=== PATIENT | female | born 1940 | race Caucasian/White ===

== ENCOUNTER 2017-08-23 07:51 | Inpatient (IN) | payer MEDICARE ==
--- NOTE | 2017-08-11 12:52 | HP ---
HISTORY AND PHYSICAL: DATE OF ADMISSION/SURGERY: 08/23/17 SURGEON: Bernie Smith MD * (DICTATED BY REGINA MELGAR) PROCEDURE: Left total knee arthroplasty. CHIEF COMPLAINT: Left knee pain. HISTORY OF PRESENT ILLNESS: Ms. Zuñiga is a 76-year-old female with complaints of left knee pain secondary to end-stage osteoarthritis. She has failed conservative management and elected to proceed with a left total knee arthroplasty, which is scheduled for 08/23/[address] Smith. PAST MEDICAL HISTORY: Hypertension, coronary artery disease, hypothyroidism, chronic kidney disease, anemia, breast cancer, artificial aortic valve and rheumatoid arthritis. PAST SURGICAL HISTORY: Partial thyroidectomy, aortic valve replacement, mastectomy and oophorectomy. CURRENT MEDICATIONS: 1. Plaquenil 200 mg daily. 2. Atenolol 25 mg. 3. Multivitamin. 4. Vitamin D3. 5. Vitamin C. 6. Glucosamine and chondroitin. 7. Amlodipine 5 mg daily. 8. Furosemide 20 mg twice daily. 9. Aspirin 81 mg daily. ALLERGIES: PENICILLIN, SULFAMETHOXAZOLE and AMOXICILLIN. FAMILY HISTORY: Rheumatoid arthritis and . SOCIAL HISTORY: She is a 76-year-old female. Lives with her sons. Does not smoke, use drugs or alcohol. REVIEW OF SYSTEMS: A complete 14-point review of systems was reviewed with the patient, it was positive for COPD, chronic kidney disease, hypothyroidism. She denies history of DVT, PE, anesthesia problems, hepatitis C, or HIV. PHYSICAL EXAMINATION GENERAL: Well developed, well nourished, in no acute distress. VITAL SIGNS: She stands 5 feet tall, weighs 136 pounds. Her blood pressure is 120/86, her heart rate is 60. HEENT: Normocephalic, atraumatic. NECK: Supple. No palpable lymph nodes. PULMONARY: Lungs are clear to auscultation bilaterally. CARDIO: Regular rate and rhythm. Strong S1, S2. ABDOMEN: Soft, nontender, and nondistended. MUSCULOSKELETAL: Left lower extremity, the skin is intact. There are no open wounds or abrasions. She has some tenderness over the medial and lateral joint line. No varus and valgus instability. 20 to 100 degrees of flexion, 50 degrees of valgus deformity. Intact sensation in the lower extremities. Muscle group strengths are intact at 5/5. 2+ dorsalis pedis pulses. NEUROLOGICAL: She is alert and oriented x3. Cranial nerves II through XII are intact. ASSESSMENT AND PLAN: Ms. Zuñiga is a 76-year-old female with complaints of left knee pain secondary to advanced osteoarthritis. She has failed conservative management and elected to proceed with a left total knee arthroplasty, which is scheduled for 08/23/[address] Smith discussed the risks and benefits of the surgery at today's visit and all of her questions were answered. She will follow with Dr. Smith 2 weeks after the surgery. REGINA MELGAR [id number]/CPS #: [id number] AGGIE
[~2017-08-23 07:51] MED LIST: Buffered Lidocaine 0.9% SYRIN* 5 ML/SYR SYRINGE INTRADERM ONE; Clindamycin 900 MG IVPREMIX(* 900 MG/50 ML SDV IV ONE; DiMENhydriNATE IV* 50 MG/ML VIAL IV PUSH PRN; Famotidine IV* 10 MG/ML 2 ML (20 mg) IV ONE; Famotidine IV* 10 MG/ML 2 ML (20 mg) ONE; Morphine INJ* 2 MG/ML 1 ML CARPUJECT IV PRN; Naloxone* 0.4 MG/ML 1 ML VIAL IV PRN; PROCHLORPERAZINE INJ 5 MG/ML 2 ML VIAL IV PRN; fentaNYL* 50 MCG/ML 2 ML VIAL (100 MCG VIAL) IV PRN
--- OUTSIDE RECORDS SUMMARY | 2017-08-23 07:58 | XMS REPORT ---
:1940 External Reference #:[id number] Author Organization [place] [facility] Address [address] [address] Phone [phone] Care Team Providers Name Role Phone Merced Chicas MD Primary Care Physician Unavailable Payers Type Date Identification Numbers Payment Provider Subscriber Medicare Primary Effective: Policy Number: Medicare Maureen Ryanh 2003 [id number] PayID: [id number] [address] [place] [address] [facility] Part B Effective: Policy Number: [facility] Maureen Ryanh 2012 [id number] Healthcare PayID: [id number] [address] [place] [address] Problems Date Description Provider Status Onset: 06/11/2014 Aortic valve disorder Alonso Jacob M.D., Active [facility], [facility] Onset: 07/31/2015 Localized, primary osteoarthritis Tay Menjivar M.D. Active Onset: 12/04/2015 Enthesopathy of knee Tay Menjivar M.D. Active Onset: 02/07/2017 Acquired genu chologum Bernie Smith M.D. Active Family History Date Family Member(s) Problem(s) Comments General Arthritis General Actually her mother had anemia General Rheumatoid Arthritis General Twin brother had rheumatoid arthritis Social History Type Date Description Comments Marital Status Lives With Son Occupation Retired ETOH Use Denies alcohol use Smoking Patient has never smoked Recreational Drug Use Denies Drug Use Daily Caffeine Consumes on average 16oz per day Daily Caffeine Coffee -- Regular Once in a while, diluted w/ water Exercise Type/Frequency Exercises regularly Allergies, Adverse Reactions, Alerts Date Description Reaction Status Severity Comments 05/09/2014 Penicillins Urticaria active 05/09/2014 Sulfamethoxazole Urticaria active 02/07/2017 Amoxicillin active Medications Medication Date Status Form Strength Qnty SIG Indications Ordering Provider Plaquenil 02/17 Active Tablets 200mg 90tab Take 2 by mouth M06.4 s daily ongoing Jigar Ng Atenolol 08/02 Active Tablets 25mg 90tab 10 mg/day Alonso /2011 s Shad Jacob M.D., [facility], [facility] Multivitamins Active Capsules 30cap 1 by mouth Unknown /0000 s every day Vitamin D3 Active Capsules 1000Unit 30cap 1 by mouth Unknown High Potency /0000 s every day Vitamin C Active Chewtabs 500mg 1 by mouth Unknown /0000 every day Glucosamine Active 1 po qd Unknown Chondroitin / Amlodipine Active Tablets 5mg 1 by mouth Unknown Besylate / every day Furosemide Active Tablets 20mg 1 by mouth Unknown /0000 twice daily [facility] B-12 Active Tablets 500mcg Unknown /0000 Aspir-81 Active Tablets 81mg 1 by mouth Unknown /0000 DR every day Clopidogrel Active Tablets 75mg 1 by mouth Unknown Bisulfate /0000 every day Enbrel 04/08 Hx Solution 50mg/ml 4unit inject M06.4 Zsofia cl Auto-Inje s subcutaneously Srinivas, - ct 50mg every P[employer] EXPERT 08/04 weekON Z79.899 Plaquenil 02/17/2017 - Hx Tablets 200mg 30tabs 1 by mouth M11.162 Estevan 02/17/2017 every day Hernandez for 1 week M.DVega then 2 by mouth daily ongoing Diclofenac 01/17/2017 - Hx Solution 1.5% 150units apply to M11.162 Zsofia Sodium 02/02/2017 left knee Srinivas, 2x daily [employer] Plaquenil 11/30/2016 - Hx Tablets 200mg 90tabs 1 by mouth M11.162 Estevan 11/30/2016 every day Jigar Ng Plaquenil 11/30/2016 - Hx Tablets 200mg 30tabs 1 by mouth M11.162 Estevan 12/27/2016 every day Hernandez for 1 week MVegaDVega then 2 by mouth daily ongoing Pravastatin 08/02/2012 - Hx Tablets 80mg 90tabs 1 tablet Alonso Kulkarni Sodium 11/18/2016 once daily Cecil at bedtime SANDY Kimball [facility] Ramipril 08/02/2012 - Hx Capsules 10mg 180caps 1 by mouth Alonso Kulkarni 02/13/2015 twice a day Jigar Jacob, BALJIT DELGADO Lisinopril - Hx Tablets 10mg 1 by mouth Unknown 11/18/2016 every day Ferrous Sulfate - Hx Tablets 325mg 1 by mouth Unknown 01/18/2017 every day Medications Administered in Office Medication Date Status Form Strength Qnty SIG Indications Ordering Provider Triamcinolone 06/08/ Administered Injection Estevan (Kenjacqui) 2016 Jigar Ng Synvisc Or 04/06/ Administered Injection Estevan Synvisc-One 2016 Hernandez Injection 1 MG M.DVega Triamcinolone 02/02/ Administered Injection Estevan (Finnalog) 2016 Jigar Ng Triamcinolone 11/18/ Administered Injection Estevan (Luis A) 2016 Jigar Ng Depomedrol 40MG 07/07/ Administered Injection Tay 2015 Jigar Menjivar Depomedrol 40MG 07/07/ Administered Injection Tay 2015 Jigar Menjivar Depomedrol 40MG 12/03/ Administered Injection Tay 2015 Jigar Menjivar Depomedrol 40MG 07/31/ Administered Injection Tay 2014 Jigar Menjivar Inj, 03/04/ Administered Injection Alonso Kulkarni Regadenoson, 0.1 2014 Cecil, MG Jigar, BALJIT DELGADO Aminophylline 03/04/ Administered Injection Alonso Shad 2014 Jigar Jacob, BALJIT DELGADO Technetium TC 03/04/ Administered Injection Alonso Kulkarni 99M Tetrofosmin, 2015 Cecil, Per Unit Dose Up M.D., [facility] Mill[facility] Vital Signs Date Vital Result Comment 08/05/2017 Height 60 inches 5'0" Weight 136.00 lb Heart Rate 60 /min BP Systolic 120 mmHg BP Diastolic 86 mmHg Body Temperature 97.8 F BMI (Body Mass Index) 26.6 kg/m2 07/25/2017 Height 61 inches 5'1" Weight 137.00 lb Heart Rate 59 /min BP Systolic Sitting 123 mmHg BP Diastolic Sitting 55 mmHg Respiratory Rate 14 /min Pain Level 5 BMI (Body Mass Index) 25.9 kg/m2 07/15/2017 Height 61 inches 5'1" Weight 140.00 lb BP Systolic 124 mmHg BP Diastolic 70 mmHg Respiratory Rate 18 /min Pain Level 6 BMI (Body Mass Index) 26.4 kg/m2 06/08/2017 Height 61 inches 5'1" Weight 137.00 lb pt. states Heart Rate 52 /min BP Systolic Sitting 121 mmHg BP Diastolic Sitting 58 mmHg Respiratory Rate 14 /min Pain Level 4 BMI (Body Mass Index) 25.9 kg/m2 03/10/2017 Height 61 inches 5'1" Heart Rate 80 /min BP Systolic Sitting 162 mmHg BP Diastolic Sitting 80 mmHg Respiratory Rate 14 /min Pain Level 6 02/07/2017 Height 61 inches 5'1" Weight 140.00 lb Heart Rate 60 /min BP Systolic 135 mmHg BP Diastolic 70 mmHg Respiratory Rate 15 /min Body Temperature 98.0 F Pain Level 7 BMI (Body Mass Index) 26.4 kg/m2 02/02/2017 Height 61 inches 5'1" Weight 143.00 lb Heart Rate 64 /min BP Systolic Sitting 129 mmHg BP Diastolic Sitting 75 mmHg Body Temperature 99.1 F Pain Level 7 BMI (Body Mass Index) 27.0 kg/m2 01/17/2017 Height 61 inches 5'1" Weight 141.12 lb Heart Rate 64 /min BP Systolic 150 mmHg BP Diastolic 76 mmHg Pain Level 5 O2 % BldC Oximetry 97 % BMI (Body Mass Index) 26.7 kg/m2 11/30/2016 Height 61 inches 5'1" Weight 137.00 lb Heart Rate 60 /min BP Systolic Sitting 147 mmHg BP Diastolic Sitting 72 mmHg Respiratory Rate 14 /min Body Temperature 99.0 F BMI (Body Mass Index) 25.9 kg/m2 11/18/2016 Height 61 inches 5'1" Weight 140.25 lb Heart Rate 60 /min BP Systolic Sitting 146 mmHg BP Diastolic Sitting 74 mmHg Respiratory Rate 14 /min Body Temperature 97.9 F BMI (Body Mass Index) 26.5 kg/m2 07/07/2016 Height 61 inches 5'1" Respiratory Rate 16 /min Pain Level 5 02/17/2016 Height 61 inches 5'1" Weight 157.00 lb Heart Rate 64 /min BP Systolic Sitting 146 mmHg LA reg cuff BP Diastolic Sitting 84 mmHg LA reg cuff BP Systolic Standing 154 mmHg LA reg cuff BP Diastolic Standing 88 mmHg LA reg cuff Respiratory Rate 16 /min BMI (Body Mass Index) 29.7 kg/m2 Ejection Fraction 55-60% 02/13/16 12/04/2015 Height 61 inches 5'1" Weight 162.00 lb Heart Rate 59 /min BP Systolic 180 mmHg BP Diastolic 80 mmHg BMI (Body Mass Index) 30.6 kg/m2 07/31/2015 Height 61 inches 5'1" Weight 162.00 lb Heart Rate 80 /min BMI (Body Mass Index) 30.6 kg/m2 03/12/2015 Height 60.5 inches 5'0.50" Weight 162.00 lb w/o shoes Heart Rate 58 /min reg BP Systolic Sitting 130 mmHg Lue, reg cuff BP Diastolic Sitting 84 mmHg Lue, reg cuff BP Systolic Standing 136 mmHg Lue BP Diastolic Standing 90 mmHg Lue Respiratory Rate 18 /min BMI (Body Mass Index) 31.1 kg/m2 Ejection Fraction 60-65% as of 03/06/15 echo 06/11/2014 Height 60.5 inches 5'0.50" Weight 165.00 lb with shoes Heart Rate 72 /min BP Systolic Sitting 148 mmHg LA, reg cuff BP Diastolic Sitting 94 mmHg LA, reg cuff BP Systolic Standing 132 mmHg LA BP Diastolic Standing 92 mmHg LA Respiratory Rate 16 /min BMI (Body Mass Index) 31.7 kg/m2 Results Test Date Test Result H/L Range Note Quantiferon Gold TB 04/20/2017 M tuberculosis by Negative Negative 1 Quantiferon TB Ag minus Nil Result 0 IU/mL TB Mitogen minus Nil Result > 10.00 IU/mL TB Nil Result 0.02 IU/mL 2 Body Fluid C&S 04/06/2017 Body Fluid Cult Gram SEE RESULT BELOW 3 , 4 Stain Body Fluid Cell Count 04/06/2017 Body Fluid Source Synovial Fluid 3 Body Fluid Appearance Cloudy 3 Body Fluid Color Yellow 3 Body Fluid Volume 4 mL 3 Body Fluid WBC 61234 /mcL 3, 5 Body Fluid RBC 1099 /mcL 3 Body Fluid Comment (SEE NOTE) 3, 6 Body Fluid Neutrophils 97 % 3 Body Fluid Valencia 3 % 3 Body Fluid Total Cells Counted 100 3 Fluid Reviewed By MD (SEE NOTE) 3, 7 Laboratory test finding 04/06/2017 Gram Stain Smear SEE RESULT BELOW 3 , 8 MRSA/S. aureus Ssti PCR SEE RESULT BELOW 3, 9 Body Fluid C&S 02/02/2017 Body Fluid Cult Gram SEE RESULT BELOW 10, 11 Stain Body Fluid Cell Count 02/02/2017 Body Fluid Source Synovial Fluid 10 Body Fluid Appearance Cloudy 10 Body Fluid Color Yellow 10 Body Fluid Volume 15 mL 10 Body Fluid WBC 65613 /mcL 10, 12 Body Fluid RBC 8659 /mcL 10 Body Fluid Neutrophils 87 % 10 Body Fluid Band 3 % 10 Body Fluid Lymph 3 % 10 Body Fluid Valencia 7 % 10 Body Fluid Total Cells Counted 100 10 Fluid Reviewed By MD (SEE NOTE) 10, 13 Laboratory test finding 02/02/2017 Body Fluid Crystals None Seen 10, 14 CBC Auto Diff 01/24/2017 White Blood Count 6.9 10^3/uL 3.5-10.8 Red Blood Count 3.34 10^6/uL Low 4.0-5.4 Hemoglobin 8.9 g/dL Low 12.0-16.0 Hematocrit 29 % Low 35-47 Mean Corpuscular Volume 85 fL 80-97 Mean Corpuscular Hemoglobin 27 pg 27-31 Mean Corpuscular HGB Conc 31 g/dL 31-36 Red Cell Distribution Width 18 % High 10.5-15 Platelet Count 350 10^3/uL 150-450 Mean Platelet Volume 8 um3 7.4-10.4 Abs Neutrophils 4.9 10^3/uL 1.5-7.7 Abs Lymphocytes 1.2 10^3/uL 1.0-4.8 Abs Monocytes 0.6 10^3/uL 0-0.8 Abs Eosinophils 0.2 10^3/uL 0-0.6 Abs Basophils 0 10^3/uL 0-0.2 Abs Nucleated RBC 0.01 10^3/uL Granulocyte % 70.5 % 38-83 Lymphocyte % 17.6 % Low 25-47 Monocyte % 8.7 % 1-9 Eosinophil % 2.6 % 0-6 Basophil % 0.6 % 0-2 Nucleated Red Blood Cells % 0.1 Inr/Protime 01/24/2017 Inr 1.00 0.89-1.11 Laboratory test finding 01/24/2017 Activated Partial 32.9 seconds 26.0- 36.3 Thrombo Time Basic Metabolic Panel 01/24/2017 Sodium 138 mmol/L 133-145 Potassium 4.1 mmol/L 3.5-5.0 Chloride 107 mmol/L 101-111 Co2 Carbon Dioxide 22 mmol/L 22-32 Anion Gap 9 mmol/L 2-11 Glucose 83 mg/dL 70-100 Blood Urea Nitrogen 37 mg/dL High 6-24 Creatinine 1.94 mg/dL 0.51-0.95 BUN/Creatinine Ratio 19.1 8-20 Calcium 9.1 mg/dL 8.6-10.3 Egfr Non- 25.0 >60 Egfr 32.1 >60 15 Cath Panel 01/19/2017 Activated Partial Thrombo 34.2 seconds 26.0-36.3 Time Basic Metabolic Panel 01/19/2017 Sodium 137 mmol/L 133-145 Potassium 4.2 mmol/L 3.5-5.0 Chloride 104 mmol/L 101-111 Co2 Carbon Dioxide 25 mmol/L 22-32 Anion Gap 8 mmol/L 2-11 Glucose 94 mg/dL 70-100 Blood Urea Nitrogen 31 mg/dL High 6-24 Creatinine 2.01 mg/dL High 0.51-0.95 BUN/Creatinine Ratio 15.4 8-20 Calcium 9.6 mg/dL 8.6-10.3 Egfr Non- 24.0 >60 Egfr 30.8 >60 16 Inr/Protime 01/19/2017 Inr 1.02 0.89-1.11 CBC Auto Diff 01/19/2017 White Blood Count 7.0 10^3/uL 3.5-10.8 Red Blood Count 3.30 10^6/uL Low 4.0-5.4 Hemoglobin 8.8 g/dL Low 12.0-16.0 Hematocrit 28 % Low 35-47 Mean Corpuscular Volume 84 fL 80-97 Mean Corpuscular Hemoglobin 27 pg 27-31 Mean Corpuscular HGB Conc 32 g/dL 31-36 Red Cell Distribution Width 18 % High 10.5-15 Platelet Count 386 10^3/uL 150-450 Mean Platelet Volume 7 um3 Low 7.4-10.4 Abs Neutrophils 5.2 10^3/uL 1.5-7.7 Abs Lymphocytes 1.0 10^3/uL 1.0-4.8 Abs Monocytes 0.5 10^3/uL 0-0.8 Abs Eosinophils 0.2 10^3/uL 0-0.6 Abs Basophils 0 10^3/uL 0-0.2 Abs Nucleated RBC 0.01 10^3/uL Granulocyte % 74.7 % 38-83 Lymphocyte % 15.0 % Low 25-47 Monocyte % 7.0 % 1-9 Eosinophil % 2.8 % 0-6 Basophil % 0.5 % 0-2 Nucleated Red Blood Cells % 0.1 Laboratory test finding 01/18/2017 C Reactive Protein 42.84 mg/L High &lt ; 5.00 17 Basic Metabolic Panel 12/24/2016 Sodium 138 mmol/L 133-145 Potassium 4.3 mmol/L 3.5-5.0 Chloride 104 mmol/L 101-111 Co2 Carbon Dioxide 23 mmol/L 22-32 Anion Gap 11 mmol/L 2-11 Glucose 93 mg/dL 70-100 Blood Urea Nitrogen 40 mg/dL High 6-24 Creatinine 2.12 mg/dL High 0.51-0.95 BUN/Creatinine Ratio 18.9 8-20 Calcium 9.1 mg/dL 8.6-10.3 Egfr Non- 22.5 >60 Egfr 29.0 >60 18 CBC Auto Diff 12/24/2016 White Blood Count 8.0 10^3/uL 3.5-10.8 Red Blood Count 3.45 10^6/uL Low 4.0-5.4 Hemoglobin 9.3 g/dL Low 12.0-16.0 Hematocrit 29 % Low 35-47 Mean Corpuscular Volume 85 fL 80-97 Mean Corpuscular Hemoglobin 27 pg 27-31 Mean Corpuscular HGB Conc 31 g/dL 31-36 Red Cell Distribution Width 19 % High 10.5-15 Platelet Count 423 10^3/uL 150-450 Mean Platelet Volume 8 um3 7.4-10.4 Abs Neutrophils 5.8 10^3/uL 1.5-7.7 Abs Lymphocytes 1.1 10^3/uL 1.0-4.8 Abs Monocytes 0.7 10^3/uL 0-0.8 Abs Eosinophils 0.2 10^3/uL 0-0.6 Abs Basophils 0.1 10^3/uL 0-0.2 Abs Nucleated RBC 0 10^3/uL Granulocyte % 73.2 % 38-83 Lymphocyte % 14.3 % Low 25-47 Monocyte % 9.0 % 1-9 Eosinophil % 2.8 % 0-6 Basophil % 0.7 % 0-2 Nucleated Red Blood Cells % 0 Laboratory test finding 11/29/2016 Vitamin D, 1,25 Dihydroxy 30 pg/mL 18- 78 19 Connective Tissue Panel 11/29/2016 Anti-Nuclear Antibody 1.6 U High 20 Cyclic Citrullinated Peptide <15.6 U 21 Interpretation See Comment 22 Hla B27 11/29/2016 Hla B27 Positive 23 Hla B27 Interp See Comment 24 Protein Electrophoresis 11/29/2016 Total Protein(Pep) 7.0 g/dL 6.3 - 7.9 Albumin 3.0 g/dL 3.4-4.7 Alpha-1 Globulin 0.4 g/dL 0.1-0.3 Alpha-2 Globulin 1.4 g/dL 0.6-1.0 Beta Globulin 0.9 g/dL 0.7-1.2 Gamma Globulin 1.3 g/dL 0.6-1.6 Albumin/Globulin Ratio 0.76 Impression See Comment 25 Laboratory test finding 11/29/2016 Uric Acid 6.7 mg/dL High 2.3-6.6 26 C Reactive Protein 36.88 mg/L High < 5.00 27 Folic Acid (Folate) > 20.00 ng/mL >3.99 28 Vitamin B12 916 pg/mL High 180-914 29 Vitamin D Total 25(Oh) 65.1 ng/mL High 30-50 30 Erythrocyte Sed Rate 111 mm/Hr High 0-40 31 Rheumatoid Factor 84 IU/mL <15 32 Laboratory test finding 11/18/2016 Body Fluid Crystals CPPD(Ca Pyrophos 33, 34 <SEE NOTE> Body Fluid Cell Count 11/18/2016 Body Fluid Source Synovial Fluid 33 Body Fluid Comment (SEE NOTE) 33, 35 Body Fluid Appearance Cloudy 33 Body Fluid Color Yellow 33 Body Fluid Volume 10 mL 33 Body Fluid WBC 18142 /mcL 33, 36 Body Fluid RBC 1247 /mcL 33 Body Fluid Neutrophils 93 % 33 Body Fluid Lymph 4 % 33 Body Fluid Valencia 3 % 33 Body Fluid Total Cells Counted 100 33 Fluid Reviewed By MD (SEE NOTE) 33, 37 Body Fluid C&S 11/18/2016 Body Fluid Cult Gram SEE RESULT BELOW 33, 38 Stain FLP/Alt Panel 07/29/2015 Alt (SGPT) 10 U/L 7-52 Lipid Profile 07/29/2015 Triglycerides 95 mg/dL 39 (Trig/Chol/HDL) Cholesterol 172 mg/dL 40 HDL Cholesterol 54.6 mg/dL 41 LDL Cholesterol 98 mg/dL 42 Basic Metabolic Panel 04/02/2014 Sodium 140 mmol/L 133-145 43 Potassium 4.4 mmol/L 3.7-5.6 43 Chloride 108 mmol/L 101-111 43 Co2 Carbon Dioxide 26 mmol/L 22-32 43 Anion Gap 6 mmol/L 2-11 43 Glucose 85 mg/dL 70-100 43 Blood Urea Nitrogen 30 mg/dL High 6-24 43 Creatinine 1.46 mg/dL High 0.51-0.95 43 BUN/Creatinine Ratio 20.5 High 8-20 43 Calcium 9.2 mg/dL 8.6-10.3 43 Egfr Non- 34.9 >60 43 Egfr 44.9 >60 43, 44 FLP/Alt Panel 04/02/2014 Alt 11 U/L 7-52 43, 45 Lipid Profile (Trig/Chol/HDL) 04/02/2014 Triglycerides 90 mg/dL 43, 46 Cholesterol 182 mg/dL 43, 47 HDL Cholesterol 57.3 mg/dL 43, 48 LDL Cholesterol 107 mg/dL 43, 49 1 No interferon-gamma response to M. tuberculosis antigens was detected. Infection with M. tuberculosis is unlikely. A negative result alone does not exclude infection with M. tuberculosis. For detailed information regarding test interpretation see: [email or web address] 2 Test Performed by: [address] [address] 3 [id number] SEE RESULT BELOW Name: MAUREEN HARO : [address]: Estevan Ng MD Acct: [id number] Unit: [id number] AGE: 76 Location: [facility] Re04/06/17 SEX: F Status: REG REF SPEC: [id number] SUNITA: 04/06/17-[address]: Estevan Ng MD REQ: [id number] RECD: 04/06/17 STATUS: COMP _ SOURCE: [facility]: ORDERED: BF Dana/GS COMMENTS: Corrected result read back to Liz Carbajal at 1400 on 04/07/17 Zach LEYVA Results read back accurately. [id number] Procedure Result Reported Site Body Fluid Gram Stain Final 04/07/17- 0838 ML 4+ Neutrophils No Organisms Seen Preparation By Cytospin Smear Corrected result! Wrong result was 1+ GRAM POSITIVE COCCI Body Fluid Culture Final 04/10/17- 0831 ML No Growth Day 4 * ML - MAIN LAB ([facility]) . END OF REPORT * ML=Testing performed at Main Lab DEPARTMENT OF PATHOLOGY, [address] [place] [address] Miguel Ángel Myrick M.D. Director [facility] # [id number] 5 -- REFERENCE VALUE -- Synovial: <150/mcL Peritoneal: <500/mcL Pleural: <500/mcL Pericardial: <500/mcL 6 Differential performed on concentrated smear. 7 Marked acute inflammation. Recommend correlation with microbiology culture studies. Reviewed by Jaylene Michaels MD 8 SEE RESULT BELOW Name: MAUREEN HARO : [address]: Estevan Ng MD Acct: [id number] Unit: [id number] AGE: 76 Location: [facility] Re04/06/17 SEX: F Status: REG REF SPEC: [id number] SUNITA: 04/06/17-[address] [facility] [address]: Estevan Ng MD REQ: [id number] RECD: 04/06/17 STATUS: RES _ SOURCE: BODY FLUID SPDESC: ORDERED: Gram Stain COMMENTS: [id number] Procedure Result Reported Site Gram Stain Preliminary 04/06/172137 ML 4+ Neutrophils 1+ Gram Positive Cocci * ML - MAIN LAB ([facility]) . END OF REPORT * ML=Testing performed at Main Lab DEPARTMENT OF PATHOLOGY, [address] [place] [address] Miguel Ángel Myrick M.D. Director [facility] # [id number] 9 SEE RESULT BELOW Name: MAUREEN HARO : [address]: Estevan Ng MD Acct: [id number] Unit: [id number] AGE: 76 Location: [facility] Re04/06/17 SEX: F Status: REG REF SPEC: [id number] SUNITA: 04/06/17-14[address] [facility] [address]: Estevan Ng MD REQ: [id number] RECD: 04/06/17 STATUS: COMP _ SOURCE: BODY FLUID SPDESC: ORDERED: MRSA/SA SSTI COMMENTS: [id number] Procedure Result Reported Site MRSA/S. aureus SSTI PCR Final 04/06/17- 2253 ML Organism 1 MRSA NEGATIVE Organism 2 S.AUREUS NEGATIVE * ML - MAIN LAB ([facility]) . END OF REPORT * ML=Testing performed at Main Lab DEPARTMENT OF PATHOLOGY, [address] [place] [address] Miguel Ángel Myrick M.D. Director [facility] # [id number] 10 [id number] 11 SEE RESULT BELOW Name: MAUREEN HARO : [address]: Lucas Espino NP Acct: [id number] Unit: [id number] AGE: 76 Location: [facility] Re02/02/17 SEX: F Status: REG REF SPEC: [id number] SUNITA: 02/02/17-[address] [facility] [address]: Lucas Espino NP REQ: [id number] RECD: 02/02/17 STATUS: COMP _ SOURCE: JOINT FLUI SPDESC: ORDERED: BF Cult/GS, MRSA/SA SSTI COMMENTS: [id number] Procedure Result Reported Site Body Fluid Gram Stain Final 02/03/17- 0850 ML 4+ Neutrophils 2+ Nucleated Cells No Organisms Seen Preparation By Cytospin Smear Body Fluid Culture Final 02/06/17- 0816 ML No Growth Day 4 MRSA/S. aureus SSTI PCR Final 02/03/17- 1012 ML Organism 1 MRSA NEGATIVE Organism 2 S.AUREUS NEGATIVE * ML - MAIN LAB ([facility]) . END OF REPORT * ML=Testing performed at Main Lab DEPARTMENT OF PATHOLOGY, [address] [place] [address] Miguel Ángel Myrick M.D. Director [facility] # [id number] 12 -- REFERENCE VALUE -- Synovial: <150/mcL Peritoneal: <500/mcL Pleural: <500/mcL Pericardial: <500/mcL 13 Acute inflammation present. Recommend correlation with microbiology culture studies. Reviewed by Dr. Myrick 14 [id number] What is the body fluid source?: Synovial (Joint) Fluid 15 Because ethnic data is not always readily available, this report includes an eGFR for both -Americans and non- Americans. The National Kidney Disease Education Program (NKDEP) does not endorse the use of the MDRD equation for patients that are not between the ages of 18 and 70, are , have extremes of body size, muscle mass, or nutritional status, or are non- or non-. According to the National Kidney Foundation, irrespective of diagnosis, the stage of the disease is based on the level of kidney function: Stage Description GFR(mL/min/1.73 m(2)) 1 Kidney damage with normal or decreased GFR 90 2 Kidney damage with mild decrease in GFR 60-89 3 Moderate decrease in GFR 30-59 4 Severe decrease in GFR 15-29 5 Kidney failure <15 (or dialysis) 16 Because ethnic data is not always readily available, this report includes an eGFR for both -Americans and non- Americans. The National Kidney Disease Education Program (NKDEP) does not endorse the use of the MDRD equation for patients that are not between the ages of 18 and 70, are , have extremes of body size, muscle mass, or nutritional status, or are non- or non-. According to the National Kidney Foundation, irrespective of diagnosis, the stage of the disease is based on the level of kidney function: Stage Description GFR(mL/min/1.73 m(2)) 1 Kidney damage with normal or decreased GFR 90 2 Kidney damage with mild decrease in GFR 60-89 3 Moderate decrease in GFR 30-59 4 Severe decrease in GFR 15-29 5 Kidney failure <15 (or dialysis) 17 Acute inflammation: >10.00 18 Because ethnic data is not always readily available, this report includes an eGFR for both -Americans and non- Americans. The National Kidney Disease Education Program (NKDEP) does not endorse the use of the MDRD equation for patients that are not between the ages of 18 and 70, are , have extremes of body size, muscle mass, or nutritional status, or are non- or non-. According to the National Kidney Foundation, irrespective of diagnosis, the stage of the disease is based on the level of kidney function: Stage Description GFR(mL/min/1.73 m(2)) 1 Kidney damage with normal or decreased GFR 90 2 Kidney damage with mild decrease in GFR 60-89 3 Moderate decrease in GFR 30-59 4 Severe decrease in GFR 15-29 5 Kidney failure <15 (or dialysis) 19 ADDITIONAL INFORMATION This test was developed and its performance characteristics determined by [facility] in a manner consistent with CLIA requirements. This test has not been cleared or approved by the U.S. Food and Drug Administration. Test Performed by: [facility] [address] [place] [address] 20 Interpretation: Weak Positive (1.1-2.9) REFERENCE VALUE <=1.0 (Negative) 21 REFERENCE VALUE <20.0 (Negative) 22 Tests for antibodies to dsDNA and DENYS antigens are not performed automatically unless the SERA result is > or= 3.0 U. Studies performed at [facility] indicate that positive SERA results <3.0 U are rarely accompanied by positive second order tests. Test Performed by: [facility] [address] [place] [address] 23 REFERENCE VALUE Not Applicable 24 HLA-B27 antigen was detected. Approximately 8% of the normal population carries the HLA-B27 antigen. HLA-B27 is present in approximately 89% of patients with ankylosing spondylitis, 79% of patients with Rhea's syndrome and 42% of patients with juvenile rheumatoid arthritis. However, lacking other data, it is not diagnostic for these disorders. This test does not differentiate B27 alleles. i.e. B*27:05, B*27:06, etc. ADDITIONAL INFORMATION Method: Flow Cytometry Performing Laboratory CLIA# [id number] Test Performed by: [place] [address] 25 RESULT: No apparent monoclonal protein on serum electrophoresis. Test Performed by: [place] [address] 26 Please check this week Acute inflammation: >10.00 28 Please check this week 29 Normal Range 180 to 914 Indeterminate Range 145 to 180 Deficient Range <145 30 Please check this week 31 Please check this week 32 Test Performed by: [place] [address] 33 [id number] 34 CPPD(Ca Pyrophosate) Reviewed by Jaylene Michaels MD 35 Differential performed on concentrated smear. 36 -- REFERENCE VALUE -- Synovial: <150/mcL Peritoneal: <500/mcL Pleural: <500/mcL Pericardial: <500/mcL 37 Acute inflammation. Recommend correlation with microbiology culture studies. Reviewed by Jaylene Michaels MD 38 SEE RESULT BELOW Name: MAUREEN HARO : [address]: Estevan Ng MD Acct: [id number] Unit: [id number] AGE: 76 Location: [facility] Re11/18/16 SEX: F Status: REG REF SPEC: [id number] SUNITA: 11/18/16-[address] [facility] [address]: Estevan Ng MD REQ: [id number] RECD: 11/18/16 STATUS: COMP _ SOURCE: JOINT FLUI SPDESC: ORDERED: BF Cult/GS, MRSA/SA SSTI COMMENTS: [id number] Procedure Result Reported Site Body Fluid Gram Stain Final 11/19/16- 0744 ML 4+ Neutrophils No Organisms Seen Preparation By Cytospin Smear Body Fluid Culture Final 11/22/16- 1147 ML No Growth Day 4 MRSA/S. aureus SSTI PCR Final 11/18/16- 2214 ML Organism 1 MRSA NEGATIVE Organism 2 S.AUREUS NEGATIVE * ML - MAIN LAB ([facility]) . END OF REPORT * ML=Testing performed at Main Lab DEPARTMENT OF PATHOLOGY, [address] [place] [address] Miguel Ángel Myrick M.D. Director [facility] # [id number] 39 Desirable <150 Borderline high 150-199 High 200-499 Very High >500 40 Desirable <200 Borderline high 200-239 High >239 41 Low <40 Desirable: 40-60 High: >60 42 Desirable: <100 mg/dL Near Optimal: 100-129 mg/dL Borderline High: 130-159 mg/dL High: 160-189 mg/dL Very High: >189 mg/dL 43 FASTING 44 Because ethnic data is not always readily available, this report includes an eGFR for both -Americans and non- Americans. The National Kidney Disease Education Program (NKDEP) does not endorse the use of the MDRD equation for patients that are not between the ages of 18 and 70, are , have extremes of body size, muscle mass, or nutritional status, or are non- or non-. According to the National Kidney Foundation, irrespective of diagnosis, the stage of the disease is based on the level of kidney function: Stage Description GFR(mL/min/1.73 m(2)) 1 Kidney damage with normal or decreased GFR 90 2 Kidney damage with mild decrease in GFR 60-89 3 Moderate decrease in GFR 30-59 4 Severe decrease in GFR 15-29 5 Kidney failure <15 (or dialysis) 45 FASTING 46 Desirable <150 Borderline high 150-199 High 200-499 Very High >500 47 Desirable <200 Borderline high 200-239 High >239 48 Low <40 Desirable: 40-60 High: >60 49 Desirable <100 Near Optimal 100-129 Borderline high 130-159 High 160-189 Very High >189 Procedures Date CPT Code Description Status 06/08/2017 Inject/Drain Joint/Bursa Major Completed 04/06/2017 Inject/Drain Joint/Bursa Major Completed 02/02/2017 Inject/Drain Joint/Bursa Major Completed 01/20/2017 82868 Cath PLMT&NJX L Ventriculog Img S&I Completed 11/18/2016 Inject/Drain Joint/Bursa Major Completed 07/07/2016 Inject/Drain Joint/Bursa Major Completed 07/07/2016 14969 Inject/Drain Joint/Bursa Major Completed 02/17/2016 54610 EKG Tracing & Interpretation Completed 02/13/2016 56671 ECHO Transthoracic, Real-Time 2D With Doppler And Color Completed Flow 12/04/201518676 Inject/Drain Joint/Bursa Major Completed 07/31/2015 Inject/Drain Joint/Bursa Major Completed 03/06/2015 94510 ECHO Transthoracic, Real-Time 2D With Doppler And Color Completed Flow 03/04/2015 21102 Stress Test Completed 03/04/2015 99545 Myocardial Perfusion Imaging Tomographic (Spect) Completed Multiple Studies 06/11/2014 67398 EKG Tracing & Interpretation Completed 04/10/2014 26373 ECHO Transthoracic, Real-Time 2D With Doppler And Color Completed Flow 02/26/2013 62456 EKG Tracing & Interpretation Completed 02/16/2013 81114 ECHO Transthoracic, Real-Time 2D With Doppler And Color Completed Flow Encounters Type Date Location Provider CPT E/M Dx Office Visit 07/25/2017 [facility] IDALIA Randolph 625[address] M06.4 [facility]12 Z79.899 Office Visit 07/15/2017 2:30p [facility] Of Bernie Smith M.D. 29198 M17.12 C.M.A. M25.462 M25.562 M06.4 R79.82 M05.79 M21.062 Office Visit 06/08/2017 1:00p Rheumatology Services Estevan Ng 12910 M17.12 Of [facility] Jigar M05.79 Z79.899 R79.82 M17.9 Office Visit 04/27/2017 1:00p Rheumatology Services Nurse Visit 65350 M06.4 Of [facility] Office Visit 04/06/2017 2:20p Rheumatology Services Estevan Ng 26267 M25.462 Of Saw Kimball M17.12 M06.4 Z79.899 Office Visit 03/10/2017 1:40p Rheumatology Services Of Estevan Ng 62169 M06.4 Saw Kimball M17.12 M25.462 R79.82 Z79.899 Office Visit 02/07/2017 9:30a [facility] Of Bernie Smith M.D. 19849 M25.562 C.M.A. M25.462 M17.12 M21.062 Office Visit 02/02/2017 4:00p Rheumatology Services Of Estevan Ng, 63235 M17.9 Saw M.DVega M06.4 M25.562 M25.462 Office Visit 01/17/2017 2:00p Rheumatology Services Of Lucas Espino, [facility] [address]997 M06.4 Saw-Gegedelia M11.162 R76.8 R79.82 R70.0 N18.4 Z79.899 I97.2 Office Visit 11/30/2016 1:40p Rheumatology Services Estevan Ng, 71054 M11.162 Of Saw Kimball M17.12 M06.4 M85.89 Z79.899 Office Visit 11/18/2016 11:00a Rheumatology Services Estevan Ng, 90080 M17.12 Of Saw Kimball M06.4 R20.8 M85.89 M54.6 M25.562 Office Visit 07/07/2016 3:45p Orthopedic Services Of Tay Menjivar, 64422 M17.12 C.M.AVega MMaria G M19.012 Office Visit 02/17/2016 2:45p [facility] Of Alonso Jacob, 86747 I35.0 Saw Kimball, SANDY, [facility] Office Visit 12/04/2015 1:45p [facility] Of Tay Menjivar, 57772 M17.12 C.M.A. MMaria G M70.52 Office Visit 07/31/2015 10:30a [facility] Of Tay Menjivar, 78800 M17.12 C.M.A. MMaria G Office Visit 03/12/2015 10:45a [facility] Of Alonsotoni Jacob, 54975 424.1 Saw Kimball, SANDY, [facility] Office Visit 06/11/2014 1:30p [facility] Of Alonso Shad Jacob, 14194 424.1 Saw Kimball, S[place]Y, [facility] Office Visit 02/26/2013 11:45a [facility] Of Alonso Shad Jacob, 54684 424.1 Saw Kimball, FAC, [facility] Plan of Care Future Appointment(s):09/26/2017 1:30 pm - IDALIA Randolph at [facility]umatology Services Of [facility]08/23/2017 9:30 am - Bernie Smith M.D. at [facility] Of [facility]09/02/2017 2:00 pm - Bernie Smith M.D. at [facility] Of [facility]
--- OUTSIDE RECORDS SUMMARY | 2017-08-23 07:59 | XMS REPORT ---
:1940 External Reference #:[id number] Author Organization [employer] Address [address] [address] Phone [phone] Care Team Providers Name Role Phone Merced Chicas MD Primary Care Physician Unavailable Payers Type Date Identification Numbers Payment Provider Subscriber Medicare Primary Effective: Policy Number: Medicare Maureen Ryanh 2003 [id number] PayID: [id number] [address] [place] [address] [facility] Part B Effective: Policy Number: [facility] Maureen Ryanh 2012 [id number] Healthcare PayID: [id number] [address] [place] [address] Problems Date Description Provider Status Onset: 06/11/2014 Aortic valve disorder Alonso Jacob M.D., Active [facility], [facility] Onset: 07/31/2015 Localized, primary osteoarthritis Tay [...] Form Strength Qnty SIG Indications Ordering Provider Enbrel 04/08/ Active Solution 50mg/ml 4unit inject M06.4 Zsofia Sureclick 2017 Auto-Injec s subcutaneously Srinivas, t 50mg every THERAPY TEACHER weekON Hold Z79.899 Plaquenil 02/17/2017 Active Tablets 200mg 90tabs Take 2 by M06.4 Estevan mouth Hernandez, daily M.D. ongoing Atenolol 08/02/2012 Active Tablets 25mg 90tabs 10 mg/day Alonso Jacob M.D., [facility], [facility] Multivitamins Active Capsules 30caps 1 by Unknown mouth every day Vitamin D3 High Active Capsules 1000Uni 30caps 1 by Unknown Potency t mouth every day Vitamin C Active Chewtabs 500mg 1 by Unknown mouth every day Glucosamine Active 1 po qd Unknown Chondroitin Amlodipine Active Tablets 5mg 1 by Unknown Besylate mouth every day Furosemide Active Tablets 20mg 1 by Unknown mouth twice daily [facility] B-12 Active Tablets 500mcg Unknown Aspir-[address] 81mg 1 by Unknown mouth every day Clopidogrel Active Tablets 75mg 1 by Unknown Bisulfate mouth every day Plaquenil 02/17/2017 - Hx Tablets 200mg 30tabs 1 by M11.162 Estevan 02/17/2017 mouth Hernandez, every day M.D. for 1 week then 2 by mouth daily ongoing Diclofenac 01/17/2017 - Hx Solution 1.5% 150units apply to M11.162 Zsofia Sodium 02/02/2017 left knee Srinivas, 2x daily THERAPY TEACHER Plaquenil 11/30/2016 - Hx Tablets 200mg 90tabs 1 by M11.162 Estevan 11/30/2016 mouth Hernandez, every day M.D. Plaquenil 11/30/2016 - Hx Tablets 200mg 30tabs 1 by M11.162 Estevan 12/27/2016 mouth Hernandez, every day M.DVega for 1 week then 2 by mouth daily ongoing Pravastatin 08/02/2012 - Hx Tablets 80mg 90tabs 1 tablet Alonso Sodium 11/18/2016 once Kulkarni daily at [facility], bedtime [facility] Kimball [facility] Ramipril 08/02/2012 - Hx Capsules 10mg 180caps 1 by Alonso 02/13/2015 mouth Kulkarni twice a Jacob, day SANDY Kimball [facility] Lisinopril - Hx Tablets 10mg 1 by Unknown 11/18/2016 mouth every day Ferrous Sulfate - Hx Tablets 325mg 1 by Unknown 01/18/2017 mouth every day Medications Administered in Office Medication Date Status Form Strength Qnty SIG Indications Ordering Provider Triamcinolone 06/08/ Administered Injection Estevan (Luis A) 2016 Jigar Ng Synvisc Or 04/06/ Administered Injection Estevan Synvisc-One 2016 Andreina Ng 1 MG M.DVega Triamcinolone 02/02/ Administered Injection Estevan (Luis A) 2016 Jigar Ng Triamcinolone 11/18/ Administered Injection Estevan White) 2016 Jigar Ng Depomedrol 40MG 07/07/ Administered Injection Tay 2015 Jigar Menjivar Depomedrol 40MG 07/07/ Administered Injection Tay 2015 Jigar Menjivar Depomedrol 40MG 12/03/ Administered Injection Tay 2015 Jigar Menjivar Depomedrol 40MG 07/31/ Administered Injection Tay 2014 Jigar Menjivar Inj, 03/04/ Administered Injection Alonso Kulkarni Regadenoson, 0.1 2014 Cecil MG Jigar, [facility] [facility] Aminophylline 03/04/ Administered Injection Alonso Shad 2014 Jigar Jacob, [facility] Technetium TC 03/04/ Administered Injection Alonso Kulkarni 99M Tetrofosmin, 2014 Cecil, Per Unit Dose Up M.D., To 40 [facility], Millicuries [facility] Vital Signs Date Vital Result Comment 07/25/2017 Height 61 inches 5'1" Weight 137.00 [...] Volume 4 mL 3 Body Fluid WBC 55400 /mcL 3, 5 Body Fluid RBC 1099 /mcL 3 Body Fluid Comment (SEE NOTE) 3, 6 Body Fluid Neutrophils 97 % 3 Body Fluid Craighead 3 % 3 Body Fluid Total Cells Counted 100 3 Fluid Reviewed By MD (SEE NOTE) 3, 7 Laboratory test finding 04/06/2017 Gram Stain Smear SEE RESULT BELOW 3 , 8 MRSA/S. aureus Ssti PCR SEE RESULT BELOW 3, 9 Laboratory test finding 02/02/2017 Body Fluid Crystals None Seen 10, 11 Body Fluid Cell Count 02/02/2017 Body Fluid Source Synovial Fluid 10 Body Fluid Appearance Cloudy 10 Body Fluid Color Yellow 10 Body Fluid Volume 15 mL 10 Body Fluid WBC 58434 /mcL 10, 12 Body Fluid RBC 8659 /mcL 10 Body Fluid Neutrophils 87 % 10 Body Fluid Band 3 % 10 Body Fluid Lymph 3 % 10 Body Fluid Craighead 7 % 10 Body Fluid Total Cells Counted 100 10 Fluid Reviewed By MD (SEE NOTE) 10, 13 Body Fluid C&S 02/02/2017 Body Fluid Cult SEE RESULT BELOW 10, 14 Gram Stain Inr/Protime 01/24/2017 Inr 1.00 0.89-1.11 Laboratory test 01/24/2017 Activated Partial 32.9 seconds 26.0-36.3 finding Thrombo Time Basic Metabolic 01/24/2017 Sodium 138 mmol/L 133-145 Panel Potassium 4.1 mmol/L 3.5-5.0 Chloride 107 mmol/L 101-111 Co2 Carbon Dioxide 22 mmol/L 22-32 Anion Gap 9 mmol/L 2-11 Glucose 83 mg/dL 70-100 Blood Urea Nitrogen 37 mg/dL High 6-24 Creatinine 1.94 mg/dL 0.51-0.95 BUN/Creatinine Ratio 19.1 8-20 Calcium 9.1 mg/dL 8.6-10.3 Egfr Non- 25.0 >60 Egfr 32.1 >60 15 CBC Auto Diff 01/24/2017 White Blood Count [...] 0-2 Nucleated Red Blood Cells % 0.1 Basic Metabolic Panel 01/19/2017 Sodium 137 mmol/L [...] 0-2 Nucleated Red Blood Cells % 0.1 Cath Panel 01/19/2017 Activated Partial 34.2 seconds 26.0-36.3 Thrombo Time Laboratory test 01/18/2017 C Reactive Protein 42.84 mg/L High < 5.00 17 finding Basic Metabolic Panel 12/24/2016 Sodium 138 mmol/L [...] Volume 10 mL 33 Body Fluid WBC 77222 /mcL 33, 36 Body Fluid RBC 1247 /mcL 33 Body Fluid Neutrophils 93 % 33 Body Fluid Lymph 4 % 33 Body Fluid Craighead 3 % 33 Body Fluid Total Cells [...] For detailed information regarding test interpretation see: [email or web address] 2 Test Performed by: [address] [address] 3 [id number] 4 SEE RESULT BELOW Name: MAUREEN ZUÑIGA : [address]: Estevan Ng MD Acct: [id number] Unit: [id number] AGE: 76 Location: [facility] Re04/06/17 SEX: F Status: REG REF SPEC: [id number] SUNITA: 04/06/17-[address] [facility] [address]: Estevan Ng MD REQ: [id number] RECD: 04/06/17 STATUS: COMP _ SOURCE: JOINT FLUI SPDESC: ORDERED: BF Cult/GS COMMENTS: Corrected result read back to Liz Carbajal at 1400 on 04/07/17 Zach LEYVA Results read back accurately. [id number] Procedure Result Reported Site Body Fluid Gram Stain Final 04/07/17- 0838 ML 4+ Neutrophils No Organisms Seen Preparation By Cytospin Smear Corrected result! Wrong result was 1+ GRAM POSITIVE COCCI Body Fluid Culture Final 04/10/17- 0831 ML No Growth Day 4 * ML - MAIN LAB ([facility]) . END OF REPORT * ML=Testing performed at Main Lab DEPARTMENT OF PATHOLOGY, [address] [place] [address] Miguel Ángel Myrick M.D. Director [facility] # [id number] 5 -- REFERENCE VALUE -- Synovial: <150/mcL Peritoneal: <500/mcL Pleural: <500/mcL Pericardial: <500/mcL 6 Differential performed on concentrated smear. 7 Marked acute inflammation. Recommend correlation with microbiology culture studies. Reviewed by Jaylene Michaels MD 8 SEE RESULT BELOW Name: MAUREEN ZUÑIGA : [address]: Estevan Ng MD Acct: [id number] Unit: [id number] AGE: 76 Location: [facility] Re04/06/17 SEX: F Status: REG REF SPEC: [id number] SUNITA: 04/06/17-[address]: Estevan Ng MD REQ: [id number] RECD: 04/06/17 STATUS: RES _ SOURCE: BODY FLUID SPDESC: ORDERED: Gram Stain COMMENTS: [id number] Procedure Result Reported Site Gram Stain Preliminary 04/06/17- 2137 ML 4+ Neutrophils 1+ Gram Positive Cocci * ML - MA[facility] LAB ([facility]) . END OF REPORT * ML=Testing performed at Main Lab DEPARTMENT OF PATHOLOGY, [address] [place] [address] Miguel Ángel Myrick M.D. Director [facility] # [id number] 9 SEE RESULT BELOW Name: MAUREEN ZUÑIGA : [address]: Estevan Ng MD Acct: [id number] Unit: [id number] AGE: 76 Location: [facility] Re04/06/17 SEX: F Status: REG REF SPEC: [id number] SUNITA: 04/06/17-[address]: Estevan Ng MD REQ: [id number] RECD: 04/06/17 STATUS: COMP _ SOURCE: BODY FLUID SPDES: ORDERED: MRSA/SA SSTI COMMENTS: [id number] Procedure Result Reported Site MRSA/S. aureus SSTI PCR Final 04/06/17- 2253 ML Organism 1 MRSA NEGATIVE Organism 2 S.AUREUS NEGATIVE * ML - MAIN LAB ([facility]) . END OF REPORT * ML=Testing performed at Main Lab DEPARTMENT OF PATHOLOGY, [address] [place] [address] Miguel Ángel Myrick M.D. Director [facility] # [id number] What is the body fluid source?: Synovial (Joint) Fluid 12 -- REFERENCE VALUE -- Synovial: <150/mcL Peritoneal: <500/mcL Pleural: <500/mcL Pericardial: <500/mcL 13 Acute inflammation present. Recommend correlation with microbiology culture studies. Reviewed by Dr. Myrick 14 SEE RESULT BELOW Name: MAUREEN ZUÑIGA : [address]: Lucas Espino NP Acct: [id number] Unit: [id number] AGE: 76 Location: [facility] Re02/02/17 SEX: F Status: REG REF SPEC: [id number] SUNITA: 02/02/17-[address] [facility] [address]: Lucas Espino NP REQ: [id number] RECD: 02/02/17 STATUS: COMP _ SOURCE: JOINT FLUI SPDESC: ORDERED: BF Cult/GS, MRSA/SA SSTI COMMENTS: [id number] Procedure Result Reported Site Body Fluid Gram Stain Final 02/03/17- 0850 ML 4+ Neutrophils 2+ Nucleated Cells No Organisms Seen Preparation By Cytospin Smear Body Fluid Culture Final 02/06/17- 0816 ML No Growth Day 4 MRSA/S. aureus SSTI PCR Final 02/03/17- 1012 ML Organism 1 MRSA NEGATIVE Organism 2 S.AUREUS NEGATIVE * ML - MAIN LAB ([facility]) . END OF REPORT * ML=Testing performed at Main Lab DEPARTMENT OF PATHOLOGY, [address] [place] [address] Miguel Ángel Myrick M.D. Director [facility] # [id number] 15 Because ethnic data is not always [...] developed and its performance characteristics determined by [facility] in a manner consistent with CLIA requirements. This test has not been cleared or approved by the U.S. Food and Drug Administration. Test Performed by: [facility] - [address] [address] 20 Interpretation: Weak Positive (1.1-2.9) REFERENCE VALUE <=1.0 (Negative) 21 REFERENCE VALUE <20.0 (Negative) 22 Tests for antibodies to dsDNA and DENYS antigens are not performed automatically unless the SERA result is > or= 3.0 U. Studies performed at [facility] indicate that positive SERA results <3.0 U are rarely accompanied by positive second order tests. Test Performed by: [facility] - [address] [address] 23 REFERENCE VALUE Not Applicable 24 HLA-B27 [...] INFORMATION Method: Flow Cytometry Performing Laboratory CLIA# [id number] Test Performed by: [facility] - [place] [id number] RESULT: No apparent monoclonal protein on serum electrophoresis. Test Performed by: [facility] [address] [place] [address] 26 Please check this week 27 Acute inflammation: >10.00 28 Please check this week 29 Normal Range 180 to 914 Indeterminate Range 145 to 180 Deficient Range <145 30 Please check this week 31 Please check this week 32 Test Performed by: [facility] [address] [place] [address] 33 [id number] 34 CPPD(Ca Pyrophosate) Reviewed by Jaylene Michaels MD 35 Differential performed on concentrated smear. 36 -- REFERENCE VALUE -- Synovial: <150/mcL Peritoneal: <500/mcL Pleural: <500/mcL Pericardial: <500/mcL 37 Acute inflammation. Recommend correlation with microbiology culture studies. Reviewed by Jaylene Michaels MD 38 SEE RESULT BELOW Name: MAURENE ZUÑIGA : [address]: Estevan Ng MD Acct: [id number] Unit: [id number] AGE: 76 Location: [facility] Re11/18/16 SEX: F Status: REG REF SPEC: [id number] SUNITA: 11/18/16-[address] [facility] [address]: Estevan Ng MD REQ: [id number] RECD: 11/18/16 STATUS: COMP _ SOURCE: JOINT FLUI SPDESC: ORDERED: BF Cult/GS, MRSA/SA SSTI COMMENTS: [id number] Procedure Result Reported Site Body Fluid Gram Stain Final 11/19/16- 0744 ML 4+ Neutrophils No Organisms Seen Preparation By Cytospin Smear Body Fluid Culture Final 11/22/16- 1147 ML No Growth Day 4 MRSA/S. aureus SSTI PCR Final 11/18/16- 2214 ML Organism 1 MRSA NEGATIVE Organism 2 S.AUREUS NEGATIVE * ML - MAIN LAB ([facility]) . END OF REPORT * ML=Testing performed at Main Lab DEPARTMENT OF PATHOLOGY, [address] [place] [address] Miguel Ángel Myrick M.D. Director [facility] # [id number] 39 Desirable <150 Borderline high 150-199 High [...] Completed 02/02/2017 Inject/Drain Joint/Bursa Major Completed 01/20/2017 85556 Cath PLMT&NJX L Ventriculog Img S&I Completed 11/18/2016 Inject/Drain Joint/Bursa Major Completed 07/07/2016 Inject/Drain Joint/Bursa Major Completed 07/07/2016 Inject/Drain Joint/Bursa Major Completed 02/17/2016 97694 EKG Tracing & Interpretation Completed 02/13/2016 85631 ECHO Transthoracic, Real-Time 2D With Doppler And Color Completed Flow 12/04/2015 Inject/Drain Joint/Bursa Major Completed 07/31/2015 30909 Inject/Drain Joint/Bursa Major Completed 03/06/2015 59559 ECHO Transthoracic, Real-Time 2D With Doppler And Color Completed Flow 03/04/2015 61308 Stress Test Completed 03/04/2015 74790 Myocardial Perfusion Imaging Tomographic (Spect) Completed Multiple Studies 06/11/2014 99972 EKG Tracing & Interpretation Completed 04/10/2014 25308 ECHO Transthoracic, Real-Time 2D With Doppler And Color Completed Flow 02/26/2013 75429 EKG Tracing & Interpretation Completed 02/16/2013 46705 ECHO Transthoracic, Real-Time 2D With Doppler And Color Completed Flow Encounters Type Date Location Provider CPT E/M Dx Office Visit 06/08/2017 Rheumatology Services Estevan Ng M.D. 76485 M17.12 1:00p Of [facility] M05.79 Z79.899 R79.82 M17.9 Office Visit 04/27/2017 1:00p Rheumatology Services Nurse Visit 74530 M06.4 Of [facility] Office Visit 04/06/2017 2:20p Rheumatology Services Estevan Ng 49826 M25.462 Of [facility] Kim[facility] M17.12 M06.4 Z79.899 Office Visit 03/10/2017 1:40p Rheumatology Services Of Estevan Ng 80828 M06.4 Saw Kimball M17.12 M25.462 R79.82 Z79.899 Office Visit 02/07/2017 9:30a Orthopedic Services Of Bernie Smith M.D. 09061 M25.562 C.M.Can M25.462 M17.12 M21.062 Office Visit 02/02/2017 4:00p Rheumatology Services Of Estevan Ng 82525 M17.9 Saw Kimball M06.4 M25.562 M25.462 Office Visit 01/17/2017 2:00p [facility]ology Services Of IDALIA Randolph 52946 M06.4 [facility] M11.162 R76.8 R79.82 R70.0 N18.4 Z79.899 I97.2 Office Visit 11/30/2016 1:40p Rheumatology Services Estevan Ng 62519 M11.162 Of Saw RossVega M17.12 M06.4 M85.89 Z79.899 Office Visit 11/18/2016 11:00a Rheumatology Services Estevan Ng, 47667 M17.12 Of [facility] Dawn.Davy M06.4 R20.8 M85.89 M54.6 M25.562 Office Visit 07/07/2016 3:45p [facility] Of Tay Menjivar, 46332 M17.12 C.Leni Kimball M19.012 Office Visit 02/17/2016 2:45p [facility] Of Alonso Jacob, 21399 I35.0 [facility] Dawn.Davy, FAC, FASKS Office Visit 12/04/2015 1:45p [facility] Of Tay Menjivar, 54981 M17.12 C.Leni Kimball M70.52 Office Visit 07/31/2015 10:30a [facility] Of Tay Menjivar, 34957 M17.12 CRuddy Kimball Office Visit 03/12/2015 10:45a [facility] Of Alonso Jacob, 14724 424.1 [facility] Jigar, FACC, [facility] Office Visit 06/11/2014 1:30p [facility] Of Alonsotoni Kulkarni Jacob, 24596 424.1 [facility] Jigar, FACC, FASKS Office Visit 02/26/2013 11:45a [facility] Of Alonso Jacob, 52910 424.1 [facility] Jigar, FACC, FASNC Plan of Care Future Appointment(s):09/26/2017 1:30 pm - IDALIA Randolph at Rheumatology Services Of [facility]-Ohzqarsxs37/09/2018 9:30 am - Bernie Smith M.D. at [facility]09/02/2017 2:00 pm - Bernie Smith M.D. at [facility]08/05/2017 2:00 pm - Bernie Smith M.D. at [facility]07/25/2017 - ORLIN RandolphPM06.4 Inflammatory polyarthropathyComments:Please do not take Enbrel unit surgery and for 4 weeks after surgery.Please continue with PlaquenilWill see you back 4 weeks after knee surgery and decide if you need to restart on Enbrel.Follow up:Second week in .12 Unilateral primary osteoarthritis, left kneeComments:Please follow up with Dr Bellamy79.987 Other superintendent terminal (current) drug therapyComments: Will hold Enbrel for surgery.
--- OUTSIDE RECORDS SUMMARY | 2017-08-23 08:00 | XMS REPORT ---
:1940 External Reference #:[id number] Author Organization [facility] Address [address], [address] [place] [address] Phone [phone] Care Team Providers Name Role Phone Merced Chicas MD Care Team Information Story Writer Unavailable Merced Chicas MD Primary Care Physician Unavailable Payers Type Date Identification Numbers Payment Provider Subscriber Medicare Primary Policy Number: [id number] Medicare Maureen Haro PayID: [id number] [address] [place] [address] [facility] Part B Policy Number: [id number] [facility] Maureen Haro PayID: [id number] [address] [place] [address] Problems Date Description Provider Status Onset: 09/23/2016 Benign essential hypertension Esteban Anderson M.D., Active FACC Onset: 10/09/2016 Chronic diastolic heart failure Esteban Anderson M.D., Active FACC Onset: 10/09/2016 Aortic valve disorder Esteban Anderson M.D., Active FACC Onset: 10/09/2016 Anemia Esteban Anderson M.D., Active FACC Onset: 11/15/2016 Iron deficiency Sukumar Pedro DO Active Onset: 01/10/2017 Chronic kidney disease stage 4 Merced Chicas MD Active Onset: 02/09/2017 Malaise and fatigue Esteban Anderson M.D., Active FACC Onset: 02/09/2017 Hyperlipidemia Esteban Anderson M.D., Active FACC Onset: 02/09/2017 Heart valve replacement Esteban Anderson M.D., Active FACC Onset: 11/15/2016 Chronic kidney disease stage 3 Sukumar Pedro, DO Inactive Inactive: 01/10/2017 Family History Date Family Member(s) Problem(s) Comments Father due to Kidney Disease () : (age 73 Years) Mother due to NC : (age 43 Years) First Brother due to NC : (age 56 Years) Second Brother due to NC Social History Type Date Description Comments Marital Status due to lung cancer Lives With Sons Diet Patient follows no dietary restrictions Occupation Retired Work Status Retired Cigarette Use Never Smoked Cigarettes ETOH Use Denies alcohol use Smoking Patient has never smoked Recreational Drug Use Never Used Drugs Daily Caffeine Patient consumes minimal amounts of caffeine Allergies, Adverse Reactions, Alerts Date Description Reaction Status Severity Comments 05/09/2014 Penicillins Urticaria active 09/23/2016 Penicillin active 05/09/2014 Sulfamethoxazole Urticaria active 09/23/2016 Amoxicillin active Medications Medication Date Status Form Strength Qnty SIG Indications Ordering Provider Vitamin C 07/22 Active Tablets 500mg 1 by Merced gil Chicas MD every day Ciprofloxacin HCL 07/22 Active Tablets 500mg 10tab 1 tab by Merced s gil Chicas MD twice daily for 5 days Furosemide 01/03 Active Tablets 20mg 1-2 I50.32 Belén tablets Simonetta by mouth [place], every MSN, [employer] WORK[employer] day as needed for edema Atenolol 09/29 Active Tablets 25mg 90tab 1 by Merced s gil Chicas MD every day Ferrous Sulfate 09/29 Active Tablets 325(65Fe) 90tab 1 by Merced Izzy mg s gil Chicas MD every day before meal Multi Vitamin 15 Active Tablets 1 by Merced gil Chicas MD every day Pravastatin Sodium 09/29 Active Tablets 80mg 90tab 1 by Merced s gil Cihcas MD every day Vitamin B-12 00/ Active Tablets 250mcg 1 by Unknown /0000 mouth every day Vitamin D-3 00/00 Active Capsules 500Unit 2 by Unknown /0000 mouth every day Amlodipine Besylate Active Tablets 5mg 90tab Take 1 Merced keira Chicas MD by mouth every day Hydroxychloroquine Active Tablets 200mg Unknown Sulfate /0000 Aspir-81 Active Tablets 81mg 1 by Unknown /0000 DR mouth every day Enbrel Active Soln 50mg/ml 1 weekly Unknown / Prefill Syringe Furosemide 10/09 Hx Tablets 20mg 1 Tab Am I50.32 Esteban M. /2016 1 Tab PM Nito Anderson M.D., [facility] 01/03 Aspir-Low 09/29 Hx Tablets 81mg 90tab [address] keira Chicas MD every day Furosemide Hx Tablets 20mg 180ta 1 by Merced devora Chicas MD - twice a Hydroxychloroquine Hx Tablets 200mg Unknown Sulfate / Clopidogrel Hx Tablets 75mg 1 by Unknown Bisulfate / mouth - every Immunizations CPT Code Status Date Vaccine Lot # [id number] Given 07/22/2017 Influenza Vaccine Split Virus Preservative Free Im [id number] Use Vital Signs Date Vital Result Comment 07/22/2017 BP Systolic 132 mmHg BP Diastolic 69 mmHg Heart Rate 66 /min Respiratory Rate 16 /min Height 60 inches 5'0" [place] body weight in kilograms 45 O2 % BldC Oximetry 97 % 06/14/2017 BP Systolic Sitting Left Arm 130 mmHg BP Diastolic Sitting Left Arm 76 mmHg Heart Rate 56 /min Respiratory Rate 16 /min Height 60 inches 5'0" Weight 138.00 lb BMI (Body Mass Index) 26.9 kg/m2 BSA (Body Surface Area) 1.59 m2 [place] body weight in kilograms 45 02/09/2017 BP Systolic Sitting Right Arm 126 mmHg BP Diastolic Sitting Right Arm 72 mmHg Heart Rate 49 /min Respiratory Rate 18 /min Height 60 inches 5'0" Weight 142.00 lb BMI (Body Mass Index) 27.7 kg/m2 BSA (Body Surface Area) 1.61 m2 [place] body weight in kilograms 45 01/13/2017 BP Systolic Sitting Left Arm 126 mmHg BP Diastolic Sitting Left Arm 70 mmHg Heart Rate 56 /min Respiratory Rate 14 /min Height 60 inches 5'0" Weight 141.00 lb BMI (Body Mass Index) 27.5 kg/m2 BSA (Body Surface Area) 1.61 m2 [place] body weight in kilograms 45 01/05/2017 BP Systolic Sitting Left Arm 138 mmHg BP Diastolic Sitting Left Arm 80 mmHg Height 60 inches 5'0" Weight 141.00 lb BMI (Body Mass Index) 27.5 kg/m2 BSA (Body Surface Area) 1.61 m2 [place] body weight in kilograms 45 01/03/2017 BP Systolic Sitting Left Arm 126 mmHg BP Diastolic Sitting Left Arm 66 mmHg Heart Rate 64 /min Respiratory Rate 16 /min Weight 140.00 lb 12/10/2016 BP Systolic 115 mmHg BP Diastolic 59 mmHg Body Temperature 97.1 F Heart Rate 57 /min Weight 145.75 lb O2 % BldC Oximetry 98 % 11/26/2016 BP Systolic 117 mmHg BP Diastolic 74 mmHg Body Temperature 98.8 F Heart Rate 50 /min Weight 141.00 lb O2 % BldC Oximetry 100 % 11/22/2016 BP Systolic 151 mmHg BP Diastolic 68 mmHg Body Temperature 97.9 F Heart Rate 48 /min Respiratory Rate 20 /min Weight 141.12 lb O2 % BldC Oximetry 99 % 11/15/2016 BP Systolic 130 mmHg BP Diastolic 72 mmHg Body Temperature 99.2 F Heart Rate 72 /min Weight 141.50 lb 11/04/2016 BP Systolic 140 mmHg BP Diastolic 70 mmHg Heart Rate 60 /min Height 60 inches 5'0" Weight 142.00 lb BMI (Body Mass Index) 27.7 kg/m2 BSA (Body Surface Area) 1.61 m2 11/03/2016 BP Systolic Sitting Left Arm 122 mmHg BP Diastolic Sitting Left Arm 68 mmHg Heart Rate 60 /min Respiratory Rate 18 /min Height 60 inches 5'0" Weight 144.00 lb BMI (Body Mass Index) 28.1 kg/m2 BSA (Body Surface Area) 1.62 m2 10/09/2016 BP Systolic Sitting Left Arm 120 mmHg BP Diastolic Sitting Left Arm 70 mmHg Heart Rate 52 /min Respiratory Rate 16 /min Height 60 inches 5'0" Weight 141.00 lb BMI (Body Mass Index) 27.5 kg/m2 BSA (Body Surface Area) 1.61 m2 [place] body weight in kilograms 45 09/29/2016 Heart Rate 74 /min O2 % BldC Oximetry 94 % 09/29/2016 BP Systolic Sitting Right Arm 128 mmHg BP Diastolic Sitting Right Arm 80 mmHg Height 59.5 inches 4'11.50" Weight 140.00 lb BMI (Body Mass Index) 27.8 kg/m2 BSA (Body Surface Area) 1.59 m2 [place] body weight in kilograms 45 Results Test Date Test Result H/L Range Note Urine Culture 07/22/2017 Urine Culture KLEBSIELLA OXYTO <SEE 1 NOTE> Quantity > 100,000 CFU/mL 2 [id number] 07/22/2017 Nitrofurantoin 64 Trimethoprim/Sulfamethoxazole <=20 Ampicillin >=32 Cefazolin <=4 Ampicillin/Sulbactam >=32 Ciprofloxacin <=0.25 Piperacillin/Tazobactam <=4 Ceftazidime <=1 Ceftriaxone <=1 Cefepime <=1 Levofloxacin <=0.12 Imipenem <=0.25 Gentamicin <=1 Tobramycin <=1 Ua Routine 07/22/2017 Urine Color YELLOW Yellow 3 Urine Clarity CLOUDY Clear 3 Urine Glucose - Dipstick NEGATIVE mg/dL Negative 3 Urine Bilirubin - Dipstick NEGATIVE Negative 3 Urine Ketone NEGATIVE mg/dL Negative 3 Urine Specific [place] 1.025 1.010-1.030 3 Urine Blood MODERATE Negative 3 Urine PH 6.0 Low 6.5-7.5 3 Urine Protein - Dipstick 100 mg/dL High Negative 3 Urine Urobilinogen - Dipstick 0.2 E.U./dL 0.2-1.0 3 Urine Nitrite - Dipstick NEGATIVE Negative 3 Urine Leuk Esterase MODERATE Negative 3 Urine RBC 0-2 rbc/hpf 0-2 3 Urine WBC TNTC wbc/hpf High 0-7 3 Urine Epithelial Cells FEW /lpf None Seen 3 Urine Bacteria FEW None Seen 3 Source: URINE, CLEAN CAT <SEE NOTE> 3, 4 Laboratory test finding 04/20/2017 TB Ag minus Nil Result 0 IU/mL 5 TB Nil Result 0.02 IU/mL Laboratory test finding 04/06/2017 Body Fluid [place] 3 % 6, 7 Body Fluid Neutrophils 97 % 6 Body Fluid RBC 1099 /mcL 6, 8 Body Fluid Total Cells Counted 100 1 6 Body Fluid Volume 4 mL 6 Body Fluid WBC 66986 /mcL 6 Laboratory test finding 02/02/2017 Body Fluid Band 3 % 9 Body Fluid Lymph 3 % 9 Body Fluid [place] 7 % 9 Body Fluid Neutrophils 87 % 9 Body Fluid RBC 8659 /mcL 9, 10 Body Fluid Total Cells Counted 100 1 9 Body Fluid Volume 15 mL 9 Body Fluid WBC 62017 /mcL 9 Basic Metabolic Panel 01/27/2017 Anion Gap 9 mEq/L 4 - 16 BUN 41 mg/dL High 8 - 20 BUN/Creat 21.6 1 High 12.0 - 20.0 Calcium 8.6 mg/dL 8.5 - 10.4 Chloride 110 mEq/L High 98 - 108 Co2 22 mEq/L 20 - 31 Creatinine 1.9 mg/dL High 0.5 - 0.9 Glucose 73 mg/dL 65 - 100 Potassium 4.4 mEq/L 3.5 - 5.1 Sodium 141 mEq/L 135 - 145 Hematocrit 01/27/2017 HCT 26 % Low 35 - 47 eGFR Black 01/27/2017 Egfr Black 31 mL/min eGFR 01/27/2017 Egfr 26 mL/min Poct Activated Clotting 01/26/2017 Poct Act Cardiac Cath 131 seconds 200 - 300 Time Lab CBC Auto Diff 01/24/2017 White Blood Count [...] 37 mg/dL High 6-24 Creatinine 1.94 mg/dL High 0.51-0.95 BUN/Creatinine Ratio 19.1 8-20 Calcium 9.1 mg/dL 8.6-10.3 Egfr Non- 25.0 >60 Egfr 32.1 >60 11 Basic Metabolic Panel 01/19/2017 Sodium 137 mmol/L 133-145 Potassium 4.2 mmol/L 3.5-5.0 Chloride 104 mmol/L 101-111 Co2 Carbon Dioxide 25 mmol/L 22-32 Anion Gap 8 mmol/L 2-11 Glucose 94 mg/dL 70-100 Blood Urea Nitrogen 31 mg/dL High 6-24 Creatinine 2.01 mg/dL High 0.51-0.95 BUN/Creatinine Ratio 15.4 8-20 Calcium 9.6 mg/dL 8.6-10.3 Egfr Non- 24.0 >60 Egfr 30.8 >60 12 Inr/Protime 01/19/2017 Inr 1.02 0.89-1.11 Laboratory test finding 01/19/2017 Activated Partial 34.2 seconds 26.0- 36.3 Thrombo Time CBC Auto Diff 01/19/2017 White Blood Count [...] Blood Cells % 0.1 Basic Metabolic Panel 01/11/2017 Glucose 81 mg/dL 74-106 13 BUN 39 mg/dL High 7-18 13 Creatinine 2.0 mg/dL High 0.6-1.3 13 Glom Filtration Rate, Estimate 26 mL/min >60 13 If 31 mL/min >60 13, 14 BUN/Creat 19.5 ratio 13 Sodium 141 mmol/L 136-145 13 Potassium 4.6 mmol/L 3.5-5.1 13 Chloride 108 mmol/L High 98-107 13 Carbon Dioxide 25 mmol/L 21-32 13 Anion Gap 8 mEq/L 8-16 13 Calcium 9.4 mg/dL 8.5-10.1 13 Basic Metabolic Panel 12/24/2016 Anion Gap 11 mmol/L 2-11 BUN/Creatinine Ratio 18.9 8-20 Blood Urea Nitrogen 40 mg/dL High 6-24 Calcium 9.1 mg/dL 8.6-10.3 Chloride 104 mmol/L 101-111 Co2 Carbon Dioxide 23 mmol/L 22-32 Creatinine 2.12 mg/dL High 0.51-0.95 Egfr 29.0 >60 Egfr Non- 22.5 >60 Glucose 93 mg/dL 70-100 Potassium 4.3 mmol/L 3.5-5.0 Sodium 138 mmol/L 133-145 15 CBC Auto Diff 12/24/2016 Abs Basophils 0.1 10^3/uL 0-0.2 Abs Eosinophils 0.2 10^3/uL 0-0.6 Abs Lymphocytes 1.1 10^3/uL 1.0-4.8 Abs Monocytes 0.7 10^3/uL 0-0.8 Abs Neutrophils 5.8 10^3/uL 1.5-7.7 Abs Nucleated RBC 0 10^3/uL Basophil % 0.7 % 0-2 Eosinophil % 2.8 % 0-6 Granulocyte % 73.2 % 38-83 Hematocrit 29 % Low 35-47 Hemoglobin 9.3 g/dL Low 12.0-16.0 Lymphocyte % 14.3 % Low 25-47 Mean Corpuscular HGB Conc 31 g/dL 31-36 Mean Corpuscular Hemoglobin 27 pg 27-31 Mean Corpuscular Volume 85 fL 80-97 Mean Platelet Volume 8 um3 7.4-10.4 Monocyte % 9.0 % 1-9 Nucleated Red Blood Cells % 0 Platelet Count 423 10^3/uL 150-450 Red Blood Count 3.45 10^6/uL Low 4.0-5.4 Red Cell Distribution Width 19 % High 10.5-15 White Blood Count 8.0 10^3/uL 3.5-10.8 CBS W/Automated Diff 12/10/2016 White Blood Count 7.1 K/uL 3.1-10.7 16 Red Blood Count 3.31 M/uL Low 3.90-5.40 16 Hemoglobin 9.0 gm/dL Low 11.6-15.8 16 Hematocrit 30.1 % Low 36.0-46.1 16 Mean Cell Volume 90.9 fl 80.9-99.0 16 Mean Corpuscular HGB 27.2 pg 25.9-32.7 16 Mean Corpuscular HGB Conc 29.9 g/dL Low 30.8-34.3 16 Platelet Count 425 K/uL High 150-400 16 Red Cell Distri Width SD 58.5 fl High 3-47 16 Red Cell Distri Width %CV 18.4 % High 11.7-14.4 16 Mean Platelet Volume 10.4 fL 8.9-12.4 16 Neut% 75.7 % High 40.4-72.8 16 Lymph % 13.2 % Low 20.0-42.0 16 [place] % 8.1 % 4.3-13.2 16 Eo% 2.7 % 0.0-6.6 16 Bas% 0.3 % 0.0-1.1 16 Neut# 5.41 K/uL 1.8-7.0 16 Lymph # 0.94 K/uL Low 1.0-4.0 16 [place] # 0.58 K/uL 0.3-0.9 16 Eos # 0.19 K/uL 0.0-0.5 16 Baso # 0.02 K/uL 0.0-0.1 16 Laboratory test 12/10/2016 Erythropoietin (Epo), 33.6 mIU/mL High 2.6- 18.5 16, 17 finding Serum Iron-Tibc-%Sat 12/10/2016 Serum Iron 29 g/dL Low 50-170 16 Total Iron Binding Capacity 214 g/dL Low 250-450 16 Transferrin %Saturation 14 % 12-57 16 Laboratory test finding 12/10/2016 Ferritin 350 ng/mL High 8-252 16 CBS W/Automated Diff 11/26/2016 White Blood Count 8.0 K/uL 3.1-10.7 18 Red Blood Count 3.53 M/uL Low 3.90-5.40 18 Hemoglobin 9.5 gm/dL Low 11.6-15.8 18 Hematocrit 32.1 % Low 36.0-46.1 18 Mean Cell Volume 90.9 fl 80.9-99.0 18 Mean Corpuscular HGB 26.9 pg 25.9-32.7 18 Mean Corpuscular HGB Conc 29.6 g/dL Low 30.8-34.3 18 Platelet Count 447 K/uL High 150-400 18 Red Cell Distri Width SD 56.5 fl High 3-47 18 Red Cell Distri Width %CV 18.9 % High 11.7-14.4 18 Mean Platelet Volume 10.4 fL 8.9-12.4 18 Neut% 70.9 % 40.4-72.8 18 Lymph % 15.5 % Low 20.0-42.0 18 [place] % 10.1 % 4.3-13.2 18 Eo% 3.1 % 0.0-6.6 18 Bas% 0.4 % 0.0-1.1 18 Neut# 5.69 K/uL 1.8-7.0 18 Lymph # 1.24 K/uL 1.0-4.0 18 [place] # 0.81 K/uL 0.3-0.9 18 Eos # 0.25 K/uL 0.0-0.5 18 Baso # 0.03 K/uL 0.0-0.1 18 Laboratory test finding 11/26/2016 Ferritin 613 ng/mL High 8-252 18 Iron-Tibc-%Sat 11/26/2016 Serum Iron 32 g/dL Low 50-170 18 Total Iron Binding Capacity 232 g/dL Low 250-450 18 Transferrin %Saturation 14 % 12-57 18 Laboratory test 11/22/2016 Erythropoietin (Epo), 24.7 mIU/mL High 2.6- 18.5 19 finding Serum Iron-Tibc-%Sat 11/22/2016 Serum Iron 49 g/dL Low 50-170 19 Total Iron Binding Capacity 247 g/dL Low 250-450 19 Transferrin %Saturation 20 % 12-57 19 Laboratory test finding 11/22/2016 Ferritin 204 ng/mL 8-252 19 Immunoglobulins A/G/M, 11/22/2016 Immunoglobulin 1317 mg/dL 700-1600 19 QN, Ser G,Quant,Serum Immunoglobulin A 244 mg/dL 64-422 19 Immunoglobulin M 162 mg/dL 26-217 19 Protein Electro.,S 11/22/2016 Protein,Total,Serum 6.9 g/dL 6.0-8.5 19 Albumin 3.1 g/dL 2.9-4.4 19 Xcrco-7-Otrtoktu 0.3 g/dL 0.0-0.4 19 Zgznp-1-Jshvlvtd 1.2 g/dL High 0.4-1.0 19 Beta Globulin 0.9 g/dL 0.7-1.3 19 Gamma Globulin 1.3 g/dL 0.4-1.8 19 M-David Not Observed g/dL Not Observed 19 Globulin, Total 3.8 g/dL 2.2-3.9 19 A/G Ratio 0.8 0.7-1.7 19 Please Note: (SEE NOTE) 19, 20 P E Interpretation, Serum (SEE NOTE) 19, 21 Laboratory test 11/22/2016 Immunofixation,Serum (SEE NOTE) 19, 22 finding Vitamin B12 And 11/22/2016 Vitamin B12 1268 pg/mL High 193-986 19 Folate Folic Acid 45.7 ng/mL High 3.1-17.5 19 CBS W/Automated Diff 11/22/2016 White Blood Count 7.6 K/uL 3.1-10.7 19 Red Blood Count 3.41 M/uL Low 3.90-5.40 19 Hemoglobin 9.1 gm/dL Low 11.6-15.8 19 Hematocrit 29.9 % Low 36.0-46.1 19 Mean Cell Volume 87.7 fl 80.9-99.0 19 Mean Corpuscular HGB 26.7 pg 25.9-32.7 19 Mean Corpuscular HGB Conc 30.4 g/dL Low 30.8-34.3 19 Platelet Count 502 K/uL High 150-400 19 Red Cell Distri Width SD 52.2 fl High 3-47 19 Red Cell Distri Width %CV 16.9 % High 11.7-14.4 19 Mean Platelet Volume 9.4 fL 8.9-12.4 19 Neut% 72.3 % 40.4-72.8 19 Lymph % 16.4 % Low 20.0-42.0 19 [place] % 8.7 % 4.3-13.2 19 Eo% 2.5 % 0.0-6.6 19 Bas% 0.1 % 0.0-1.1 19 Neut# 5.47 K/uL 1.8-7.0 19 Lymph # 1.24 K/uL 1.0-4.0 19 [place] # 0.66 K/uL 0.3-0.9 19 Eos # 0.19 K/uL 0.0-0.5 19 Baso # 0.01 K/uL 0.0-0.1 19 Laboratory test 11/19/2016 Stool For Blood SEE RESULT BELOW 23 finding Laboratory test 11/19/2016 Surgical Interface SEE RESULT BELOW 24 finding Order Laboratory test 11/19/2016 Clotest SEE RESULT BELOW 25 finding Laboratory test 11/04/2016 Urine Protein,Random <pending> finding Basic Metabolic Panel 11/04/2016 Glucose 168 mg/dL High 74-106 BUN 48 mg/dL High 7-18 Creatinine 2.3 mg/dL High 0.6-1.3 Glom Filtration Rate, Estimate 22 mL/min >60 If 26 mL/min >60 26 BUN/Creat 20.8 ratio Sodium 143 mmol/L 136-145 Potassium 4.4 mmol/L 3.5-5.1 Chloride 105 mmol/L 98-107 Carbon Dioxide 27 mmol/L 21-32 Anion Gap 11 mEq/L 8-16 Calcium 8.7 mg/dL 8.5-10.1 Ua Routine 11/04/2016 Urine Color YELLOW Yellow Urine Clarity CLEAR Clear Urine Glucose - Dipstick NEGATIVE mg/dL Negative Urine Bilirubin - Dipstick NEGATIVE Negative Urine Ketone NEGATIVE mg/dL Negative Urine Specific [place] 1.025 1.010-1.030 Urine Blood NEGATIVE Negative Urine PH 5.5 Low 6.5-7.5 Urine Protein - Dipstick 100 mg/dL High Negative Urine Urobilinogen - Dipstick 0.2 E.U./dL 0.2-1.0 Urine Nitrite - Dipstick NEGATIVE Negative Urine Leuk Esterase NEGATIVE Negative Urine RBC NONE SEEN rbc/hpf 0-2 Urine WBC NONE SEEN wbc/hpf 0-7 Urine Epithelial Cells VERY FEW /lpf None Seen Urine Hyaline Cast 0-2 #/lpf None Seen Source: URINE, CLEAN CAT <SEE NOTE> 27 Laboratory test finding 11/04/2016 Urine Protein,Random 144 mg/dL Protein/Creatinine 11/04/2016 Creatinine,Urine 64.3 mg/dL Not Estab. Ratio,Urine Protein,Total,Urine 130.1 mg/dL Not Estab. Protein/Creatinine Ratio 2023 MG/GCRE High 0-200 28 Comprehensive Metabolic Panel 09/29/2016 Glucose 87 mg/dL 74-106 29 BUN 60 mg/dL High 7-18 29 Creatinine 2.7 mg/dL High 0.6-1.3 29 Glom Filtration Rate, Estimate 18 mL/min >60 29 If 22 mL/min >60 29, 30 BUN/Creat 22.2 ratio 29 Sodium 139 mmol/L 136-145 29 Potassium 4.9 mmol/L 3.5-5.1 29 Chloride 101 mmol/L 98-107 29 Carbon Dioxide 28 mmol/L 21-32 29 Anion Gap 10 mEq/L 8-16 29 Calcium 9.4 mg/dL 8.5-10.1 29 Total Protein 7.4 g/dL 6.4-8.2 29 Albumin 3.0 g/dL Low 3.4-5.0 29 Globulin 4.4 g/dL High 1.9-4.3 29 Alb/Glob 0.7 ratio 29 Bilirubin,Total 0.3 mg/dL 0.2-1.0 29 Sgot/Ast 15 U/L 15-37 29 SGPT/Alt 17 U/L 12-78 29 Alkaline Phosphatase 87 U/L 45-117 29 CBS W/Automated Diff 09/29/2016 White Blood Count 7.2 K/uL 3.1-10.7 29 Red Blood Count 3.73 M/uL Low 3.90-5.40 29 Hemoglobin 9.9 gm/dL Low 11.6-15.8 29 Hematocrit 33.2 % Low 36.0-46.1 29 Mean Cell Volume 89.0 fl 80.9-99.0 29 Mean Corpuscular HGB 26.5 pg 25.9-32.7 29 Mean Corpuscular HGB Conc 29.8 g/dL Low 30.8-34.3 29 Platelet Count 465 K/uL High 150-400 29 Red Cell Distri Width SD 53.3 fl High 3-47 29 Red Cell Distri Width %CV 16.9 % High 11.7-14.4 29 Mean Platelet Volume 11.5 fL 8.9-12.4 29 Neut% 70.9 % 40.4-72.8 29 Lymph % 17.8 % Low 20.0-42.0 29 [place] % 8.7 % 4.3-13.2 29 Eo% 2.2 % 0.0-6.6 29 Bas% 0.4 % 0.0-1.1 29 Neut# 5.12 K/uL 1.8-7.0 29 Lymph # 1.29 K/uL 1.0-4.0 29 [place] # 0.63 K/uL 0.3-0.9 29 Eos # 0.16 K/uL 0.0-0.5 29 Baso # 0.03 K/uL 0.0-0.1 29 Vitamin B12 And Folate 09/29/2016 Vitamin B12 1176 pg/mL High 193-986 29 Folic Acid 44.3 ng/mL High 3.1-17.5 29 Laboratory test 09/29/2016 Vitamin D,25-Hydroxy 70.9 ng/mL 30.0-100.0 29 , 31 finding Iron-Tibc-%Sat 09/29/2016 Serum Iron 24 g/dL Low 50-170 29 Total Iron Binding Capacity 258 g/dL 250-450 29 Transferrin %Saturation 9 % Low 12-57 29 LDL Cholesterol Profile 09/29/2016 Cholesterol 193 mg/dL <200 29, 32 Triglycerides 90 mg/dL <150 29, 33 HDL Cholesterol 60 mg/dL >40 29, 34 LDL-Cholesterol 115 mg/dL < 100 29, 35 Potassium SerPl-sCnc 09/22/2016 Potassium SerPl-sCnc 3.6 3.5-5.1 RBC # Bld Auto 09/22/2016 RBC # Bld Auto 3.60 Low 3.90-5.40 RDW RBC Auto 09/22/2016 RDW RBC Auto 56.0 High 3-47 RDW RBC Auto-Rto 09/22/2016 RDW RBC Auto-Rto 18.2 High 11.7-14.4 Sodium SerPl-sCnc 09/22/2016 Sodium SerPl-sCnc 138 136-145 WBC # Bld Auto 09/22/2016 WBC # Bld Auto 7.6 3.1-10.7 Chloride SerPl-sCnc 09/22/2016 Chloride SerPl-sCnc 99 98-107 Calcium SerPl-mCnc 09/22/2016 Calcium SerPl-mCnc 8.5 8.5-10.1 Co2 SerPl-sCnc 09/22/2016 Co2 SerPl-sCnc 28 21-32 Basophils/leuk NFr Bld 09/22/2016 Basophils/leuk NFr Bld 0.4 0.0-1.1 Auto Auto Basophils # Bld Auto 09/22/2016 Basophils # Bld Auto 0.03 0.0-0.1 BUN/Creat SerPl 09/22/2016 BUN/Creat SerPl 26.1 BUN SerPl-mCnc 09/22/2016 BUN SerPl-mCnc 68 High 7-18 Anion Gap SerPl-sCnc 09/22/2016 Anion Gap SerPl-sCnc 11 8-16 Creat SerPl-mCnc 09/22/2016 Creat SerPl-mCnc 2.6 High 0.6-1.3 Eosinophil # Bld Auto 09/22/2016 Eosinophil # Bld Auto 0.24 0.0-0.5 Eosinophil/leuk NFr Bld 09/22/2016 Eosinophil/leuk NFr Bld 3.2 0.0-6.6 Auto Auto GFR/Bsa pred.black SerPl 09/22/2016 GFR/Bsa pred.black 23 >60 MDRD-ArVRat SerPl MDRD-ArVRat GFR/Bsa pred.non black 09/22/2016 GFR/Bsa pred.non black 19 >60 SerPl MDRD-ArVRat SerPl MDRD-ArVRat Glucose SerPl-mCnc 09/22/2016 Glucose SerPl-mCnc 88 74-106 Hct VFr Bld Auto 09/22/2016 Hct VFr Bld Auto 31.7 Low 36.0-46.1 Hgb Bld-mCnc 09/22/2016 Hgb Bld-mCnc 9.6 Low 11.6-15.8 Lymphocytes # Bld Auto 09/22/2016 Lymphocytes # Bld Auto 1.23 1.0-4.0 Lymphocytes/leuk NFr Bld 09/22/2016 Lymphocytes/leuk NFr 16.2 Low 20.0- 42.0 Auto Bld Auto MCH RBC Qn Auto 09/22/2016 MCH RBC Qn Auto 26.7 25.9-32.7 MCHC RBC Auto-mCnc 09/22/2016 MCHC RBC Auto-mCnc 30.3 Low 30.8-34.3 Platelet # Bld Auto 09/22/2016 Platelet # Bld Auto 402 High 155-360 PMV Bld Auto 09/22/2016 PMV Bld Auto 10.1 8.9-12.4 Neutrophils/leuk NFr Bld 09/22/2016 Neutrophils/leuk NFr 70.3 40.4-72.8 Auto Bld Auto Neutrophils # Bld Auto 09/22/2016 Neutrophils # Bld Auto 5.35 1.8-7.0 Monocytes/leuk NFr Bld 09/22/2016 Monocytes/leuk NFr Bld 9.9 4.3-13.2 Auto Auto Monocytes # Bld Auto 09/22/2016 Monocytes # Bld Auto 0.75 0.3-0.9 MCV RBC Auto 09/22/2016 MCV RBC Auto 88.1 80.9-99.0 Stool occult blood 09/20/2016 Stool occult blood Negative Negative Alp SerPl-cCnc 09/20/2016 Alp SerPl-cCnc 76 45-117 Alt SerPl-cCnc 09/20/2016 Alt SerPl-cCnc 13 12-78 Ast SerPl-cCnc 09/20/2016 Ast SerPl-cCnc 9 Low 15-37 Albumin SerPl-mCnc 09/20/2016 Albumin SerPl-mCnc 2.8 Low 3.4-5.0 Albumin/Glob SerPl 09/20/2016 Albumin/Glob SerPl 0.7 Bilirub SerPl-mCnc 09/20/2016 Bilirub SerPl-mCnc 0.3 0.2-1.0 Globulin Ser Calc-mCnc 09/20/2016 Globulin Ser Calc-mCnc 4.2 1.9-4.3 LDLc SerPl Calc-mCnc 09/20/2016 LDLc SerPl Calc-mCnc 62 < 100 Magnesium SerPl-mCnc 09/20/2016 Magnesium SerPl-mCnc 2.0 1.8-2.4 Prot SerPl-mCnc 09/20/2016 Prot SerPl-mCnc 7.0 6.4-8.2 Serum or plasma 09/20/2016 Serum or plasma 58 >40 cholesterol in HDL cholesterol in HDL measurement (ma measurement (mass/volume) Serum or plasma 09/20/2016 Serum or plasma 140 <200 cholesterol measurement cholesterol measurement (mass/volu (mass/volume) Serum or plasma 09/20/2016 Serum or plasma 98 <150 triglyceride measurement triglyceride (mass/vol measurement (mass/volume) TSH SerPl-aCnc 09/20/2016 TSH SerPl-aCnc 1.57 0.30-4.20 Automated reticulocyte 09/19/2016 Automated reticulocyte 1.5 0.5-1.8 percentage percentage Iron SerPl-mCnc 09/19/2016 Iron SerPl-mCnc 23 Low 50-170 Iron saturation [mass 09/19/2016 Iron saturation [mass 11 Low 12-57 fraction] in serum or fraction] in serum or plasma plasma Serum or plasma vitamin 09/19/2016 Serum or plasma vitamin 1248 High 193- 986 B12 measurement B12 measurement (mass/volu (mass/volume) Serum or plasma lactate 09/19/2016 Serum or plasma lactate 195 84-246 dehydrogenase dehydrogenase measurement measurement (enzymatic activity/volume) Serum or plasma iron 09/19/2016 Serum or plasma iron 209 Low 250-450 binding capacity binding capacity measurement measurement (mass/volume) Serum or plasma folate 09/19/2016 Serum or plasma folate 37.6 High 3.1- 17.5 measurement measurement (mass/volume) (mass/volume) Unloinc 09/18/2016 Unloinc Yes Unloinc Room Air Unloinc [employer] Respiratory rate 09/18/2016 Respiratory rate 18 Arterial blood partial 09/18/2016 Arterial blood partial 62 Low 80-105 pressure of oxygen with pressure of oxygen with tem temperature correction Arterial blood partial 09/18/2016 Arterial blood partial 30 Low 35-45 pressure of carbon pressure of carbon dioxide dioxide with temperature correction Arterial blood pH 09/18/2016 Arterial blood pH 7.45 7.35-7.45 measurement with patient measurement with patient tempera temperature correction Arterial blood oxygen 09/18/2016 Arterial blood oxygen 91 90-99 saturation measurement saturation measurement Arterial blood 09/18/2016 Arterial blood 20 Low 22-26 bicarbonate measurement bicarbonate measurement (moles/volu (moles/volume) Arterial blood base 09/18/2016 Arterial blood base -3 Low -2-2 excess by calculation excess by calculation Unloinc 09/18/2016 Unloinc . Serum or plasma 09/18/2016 Serum [place] plasma 20889.0 High <450 natriuretic peptide B natriuretic peptide B prohormone N prohormone N-terminal measurement (mass/volume) 1 KLEBSIELLA OXYTOCA 2 > 100,000 CFU/mL 3 N18.3 R35.0 4 URINE, CLEAN CATCH 5 Test Performed by: [place] [address] 6 [id number] 7 Differential performed on concentrated smear. 8 -- REFERENCE VALUE -- Synovial: <150/mcL Peritoneal: <500/mcL Pleural: <500/mcL Pericardial: <500/mcL 9 [id number] 10 -- REFERENCE VALUE -- Synovial: <150/mcL Peritoneal: <500/mcL Pleural: <500/mcL Pericardial: <500/mcL 11 Because ethnic data is not always readily [...] 15-29 5 Kidney failure <15 (or dialysis) 12 Because ethnic data is not always readily [...] 15-29 5 Kidney failure <15 (or dialysis) 13 I50.32 14 Note: Persistent reduction for 3 months or more in an eGFR <60 mL/min/1.73 m2 defines CKD. Patients with eGFR values >/=60 mL/min/1.73 m2 may also have CKD if evidence of persistent proteinuria is present. The original MDRD equation for estimated GFR is not valid for patients less than 18 years of age. Additional information may be found at www.kdoqi.org. 15 Because ethnic data is not always [...] 5 Kidney failure <15 (or dialysis) 16 N18.3 E61.1 17 Performed at: [address] [id number] Wire Fence Erector: Lillian Ashford MD, Phone: [phone] 18 E61.1 19 D64.9 E61.1 20 Protein electrophoresis scan will follow via computer, mail, or production machine computer operator delivery. 21 The SPE pattern appears essentially unremarkable. Evidence of monoclonal protein is not apparent. Performed at: [address] [id number] Wire Fence Erector: Lillian Ashford MD, Phone: [phone] 22 An apparent normal immunofixation pattern. 23 SEE RESULT BELOW Name: MAUREEN HARO : [address]: Cristhian Bolaños MD Acct: [id number] Unit: [id number] AGE: 76 Location: ENDO Re11/19/16 SEX: F Status: REG REF SPEC: [id number] SUNITA: 11/19/16-[address] [facility] [address]: Cristhian Bolaños MD REQ: [id number] RECD: 11/19/16-3956 STATUS: COMP OT DR: Naren Hardy MD _ SOURCE: STOOL SPDESC: ORDERED: Occult Bl, Diag Procedure Result Reported Site Stool Occult Blood (1) Final 11/19/16- 1415 ML Stool Occult Blood Negative * ML - MAIN LAB (PSC1) . END OF REPORT * ML=Testing performed at Main Lab DEPARTMENT OF PATHOLOGY, [address] [place] [address] Miguel Ángel Myrick M.D. Director [facility] # [id number] 24 SEE RESULT BELOW Name: MAUREEN HARO : [address]: Cristhian Bolaños MD Acct: [id number] Unit: [id number] AGE: 76 Location: ENDO Re11/19/16 SEX: F Status: DEP REF SPEC: [id number] SUNITA: 11/19/16-[address] [facility] [address]: Cristhian Bolaños MD REQ: [id number] RECD: 11/19/16 STATUS: NAREN LEE DR: [id number] _ ORDERED: LEVEL IV FINAL DIAGNOSIS Stomach, fundus, biopsy: -- Hyperplastic fundic gland polyp(s). CLINICAL HISTORY No history given POST-OPERATIVE DIAGNOSIS Larynx - normal; esophagus - esophagogastric 35, medium hiatal hernia, no erosions; stomach - mild punctate gastritis, nodular fundus; duodenum - normal at 35 cm; digital rectal exam - soft light brown. Conclusions/Plan: Hiatal hernia, gastritis, anemia, work- up continues GROSS DESCRIPTION The specimen is received in formalin labeled, Biopsy Gastric Fundal Nodularity, and consists of two hatch-pink irregular soft tissue fragments measuring 0.3 x 0.3 x 0.2 cm and 0.6 x 0.3 x 0.1 cm, which are submitted entirely in one cassette. Signed (signature on file) Miguel Ángel Myrick MD 1052 END OF REPORT * ML=Testing performed at Main Lab DEPARTMENT OF PATHOLOGY, [address] [place] [id number] Miguel Ángel Myrick M.D. Director [facility] # [id number] 25 SEE RESULT BELOW Name: MAUREEN HARO : [address]: Cristhian Bolaños MD Acct: [id number] Unit: [id number] AGE: 76 Location: ENDO Re11/19/16 SEX: F Status: REG REF SPEC: [id number] SUNITA: 11/19/16-[address] [facility] [address]: Cristhian Bolaños MD REQ: [id number] RECD: 11/19/16 STATUS: COLTON LEE DR: Naren Hardy MD _ SOURCE: GAS ANTRUM SPDESC: ORDERED: Clotest Procedure Result Reported Site Clotest Final 11/20/16- 0716 ML Clotest Negative * ML - [facility] (PSC1) . END OF REPORT * ML=Testing performed at Main Lab DEPARTMENT OF PATHOLOGY, [address] [place] [address] Miguel Ángel Myrick M.D. Director [facility] # [id number] 26 Note: Persistent reduction for 3 months or more in an eGFR <60 mL/min/1.73 m2 defines CKD. Patients with eGFR values >/=60 mL/min/1.73 m2 may also have CKD if evidence of persistent proteinuria is present. The original MDRD equation for estimated GFR is not valid for patients less than 18 years of age. Additional information may be found at www.kdoqi.org. 27 URINE, CLEAN CATCH 28 INFCE Result Units: mg/g creat Performed at: RN - [facility] [address] [id number] Wire Fence Erector: Lillian Ashford MD, Phone: [phone] 29 I10 I50.9 N18.3 I10 I50.9 N18.3 E78.5 30 Note: Persistent reduction for 3 months or more in an eGFR <60 mL/min/1.73 m2 defines CKD. Patients with eGFR values >/=60 mL/min/1.73 m2 may also have CKD if evidence of persistent proteinuria is present. The original MDRD equation for estimated GFR is not valid for patients less than 18 years of age. Additional information may be found at www.kdoqi.org. 31 Vitamin D deficiency has been defined by the [place] [employer] and an Endocrine Society practice guideline as a level of serum 25-OH vitamin D less than 20 ng/mL (1,2). The Endocrine Society went on to further define vitamin D insufficiency as a level between 21 and 29 ng/mL (2). 1. IOM ([place] [employer]). 2010. Dietary reference intakes for calcium and D. [place]: The National Academies Press. 2. Tarsha MF, Jovanni CARDENAS, Emmanuel HEATON, et al. Evaluation, treatment, and prevention of vitamin D deficiency: an Endocrine Society clinical practice guideline. JCEM. 2010; 96(7):1911-30. Performed at: RN - [facility] [address] [id number] Wire Fence Erector: Lillian Ashford MD, Phone: [phone] 32 Reference Guidelines*: Desirable: ........... < 200 mg/dL Borderline High: ..... 200-239 mg/dL High: ................ >=240 mg/dL * The National Cholesterol Education Program (NCEP) 33 Reference Guidelines*: Normal: ............. < 150 mg/dL Borderline High: .... 150-199 mg/dL High: ............... 200-499 mg/dL Very High: .......... > 500 mg/dL * Source: National Cholesterol Education Program (NCEP) 34 Reference Guidelines*: Low HDL: ..... < 40 mg/dL Normal: ..... 40-60 mg/dL Desirable: ... > 60 mg/dL *The National Cholesterol Education Program(NCEP) 35 Reference Guidelines*: Optimal:........... <100 mg/dL Near Optimal....... 100-129 mg/dL Borderline High.... 130-159 mg/dL High............... 160-189 mg/dL Very High.......... >=190 mg/dL * Source: National Cholesterol Education Program (NCEP) Procedures Date CPT Code Description Status 05/06/2017 29258 Echocardiogram Complete Completed 03/30/2017 87799 Echocardiogram Complete Completed 02/09/2017 86839 EKG-Tracing And Report Completed 10/20/2016 46576 Doppler ECHO Color Flow Mapping Completed 10/20/2016 87918 Doppler Echocardiogram Complete Completed 10/20/2016 72796 Transesophageal Echocardiogram Completed 10/09/2016 26677 EKG-Tracing And Report Completed 09/20/2016 70639 Echocardiogram Complete Completed Encounters Type Date Location Provider CPT E/M Dx Office Visit 06/14/2017 1:30p Cardiology Office Belén Holguin, 44671 I35.0 MSN, AMMONIA WORKER I42.9 I25.10 I10 E78.5 N18.3 Office Visit 02/09/2017 10:00a Cardiology Office Esteban Anderson, 60593 Z95.2 Dawn.Davy, [facility] N18.4 I10 E78.5 R53.83 Office Visit 01/13/2017 8:20a Cardiology Office Belén Holguin, [address]854 I35.0 MSN, AMMONIA WORKER N18.4 I50.32 I10 E78.5 Office Visit 01/05/2017 2:40p [place] [address] I35.0 N18.4 Office Visit 01/03/2017 1:00p Cardiology Office Belén Holguin, 03639 I35.0 MSN, AMMONIA WORKER I50.32 I10 E78.5 N18.3 Office Visit 12/10/2016 10:30a [place] [address] N18.3 E61.1 Office Visit 11/26/2016 11:30a [place] [address] D64.9 E61.1 N18.3 Office Visit 11/22/2016 11:30[place] [address] E61.1 D64.9 N18.3 Office Visit 11/15/2016 2:00p [place] [address] D64.9 E61.1 N18.3 Office Visit 11/04/2016 1:00p [place] [address] I10 D64.9 I50.32 N18.3 Office Visit 11/03/2016 10:00a Cardiology Office Esteban Anderson, [address]7576 I35.0 M.DVega, [facility] I50.32 D64.9 I10 Office Visit 10/09/2016 10:00a Cardiology Office Esteban Anderson, 19885 I50.32 MMaria G, [facility] I35.0 D64.9 Office Visit 09/29/2016 2:40p [place] [address] I10 I50.9 N18.3 E78.5 D64.9 Office Visit 09/21/2016 9:04a [place] [address] R91.8 Plan of Care Future Appointment(s):08/09/2017 9:00 am - Profile Trimmer at Primary Care [id number] 2:00 pm - Merced Chicas MD at Primary Care Dbqiqd4510/10/2017 1:20 pm - Esteban Anderson M.D., [facility] at Cardiology Hqghpx8207/22/2017 - Merced Chicas MDN39.0 Urinary tract infection, site not specifiedComments:-urine dip positive for infection-send UA, urine culture-Cipro for 5 days-recheck at preop [id number] Encounter for immunizationComments:-high dose flu vaccine [id number] Localized edemaComments:-low salt diet-continue furosemide for tafuoE10.569 Pain in unspecified kneeComments:-limited mobility and ROM due to knee pain-[facility]:Vitamin C 500 mgCiprofloxacin HCL 500 mgFollow up:fasting blood work Aug 09 has preop appointment aug 11->pls correct to length 40min
[2017-08-23] MEDS ORDERED: fentaNYL* 50 MCG/ML 2 ML VIAL (100 MCG VIAL) ONE (08:11)
[2017-08-23] MEDS ORDERED: Midazolam* 1 MG/ML 10 ML VIAL (10 MG) ONE (08:11)
[2017-08-23] MEDS ORDERED: KETAMINE HCL* 50 MG/ML 10 ML VIAL ONE (08:11)
[2017-08-23] MEDS ORDERED: Morphine PF AMP (0.5MG/ML)* 5 MG/10 ML AMP ONE (08:47)
[2017-08-23 08:56] LABS: Hematocrit 27 % (35-47); Hemoglobin 8.8 g/dl (12.0-16.0); Mean Corpuscular HGB Conc 33 g/dl (31-36); Mean Corpuscular Hemoglobin 29 pg (27-31); Mean Corpuscular Volume 89 fL (80-97); Mean Platelet Volume 8 um3 (7.4-10.4); Platelet Count 251 10^3/ul (150-450); Red Blood Count 3.06 10^6/ul (4.0-5.4); Red Cell Distribution Width 17 % (10.5-15); White Blood Count 8.6 10^3/ul (3.5-10.8)
[2017-08-23] MEDS ORDERED: Magnesium Hydroxide LIQ* 30 ML UDC PO PRN (10:39)
[2017-08-23] MEDS ORDERED: Bisacodyl SUPP* 10 MG SUPP PR PRN (10:39)
[2017-08-23] MEDS ORDERED: Ondansetron INJ* 2 MG/ML VIAL IV PRN (10:43)
[2017-08-23] MEDS ORDERED: oxyCODONE/Acetamin 5/325 MG* TAB PO PRN (10:43)
[2017-08-23] MEDS ORDERED: Naloxone* 0.4 MG/ML 1 ML VIAL IV PRN (10:43)
[2017-08-23 11:46] LABS: Hematocrit 25 % (35-47); Hemoglobin 7.8 g/dl (12.0-16.0)
[2017-08-23] MEDS ORDERED: EPINEPHRINE 1 MG/ML 1 ML VIAL ONE (12:07)
[2017-08-23] MEDS ORDERED: Bupivacaine 0.25% SDV* 30 ML ONE (12:07)
[2017-08-23] MEDS ORDERED: Bupivacaine 0.5% SDV PF* 10-30ML VIAL ONE (12:07)
[2017-08-23] MEDS ORDERED: Lidocaine 2% PF * 5 ML VIAL ONE (12:07)
[2017-08-23] MEDS ORDERED: DiMENhydriNATE IV* 50 MG/ML VIAL ONE (12:55)
--- NOTE | 2017-08-23 13:06 | RAD ---
INDICATION: Status post total left knee replacement surgery. COMPARISON: Comparison is made with a prior x-ray study of the left knee from August 05, 2017. TECHNIQUE: 2 views of the left knee were obtained. FINDINGS: The patient is status post total left knee replacement surgery. The bones and prostheses are in normal alignment. There is a surgical drain present anterior. IMPRESSION: STATUS POST TOTAL LEFT KNEE REPLACEMENT SURGERY.
[2017-08-23] MEDS ORDERED: Ondansetron INJ* 2 MG/ML VIAL ONE (15:17)
[2017-08-23] MEDS: Ondansetron INJ* 2 MG/ML VIAL IV PRN (15:20)
--- NOTE | 2017-08-23 16:10 | CONSULT ---
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 She is now s/p Left TKA EBL 250cc Hemovac Drain x1 on left Post op was on epinephrine infusion for hypotension. Received 1 unit prbc periop and 1300cc LR total. Currently in ICU, off epi infusion. HR 48-50 sinus woody, BP 100/40s with MAPs ~65. She is on NC, no distress, easily awakens. No left leg pain. No cp/sob. Making some urine. Warm ext. ROS: negative except for pertinent positives mentioned above. PMHx: HTN, moderate CAD, Hypothyroidism, CKD4, anemia, s/p TAVR for Severe 2016, LV diastolic dysfunction/mild LV systolic dysfunction, RA PSHx: partial thyroidectomy, TAVR 2016, mastectomy, oophorectomy Family History: RA Social History: Alcohol-no, Smoking-no, Drug use-no Allergies: Allergies Allergy/AdvReac Type Severity Reaction Status Date / Time Amoxicillin Allergy Rash Verified 08/23/17 08:05 Penicillins Allergy Rash Verified 08/23/17 08:05 Sulfamethoxazole Allergy Rash Verified 08/23/17 08:05 Home Medications: Atenolol TAB* [Tenormin TAB* 25 MG] 25 mg PO QAM 01/19/13 [History Confirmed 05/02] Amlodipine Besylate [Norvasc 5 mg tab] 5 mg PO QAM 11/17/16 [History Confirmed 08/23/17] Furosemide TAB* [Lasix TAB*] 20 mg PO QAM PRN 11/17/16 [History Confirmed ] Aspirin EC Low Dose* [Ecotrin EC Low Dose 81 MG*] 81 mg PO QPM 01/19/17 [ History Confirmed 08/23/17] Hydroxychloroquine TAB* [Plaquenil TAB*] 200 mg PO QAM 01/19/17 [History Confirmed 08/23/17] Pravastatin Sodium [Pravachol] 80 mg PO QPM 01/19/17 [History Confirmed 08/23/17 ] Cholecalciferol [Vitamin D] 1,000 unit PO QAM 08/12/17 [History Confirmed ] Etanercept SYR (NF) [Enbrel (NF)] 50 mg SUBCUT Q7D 08/12/17 [History Confirmed 08/23/17] Multi Vitamin 1 tab PO QAM 08/12/17 [History Confirmed 08/23/17] Vitamin B 12 1 tab PO QAM 08/12/17 [History Confirmed 08/23/17] Vitamin C TAB* 500 mg PO QAM 08/12/17 [History Confirmed 08/23/17] Sodium Bicarbonate (Antacid) [Sodium Bicarbonate] 325 mg PO BID 08/22/17 [ History Confirmed 08/22/17] Tele: sinus woody 40-50s Vitals: Vital Signs Temp 96.8 F 08/23/17 15:26 Pulse 50 08/23/17 15:26 Resp 12 08/23/17 15:26 BP 121/57 08/23/17 15:26 Pulse Ox 92 08/23/17 15:26 Intake & Output 08/22/17 08/23/17 08/23/17 18:59 06:59 18:59 Intake Total 1400 Output Total 125 Balance 1275 Weight 137 lb 9.6 oz Intake: IV Fluids 1400 LR 1300 NS 100 Output: Jaramillo 125 O2/Vent: NC Infusions: LR 100cc/hr Current Medications: Acetaminophen (Tylenol Tab*) 650 mg PO Q4H PRN PRN Reason: PAIN OR TEMPERATURE Amlodipine Besylate (Norvasc Tab*) 5 mg PO QAM AVINASH Atenolol (Tenormin Tab*) 25 mg PO QAM AVINASH Bisacodyl (Dulcolax Supp*) 10 mg [place] DAILY PRN PRN Reason: constipation Diphenhydramine HCl (Benadryl Iv*) 25 mg IV Q6H PRN PRN Reason: itching Docusate Sodium (Colace Cap*) 100 mg PO BID AVINASH Enoxaparin Sodium (Lovenox(*)) 30 mg SUBCUT Q24H AVINASH Etanercept (Enbrel (Nf)) 50 mg SUBCUT Q7D AVINASH Fentanyl Citrate (Fentanyl*) 20 mcg IV Q5M PRN PRN Reason: PAIN - MODERATE Stop: 08/23/17 18:00 Furosemide (Lasix Tab*) 20 mg PO QAM PRN PRN Reason: Ankle/Feet Edema Hydroxychloroquine Sulfate (Plaquenil Tab*) 200 mg PO QAM [facility] Clindamycin HCl/Dextrose (Cleocin 600 Mg Ivpremix(*) Sdv) 600 mg in 50 mls @ 100 mls/hr IV Q8H AVINASH Stop: 08/24/17 10:29 Lactated Ringer's (Lactated Ringers 1000 Ml Bag*) 1,000 mls @ 100 mls/hr IV PER RATE [facility] Magnesium Hydroxide (Milk Of Magnesia Liq*) 30 ml PO BID AVINASH Magnesium Hydroxide (Milk Of Magnesia Liq*) 30 ml PO Q6H PRN PRN Reason: constipation Morphine Sulfate (Morphine Inj (Syringe)*) 2 mg IV Q10M PRN PRN Reason: PAIN - SEVERE Stop: 08/23/17 18:00 Morphine Sulfate (Morphine Inj (Syringe)*) 2 mg IV Q2H PRN PRN Reason: PAIN - UNCONTROLLED Multivitamins (Theragran Tab*) 1 tab PO DAILY [facility] Naloxone HCl (Narcan*) 0.08 mg IV Q2M PRN PRN Reason: severe induced resp depression Stop: 08/24/17 01:55 Naloxone HCl (Narcan*) 0.08 mg IV Q2M PRN PRN Reason: severe induced resp depression Stop: 08/24/17 01:55 Ondansetron HCl (Zofran Inj*) 2 mg IV Q6H PRN PRN Reason: Nausea/Vomiting Stop: 08/24/17 01:55 Ondansetron HCl (Zofran Inj*) 4 mg IV Q6H PRN PRN Reason: nausea Last Admin: 08/23/17 15:20 Dose: 4 mg Oxycodone HCl (Roxycodone Tab*) 10 mg PO Q4H PRN PRN Reason: PAIN - SEVERE Oxycodone/Acetaminophen (Percocet 5/325 Tab*) 1 tab PO Q4H PRN PRN Reason: Moderate Pain Stop: 08/24/17 01:55 Oxycodone/Acetaminophen (Percocet 5/325 Tab*) 2 tab PO Q4H PRN PRN Reason: PAIN - MODERATE TO SEVERE Oxycodone/Acetaminophen (Percocet 5/325 Tab*) 1 tab PO Q4H PRN PRN Reason: PAIN - MODERATE Pharmacy Profile Note (Coumadin Daily Reminder*) 1 note FOLLOW UP 1700 AVINASH Prochlorperazine Edisylate (Compazine Inj*) 2.5 mg IV ONCE PRN PRN Reason: NAUSEA/VOMITING Stop: 08/23/17 18:00 Warfarin Sodium (Coumadin Tab(*)) 6 mg PO ONCE@1700 ONE PRN Reason: Protocol Stop: 08/23/17 17:01 Physical Exam: General: awakens easily, alert, no distress, no diaphoresis Head: normocephalic, atraumatic HEENT: no pallor, no icterus, moist mucous membranes Neck: soft, supple, no jvd, no stridor CVS: bradycardia, regular, no murmur Resp: bilateral air entry, no rhales, no wheeze, no rhonchi, no acc muscle use Abdomen: soft, nontender, nondistended, bowel sounds present Ext: pulses+, warm, no edema; left leg immobilized with drain in place Skin: intact, no breakdown, no dryness Neuro: awakens easily, alert, orientedx3, moving all extremities, no gross focal deficit Labs: Laboratory Results - last 24 hr 08/23/17 08/23/17 08/23/17 08:18 08:18 11:25 WBC 8.6 RBC 3.06 L Hgb 8.8 L 7.8 L Hct 27 L 25 L MCV 89 MCH 29 MCHC 33 RDW 17 H Plt Count 251 MPV 8 Blood Type A Positive Antibody Screen Negative Crossmatch See Detail Imaging: - Assessment: 76y F pmhx HTN, moderate CAD, Hypothyroidism, CKD4, anemia, 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 She is now s/p Left TKA -s/p Left TKA / - POD#0 -Hypotension, likely from hypovolemia +/- distributive/sirs Mild LV systolic dysfunction CKD4 Plan: Neuro- stable, awakens easily. delirium prec. fall prec. CVS- BP improved now, off all pressors. cont LR 100cc/hour. likely just behind in volume from periop losses. repeat CBC/BMP at 6pm. May need blood +/- additional fluid. arterial line in place. No indication for pressors now. Sinus woody but hemodyn stable. hold all BB/antihypertensives for now. chest pain free , comfortable. does not appear fluid overloaded. reviewed history of CMP and bioAVR, monitor for signs of congestion. Resp- on NC, no distress. ID- afebrile. periop abx coverage given. monitor for now. GI- NPO for now. if more awake, can start diet if able to swallow tonight Renal- send BMP in evening. jaramillo in place, monitor urine output. LR 100cc/hour infusing. Heme- noted hg 7s post op. s/p 1 unit periop of prbc. repeat cbc. no activity bleeding. Hemovac appears okay. Endo- fingersticks as needed. Musculsk- pressure ulcer proph. left TKA wound care as per ortho. pain control prn. Wounds- wound care to left knee. Nutrition- cardiac diet, advance as tolerated post op. DVT prophylaxis: warfarin restarted tonight; lovenox sq GI prophylaxis: - Central Line: no Arterial Line: left radial Jaramillo Cathetor: yes Disposition: ICU post TKA, monitoring hypotension Code Status: full code Alex Oliver MD Clinical Care Coordinator (Electronically Signed)
[2017-08-23] MEDS ORDERED: Warfarin TAB(*) 6 MG PO ONE (17:00)
[2017-08-23] MEDS ORDERED: Warfarin TAB(*) 3 MG PO ONE (17:30)
[2017-08-23] MEDS: Clindamycin 600 MG IVPREMIX(* 600 MG/50 ML SDV IV SCH (18:03)
[2017-08-23 20:07] LABS: Hematocrit 25 % (35-47); Hemoglobin 8.2 g/dl (12.0-16.0)
[2017-08-23] MEDS: Docusate CAP* 100 MG PO SCH (20:15)
[2017-08-23] MEDS: Magnesium Hydroxide LIQ* 30 ML UDC PO SCH (20:15)
[2017-08-24] MEDS ORDERED: oxyCODONE/Acetamin 5/325 MG* TAB PO PRN (01:55)
[2017-08-24] MEDS ORDERED: Furosemide TAB* 20 MG PO PRN (01:55)
[2017-08-24] MEDS ORDERED: diPHENhydraMINE IV* 50 MG/ML 1 ml VIAL (BENADRYL) IV PRN (01:55)
[2017-08-24] MEDS ORDERED: oxyCODONE TAB* 5 MG TAB PO PRN (01:55)
[2017-08-24] MEDS ORDERED: Morphine INJ* 2 MG/ML 1 ML SYRINGE (TWO MG - NEW SYRINGE VERSION) IV PRN (01:55)
[2017-08-24] MEDS: Clindamycin 600 MG IVPREMIX(* 600 MG/50 ML SDV IV SCH ×2 (02:07→11:39)
[2017-08-24 05:30] LABS: Hematocrit 23 % (35-47); Hemoglobin 7.6 g/dl (12.0-16.0); Mean Platelet Volume 8 um3 (7.4-10.4); Platelet Count 201 10^3/ul (150-450)
[2017-08-24 05:40] LABS: INR 1.06 (0.77-1.02)
[2017-08-24 05:48] LABS: EGFR Non-African American 26.7 (>60)
[2017-08-24] MEDS: oxyCODONE/Acetamin 5/325 MG* TAB PO PRN ×2 (07:08→13:04)
[2017-08-24] MEDS: Acetaminophen TAB* 325 MG PO PRN ×3 (07:14→21:58)
--- NOTE | 2017-08-24 07:56 | PN ---
Progress Note - Progress Note Date of Service: 08/24/17 SOAP: Subjective: Pt. is alert, pain controlled. Objective: LLE - drain removed, tip intact. distally +df/pf, full sens lt, 2+ dp pulse. Vital Signs: Temp Pulse Resp BP Pulse Ox 97.1 F 41 17 131/60 96 08/24/17 03:25 08/24/17 07:00 08/24/17 07:23 08/24/17 06:01 08/24/17 07:47 Laboratory Results - last 24 hr 08/23/17 08/23/17 08/23/17 08:18 08:18 11:25 WBC 8.6 RBC 3.06 L Hgb 8.8 L 7.8 L Hct 27 L 25 L MCV 89 MCH 29 MCHC 33 RDW 17 H Plt Count 251 MPV 8 INR (Anticoag Therapy) Sodium Potassium Chloride Carbon Dioxide Anion Gap BUN Creatinine Est GFR ( Amer) Est GFR (Non-Af Amer) BUN/Creatinine Ratio Glucose Calcium Blood Type A Positive Antibody Screen Negative Crossmatch See Detail 08/23/17 08/23/17 08/24/17 19:53 19:53 05:10 WBC RBC Hgb 8.2 L Hct 25 L MCV MCH MCHC RDW Plt Count MPV INR (Anticoag Therapy) Sodium 137 137 Potassium 4.1 3.9 Chloride 108 107 Carbon Dioxide 20 L 20 L Anion Gap 9 10 BUN 47 H 43 H Creatinine 2.08 H 1.83 H Est GFR ( Amer) 29.6 34.3 Est GFR (Non-Af Amer) 23.0 26.7 BUN/Creatinine Ratio 22.6 H 23.5 H Glucose 143 H 139 H Calcium 8.0 L 7.7 L Blood Type Antibody Screen Crossmatch 08/24/17 08/24/17 05:10 05:10 WBC RBC Hgb 7.6 L Hct 23 L MCV MCH MCHC RDW Plt Count 201 MPV 8 INR (Anticoag Therapy) 1.06 H Sodium Potassium Chloride Carbon Dioxide Anion Gap BUN Creatinine Est GFR ( Amer) Est GFR (Non-Af Amer) BUN/Creatinine Ratio Glucose Calcium Blood Type Antibody Screen Crossmatch Assessment: 76 yo F pod 1 s/p LTKA Plan: wbat lle pt. stable this am acute postop blood loss anemia - 2 units prbc today likely tx to [facility] today please d/c a-line before tx PT/OT
[2017-08-24] MEDS ORDERED: ETANERCEPT 50 MG/ML SUBCUT SCH (09:00)
[2017-08-24] MEDS ORDERED: amLODIPine TAB* 5 MG PO SCH (09:00)
[2017-08-24] MEDS ORDERED: Atenolol TAB* 25 MG PO SCH (09:00)
[2017-08-24] MEDS: Ondansetron INJ* 2 MG/ML VIAL IV PRN (09:38)
[2017-08-24] MEDS: Vitamin THERAPEUTIC TAB PO SCH (10:01)
[2017-08-24] MEDS: Magnesium Hydroxide LIQ* 30 ML UDC PO SCH ×2 (10:01→21:59)
[2017-08-24] MEDS: Docusate CAP* 100 MG PO SCH ×2 (10:01→21:58)
[2017-08-24] MEDS: Hydroxychloroquine TAB* 200 MG PO SCH (10:59)
[2017-08-24] MEDS ORDERED: Enoxaparin(*) 30 MG/0.3 ML SYR SUBCUT SCH (11:00)
--- NOTE | 2017-08-24 11:11 | PN ---
Progress Note - Progress Note Date of Service: 08/24/17 Note: Consultation Note Critical Care 24 hour events: -BP improved overnight, no pressors -being given 2 units prbc for drop in hg -making some urine -nausea+, no vomitting -remains woody in 40s overnight -alert/awake Tele: sinus woody 40-50s Vitals: Vital Signs Temp 97.2 F 08/24/17 08:45 Pulse 41 08/24/17 07:00 Resp 15 08/24/17 09:00 BP 131/60 08/24/17 06:01 Pulse Ox 96 08/24/17 07:47 Intake & Output 08/23/17 08/24/17 08/24/17 18:59 06:59 18:59 Intake Total 1400 1513 290 Output Total 125 500 Balance 1275 1013 290 Weight 137 lb Intake: IV Fluids 1400 1348 ABX - CLINDAMYCIN 155 LR 1300 1193 NS 100 IVPB 115 ABX - CLINDAMYCIN 115 Oral 50 290 Output: Jaramillo 125 500 O2/Vent: NC Infusions: LR 100cc/hr Current Medications: Acetaminophen (Tylenol Tab*) 650 mg PO Q4H PRN PRN Reason: PAIN OR TEMPERATURE Last Admin: 08/24/17 07:14 Dose: 325 mg Amlodipine Besylate (Norvasc Tab*) 5 mg PO QAM [facility] Last Admin: 08/24/17 10:01 Dose: 5 mg Atenolol (Tenormin Tab*) 25 mg PO QAM [facility] Last Admin: 08/24/17 10:03 Dose: Not Given Bisacodyl (Dulcolax Supp*) 10 mg OH DAILY PRN PRN Reason: constipation Diphenhydramine HCl (Benadryl Iv*) 25 mg IV Q6H PRN PRN Reason: itching Docusate Sodium (Colace Cap*) 100 mg PO BID [facility] Last Admin: 08/24/17 10:01 Dose: 100 mg Enoxaparin Sodium (Lovenox(*)) 30 mg SUBCUT Q24H AVINASH Etanercept (Enbrel (Nf)) 50 mg SUBCUT Q7D AVINASH Furosemide (Lasix Tab*) 20 mg PO QAM PRN PRN Reason: Ankle/Feet Edema Hydroxychloroquine Sulfate (Plaquenil Tab*) 200 mg PO QAM [facility] Lactated Ringer's (Lactated Ringers 1000 Ml Bag*) 1,000 mls @ 100 mls/hr IV PER RATE [facility] Last Admin: 08/23/17 22:23 Dose: 100 mls/hr Magnesium Hydroxide (Milk Of Magnesia Liq*) 30 ml PO BID [facility] Last Admin: 08/24/17 10:01 Dose: 30 ml Magnesium Hydroxide (Milk Of Magnesia Liq*) 30 ml PO Q6H PRN PRN Reason: constipation Morphine Sulfate (Morphine Inj (Syringe)*) 2 mg IV Q2H PRN PRN Reason: PAIN - UNCONTROLLED Multivitamins (Theragran Tab*) 1 tab PO DAILY [facility] Last Admin: 08/24/17 10:01 Dose: 1 tab Ondansetron HCl (Zofran Inj*) 4 mg IV Q6H PRN PRN Reason: nausea Last Admin: 08/24/17 09:38 Dose: 4 mg Oxycodone HCl (Roxycodone Tab*) 10 mg PO Q4H PRN PRN Reason: PAIN - SEVERE Oxycodone/Acetaminophen (Percocet 5/325 Tab*) 2 tab PO Q4H PRN PRN Reason: PAIN - MODERATE TO SEVERE Oxycodone/Acetaminophen (Percocet 5/325 Tab*) 1 tab PO Q4H PRN PRN Reason: PAIN - MODERATE Last Admin: 08/24/17 07:08 Dose: 1 tab Pharmacy Profile Note (Coumadin Daily Reminder*) 1 note FOLLOW UP 1700 [facility] Last Admin: 08/23/17 19:45 Dose: 1 note Physical Exam: General: awake, alert, no distress, no diaphoresis Head: normocephalic, atraumatic HEENT: no pallor, no icterus, moist mucous membranes Neck: soft, supple, no jvd, no stridor CVS: bradycardia, regular, no murmur Resp: bilateral air entry, no rhales, no wheeze, no rhonchi, no acc muscle use Abdomen: soft, nontender, nondistended, bowel sounds present Ext: pulses+, warm, no edema; left leg immobilized with drain removed Skin: intact, no breakdown, no dryness Neuro: awakens easily, alert, orientedx3, moving all extremities, no gross focal deficit Labs: Laboratory Results - last 24 hr 08/23/17 08/23/17 08/23/17 08:18 11:25 19:53 Hgb 7.8 L Hct 25 L Plt Count MPV INR (Anticoag Therapy) Sodium 137 Potassium 4.1 Chloride 108 Carbon Dioxide 20 L Anion Gap 9 BUN 47 H Creatinine 2.08 H Est GFR ( Amer) 29.6 Est GFR (Non-Af Amer) 23.0 BUN/Creatinine Ratio 22.6 H Glucose 143 H Calcium 8.0 L Blood Type A Positive Antibody Screen Negative Crossmatch See Detail 08/23/17 08/24/17 08/24/17 19:53 05:10 05:10 Hgb 8.2 L 7.6 L Hct 25 L 23 L Plt Count 201 MPV 8 INR (Anticoag Therapy) Sodium 137 Potassium 3.9 Chloride 107 Carbon Dioxide 20 L Anion Gap 10 BUN 43 H Creatinine 1.83 H Est GFR ( Amer) 34.3 Est GFR (Non-Af Amer) 26.7 BUN/Creatinine Ratio 23.5 H Glucose 139 H Calcium 7.7 L Blood Type Antibody Screen Crossmatch 08/24/17 05:10 Hgb Hct Plt Count MPV INR (Anticoag Therapy) 1.06 H Sodium Potassium Chloride Carbon Dioxide Anion Gap BUN Creatinine Est GFR ( Amer) Est GFR (Non-Af Amer) BUN/Creatinine Ratio Glucose Calcium Blood Type Antibody Screen Crossmatch Imaging: - Assessment: 76y F pmhx HTN, moderate CAD, Hypothyroidism, CKD4, anemia, 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 She is now s/p Left TKA -s/p Left TKA 1/ - POD#1 -Hypotension, resolved -acute blood loss anemia Mild LV systolic dysfunction CKD4 Plan: Neuro- stable, awake. delirium prec. fall prec. CVS- BP improved. Dec LR infusion. noted H/h 7.6, 2 units prbc now. can d/c jaramillo and d/c eliud. d/c atenolol, remains woody in 40s but hemodyn stable. euvolemic appearing otherwise. Resp- on NC, no distress. ID- afebrile. periop abx coverage given. monitor for now. GI- tolerating po diet. Renal- Noted CKD with Cr 1.8. euvolemic. Cont LR, dec to 75cc/hour. K okay, no acidosis. Heme- h/h 7.6, for 2 units prbc now. cont enoxaparin sq and warfarin for AC. Endo- fingersticks as needed. Musculsk- pressure ulcer proph. left TKA wound care as per ortho. pain control prn. drain discontinued today. Wounds- wound care to left knee. Nutrition- cardiac diet, advance as tolerated post op. DVT prophylaxis: warfarin restarted; lovenox sq GI prophylaxis: - Central Line: no Arterial Line: left radial Jaramillo Cathetor: yes Disposition: stable for transfer to surgical floor with tele monitoring. Medicine will f/u on medical floor. Code Status: full code Alxe Oliver MD Freight Broker Agent (Electronically Signed)
--- NOTE | 2017-08-24 15:31 | OP ---
DATE OF OPERATION: 08/23/17 - ROOM #339 DATE OF : 36 SURGEON: Bernie Smith MD ALUMINUM CONTAINER TESTER: REGINA Blum. Ms. Wyman did help throughout the procedure with preparation of the leg, wound retraction, manipulation of the knee and wound closure. ANESTHESIOLOGIST: Dr. Reilly. ANESTHESIA: Spinal. PRE-OP DIAGNOSIS: Severe end-stage degenerative osteoarthritis of the left knee , and severe valgus deformity. POST-OP DIAGNOSIS: Severe end-stage degenerative osteoarthritis of the left knee, and severe valgus deformity. OPERATIVE PROCEDURE: Left total knee arthroplasty. TOURNIQUET TIME: 45 minutes. COMPLICATIONS: None. ESTIMATED BLOOD LOSS: 300 cc. SPECIMEN: Bone and cartilage from the left knee joint sent to Pathology. Knee joint capsule sent to pathology. Knee joint capsule sent to Micro for cultures and sensitivities. HARDWARE USED: [employer]án[employer] cemented total knee arthroplasty hardware. Two packages of Simplex bone cement. For the femur, a left size 5-0 Legion femoral component; for the tibia, Danika II size 3 tibial bas plate; for the insert, a 9 mm constrained articular insert size 3-4; for the patella, a 32 mm 3 -peg all poly patella. BRIEF HISTORY/INDICATIONS: Ms. Zuñiga is a 76-year-old female with history of osteoarthritis and rheumatoid arthritis. She had chronic left knee pain with increasing valgus deformity and instability. Radiograph showed bone on bone arthritis. She had failed conservative treatment with antiinflammatories, pain medication, intraarticular injections and physical therapy. She elected to undergo left total knee arthroplasty due to continued pain and decreased quality of life. Informed consent was obtained from the patient. She understood the risks of surgery included but were not limited to bleeding, infection, damage to nearby structures, continued pain, need for further surgery, intraoperative fracture, nerve palsy, hardware failure or loosening, knee stiffness, loss of motion, stroke, heart attack, blood clot and . She wished to proceed. INTRAOPERATIVE FINDINGS: Intraoperatively the patient was noted to have 20 degree preop valgus deformity with MCL incompetence to begin the case. She had 10-degree flexion contracture at the beginning of the the case. 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 DESCRIPTION OF PROCEDURE: Ms. Zuñiga was identified in the preanesthesia unit. Her left lower extremity was marked as correct operative site. Informed consent was signed and placed in the chart. The patient was taken to the operating room and placed under spinal anesthesia. Her Bhatt catheter was placed without complication and tourniquet was placed on the left side. The left lower extremity was prepped and draped in usual sterile fashion. A preop time-out was made to correctly identify the patient, side and site. Appropriate perioperative antibiotics were given within 1 hour of incision. Tourniquet was inflated until tourniquet time for this procedure was 45 minutes. A 12 cm midline incision was made with a 10 blade and carried down to the extensor mechanism. New 10 blade was used to make a standard medial parapatellar arthrotomy. Patella was subluxed laterally. Electrocautery was used to subperiosteally elevate soft tissue off the superior medial tibia to the mid sagittal plane. The knee was flexed up. There was still anterior horn in the lateral meniscus. There was no ACL. There was extensive wear of the bony surfaces and deformation of the proximal tibia, especially the lateral tibial plateau. A drill was used to enter the distal femur. Intramedullary distal femoral cutting guide was pinned on the distal femur. Oscillating saw was used to make distal femoral cut. Lateral femoral condylar hypoplasia was noted and accounted for. The external rotation guide was pinned on the distal femur and the distal femur was sized to a size 5. Size 5 multi-cutting jig was pinned on the distal femur. Oscillating saw was used to make the appropriate chamfer cuts. Next, the PCL was completely released. The tibia was subluxed anteriorly. Extramedullary tibial cutting guide was pinned down the proximal tibia. Oscillating saw was used to make the appropriate proximal tibial cut perpendicular to the mechanical access of the tibia. The bone was carefully removed. The knee was brought out into full extension. The MCL baseline incompetence was noted. Spacer block had good fit. The knee had full extension and flexion and extension gaps were well balanced. The knee was flexed up. Lamina clay shop supervisor was placed both medially and laterally. Any remaining meniscus was carefully removed using electrocautery. The posterior osteophytes were removed using curved osteotome. Tibial tray and drop key were placed, once again confirmed satisfactory tibial cut. This was confirmed. A size 5 narrow left femoral trial was impacted on to the distal femur and had excellent fit. The box for the posterior stabilized implant was prepared using a reamer and box cut osteotome. Trial size 3 tibial tray and 9 mm insert trial was placed and the knee was taken through range of motion. The knee had full extension to 130 degrees of flexion with satisfactory patellofemoral tracking. Patella was everted. A 9 mm of patellar bone and cartilage was carefully removed using the oscillating saw. Patella was sized to a size 32. Three peg holes were drilled to the size 32 guide. Trial 32 patella was placed and the knee was taken through range of motion. The knee had satisfactory patellofemoral tracking. All trials were carefully removed. The tibia was subluxed anteriorly and sized to a size 3. Proximal tibia was compared using a size 3 keel punch. All bony cut surfaces were copiously irrigated with sterile saline and dried. Final implants were cemented into place starting with the tibia, followed by the femur and last the patella. A 9 mm insert trial was placed while the knee was brought out to full extension. Tourniquet was turned down at 45 minutes. The knee was copiously irrigated with sterile saline. Electrocautery was used to obtain meticulous hemostasis. Once the cement had fully cured, the insert trial was removed. Any excess cement was removed from around the capsule and hardware. Final implant chosen was 9 mm constrained articular insert size 3-4, this was locked into position on tibial tray. Stability of the insert was checked and rechecked and noted to be stable. The knee had full extension to a 130 degrees of flexion with good mediolateral stability. Obviously there was MCL incompetence that was noted preoperatively. The knee was copiously irrigated with sterile saline. The extensor mechanism was closed over a medium Hemovac drain using interrupted #1 Vicryls. The rest of the incision was closed in layered fashion using 0 and 2-0 Vicryls. Skin was closed using running 3-0 nylon suture. Sterile Xeroform, 4x4s, and Webril were used to cover the incision. Alen wrap and cold packs were placed over this. The patient's anesthesia was reversed without difficulty. He was taken to the PACU in stable condition. Intended weightbearing will be weightbearing as tolerated. Intended DVT prophylaxis will be Coumadin with a Lovenox bridge. [id number]/[facility] #: [id number] AGGIE
--- NOTE | 2017-08-24 17:37 | PN ---
Progress Note - Progress Note Date of Service: 08/24/17 Note: Anesthesia duramorph follow up, _HA, neuro ok, -N/V, pain excellent over night, now doing well with oral meds. s/p TKR continue oral meds
--- NOTE | 2017-08-25 02:22 | PN ---
Progress Note - Progress Note Date of Service: 08/25/17 Note: Paged for 2.2 second pause. Will d/c amlodipine. Patient has soft BPs.
[2017-08-25 06:35] LABS: Hematocrit 30 % (35-47); Hemoglobin 10.1 g/dl (12.0-16.0); Mean Platelet Volume 8 um3 (7.4-10.4); Platelet Count 221 10^3/ul (150-450)
[2017-08-25 06:40] LABS: INR 2.07 (0.77-1.02)
--- NOTE | 2017-08-25 08:18 | PN ---
Progress Note - Progress Note Date of Service: 08/25/17 SOAP: Subjective: []Patient seen at bedside. She feels well, operative pain is well controlled. No CP, SOB, Nausea, dizziness. Objective: [] Vital Signs Temp 97.5 F 08/25/17 07:35 Pulse 52 08/25/17 07:35 Resp 16 08/25/17 07:35 BP 133/65 08/25/17 07:35 Pulse Ox 94 08/25/17 07:56 Intake & Output 08/24/17 08/25/17 08/25/17 18:59 06:59 18:59 Intake Total 767 1440 Output Total 325 300 Balance 442 1140 Intake: IVPB 58 ABX - CLINDAMYCIN 58 Oral 410 1440 Packed Cells 299 Output: Urine 200 300 Bhatt 125 Other: # Bowel Movements 1 Estimated Stool Amount Large Laboratory Last Values WBC 8.6 10^3/ul (3.5-10.8) 08/23/17 08:18 RBC 3.06 10^6/ul (4.0-5.4) L 08/23/17 08:18 Hgb 10.1 g/dl (12.0-16.0) L 08/25/17 05:52 Hct 30 % (35-47) L 08/25/17 05:52 MCV 89 fL (80-97) 08/23/17 08:18 MCH 29 pg (27-31) 08/23/17 08:18 MCHC 33 g/dl (31-36) 08/23/17 08:18 RDW 17 % (10.5-15) H 08/23/17 08:18 Plt Count 221 10^3/ul (150-450) 08/25/17 05:52 MPV 8 um3 (7.4-10.4) 08/25/17 05:52 INR (Anticoag Therapy) 2.07 (0.77-1.02) H 08/25/17 05:52 Sodium 137 mmol/L (133-145) 08/24/17 05:10 Potassium 3.9 mmol/L (3.5-5.0) 08/24/17 05:10 Chloride 107 mmol/L (101-111) 08/24/17 05:10 Carbon Dioxide 20 mmol/L (22-32) L 08/24/17 05:10 Anion Gap 10 mmol/L (2-11) 08/24/17 05:10 BUN 43 mg/dL (6-24) H 08/24/17 05:10 Creatinine 1.83 mg/dL (0.51-0.95) H 08/24/17 05:10 Est GFR ( Amer) 34.3 (>60) 08/24/17 05:10 Est GFR (Non-Af Amer) 26.7 (>60) 08/24/17 05:10 BUN/Creatinine Ratio 23.5 (8-20) H 08/24/17 05:10 Glucose 139 mg/dL (70-100) H 08/24/17 05:10 Calcium 7.7 mg/dL (8.6-10.3) L 08/24/17 05:10 Blood Type A Positive 08/23/17 08:18 Antibody Screen Negative 08/23/17 08:18 Crossmatch See Detail 08/23/17 08:18 General: well appearing, NAD LLE: Dressing changed. Incision CDI. DF/PF intact. 1+ DP BL LE without erythema, edema or palpable cords. Assessment: []POD 2 sp left total knee arthroplasty Plan: []WBAT PTOT DC to PMRU Hold coumadin, DC lovenox Per hospitalist: Hold amlodipine and atenolol. if BP control is needed lisinopril is recommended
[2017-08-25] MEDS: Hydroxychloroquine TAB* 200 MG PO SCH (09:28)
[2017-08-25] MEDS: Vitamin THERAPEUTIC TAB PO SCH (09:28)
[2017-08-25] MEDS: Acetaminophen TAB* 325 MG PO PRN (09:32)
[2017-08-25] MEDS: Magnesium Hydroxide LIQ* 30 ML UDC PO SCH (09:33)
[2017-08-25] MEDS: Docusate CAP* 100 MG PO SCH (09:33)
[2017-08-25 12:07] VITALS: BP 127/59
--- NOTE | 2017-08-26 02:53 | DS ---
DISCHARGE SUMMARY: DATE OF ADMISSION: 08/23/17 DATE OF DISCHARGE: 08/25/17 DATE OF OPERATION: 08/23/17 PROVIDER: Bernie Smith MD * (DICTATED BY REGINA EL) DISPOSITION: Discharged to [facility]. PREOPERATIVE DIAGNOSES: Severe end-stage degenerative osteoarthritis of the left knee, severe valgus deformity. OPERATIVE PROCEDURE: Left total knee arthroplasty. HISTORY: Ms. Zuñiga is a 76-year-old female with history of osteoarthritis and rheumatoid arthritis. She had left knee pain which was chronic and increasing valgus deformity and instability. Radiographs showed [id number] arthritis. She failed conservative treatment with antiinflammatories, pain medication, intraarticular injections, and physical therapy. She elected to undergo a left total knee arthroplasty due to continued pain and decreased quality of life. HOSPITAL COURSE: On 08/23/17, Maureen Zuñiga was admitted to [facility] and she underwent a left total knee arthroplasty without complications. After surgery, she was brought to the PACU and then was admitted to the ICU for hypotension. On postop day #1, the drain was removed from her knee with the tip intact. Dorsiflexion and plantarflexion intact. Sensation intact to light touch, 2+ dorsalis pedis pulse and the patient was able to be transferred back to the short stay surgical unit. At this time, on 08/24/17, her hemoglobin was 7.6, hematocrit was 23 and INR was 1.06. She received 1 unit of blood on and 2 units of blood packed red cells on 08/24/17. Telemetry monitoring continued. On 08/25/17, the patient was seen at hospitalist service for a 2.2 second pause which resulted in discontinuation of amlodipine as well as Tylenol. Her labs showed hemoglobin was 10.1, hematocrit was 30, INR was 2.07. Her dressing was changed, incision was clean, dry, intact without erythema. Calves were supple and nontender without erythema or edema. Left lower extremity dorsiflexion and plantar flexion was intact. 2+ dorsalis pedis pulse. The patient was determined to be medically and orthopedically stable for discharge to [facility]. DISCHARGE MEDICATIONS: 1. Lasix 20 mg q.a.m. p.r.n. 2. Aspirin 81 mg p.o. q.p.m. 3. Pravastatin 80 mg p.o. q.p.m. 4. Plaquenil 200 mg p.o. q.a.m. 5. Enbrel 50 mg subcu q.7 days. 6. Vitamin C 500 mg p.o. q.a.m. 7. Vitamin B12 1 tab p.o. q.a.m. 8. Vitamin D 1000 units p.o. q.a.m. 9. Sodium bicarb 325 mg p.o. b.i.d. 10. Acetaminophen 650 mg p.o. q.4 hours p.r.n. pain. Max daily dose of 4000 from all sources. 11. Docusate 100 mg p.o. b.i.d. 12. Roxicodone 5 mg tablet, may take 10 mg p.o. q.4 hours p.r.n. Max daily dose of 6 for pain. 13. Percocet 1 to 2 tablets every 4 to 6 hours p.r.n. pain. 14. Warfarin 2 mg take 1 to 3 tablets depending on INR drop. DISCHARGE INSTRUCTIONS: Weightbearing as tolerated. Okay to shower, but do not submerge incision. Call the orthopedic office with increased drainage, redness, increased pain or fever. Go to the emergency room with shortness of breath or chest pain. Regular diet. May continue physical therapy and occupational therapy exercises as shown. PMRU will do wound checks as well as blood draws on Tuesday and Tuesday for INR. Coumadin dosing 0 mg today, 08/25/17 ; 2 mg tomorrow, 08/26/17; 0 mg 08/27/17; 2 mg 08/28/17; recheck on 08/29/17. Pain control with Percocet 5/325 one to two tabs every 4 to 6 hours p.r.n., MDD 10. Oxycodone 10 mg 1 tab every 4 hours as needed for pain, MDD of 6. Please note the amlodipine and atenolol had been stopped by the hospitalist team. Please follow up with the primary care provider. The hospitalist team's recommendation will be lisinopril if blood pressure control is needed into the future. Please follow up with Dr. Smith within 10 to 14 days. FABIO OSUNA, REGINA [id number]/[facility] #: [id number] [facility] CENTERAmaris
== END 2017-08-25 13:20 | DRG 470 ==
LOC: AA 07:51 → ICU 15:09 → SSU 08-24 11:30
PROVIDERS: ADMIT Orthopaedic Surgery Adult Reconstructive Orthopaedic Surgery; ATTEND Orthopaedic Surgery Adult Reconstructive Orthopaedic Surgery
PROC: 0SRD0J9 Replacement of Left Knee Joint with Synthetic Substitute, Cemented, Open Approach (ICD-10-PCS; 2017-08-23)
PROC: 30233N1 Transfusion of Nonautologous Red Blood Cells into Peripheral Vein, Percutaneous Approach (ICD-10-PCS; principal; 2017-08-23 09:00)
DX: M17.12 Unilateral primary osteoarthritis, left knee (principal); I95.9 Hypotension, unspecified; N18.4 Chronic kidney disease, stage 4 (severe); I49.5 Sick sinus syndrome; D62 Acute posthemorrhagic anemia; J44.9 Chronic obstructive pulmonary disease, unspecified; M06.9 Rheumatoid arthritis, unspecified; I25.10 Atherosclerotic heart disease of native coronary artery without angina pectoris; G89.29 Other chronic pain; M21.062 Valgus deformity, not elsewhere classified, left knee; E03.9 Hypothyroidism, unspecified; I12.9 Hypertensive chronic kidney disease with stage 1 through stage 4 chronic kidney disease, or unspecified chronic kidney disease; R11.0 Nausea; I51.89 Other ill-defined heart diseases; Q79.9 Congenital malformation of musculoskeletal system, unspecified; Z79.82 Long term (current) use of aspirin; Z79.01 Long term (current) use of anticoagulants; Z85.3 Personal history of malignant neoplasm of breast; Z95.2 Presence of prosthetic heart valve; Z90.10 Acquired absence of unspecified breast and nipple; Z90.721 Acquired absence of ovaries, unilateral; Z88.0 Allergy status to penicillin; Z88.2 Allergy status to sulfonamides; Z88.1 Allergy status to other antibiotic agents
CPT/HCPCS: 36415; 80048; 85014; 85018; 85027; 85049; 85610; 86850; 86900; 86901; 86922; 87070; 87073; 87102; 87205; 88305; 88311; 94760; A9270-GY; J1240; J1650; J2250; J2405; J3010; P9040

== ENCOUNTER 2017-08-25 11:37 | Inpatient (IN) | payer MEDICARE ==
[2017-08-25] MEDS ORDERED: Magnesium Hydroxide LIQ* 30 ML UDC PO PRN (17:23)
[2017-08-25] MEDS ORDERED: Senna TAB PO PRN (17:23)
[2017-08-25] MEDS ORDERED: oxyCODONE/Acetamin 5/325 MG* TAB PO PRN ×2 (17:36→18:44)
[2017-08-25] MEDS: Docusate CAP* 100 MG PO SCH (20:14)
--- NOTE | 2017-08-25 20:53 | HP ---
HISTORY AND PHYSICAL: DATE OF ADMISSION: 08/25/17 REASON FOR ADMISSION: Left total knee replacement. HISTORY OF ILLNESS: Maureen Zuñiga is a 76-year-old female. She has a medical history significant for rheumatoid arthritis. She normally takes Enbrel for this. She also has a history of chronic kidney disease, stage 4, and she has had a history of severe aortic stenosis and has undergone an aortic valve replacement in 2017. She also has a history of congestive heart failure. The patient had ongoing difficulties with pain in her left knee. She saw Dr. Smith. She had x-rays taken showing end-stage osteoarthritis. She had failed conservative treatment. It was decided that she might benefit from a total knee replacement. She was able to obtain clearance from Cardiology as well as her primary care doctor. The patient had to stop her Enbrel 4 weeks prior to surgery. She was admitted to [facility] on 08/23/17. She underwent total knee replacement that day. Postoperatively, she did receive a transfusion. Her blood pressure medicines were held because of hypotension. She reviewed 2 units of packed cells for a drop in the hemoglobin. She also remained bradycardic postoperatively and her beta liane was also held. The patient's blood pressure subsequently melinda. She was felt to have physical therapy and occupational therapy needs. She is now being admitted for inpatient rehab so that she might return to independent living. PAST MEDICAL HISTORY: Significant for the aforementioned rheumatoid arthritis as well chronic kidney disease, aortic valve replacement, hypertension, and congestive heart failure. CURRENT MEDICATIONS: Include: 1. Plaquenil 200 mg daily. 2. She is on Lasix 20 mg daily. 3. Bowel medications. 4. Percocet for pain control. 5. Her atenolol and amlodipine are being held as well as her Enbrel. 6. She is also on Coumadin for DVT prophylaxis. Her INR melinda today, so the Coumadin is held. ALLERGIES: Include PENICILLIN as well as SULFAMETHOXAZOLE. SOCIAL HISTORY: She is a nonsmoker and nondrinker. She lives in a one-story apartment with her sons. There are a couple of steps in. REVIEW OF SYSTEMS: No current shortness of breath or chest pain. PHYSICAL EXAMINATION VITAL SIGNS: The patient's temperature is 97.7, blood pressure is 121/51, pulse is 57, respirations 18. HEENT: Her extraocular movements are intact. Tongue is midline. NECK: Supple with no lymphadenopathy. LUNGS: Sound clear to auscultation bilaterally. HEART: Sounds are regular. S1 and S2 are audible. ABDOMEN: Soft and nontender. EXTREMITIES: Showed left knee has a wound which is clean and dry. Peripheral pulses are intact. NEUROLOGIC: She was awake, alert, oriented. Muscle strength is about 5/5 except the left leg which is 3/5 secondary to pain. She also had some difficulty with her left shoulder. ASSESSMENT: Left total knee replacement in a patient with rheumatoid arthritis as well as chronic kidney disease. PLAN: Integrate her into comprehensive and therapeutic rehab program with following goals: 1. Physical Therapy will work with the patient. They are going to work on functional transfer training and ambulation training with a walker. 2. Occupational Therapy will see the patient, work on her activities of daily living including toileting and toilet transfers. 3. Coumadin for DVT prophylaxis. We will check an INR in the morning. 4. Adequate analgesia. 5. For her hypotension, we will continue to hold her blood pressure medicines and resume as her blood pressure rises. 6. Her bowels will be regulated. 7. She will have to hold her Enbrel for at least another week. We will try to contact Rheumatology to see when it should resume. 8. Chronic kidney disease: Monitor BUN and creatinine. 9. Family training as appropriate. 10. Home with appropriate services. ESTIMATED LENGTH OF STAY: Five to eight days. [id number]/[facility] #: [id number] MTDD
[2017-08-25] MEDS: Acetaminophen TAB* 325 MG PO PRN (21:12)
[2017-08-26 08:01] LABS: ABS Basophils 0 10^3/ul (0-0.2); ABS Eosinophils 0.2 10^3/ul (0-0.6); ABS Lymphocytes 0.6 10^3/ul (1.0-4.8); ABS Monocytes 0.8 10^3/ul (0-0.8); ABS Neutrophils 7.4 10^3/ul (1.5-7.7); ABS Nucleated RBC 0 10^3/ul; Eosinophil % 2.4 % (0-6); Hematocrit 30 % (35-47); Lymphocyte % 7.2 % (25-47); Mean Corpuscular HGB Conc 33 g/dl (31-36); Mean Corpuscular Hemoglobin 29 pg (27-31); Mean Corpuscular Volume 88 fL (80-97); Mean Platelet Volume 8 um3 (7.4-10.4); Nucleated Red Blood Cells % 0.1; Platelet Count 213 10^3/ul (150-450); Red Cell Distribution Width 17 % (10.5-15); White Blood Count 9.1 10^3/ul (3.5-10.8)
[2017-08-26 08:17] LABS: EGFR Non-African American 22.9 (>60)
[2017-08-26 08:35] LABS: INR 1.43 (0.77-1.02)
[2017-08-26] MEDS: Acetaminophen TAB* 325 MG PO PRN ×2 (08:40→13:41)
[2017-08-26] MEDS: Furosemide TAB* 20 MG PO SCH (08:40)
[2017-08-26] MEDS: Docusate CAP* 100 MG PO SCH ×2 (08:40→21:09)
[2017-08-26] MEDS: Hydroxychloroquine TAB* 200 MG PO SCH (08:41)
--- NOTE | 2017-08-26 12:46 | PMRUTEAM ---
PMRU: Goals Current Status: Nursing: Current Status Skin Deviations [Lower Back] Other Skin Deviations [Left Shoulder Other ] Skin Deviations [Left Knee] Incision Skin Deviations [Left Arm] Bruise Skin Deviations [Left Hand] Bruise Skin Deviation Description [ peeled skin from tape from epidural, no bruising Lower Back] or swelling Skin Deviation Description [ brwon discoloration spots pt states from heating Left Shoulder] pad for arthritis Skin Deviation Description [ stitches tran wrap and cryo Left Knee] Skin Deviation Description [ from blood draws Left Arm] Physical Therapy: Current Status Bed Mobility Assistance mod A Transfer Moblility Assistance CGA-min A Ambulation Assistance CGA 100ft Ambulation Assistive Devices Rolling Walker Stairs Assistance not tested Stairs Recommended Devices Two Rails Number of Stairs 5 Occupational Therapy: Current Status Upper Body Dressing Min Assist Lower Body Dressing Mod Assist Bathing Min Assist Toileting Contact Guard Assist Toilet Transfer Contact Guard Assist Shower Transfer Min Assist Eating Ind with Adaptive Equip Rec Therapy: Current Status Summary of Assessment and Pt. was open to conversation, engaged throughout. Clinical Impression Pt. identified with leisure interests and involvement in them prior to admission. Pt. states she enjoys her life and was open to continued visits while on the unit. Treatment Goals Pt. will engage in leisure activities while on the unit. Treatment Plan Provide RT services and encourage involvement. Social Work: Current Status Discharge Plan return home with home care svs and family support Potential for Family Training pt's family is involved and supportive Anticipated Discharge Home Destination Discharge With home care svs and family support Goals: Physical therapy: initial goals Modified independent bed mobility, transfers and ambulation 150 ft with rolling walker. UP/down 5 stairs with 1-2 rails. Occupational Therapy: Initial Goals Goals to be Completed in (Days 7 days ) Upper Body Bathing Routine Modified Independent with Lower Body Bathing Routine Modified Independent with Upper Body Dressing Routine Independent Lower Body Dressing Routine Independent Toilet Hygeine and Clothing Modified Independent with Management Routine Toilet Transfer Routine Modified Independent with Tub Transfer Routine Modified Independent with Functional Transfers for ADL Modified Independent with Grooming Routine Independent Feeding Routine Independent Light Housekeeping Tasks Independent Social Work: Goals Discharge Plan return home with home care svs and family support Potential for Family Training pt's family is involved and supportive Anticipated Discharge Home Destination Discharge With home care svs and family support Care Plan: Care Plan Cardiovascular- Improve/Maintain Start: 08/26/17 01:25 Freq: DAILY Status: Active Target: Protocol: Activity Type Activity Date Activity User E-Sign Co-Sign Detail Recorded Client Recorded Date Recorded By Document 08/26/17 01:25 [id number] 08/26/17 01:46 [id number] 08/26/17 01:25 PMRU Outcome: Cardiovascular Vital Signs q Shift for 48hrs Then BID Yes Daily Weight Ordered No Current Cardiovascular Outcome/Goal Maintain/ Achieve Baseline HR, BP , Perfusion Maintain/ Achieve Hemodynamic Stability Free of Abnormal Cardiac Symptoms DVT Prophylaxis- Improve/Maintain Start: 08/26/17 01:25 Freq: DAILY Status: Active Target: Protocol: Activity Type Activity Date Activity User E-Sign Co-Sign Detail Recorded Client Recorded Date Recorded By Document 08/26/17 01:25 [id number] [email or web address] 08/26/17 01:46 [id number] 08/26/17 01:25 PMRU Outcome: DVT Prophylaxis Outcome/Goals Remains Free of DVT TEDS Stockings on Every AM, Off at HS Discharge Planning - Improve/Maintain Start: 08/26/17 01:25 Freq: DAILY Status: Active Target: Protocol: Activity Type Activity Date Activity User E-Sign Co-Sign Detail Recorded Client Recorded Date Recorded By Document 08/26/17 01:25 [id number] [email or web address] 08/26/17 01:46 [id number] 08/26/17 01:25 PMRU Outcome: Discharge Planning Update Patient Family No Outcome/Goals Demonstrates Understanding of Discharge Plan Education-Improve/Maintain Start: 08/26/17 01:25 Freq: DAILY Status: Active Target: Protocol: Activity Type Activity Date Activity User E-Sign Co-Sign Detail Recorded Client Recorded Date Recorded By Document 08/26/17 01:25 [id number] [email or web address] 08/26/17 01:46 [id number] 08/26/17 01:25 PMRU Outcome: Education Outcome/Goals Demonstrate/ Verbalize Understanding of Written Discharge Instructions Demonstrates Skills Encourage Questions /GI-Improve/Maintain Start: 08/26/17 01:25 Freq: DAILY Status: Active Target: Protocol: Activity Type Activity Date Activity User E-Sign Co-Sign Detail Recorded Client Recorded Date Recorded By Document 08/26/17 01:25 [id number] [email or web address] 08/26/17 01:46 [id number] 08/26/17 01:25 PMRU Outcome: Genitourinary/ Gastrointestinal Genitourinary- Outcome/Goals Maintain/ Achieve Urinary Continence Remain Free of Hospital- Acquired UTI Gastrointestinal-Outcome/Goals Maintain/ Achieve Bowel Regularity in Accordance with Pt's Baseline Prevent Constipation Medication Administration Start: 08/26/17 01:25 Freq: DAILY Status: Active Target: Protocol: Activity Type Activity Date Activity User E-Sign Co-Sign Detail Recorded Client Recorded Date Recorded By Document 08/26/17 01:25 [id number] [email or web address] 08/26/17 01:46 [id number] 08/26/17 01:25 PMRU Outcome: Medication Administration Assess Patient Knowledge/Teach Med No Education for all Meds Outcome/Goals Patient Independent with Medication Administration at Home Is Patient Going Home on Lovenox? No Neurological- Improve/Maintain Start: 08/26/17 01:25 Freq: DAILY Status: Active Target: Protocol: Activity Type Activity Date Activity User E-Sign Co-Sign Detail Recorded Client Recorded Date Recorded By Document 08/26/17 01:25 [id number] 08/26/17 01:46 [id number] 08/26/17 01:25 PMRU Outcome: Neurological Weakness/Aphasia Weakness Left Side Outcome/Goals Maintain/ Achieve Baseline Neurological Status Maintain/ Improve Strength/ROM Pain/Comfort- Improve/Maintain Start: 08/26/17 01:25 Freq: DAILY Status: Active Target: Protocol: Activity Type Activity Date Activity User E-Sign Co-Sign Detail Recorded Client Recorded Date Recorded By Document 08/26/17 01:25 [id number] 08/26/17 01:46 [id number] 08/26/17 01:25 PMRU Outcome: Pain/Comfort Outcome/Goals Demonstrates Knowledge and Use of Available Comfort Measures Achieves Acceptable Comfort/Pain Level as Determined by Patient/Condit Maintain Comfort Level Allowing Patient to Fully Participate in Rehab Outcome/Goals Met Comment cryo unit in place Respiratory - Improve/Maintain Start: 08/26/17 01:25 Freq: DAILY Status: Active Target: Protocol: Activity Type Activity Date Activity User E-Sign Co-Sign Detail Recorded Client Recorded Date Recorded By Document 08/26/17 01:25 [id number] 08/26/17 01:46 [id number] 08/26/17 01:25 PMRU Outcome: Respiratory Does Patient Have a Trach No Outcome/Goals Maintain/ Improve O2 Sat per MD Order Maintain/ Improve Activity Tolerance Safety- Improve/Maintain Start: 08/26/17 01:25 Freq: DAILY Status: Active Target: Protocol: Activity Type Activity Date Activity User E-Sign Co-Sign Detail Recorded Client Recorded Date Recorded By Document 08/26/17 01:25 [id number] 08/26/17 01:46 [id number] 08/26/17 01:25 PMRU Outcome: Safety Outcome/Goals Remain Free of Injury or Harm Cooperates with Safety Measures for Least Restrictive Environment Prevent Falls/ Injury Outcome/Goals Met Comment PA in place Skin- Improve/Maintain Start: 08/26/17 01:25 Freq: DAILY Status: Active Target: Protocol: Activity Type Activity Date Activity User E-Sign Co-Sign Detail Recorded Client Recorded Date Recorded By Document 08/26/17 01:25 [id number] [email or web address] 08/26/17 01:46 [id number] 08/26/17 01:25 PMRU Outcome: Skin Skin Risk Level Medium Outcome/Goals Maintain/ Improve Skin Intergrity Surgical Incisions Healing Medicine Note: Length of Stay: [6 days] Anticipated Discharge Destination: Home Tentative Discharge Date: [09/01/17] Discharged to: [home]
--- NOTE | 2017-08-26 13:40 | PN ---
Progress Note - Progress Note Date of Service: 08/26/17 Note: Nursing and therapy notes reviewed. Discussed in IPOC today. No chest pain, shortness of breath or abdominal pain. Acetaminophen (Tylenol Tab*) 650 mg PO Q6H PRN PRN Reason: FEVER/PAIN Last Admin: 08/26/17 08:40 Dose: 650 mg Atorvastatin Calcium (Lipitor*) 20 mg PO 1700 [facility] Docusate Sodium (Colace Cap*) 100 mg PO BID [facility] Last Admin: 08/26/17 08:40 Dose: 100 mg Furosemide (Lasix Tab*) 20 mg PO DAILY [facility] Last Admin: 08/26/17 08:40 Dose: 20 mg Hydroxychloroquine Sulfate (Plaquenil Tab*) 200 mg PO DAILY [facility] Last Admin: 08/26/17 08:41 Dose: 200 mg Magnesium Hydroxide (Milk Of Magnesia Liq*) 30 ml PO Q6H PRN PRN Reason: CONSTIPATION Oxycodone/Acetaminophen (Percocet 5/325 Tab*) 1 tab PO Q4H PRN PRN Reason: PAIN - MODERATE TO SEVERE Oxycodone/Acetaminophen (Percocet 5/325 Tab*) 2 tab PO Q4H PRN PRN Reason: PAIN - SEVERE Senna (Senokot Tab*) 2 tab PO BEDTIME PRN PRN Reason: CONSTIPATION Warfarin Sodium (Coumadin Tab(*)) 2 mg PO DAILY@1700 [facility] PRN Reason: Protocol Vital Signs 08/25/17 08/25/17 08/25/17 13:45 14:17 14:22 Temperature 97.5 F Pulse Rate 59 59 Respiratory 15 15 15 Rate Blood Pressure 113/49 113/49 (mmHg) O2 Sat by Pulse 94 94 Oximetry 08/25/17 08/25/17 08/25/17 14:29 15:08 17:17 Temperature 97.7 F Pulse Rate 57 Respiratory 18 18 Rate Blood Pressure 121/51 (mmHg) O2 Sat by Pulse 94 95 95 Oximetry 08/26/17 08/26/17 08/26/17 00:05 00:09 05:50 Temperature 98.8 F 98.2 F Pulse Rate 59 57 Respiratory 20 20 Rate Blood Pressure 129/58 144/69 (mmHg) O2 Sat by Pulse 94 94 93 Oximetry 08/26/17 08/26/17 08:00 11:31 Temperature Pulse Rate Respiratory 18 18 Rate Blood Pressure (mmHg) O2 Sat by Pulse 93 Oximetry EXAM: GEN: no acute distress. Alert and appropriate. LUNGS: clear bilaterally CV: regular rate and rhythm ABD: +BS, soft, non-tender, non-distended EXT: Left leg and pedal edema. Sutures intact on left knee. Laboratory Results - last 24 hr 08/26/17 08/26/17 08/26/17 07:39 07:39 07:40 WBC 9.1 RBC 3.40 L Hgb 10.0 L Hct 30 L MCV 88 MCH 29 MCHC 33 RDW 17 H Plt Count 213 MPV 8 Neut % (Auto) 81.5 Lymph % (Auto) 7.2 L [place] % (Auto) 8.5 Eos % (Auto) 2.4 Baso % (Auto) 0.4 Absolute Neuts (auto) 7.4 Absolute Lymphs (auto) 0.6 L Absolute Monos (auto) 0.8 Absolute Eos (auto) 0.2 Absolute Basos (auto) 0 Absolute Nucleated RBC 0 Nucleated RBC % 0.1 INR (Anticoag Therapy) 1.43 H Sodium 138 Potassium 4.3 Chloride 108 Carbon Dioxide 23 Anion Gap 7 BUN 38 H Creatinine 2.09 H Est GFR ( Amer) 29.5 Est GFR (Non-Af Amer) 22.9 BUN/Creatinine Ratio 18.2 Glucose 76 Calcium 8.4 L Total Bilirubin 0.50 AST 15 ALT 13 Alkaline Phosphatase 64 Total Protein 5.6 L Albumin 2.6 L Globulin 3.0 Albumin/Globulin Ratio 0.9 L IMPRESSION: 76yo woman with RA, CKD stage IV, h/o congestive heart failure and s /p AVR now s/p left TKR PLAN: #Left TKR - f/u with Dr. Smith #Left leg edema - left lower venous doppler to eval for DVT #DVT ppx - coumadin today is subtherapeutic. Seems sensitive to coumadin, which was held last night. Give 2mg tonight and INR Sat/Sun. #Post operative hypotension - amlodipine and atenolol held. Hospitalists recommend if need BP med to consider lisinopril. If lisinopril chosen need to also watch renal function closely. #Rheumatoid Arthritis - Enbrel on hold since 4wks pre-op. On plaquenil. #Chronic kidney disease - Cr fluctuating between 1.8-2 last 3 days. Follow labs. #CHF - on lasix. follow labs. #Acute post-op anemia - labs stable. #Advanced directives - full code #Est LOS - 09/01/17.
[2017-08-26] MEDS ORDERED: Warfarin TAB(*) 2 MG PO SCH (17:00)
[2017-08-26] MEDS: Atorvastatin* 20 MG TAB PO SCH (17:49)
--- NOTE | 2017-08-26 20:37 | RAD ---
INDICATION: LEFT lower extremity edema. Post total knee replacement. COMPARISON: No relevant prior exams available on the [facility] for comparison. TECHNIQUE: [place] scale, color Doppler, and spectral analysis of the deep veins of the LEFT lower extremity. Vessel compression, phasicity, and augmentation assessed. REPORT: The LEFT common femoral, great saphenous, profunda femoral, femoral, and popliteal veins are patent. The calf veins could not be visualized due to severe subcutaneous edema from the level of the popliteal fossa distal. No loculated soft tissue plane fluid collection visualized. Atherosclerotic plaque visualized at the LEFT lower extremity arteries. Patency of the RIGHT common femoral vein documented. IMPRESSION: No evidence for LEFT lower extremity deep venous thrombosis through the popliteal vein. The calf veins could not be assessed due to compromised acoustic window secondary to magnitude of soft tissue edema.
[2017-08-27] MEDS: Hydroxychloroquine TAB* 200 MG PO SCH (08:17)
[2017-08-27] MEDS: Furosemide TAB* 20 MG PO SCH (08:17)
[2017-08-27] MEDS: Docusate CAP* 100 MG PO SCH ×2 (08:17→21:33)
[2017-08-27 10:40] LABS: INR 1.2 (0.77-1.02)
[2017-08-27 10:47] LABS: EGFR Non-African American 24.5 (>60)
--- NOTE | 2017-08-27 12:13 | PN ---
Progress Note - Progress Note Date of Service: 08/27/17 Note: Nursing and therapy notes reviewed. No chest pain, shortness of breath or abdominal pain. Acetaminophen (Tylenol Tab*) 650 mg PO Q6H PRN PRN Reason: FEVER/PAIN Last Admin: 08/26/17 13:41 Dose: 650 mg Atorvastatin Calcium (Lipitor*) 20 mg PO 1700 [facility] Last Admin: 08/26/17 17:49 Dose: 20 mg Docusate Sodium (Colace Cap*) 100 mg PO BID [facility] Last Admin: 08/27/17 08:17 Dose: 100 mg Furosemide (Lasix Tab*) 20 mg PO DAILY [facility] Last Admin: 08/27/17 08:17 Dose: 20 mg Hydroxychloroquine Sulfate (Plaquenil Tab*) 200 mg PO DAILY [facility] Last Admin: 08/27/17 08:17 Dose: 200 mg Magnesium Hydroxide (Milk Of Magnesia Liq*) 30 ml PO Q6H PRN PRN Reason: CONSTIPATION Oxycodone/Acetaminophen (Percocet 5/325 Tab*) 1 tab PO Q4H PRN PRN Reason: PAIN - MODERATE TO SEVERE Last Admin: 08/26/17 21:10 Dose: 1 tab Oxycodone/Acetaminophen (Percocet 5/325 Tab*) 2 tab PO Q4H PRN PRN Reason: PAIN - SEVERE Last Admin: 08/27/17 09:25 Dose: 2 tab Senna (Senokot Tab*) 2 tab PO BEDTIME PRN PRN Reason: CONSTIPATION Warfarin Sodium (Coumadin Tab(*)) 4 mg PO DAILY@1700 [facility] PRN Reason: Protocol Vital Signs 08/26/17 08/26/17 08/26/17 13:48 16:15 20:00 Temperature 97.5 F Pulse Rate 61 Respiratory 20 16 18 Rate Blood Pressure 138/73 (mmHg) O2 Sat by Pulse 98 98 Oximetry 08/26/17 08/26/17 08/27/17 21:10 23:45 00:09 Temperature 98.1 F Pulse Rate 58 Respiratory 18 18 20 Rate Blood Pressure 127/66 (mmHg) O2 Sat by Pulse 92 Oximetry 08/27/17 08/27/17 05:14 09:25 Temperature 98.4 F Pulse Rate 58 Respiratory 20 18 Rate Blood Pressure 147/68 (mmHg) O2 Sat by Pulse 92 Oximetry EXAM: GEN: no acute distress. Alert and appropriate. LUNGS: clear bilaterally CV: regular rate and rhythm ABD: +BS, soft, non-tender, non-distended EXT: Left leg and pedal edema. Sutures intact on left knee. Laboratory Results - last 24 hr 08/27/17 08/27/17 09:44 09:44 INR (Anticoag Therapy) 1.20 H Sodium 139 Potassium 4.7 Chloride 105 Carbon Dioxide 26 Anion Gap 8 BUN 38 H Creatinine 1.97 H Est GFR ( Amer) 31.5 Est GFR (Non-Af Amer) 24.5 BUN/Creatinine Ratio 19.3 Glucose 158 H Calcium 8.7 Venous doppler LLE 08/26/17 showed no evidence of DVT through popliteal vein. Calf veins not visualized due to edema. IMPRESSION: 76yo woman with RA, CKD stage IV, h/o congestive heart failure and s /p AVR now s/p left TKR PLAN: #Left TKR - f/u with Dr. Smith #Left leg edema - left lower venous doppler negative for DVT 08/26/17. On lasix. #DVT ppx - coumadin is subtherapeutic. Give 4mg tonight and INR Sun. #Post operative hypotension - amlodipine and atenolol held. Hospitalists recommend if need BP med to consider lisinopril. If lisinopril chosen need to also watch renal function closely. #Rheumatoid Arthritis - Enbrel on hold since 4wks pre-op. On plaquenil. #Chronic kidney disease - Cr fluctuating between 1.8-2. Follow labs. #CHF - on lasix. follow labs. #Acute post-op anemia - labs stable. #Advanced directives - full code #Est LOS - 09/01/17.
[2017-08-27] MEDS: Warfarin TAB(*) 2 MG PO SCH (17:20)
[2017-08-27] MEDS: Atorvastatin* 20 MG TAB PO SCH (17:20)
[2017-08-28] MEDS: Acetaminophen TAB* 325 MG PO PRN ×2 (01:39→19:53)
[2017-08-28 06:14] LABS: INR 1.31 (0.77-1.02)
[2017-08-28] MEDS: Hydroxychloroquine TAB* 200 MG PO SCH (08:45)
[2017-08-28] MEDS: Furosemide TAB* 20 MG PO SCH (08:45)
[2017-08-28] MEDS: Docusate CAP* 100 MG PO SCH ×3 (08:46→19:53)
--- NOTE | 2017-08-28 11:39 | PN ---
Progress Note - Progress Note Date of Service: 08/28/17 Note: Nursing and therapy notes reviewed. Nausea and episode of emesis yesterday. She had taken 2 percocet in the morning and thinks that may be cause. Her pain is reasonably controlled on just tylenol and she prefers to stay off narcotic. No chest pain, shortness of breath or abdominal pain. Acetaminophen (Tylenol Tab*) 650 mg PO Q6H PRN PRN Reason: FEVER/PAIN Last Admin: 08/28/17 01:39 Dose: 650 mg Atorvastatin Calcium (Lipitor*) 20 mg PO 1700 [facility] Last Admin: 08/27/17 17:20 Dose: 20 mg Docusate Sodium (Colace Cap*) 100 mg PO BID [facility] Last Admin: 08/28/17 08:46 Dose: Not Given Furosemide (Lasix Tab*) 20 mg PO DAILY [facility] Last Admin: 08/28/17 08:45 Dose: 20 mg Hydroxychloroquine Sulfate (Plaquenil Tab*) 200 mg PO DAILY [facility] Last Admin: 08/28/17 08:45 Dose: 200 mg Magnesium Hydroxide (Milk Of Magnhaley Liq*) 30 ml PO Q6H PRN PRN Reason: CONSTIPATION Senna (Senokot Tab*) 2 tab PO BEDTIME PRN PRN Reason: CONSTIPATION Warfarin Sodium (Coumadin Tab(*)) 4 mg PO DAILY@1700 [facility] PRN Reason: Protocol Last Admin: 08/27/17 17:20 Dose: 4 mg Vital Signs 08/27/17 08/27/17 08/27/17 13:44 15:59 20:00 Temperature 97.4 F Pulse Rate 66 Respiratory 18 16 16 Rate Blood Pressure 139/74 (mmHg) O2 Sat by Pulse 95 Oximetry 08/28/17 08/28/17 08/28/17 01:39 04:04 04:30 Temperature 98.9 F Pulse Rate 64 Respiratory 18 18 18 Rate Blood Pressure 144/62 (mmHg) O2 Sat by Pulse 96 Oximetry 08/28/17 06:28 Temperature 99.1 F Pulse Rate 65 Respiratory 18 Rate Blood Pressure 145/71 (mmHg) O2 Sat by Pulse 95 Oximetry EXAM: GEN: no acute distress. Alert and appropriate. LUNGS: clear bilaterally CV: regular rate and rhythm ABD: +BS, soft, non-tender, non-distended EXT: Left leg and pedal edema. Sutures intact on left knee. Laboratory Results - last 24 hr 08/28/17 05:46 INR (Anticoag Therapy) 1.31 H Venous doppler LLE 08/26/17 showed no evidence of DVT through popliteal vein. Calf veins not visualized due to edema. IMPRESSION: 76yo woman with RA, CKD stage IV, h/o congestive heart failure and s /p AVR now s/p left TKR PLAN: #Left TKR - f/u with Dr. Smith #Left leg edema - left lower venous doppler negative for DVT 08/26/17. On lasix. #DVT ppx - coumadin is subtherapeutic. Continue 4mg qpm. INR in AM, starting to rise. #Post operative hypotension - amlodipine and atenolol held. Hospitalists recommend if need BP med to consider lisinopril. If lisinopril chosen need to also watch renal function closely. #Rheumatoid Arthritis - Enbrel on hold since 4wks pre-op. On plaquenil. #Chronic kidney disease - Cr fluctuating between 1.8-2. Follow labs. #CHF - on lasix. follow labs. #Acute post-op anemia - labs stable. #Advanced directives - full code #Est LOS - 09/01/17.
[2017-08-28] MEDS: Warfarin TAB(*) 2 MG PO SCH (16:41)
[2017-08-28] MEDS: Atorvastatin* 20 MG TAB PO SCH (16:41)
[2017-08-29 06:14] LABS: INR 1.93 (0.77-1.02)
[2017-08-29] MEDS: Hydroxychloroquine TAB* 200 MG PO SCH (09:03)
[2017-08-29] MEDS: Acetaminophen TAB* 325 MG PO PRN ×2 (09:03→22:02)
[2017-08-29] MEDS: Furosemide TAB* 20 MG PO SCH (09:03)
[2017-08-29] MEDS: Docusate CAP* 100 MG PO SCH ×2 (09:07→19:45)
--- NOTE | 2017-08-29 14:03 | PN ---
Progress Note - Progress Note Date of Service: 08/29/17 Note: Nursing and therapy notes reviewed. No nausea. Tylenol is adequate for her pain. No chest pain, shortness of breath or abdominal pain. Acetaminophen (Tylenol Tab*) 650 mg PO Q6H PRN PRN Reason: FEVER/PAIN Last Admin: 08/29/17 09:03 Dose: 650 mg Atorvastatin Calcium (Lipitor*) 20 mg PO 1700 [facility] Last Admin: 08/28/17 16:41 Dose: 20 mg Docusate Sodium (Colace Cap*) 100 mg PO BID [facility] Last Admin: 08/29/17 09:07 Dose: Not Given Furosemide (Lasix Tab*) 20 mg PO DAILY [facility] Last Admin: 08/29/17 09:03 Dose: 20 mg Hydroxychloroquine Sulfate (Plaquenil Tab*) 200 mg PO DAILY [facility] Last Admin: 08/29/17 09:03 Dose: 200 mg Magnesium Hydroxide (Milk Of Magnesia Liq*) 30 ml PO Q6H PRN PRN Reason: CONSTIPATION Senna (Senokot Tab*) 2 tab PO BEDTIME PRN PRN Reason: CONSTIPATION Warfarin Sodium (Coumadin Tab(*)) 3 mg PO DAILY@1700 [facility] PRN Reason: Protocol Vital Signs 08/28/17 08/28/17 08/29/17 15:51 16:52 02:15 Temperature 97.4 F Pulse Rate 76 Respiratory 18 20 20 Rate Blood Pressure 152/76 (mmHg) O2 Sat by Pulse 99 99 Oximetry 08/29/17 04:16 Temperature 98.3 F Pulse Rate 71 Respiratory 16 Rate Blood Pressure 151/71 (mmHg) O2 Sat by Pulse 96 Oximetry EXAM: GEN: no acute distress. Alert and appropriate. LUNGS: clear bilaterally CV: regular rate and rhythm ABD: +BS, soft, non-tender, non-distended EXT: Left leg and pedal edema. Sutures intact on left knee. Laboratory Results - last 24 hr 08/29/17 05:40 INR (Anticoag Therapy) 1.93 H Venous doppler LLE 08/26/17 showed no evidence of DVT through popliteal vein. Calf veins not visualized due to edema. IMPRESSION: 76yo woman with RA, CKD stage IV, h/o congestive heart failure and s /p AVR now s/p left TKR PLAN: #Left TKR - f/u with Dr. Smith #Left leg edema - left lower venous doppler negative for DVT 08/26/17. On lasix. #DVT ppx - coumadin is subtherapeutic but jump in INR 1.3 to 1.9 overnight. Give 3mg coumadin tonight (got 4mg 08/28). INR in AM. #Post operative hypotension - amlodipine and atenolol held. Hospitalists recommend if need BP med to consider lisinopril. If lisinopril chosen need to also watch renal function closely. #Rheumatoid Arthritis - Enbrel on hold since 4wks pre-op. On plaquenil. #Chronic kidney disease - Cr fluctuating between 1.8-2. Follow labs. #CHF - on lasix. follow labs. #Acute post-op anemia - labs stable. #Advanced directives - full code #Est LOS - 09/01/17.
[2017-08-29] MEDS: Warfarin TAB(*) 3 MG PO SCH (16:55)
[2017-08-29] MEDS: Atorvastatin* 20 MG TAB PO SCH (16:55)
[2017-08-30] MEDS: Acetaminophen TAB* 325 MG PO PRN ×3 (05:33→22:42)
[2017-08-30 06:01] LABS: INR 2.58 (0.77-1.02)
[2017-08-30] MEDS: Hydroxychloroquine TAB* 200 MG PO SCH (09:18)
[2017-08-30] MEDS: Furosemide TAB* 20 MG PO SCH (09:18)
[2017-08-30] MEDS: Docusate CAP* 100 MG PO SCH ×2 (09:19→19:08)
--- NOTE | 2017-08-30 12:44 | PMRUTEAM ---
PMRU: Goals Current Status: Nursing: Current Status Skin Deviations [Lower Back] Other Skin Deviations [Left Shoulder Other ] Skin Deviations [Left Knee] Incision Skin Deviations [Left Arm] Bruise Skin Deviations [Left Hand] Bruise Skin Deviation Description [ peeled skin from tape from epidural, no bruising Lower Back] or swelling Skin Deviation Description [ brwon discoloration spots pt states from heating Left Shoulder] pad for arthritis Skin Deviation Description [ well approximated, no drainage or redness noted, Left Knee] sutures intact Skin Deviation Description [ from blood draws Left Arm] Bladder Current Status voiding without difficulty. uses pad Bowel Current Status declined bowel meds this am. bm this am. Nutrition Current Status appetite good Medication Current Status tylenol for pain Physical Therapy: Current Status Bed Mobility Assistance Independent Transfer Moblility Assistance Supervision,Contact Guard Assist Transfer/Bed Mobility Rolling Walker Recommended Devices Ambulation Assistance Contact Guard Assist Ambulation Assistive Devices Rolling Walker Number of Feet Patient 50 Ambulated Stairs Assistance Independent Stairs Recommended Devices Two Rails Number of Stairs 2 Occupational Therapy: Current Status Upper Body Dressing Independent Lower Body Dressing Independent Bathing Supervision Toileting Supervision Toilet Transfer Supervision Shower Transfer Supervision,Min Assist Eating Independent Rec Therapy: Current Status Summary of Assessment and RT assessment complete and pt. is aware of RT Clinical Impression services. Pt. has been cooperative and pleasant during leisure visits. Treatment Goals Pt. will engage in leisure activities while on the unit. Treatment Plan Provide RT services and encourage involvement. Social Work: Current Status Discharge Plan return home with home care svs and family support Potential for Family Training pt's family are attending family training tomorrow Anticipated Discharge Home Destination Discharge With home care svs and family support Nutrition: Current Status Monitoring no further emesis since 08/27. PO intake improved , so now eating 75-100% of meals. Heart healthy diet offered (decaf ok). Now having daily BMs, so constipation resolved; Colace has been declined by pt. BG noted to be elevated (158) on 08/27, but without med changes or diet changes to explain. Likely transient hyperglycemia, but will follow weekly labs for continued elevation. Serum Cr stable at baseline; K ranging 3.9-4.7. Goals: Physical Therapy: Initial Goals Bed Mobility Assistance Independent Transfer Mobility Assistance Independent Transfer/Bed Mobility Rolling Walker Recommended Devices Ambulation Independent Ambulation Recommended Devices Rolling Walker Ambulation Distance 150 Stairs Assistance Independent Stair Recommended Devices Two Rails Number of Stairs 5 Physical Therapy: Updated Goals Transfer/Bed Mobility Rolling Walker Recommended Devices Occupational Therapy: Initial Goals Goals to be Completed in (Days 7 days ) Upper Body Bathing Routine Modified Independent with Lower Body Bathing Routine Modified Independent with Upper Body Dressing Routine Independent Lower Body Dressing Routine Independent Toilet Hygeine and Clothing Modified Independent with Management Routine Toilet Transfer Routine Modified Independent with Tub Transfer Routine Modified Independent with Functional Transfers for ADL Modified Independent with Grooming Routine Independent Feeding Routine Independent Light Housekeeping Tasks Minimal Contact Assist Nursing: Goals Bladder Goal independent Bowel Goal independent Nutrition Goal 100% of all meals Medication Goal independent Nutrition: Goals Intervention Goals 1. Intake will improve to level adequate to support post-op healing and lean body mass 2. Renal labs will remain within acceptable limits given hx CKD 4 3. Pt will establish & maintain regular bowel pattern without constipation or diarrhea Social Work: Goals Discharge Plan return home with home care svs and family support Potential for Family Training pt's family are attending family training tomorrow Anticipated Discharge Home Destination Discharge With home care svs and family support Care Plan: Care Plan ADL's - Improve/Maintain Start: 08/26/17 01:25 Freq: DAILY Status: Active Target: Protocol: Activity Type Activity Date Activity User E-Sign Co-Sign Detail Recorded Client Recorded Date Recorded By Document 08/27/17 12:48 [id number] [id number] 08/27/17 12:48 [id number] 08/27/17 12:48 PMRU Outcome: ADL's/ADL Transfers Orders/Interventions Occupational Therapy Evaluation & Treatment Communication Tool in Patient Room Device Yes Address Deficits Secondary To: Left TKA Patient to receive OT 5x/wk for 60-120 Therex min/day Self Care Management Group Therapy UE/LE ADL's with Assist Yes: Jasmeet ADL Transfers with Assist Yes: Jasmeet Toileting: Transfers,Clothing Management Yes: Jasmeet ,Hygeine w/Assist Light Kitchen/Laundry w/Assist Yes: Jose Progression Toward Outcome/Goals Progressing Outcome/Goals Met Pt participated well, CGA for balance only in standing, did not require assistance with ADL tasks other than for balance in standing portions of ADLs. Cardiovascular- Improve/Maintain Start: 08/26/17 01:25 Freq: DAILY Status: Active Target: Protocol: Activity Type Activity Date Activity User E-Sign Co-Sign Detail Recorded Client Recorded Date Recorded By Document 08/30/17 10:44 [id number] 08/30/17 10:44 [id number] 08/30/17 10:44 PMRU Outcome: Cardiovascular Vital Signs q Shift for 48hrs Then BID Yes Daily Weight Ordered No Current Cardiovascular Outcome/Goal Maintain/ Achieve Baseline HR, BP , Perfusion Maintain/ Achieve Hemodynamic Stability Free of Abnormal Cardiac Symptoms Progression Toward Outcome/Goal Progressing DVT Prophylaxis- Improve/Maintain Start: 08/26/17 01:25 Freq: DAILY Status: Active Target: Protocol: Activity Type Activity Date Activity User E-Sign Co-Sign Detail Recorded Client Recorded Date Recorded By Document 08/30/17 10:44 [id number] 08/30/17 10:44 [id number] 08/30/17 10:44 PMRU Outcome: DVT Prophylaxis Outcome/Goals Remains Free of DVT Complies with DVT Prophylaxis /Treatment TEDS Stockings on Every AM, Off at HS Progression Toward Outcome/Goals Progressing Discharge Planning - Improve/Maintain Start: 08/26/17 01:25 Freq: DAILY Status: Active Target: Protocol: Activity Type Activity Date Activity User E-Sign Co-Sign Detail Recorded Client Recorded Date Recorded By Document 08/30/17 01:47 [id number] 08/30/17 01:48 [id number] 08/30/17 01:47 PMRU Outcome: Discharge Planning Identify Patient Needs yes Update Patient Family No Outcome/Goals Demonstrates Understanding of Discharge Plan Progression Toward Outcome/Goals Progressing Education-Improve/Maintain Start: 08/26/17 01:25 Freq: DAILY Status: Active Target: Protocol: Activity Type Activity Date Activity User E-Sign Co-Sign Detail Recorded Client Recorded Date Recorded By Document 08/30/17 10:44 [id number] 08/30/17 10:44 [id number] 08/30/17 10:44 PMRU Outcome: Education Outcome/Goals Demonstrate/ Verbalize Understanding of Written Discharge Instructions Demonstrates Skills Encourage Questions Progression Toward Outcome/Goals Progressing /GI-Improve/Maintain Start: 08/26/17 01:25 Freq: DAILY Status: Active Target: Protocol: Activity Type Activity Date Activity User E-Sign Co-Sign Detail Recorded Client Recorded Date Recorded By Document 08/30/17 10:44 [id number] [email or web address] 08/30/17 10:44 [id number] 08/30/17 10:44 PMRU Outcome: Genitourinary/ Gastrointestinal Genitourinary- Outcome/Goals Maintain/ Achieve Urinary Continence Remain Free of Hospital- Acquired UTI Gastrointestinal-Outcome/Goals Maintain/ Achieve Bowel Regularity in Accordance with Pt's Baseline Prevent Constipation Laxatives as Ordered Other Outcome/Goals declined colace this am. had bm Progression Toward Outcome/Goals - Progressing Progression Toward Outcome/Goals - GI Progressing Outcome/Goals Met Comment pt up to BR Medication Administration Start: 08/26/17 01:25 Freq: DAILY Status: Active Target: Protocol: Activity Type Activity Date Activity User E-Sign Co-Sign Detail Recorded Client Recorded Date Recorded By Document 08/30/17 10:44 [id number] 08/30/17 10:44 [id number] 08/30/17 10:44 PMRU Outcome: Medication Administration Assess Patient Knowledge/Teach Med No Education for all Meds Outcome/Goals Patient Independent with Medication Administration at Home Demonstrates Understanding Progression Towards Outcome/Goals Progressing Is Patient Going Home on Lovenox? No Mobility- Improve/Maintain Start: 08/26/17 01:25 Freq: DAILY Status: Active Target: Protocol: Activity Type Activity Date Activity User E-Sign Co-Sign Detail Recorded Client Recorded Date Recorded By Document 08/26/17 18:44 [id number] [email or web address] 08/26/17 18:45 [id number] 08/26/17 18:44 PMRU Outcome: Mobility Physical Therapy Evaluation and Yes Treatment Activity OOB with Assistance Yes WBAT Yes Device Yes Assistance Yes Patient to be seen 5x/wk for 60-120 min/ Therex day for: Mobility Training Gait Training Balance Outcome/Goals Maintain/ Achieve Baseline Mobility Status Improve Mobility Status Demonstrates Proper Use of Assistive Devices Free from Complications of Immobility Bed Mobility Yes: independent Transfers Yes: independent with RW Gait x ft Yes: independent 150 ' with RW Up/Down Stairs Yes: independent up/ down 5 stairs with B rails. Neurological- Improve/Maintain Start: 08/26/17 01:25 Freq: DAILY Status: Active Target: Protocol: Activity Type Activity Date Activity User E-Sign Co-Sign Detail Recorded Client Recorded Date Recorded By Document 08/30/17 10:44 [id number] 08/30/17 10:44 [id number] 08/30/17 10:44 PMRU Outcome: Neurological Weakness/Aphasia Weakness Left Side Outcome/Goals Maintain/ Achieve Baseline Neurological Status Maintain/ Improve Strength/ROM Progression Toward Outcome/Goals Progressing Pain/Comfort- Improve/Maintain Start: 08/26/17 01:25 Freq: DAILY Status: Active Target: Protocol: Activity Type Activity Date Activity User E-Sign Co-Sign Detail Recorded Client Recorded Date Recorded By Document 08/30/17 10:44 [id number] 08/30/17 10:44 [id number] 08/30/17 10:44 PMRU Outcome: Pain/Comfort Outcome/Goals Demonstrates Knowledge and Use of Available Comfort Measures Achieves Acceptable Comfort/Pain Level as Determined by Patient/Condit Maintain Comfort Level Allowing Patient to Fully Participate in Rehab Progression Toward Outcome/Goals Progressing Outcome/Goals Met Comment cryo unit prn Respiratory - Improve/Maintain Start: 08/26/17 01:25 Freq: DAILY Status: Active Target: Protocol: Activity Type Activity Date Activity User E-Sign Co-Sign Detail Recorded Client Recorded Date Recorded By Document 08/30/17 10:44 [email or web address] 08/30/17 10:44 [id number] 08/30/17 10:44 PMRU Outcome: Respiratory Does Patient Have a Trach No Outcome/Goals Maintain/ Improve O2 Sat per MD Order Maintain/ Improve Activity Tolerance Prevent Pneumonia/ Atelectasis Progression Toward Outcome/Goals Progressing Safety- Improve/Maintain Start: 08/26/17 01:25 Freq: DAILY Status: Active Target: Protocol: Activity Type Activity Date Activity User E-Sign Co-Sign Detail Recorded Client Recorded Date Recorded By Document 08/30/17 10:44 [id number] [email or web address] 08/30/17 10:44 [id number] 08/30/17 10:44 PMRU Outcome: Safety Outcome/Goals Remain Free of Injury or Harm Cooperates with Safety Measures for Least Restrictive Environment Prevent Falls/ Injury Progression Toward Outcome/Goals Progressing Skin- Improve/Maintain Start: 08/26/17 01:25 Freq: DAILY Status: Active Target: Protocol: Activity Type Activity Date Activity User E-Sign Co-Sign Detail Recorded Client Recorded Date Recorded By Document 08/30/17 10:44 [id number] [email or web address] 08/30/17 10:44 [id number] 08/30/17 10:44 PMRU Outcome: Skin Skin Risk Level Medium Outcome/Goals Maintain/ Improve Skin Intergrity Surgical Incisions Healing Progression Toward Outcome/Goals Progressing Medicine Note: Length of Stay: 2 days Anticipated Discharge Destination: Home Tentative Discharge Date: 09/01/17 Discharged to: Home
[2017-08-30] MEDS: Warfarin TAB(*) 3 MG PO SCH (17:14)
[2017-08-30] MEDS: Atorvastatin* 20 MG TAB PO SCH (17:14)
--- NOTE | 2017-08-30 17:57 | PN ---
Progress Note - Progress Note Date of Service: 08/30/17 Note: Maureen visited. She was discussed in intersciplinary team rounds. She is doing well overall, pain minimal. Current Medications Acetaminophen (Tylenol Tab*) 650 mg PO Q6H PRN PRN Reason: FEVER/PAIN Last Admin: 08/30/17 14:54 Dose: 650 mg Atorvastatin Calcium (Lipitor*) 20 mg PO 1700 [facility] Last Admin: 08/30/17 17:14 Dose: 20 mg Docusate Sodium (Colace Cap*) 100 mg PO BID [facility] Last Admin: 08/30/17 09:19 Dose: Not Given Furosemide (Lasix Tab*) 20 mg PO DAILY [facility] Last Admin: 08/30/17 09:18 Dose: 20 mg Hydroxychloroquine Sulfate (Plaquenil Tab*) 200 mg PO DAILY [facility] Last Admin: 08/30/17 09:18 Dose: 200 mg Magnesium Hydroxide (Milk Of Magnhaley Liq*) 30 ml PO Q6H PRN PRN Reason: CONSTIPATION Senna (Senokot Tab*) 2 tab PO BEDTIME PRN PRN Reason: CONSTIPATION Warfarin Sodium (Coumadin Tab(*)) 3 mg PO DAILY@1700 [facility] PRN Reason: Protocol Last Admin: 08/30/17 17:14 Dose: 3 mg Laboratory Results - last 24 hr 08/30/17 05:43 INR (Anticoag Therapy) 2.58 H Vital Signs Temp Pulse Resp BP Pulse Ox 97.4 F 70 18 144/74 99 08/30/17 16:03 08/30/17 16:03 08/30/17 16:03 08/30/17 16:03 08/30/17 16:03 EXAM: LUNGS: Clear bilat HEART: reg rhythm ABDOMEN: Soft + BS EXTREMITIES: left leg looks clean ASSESSMENT/PLAN: 1. Left TKA: PT/OT 2. DVT prophylaxis: coumadin. INR in AM. 3. Post operative hypotension: amlodipine and atenolol held. Will restart amlodipine. 4. Rheumatoid Arthritis: Enbrel on hold since 4wks pre-op. On plaquenil. 5. Chronic kidney disease: Cr fluctuating between 1.8-2. Follow labs. 6. CHF: Lasix. follow labs. 7. Acute post-op anemia: labs stable. 8. Advanced directives: full code
[2017-08-31 07:30] LABS: INR 2.79 (0.77-1.02)
[2017-08-31] MEDS: Acetaminophen TAB* 325 MG PO PRN ×2 (07:53→20:19)
[2017-08-31] MEDS: Furosemide TAB* 20 MG PO SCH (07:53)
[2017-08-31] MEDS: amLODIPine TAB* 5 MG PO SCH (07:53)
[2017-08-31] MEDS: Hydroxychloroquine TAB* 200 MG PO SCH (07:53)
[2017-08-31] MEDS: Docusate CAP* 100 MG PO SCH ×2 (07:55→20:17)
[2017-08-31] MEDS ORDERED: Warfarin TAB(*) 3 MG PO SCH (17:43)
[2017-08-31] MEDS ORDERED: Warfarin TAB(*) 2 MG PO SCH (18:00)
[2017-08-31] MEDS: Atorvastatin* 20 MG TAB PO SCH (18:01)
[2017-08-31] MEDS: Warfarin TAB(*) 3 MG PO SCH (18:02)
--- NOTE | 2017-08-31 21:19 | PN ---
Progress Note - Progress Note Date of Service: 08/31/17 Note: Maureen visited. Therapy notes read and reviewed. She seems to be doing fairly well. Will go home tomorrow. INR rising, will lower coumadin. Current Medications Acetaminophen (Tylenol Tab*) 650 mg PO Q6H PRN PRN Reason: FEVER/PAIN Last Admin: 08/31/17 20:19 Dose: 650 mg Amlodipine Besylate (Norvasc Tab*) 2.5 mg PO DAILY [facility] Last Admin: 08/31/17 07:53 Dose: 2.5 mg Atorvastatin Calcium (Lipitor*) 20 mg PO 1700 [facility] Last Admin: 08/31/17 18:01 Dose: 20 mg Docusate Sodium (Colace Cap*) 100 mg PO BID [facility] Last Admin: 08/31/17 20:17 Dose: Not Given Furosemide (Lasix Tab*) 20 mg PO DAILY [facility] Last Admin: 08/31/17 07:53 Dose: 20 mg Hydroxychloroquine Sulfate (Plaquenil Tab*) 200 mg PO DAILY [facility] Last Admin: 08/31/17 07:53 Dose: 200 mg Magnesium Hydroxide (Milk Of Magnhaley Liq*) 30 ml PO Q6H PRN PRN Reason: CONSTIPATION Senna (Senokot Tab*) 2 tab PO BEDTIME PRN PRN Reason: CONSTIPATION Warfarin Sodium (Coumadin Tab(*)) 2 mg PO DAILY@1700 [facility] PRN Reason: Protocol Last Admin: 08/31/17 18:01 Dose: 2 mg Laboratory Results - last 24 hr 08/31/17 06:40 INR (Anticoag Therapy) 2.79 H Vital Signs Temp Pulse Resp BP Pulse Ox 98.9 F 83 20 114/61 98 08/31/17 15:48 08/31/17 15:48 08/31/17 15:48 08/31/17 15:48 08/31/17 19:55 EXAM: LUNGS: Clear bilat HEART: reg rhythm ABDOMEN: Soft + BS EXTREMITIES: left leg looks clean ASSESSMENT/PLAN: 1. Left TKA: PT/OT 2. DVT prophylaxis: coumadin. decrease to 2 mg 3. Post operative hypotension: restarted amlodipine as BP was rising. Follow BP 4. Rheumatoid Arthritis: Enbrel on hold since 4wks pre-op. On plaquenil. 5. Chronic kidney disease: Cr fluctuating between 1.8-2. Follow labs. 6. CHF: Lasix. follow labs. 7. Acute post-op anemia: labs stable. 8. Advanced directives: full code
[2017-09-01] MEDS: Acetaminophen TAB* 325 MG PO PRN ×2 (02:31→11:55)
[2017-09-01 06:22] VITALS: BP 140/75
[2017-09-01] MEDS: Hydroxychloroquine TAB* 200 MG PO SCH (07:49)
[2017-09-01] MEDS: Furosemide TAB* 20 MG PO SCH (07:49)
[2017-09-01] MEDS: amLODIPine TAB* 5 MG PO SCH (07:49)
[2017-09-01] MEDS: Docusate CAP* 100 MG PO SCH (07:50)
--- NOTE | 2017-09-02 02:21 | DS ---
CC: Dr. Chicas, [place] * DISCHARGE SUMMARY: DATE OF ADMISSION: 08/25/17 DATE OF DISCHARGE: 09/01/17 DISCHARGE DIAGNOSES: 1. Left total knee replacement. 2. Acute blood loss anemia. 3. Rheumatoid arthritis. 4. Chronic kidney disease. 5. Status post aortic valve replacement. 6. Congestive heart failure. 7. Hypertension. HISTORY OF ILLNESS AND HOSPITAL COURSE: For complete history of the events leading up to her rehab stay, please see the history and physical dictated by me on 08/25/17. While on the rehab unit, the patient remains stable from medical point of view. She was maintained on Coumadin for DVT prophylaxis. Her Enbrel was held and she was continued on Plaquenil for her rheumatoid arthritis. Her blood pressure has slowly increased and her amlodipine was resumed. Her atenolol continued to be held. The patient was otherwise medically stable. She was seen by both Physical and Occupational Therapy. She made good gains with both disciplines. With physical therapy at the time of admission, the patient required minimum amount of assistance to transfer. She was able to ambulate with contact guard to 100 feet. With occupational therapy at the time of admission, she required min assist for upper body dressing, mod assist for lower body dressing, contact guard for toileting and contact guard for toilet transfer. By the time of discharge, she was independent in transfers , independent ambulating 150 feet using a 2-wheeled walker, independent going up and down 5 steps, independent with her activities of daily living. The patient was discharged home on 09/01/17. DISCHARGE DIET: Regular. DISCHARGE MEDICATIONS: 1. Norvasc 2.5 mg daily. 2. Lasix 20 mg daily. 3. Plaquenil 200 mg daily. 4. Coumadin 2 mg daily or as directed. 5. Pravastatin 80 mg every evening. 6. Vitamin D 1000 units every morning. SERVICES AFTER DISCHARGE: Through the visiting nurse service in [place]. She will have home nursing, home physical therapy, and a home health aide. FOLLOWUP: Follow up with Dr. Bernie Smith in 1 week as well as with Dr. Chicas in [place]. [id number]/[facility] #: [id number] MTDD
== END 2017-09-01 13:30 | disposition home health service (06) | DRG 560 ==
LOC: PMRU 13:33 → UNDOADMIN 13:33
PROVIDERS: ADMIT Physical Medicine & Rehabilitation; ATTEND Physical Medicine & Rehabilitation
PROC: F07Z5ZZ Bed Mobility Treatment (ICD-10-PCS; principal; 2017-08-25)
PROC: F07Z9ZZ Gait Training/Functional Ambulation Treatment (ICD-10-PCS; 2017-08-25)
PROC: F07Z8ZZ Transfer Training Treatment (ICD-10-PCS; 2017-08-25)
PROC: F08Z0ZZ Bathing/Showering Techniques Treatment (ICD-10-PCS; 2017-08-25)
PROC: F08Z1ZZ Dressing Techniques Treatment (ICD-10-PCS; 2017-08-25)
PROC: F08Z3ZZ Feeding/Eating Treatment (ICD-10-PCS; 2017-08-25)
DX: Z47.1 Aftercare following joint replacement surgery (principal); I13.0 Hypertensive heart and chronic kidney disease with heart failure and stage 1 through stage 4 chronic kidney disease, or unspecified chronic kidney disease; N18.4 Chronic kidney disease, stage 4 (severe); I50.9 Heart failure, unspecified; I95.81 Postprocedural hypotension; D62 Acute posthemorrhagic anemia; M06.9 Rheumatoid arthritis, unspecified; Z96.652 Presence of left artificial knee joint; Z95.2 Presence of prosthetic heart valve; Z79.899 Other long term (current) drug therapy; Z88.0 Allergy status to penicillin; Z88.2 Allergy status to sulfonamides; R60.0 Localized edema
CPT/HCPCS: 36415; 80048; 80053; 85025; 85610; A9270-GY

== ENCOUNTER 2019-03-30 13:54 | Emergency (ER) | payer MEDICARE ==
--- NOTE | 2019-03-30 14:29 | ED ---
Abdominal Pain/Female - HPI Summary HPI Summary: Pt is an 78 y/o F presenting to the ED brought in by EMS for abd pain. She states she has had upper back/shoulder pain for a while, but she began having abd pain mainly in the epigastric region about four days ago. The pain is described as sharp, and is worse with movement. She denies cough. The pt notes that she has had cardiac surgery in 2017, L knee surgery in 2018, and is currently on dialysis. - History of Current Complaint Chief Complaint: EDAbdPain Stated Complaint: ABD/BACK PAIN PER EMS Time Seen by Provider: 03/30/19 14:04 Hx Obtained From: Patient Onset/Duration: Gradual Onset, Lasting Days, Still Present Timing: Days Severity Initially: Mild Severity Currently: None Pain Intensity: 0 Pain Scale Used: 0-10 Numeric Location: Epigastric Radiates: Yes Radiates to: Back Character: Sharp Aggravating Factor(s): Movement Alleviating Factor(s): Nothing Associated Signs and Symptoms: Positive: Back Pain. Negative: Cough Allergies/Adverse Reactions: Allergies Allergy/AdvReac Type Severity Reaction Status Date / Time amoxicillin Allergy Rash Verified 01/05/18 08:53 Penicillins Allergy Rash Verified 01/05/18 08:53 Sulfa (Sulfonamide Allergy Rash Verified 01/05/18 08:53 Antibiotics) Home Medications: Home Medications Amiodarone HCl 200 mg PO DAILY 03/30/19 [History Confirmed 03/30/19] Atorvastatin* [Lipitor*] 20 mg PO DAILY 03/30/19 [History Confirmed 03/30/19] Cyanocobalamin TAB* [Vitamin B12 TAB*] 500 mcg PO DAILY 03/30/19 [History Confirmed 03/30/19] Ferrous Sulfate TAB* 325 mg PO DAILY 03/30/19 [History Confirmed 03/30/19] Fludrocortisone Acetate TAB* [Florinef TAB*] 0.1 mg PO DAILY 03/30/19 [History Confirmed 03/30/19] Gabapentin CAP(*) [Neurontin 300 CAP(*)] 300 mg PO BEDTIME 03/30/19 [History Confirmed 03/30/19] Levothyroxine TAB* [Synthroid TAB*] 75 mcg PO DAILY 03/30/19 [History Confirmed 03/30/19] Midodrine HCl 10 mg PO TID 03/30/19 [History Confirmed 03/30/19] Multivitamins/Minerals TAB* [Theragran/minerals TAB*] 1 tab PO DAILY 03/30/19 [ History Confirmed 03/30/19] Pantoprazole TAB * [Protonix TAB*] 40 mg PO DAILY 03/30/19 [History Confirmed ] Torsemide TAB* [Demadex*] 20 mg PO SUMOWEFR 03/30/19 [History Confirmed 03/30/19 ] Warfarin TAB(*) [Coumadin TAB(*)] 3 mg PO MOWEFR 03/30/19 [History Confirmed ] Warfarin TAB(*) [Coumadin TAB(*)] 4 mg PO SUTUTHSA 03/30/19 [History Confirmed 03/30/19] PMH/Surg Hx/FS Hx/Imm Hx Previously Healthy: No Endocrine/Hematology History: Reports: Hx Blood Transfusions, Hx Thyroid Disease , Hx Anemia Denies: Hx Anticoagulant Therapy, Hx Diabetes Cardiovascular History: Reports: Hx Congestive Heart Failure, Hx Coronary Artery Disease - per H&P, Hx Hypotension, Hx Hypertension - MEDICATED, Hx Valvular Heart Disease - Aortic valve replacement 2016, Other Cardiovascular Problems/Disorders - L diastolic failure, TAVR Denies: Hx Pacemaker/ICD Respiratory History: Denies: Hx Asthma, Other Respiratory Problems/Disorders GI History: Reports: Hx Hiatal Hernia Denies: Other GI Disorders History: Reports: Other Problems/Disorders - UTI 08/05/17 Musculoskeletal History: Reports: Hx Arthritis, Hx Rheumatoid Arthritis, Other Musculoskeletal History - Rheumatoid Arthritis Denies: Hx Tendonitis Sensory History: Reports: Hx Cataracts - Bilateral cataract extractions, Hx Contacts or Glasses, Hx Hearing Aid - hearing aide not available here in hosp, Hx Hearing Problem Denies: Hx Glaucoma Opthamlomology History: Reports: Hx Cataracts - Bilateral cataract extractions, Hx Contacts or Glasses Denies: Hx Glaucoma Neurological History: Denies: Other Neuro Impairments/Disorders Psychiatric History: Denies: Hx Panic Disorder, Other Psychiatric Issues/Disorders - PATIENT DENIES - Cancer History Cancer Type, 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 Aortic Valve Replacement. Right Mastectomy-23 YRS OLD. Oopherectomy-. Bilateral Cataracts with lens implants. LEFT KNEE REPLACEMENT Hx Anesthesia Reactions: No Infectious Disease History: No Infectious Disease History: Reports: Hx Shingles - 2002 Denies: Hx Hepatitis, History Other Infectious Disease, Traveled Outside the [place] in Last 30 Days - Family History Known Family History: Negative: Respiratory Disease - Social History Alcohol Use: None Hx Substance Use: No Substance Use Type: Reports: None Hx Tobacco Use: No Smoking Status (MU): Never Smoked Tobacco Review of Systems Negative: Cough Positive: Abdominal Pain Positive: Myalgia - back pain, shoulder pain All Other Systems Reviewed And Are Negative: Yes Physical Exam - Summary Physical Exam Summary: Appearance: The patient is well-nourished in no acute distress and in no acute pain. Skin: The skin is warm and dry and skin color reflects adequate perfusion. HEENT: The head is normocephalic and atraumatic. The pupils are equal and reactive. The conjunctivae are clear and without drainage. Nares are patent and without drainage. Mouth reveals moist mucous membranes and the throat is without erythema and exudate. The external ears are intact. The ear canals are patent and without drainage. The tympanic membranes are intact. Neck: The neck is supple with full range of motion and non-tender. There are no carotid bruits. There is no neck vein distension. Respiratory: Chest is non-tender. The R lung has decreased breath sounds, along with some crackles. Cardiovascular: Heart is tachycardic with a regular rhythm. There is no murmur or rub auscultated. Pulses are symmetrical and equal. Abdomen: The abdomen is soft, she has diffuse abdominal tenderness. There are normal bowel sounds heard in all four quadrants and there is no organomegaly palpated. Musculoskeletal: There is some tenderness noted in the L paracervical area. Extremities are non-tender with full range of motion. There is good capillary refill. R arm is diffusely edematous. L knee has a small puncture wound with drainage. Neurological: Patient is alert and oriented to person, place and time. The patient has symmetrical motor strength in all four extremities. Cranial nerves are grossly intact. Deep tendon reflexes are symmetrical and equal in all four extremities. Psychiatric: The patient has an appropriate affect and does not exhibit any anxiety or depression. Triage Information Reviewed: Yes Vital Signs On Initial Exam: Initial Vitals Temp Pulse Resp BP Pulse Ox 97.7 F 109 16 94/77 92 03/30/19 14:14 03/30/19 14:14 03/30/19 14:14 03/30/19 14:14 03/30/19 14:14 Vital Signs Reviewed: Yes Diagnostics - Vital Signs Vital Signs Temp Pulse Resp BP Pulse Ox 03/30/19 14:18 110 20 97 03/30/19 14:14 97.7 F 109 16 94/77 92 - Laboratory Result Diagrams: 03/30/19 15:26 03/30/19 15:26 Lab Statement: Any lab studies that have been ordered have been reviewed, and results considered in the medical decision making process. - Radiology CXR Radiology Interpretation Completed By: Radiologist Summary of Radiographic Findings: Cardiomegaly progressed from August 12, 2017. ED physician has reviewed this report. - CT CT a/p CT Interpretation Completed By: Radiologist Summary of CT Findings: 1. CHOLELITHIASIS. 2. ATHEROSCLEROSIS. 3. DIVERTICULOSIS. 4. CARDIOMEGALY WITH PULMONARY INTERSTITIAL EDEMA AND SMALL BILATERAL PLEURAL EFFUSIONS. ED physician has reviewed this report. - EKG 1429 Cardiac Rate: Other Rate - atrial fibrillation 98bpm EKG Rhythm: Atrial Fibrillation ST Segment: Normal Ectopy: None Summary of EKG Findings: EKG at 1429 shows atrial fibrillation at a rate of 98bpm with LVH, LAD, no STEMI. Abdominal Pain Fem Course/Dx - Course Course Of Treatment: Ms. Zuñiga presented complaining of upper abdominal bilateral pain went into her back for several days. It is exacerbated by any movement. She has been on dialysis for about 6 months and is just transferring to our dialysis unit. She's had dialysis once on Tuesday and is scheduled again tomorrow which is Tuesday. She will then be dialyzed Tuesday starting next week. She was nontoxic in appearance with stable vitals. She was mildly tender in her abdomen with normoactive bowel sounds. She was found to have some cardiomegaly which is long-standing. She also has some small bilateral pleural effusions and this may be the source of her pain. Labs and CT are otherwise unremarkable and I recommended she follow up with dialysis tomorrow which may resolve the effusions. - Diagnoses Provider Diagnoses: Pleural effusion Discharge - Sign-Out/Discharge Documenting (check all that apply): Patient Departure Patient Received Moderate/Deep Sedation with Procedure: No - Discharge Plan Condition: Stable Disposition: HOME Prescriptions: traMADol TAB* [Ultram*] 50 mg PO Q6HR PRN #20 tab MDD 4 PRN Reason: Pain Patient Education Materials: Pleural Effusion (ED) Referrals: Merced Chicas MD [Primary Care Provider] - Additional Instructions: Please take your prescribed medications as instructed. Follow up with your primary care provider in 2-3 days. Return to the emergency department with any new or worsening symptoms. - Billing Disposition and Condition Condition: STABLE Disposition: Home - Attestation Statements Document Initiated by Scribe: Yes Documenting Scribe: Yolande Virgen Provider For Whom Scribe is Documenting (Include Credential): Lele Mendenhall MD. Scribe Attestation: Yolande Robertson scribed for Lele Mendenhall MD. on 03/30/19 at 1908. Scribe Documentation Reviewed: Yes Provider Attestation: The documentation as recorded by the scribeYolande accurately reflects the service I personally performed and the decisions made by , Lele Mendenhall MD. Status of Scribe Document: Viewed
--- OUTSIDE RECORDS SUMMARY | 2019-03-30 15:23 | XMS REPORT | Continuity of Care Document ---
:1940 External Reference #:[id number] Author Name Khadijah Guillen Care Team Providers Name Role Phone Merced Chicas MD Primary Care Physician Unavailable Payers Date Identification Numbers Payment Provider Subscriber Policy Number: [id number] Medicare Dorothy Heath PayID: [id number] [address] [place] [address] Effective: 2003 Policy Number: [id number] Medicare Dorothy Heath Expires: 2019 PayID: [id number] [address] [facility] [place] [address] Effective: 2012 Policy Number: [id number] [facility] PayID: [id number] [address] [place] [address] Problems Active Problems Provider Date Aortic valve disorder Alonso Jacob M.D., [facility], Onset: 06/11/2014 FASNC Localized, primary osteoarthritis Tay Menjivar M.D. Onset: 07/31/2015 Enthesopathy of knee Tay Menjivar M.D. Onset: 12/04/2015 Acquired genu valgum Bernie Smith M.D. Onset: 02/07/2017 Arthroplasty of knee Bernie Smith M.D. 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 unspecified upper limb, including shoulder Family History Date Family Member(s) Observation Comments General Arthritis General Actually her mother had anemia General Rheumatoid Arthritis General Twin brother had rheumatoid arthritis General Heart Disease Social History Type Date Description Comments Sex Unknown Marital Status Lives With Son Occupation Retired ETOH Use Denies alcohol use Tobacco Use Start: Unknown Patient has never smoked Recreational Drug Use Denies Drug Use Smoking Status Reviewed: 03/12/19 Patient has never smoked Exercise Type/Frequency Exercises regularly Allergies, Adverse Reactions, Alerts Active Allergies Reaction Severity Comments Date Penicillins Urticaria 05/09/2014 Sulfamethoxazole Urticaria 05/09/2014 Amoxicillin 02/07/2017 Medications Active Medications SIG Qnty Indications Ordering Date Provider Calcium Acetate (Phos Unknown Binder) 667mg Capsules Fludrocortisone Acetate TK 1 T PO qd Unknown 0.1mg Tablets Torsemide take 2 tablets Unknown 20mg Tablets by mouth daily Ondansetron dissolve 1 Unknown 4mg Tablets tablet On Tongue Dispers once daily if needed for nausea Amiodarone HCL Unknown 200mg Tablets Pantoprazole Sodium Take 1 Tablet By Unknown 40mg Mouth Once Daily Tablets DR Warfarin Sodium Take 1 Tablet By Unknown 1mg Tablets Mouth Every Evening as Directed Levothyroxine Sodium Take 1 Tablet By Unknown 75mcg Mouth Daily Tablets Atorvastatin Calcium Take 1 Tablet By Unknown 20mg Mouth AT Bedtime Tablets Ferrous Sulfate Unknown 65mg Stool Softener Unknown Multivitamins 1 by mouth every 30caps Unknown Capsules day History Medications Plaquenil 1 tab by mouth daily 90tabs M06.4 Fatimahofia Srinivas, 10/06/2017 - 200mg [employer] 03/11/2019 Tablets Voltaren apply 2 grams to 100gm M25.519 Fatimahofia Srinivas, 09/26/2017 - 1% Gel shoulders twice a day, [employer] 01/01/2018 as needed Enbrel Sureclick inject subcutaneously 4units M06.4 Fatimahofia Srinivas, 2016 - 50mg every weekON Hold [employer] 08/04/2017 50mg/ml Solution Auto-Inject Z79.899 Plaquenil Take 2 by mouth 90tabs M06.4 Estevan Yarbroughdor, 02/17/2017 - 200mg daily ongoing M.D. 10/06/2017 Tablets Plaquenil 1 by mouth 30tabs M11.162 Estevan Yarbroughdor, 02/17/2017 - 200mg every day for 1 M.D. 02/17/2017 Tablets week then 2 by mouth daily ongoing Diclofenac Sodium apply to left 150units M11.162 Lucas Espino, 2016 - knee 2x daily [employer] 02/02/2017 1.5% Solution Plaquenil 1 by mouth 90tabs M11.162 Estevan Yarbroughdor, 11/30/2016 - 200mg every day M.D. 11/30/2016 Tablets Plaquenil 1 by mouth 30tabs M11.162 Estevan Hernandez, 11/30/2016 - 200mg every day for 1 M.D. 12/27/2016 Tablets week then 2 by mouth daily ongoing Ramipril 1 by mouth 180caps Alonso Kulkarni 08/02/2012 - 10mg twice a day Jigar Jacob, 02/13/2015 Capsules BALJIT DELGADO Atenolol 10 mg/day 90tabs Alonso Kulkarni 08/02/2012 - 25mg Tablets Jigar Jacob, 09/18/2017 BALJIT DELGADO Pravastatin Sodium 1 tablet once 90tabs Alonso Kulkarni 08/02/2012 - daily at Jigar Jacob, 11/18/2016 80mg Tablets bedtime BALJIT DELGADO Nexium 1 by mouth Unknown - 20mg Capsules every day 03/11/2019 Atenolol Unknown - Powder 11/07/2017 Aspirin 1 by mouth Unknown - 81mg Tablets every day 03/11/2019 Ferrous Sulfate 1 by mouth Unknown - 325mg every day 01/01/2018 Tablets Pravastatin Sodium once daily Unknown - 03/11/2019 200mg Percocet Unknown - 09/01/2017 Coumadin Unknown - 09/25/2017 Clopidogrel 1 by mouth Unknown - Bisulfate every day 10/30/2017 75mg Tablets Aspir-81 1 by mouth Unknown - 81mg Tablets every day 09/18/2017 DR HIGH B-12 Unknown - 500mcg 03/11/2019 Tablets Ferrous Sulfate 1 by mouth Unknown - 325mg every day 01/18/2017 Tablets Furosemide 1 by mouth Unknown - 20mg twice daily prn 03/11/2019 Tablets Amlodipine Besylate 1 by mouth Unknown - every day 03/11/2019 5mg Tablets Lisinopril 1 by mouth Unknown - 10mg every day 11/18/2016 Tablets Glucosamine 1 po qd Unknown - Chondroitin 01/01/2018 Vitamin C 1 by mouth Unknown - 500mg every day 03/11/2019 Chewtabs Vitamin D3 High 1 by mouth 30caps Unknown - Potency every day 03/11/2019 1000Unit Capsules Medications Administered in Office Medication SIG Qnty Indications Ordering Provider Date Triamcinolone (Kenalog) Estevan Ng M.D. 06/08/2017 Injection Synvisc Or Synvisc-One Estevan Ng M.D. 04/06/2017 Injection 1 MG Injection Triamcinolone (Kenalog) Estevan Ng M.D. 02/02/2017 Injection Triamcinolone (Kenalog) Estevan Ng M.D. 11/18/2016 Injection Depomedrol 40MG Tay Menjivar M.D. 07/07/2016 Injection Depomedrol 40MG Tay Menjivar M.D. 07/07/2016 Injection Depomedrol 40MG Tay Menjivar M.D. 12/04/2015 Injection Depomedrol 40MG Tay Menjivar M.D. 07/31/2015 Injection Inj, Regadenoson, 0.1 MG Alonso Jacob M.D., 03/04/2015 Injection BALJIT DELGADO Aminophylline Alonso Jacob M.D., 03/04/2015 Injection BALJIT DELGADO Technetium TC 99M Alonso Jacob M.D., 03/04/2015 Tetrofosmin, Per Unit Dose Up BALJIT DELGADO To 40 Millicuries Injection Vital Signs Date Vital Result Comment 03/12/2019 10:46am Height 60 inches 5'0" Heart Rate 126 /min BP Systolic 100 mmHg BP Diastolic 78 mmHg Respiratory Rate 18 /min Body Temperature 98.1 F Pain Level 0 04/03/2018 2:08pm Height 60 inches 5'0" Weight 136.00 lb BP Systolic 128 mmHg BP Diastolic 82 mmHg Body Temperature 98.6 F BMI (Body Mass Index) 26.6 kg/m2 03/06/2018 1:04pm Height 60 inches 5'0" Weight 134.38 lb Heart Rate 75 /min BP Systolic Sitting 120 mmHg BP Diastolic Sitting 70 mmHg Pain Level 5 O2 % BldC Oximetry 95 % BMI (Body Mass Index) 26.2 kg/m2 01/02/2018 1:33pm Height 60 inches 5'0" Weight 134.00 lb BP Systolic 120 mmHg BP Diastolic 70 mmHg Body Temperature 98.6 F BMI (Body Mass Index) 26.2 kg/m2 11/07/2017 2:02pm Weight 133.00 lb Heart Rate 83 /min BP Systolic Sitting 113 mmHg BP Diastolic Sitting 64 mmHg O2 % BldC Oximetry 98 % 10/31/2017 2:08pm Height 60 inches 5'0" Weight 141.00 lb Heart Rate 75 /min BP Systolic Sitting 138 mmHg LA reg cuff BP Diastolic Sitting 82 mmHg LA reg cuff Pain Level 4 BMI (Body Mass Index) 27.5 kg/m2 09/26/2017 1:37pm Weight 131.00 lb Heart Rate 86 /min BP Systolic Sitting 108 mmHg BP Diastolic Sitting 72 mmHg O2 % BldC Oximetry 99 % 09/19/2017 1:42pm Height 60 inches 5'0" Weight 134.00 lb BP Systolic 142 mmHg BP Diastolic 80 mmHg Body Temperature 97.6 F Pain Level 1 BMI (Body Mass Index) 26.2 kg/m2 09/02/2017 2:17pm Height 60 inches 5'0" Weight 134.00 lb BP Systolic 118 mmHg BP Diastolic 70 mmHg Body Temperature 99.5 F Pain Level 4 BMI (Body Mass Index) 26.2 kg/m2 08/05/2017 2:07pm Height 60 inches 5'0" Weight 136.00 lb Heart Rate 60 /min BP Systolic 120 mmHg BP Diastolic 86 mmHg Body Temperature 97.8 F BMI (Body Mass Index) 26.6 kg/m2 07/25/2017 3:35pm Height 61 inches 5'1" Weight 137.00 lb Heart Rate 59 /min BP Systolic Sitting 123 mmHg BP Diastolic Sitting 55 mmHg Respiratory Rate 14 /min Pain Level 5 BMI (Body Mass Index) 25.9 kg/m2 07/15/2017 2:19pm Height 61 inches 5'1" Weight 140.00 lb BP Systolic 124 mmHg BP Diastolic 70 mmHg Respiratory Rate 18 /min Pain Level 6 BMI (Body Mass Index) 26.4 kg/m2 06/08/2017 1:00pm Height 61 inches 5'1" Weight 137.00 lb pt. states Heart Rate 52 /min BP Systolic Sitting 121 mmHg BP Diastolic Sitting 58 mmHg Respiratory Rate 14 /min Pain Level 4 BMI (Body Mass Index) 25.9 kg/m2 03/10/2017 1:42pm Height 61 inches 5'1" Heart Rate 80 /min BP Systolic Sitting 162 mmHg BP Diastolic Sitting 80 mmHg Respiratory Rate 14 /min Pain Level 6 02/07/2017 9:58am Height 61 inches 5'1" Weight 140.00 lb Heart Rate 60 /min BP Systolic 135 mmHg BP Diastolic 70 mmHg Respiratory Rate 15 /min Body Temperature 98.0 F Pain Level 7 BMI (Body Mass Index) 26.4 kg/m2 02/02/2017 3:49pm Height 61 inches 5'1" Weight 143.00 lb Heart Rate 64 /min BP Systolic Sitting 129 mmHg BP Diastolic Sitting 75 mmHg Body Temperature 99.1 F Pain Level 7 BMI (Body Mass Index) 27.0 kg/m2 01/17/2017 2:19pm Height 61 inches 5'1" Weight 141.12 lb Heart Rate 64 /min BP Systolic 150 mmHg BP Diastolic 76 mmHg Pain Level 5 O2 % BldC Oximetry 97 % BMI (Body Mass Index) 26.7 kg/m2 11/30/2016 1:34pm Height 61 inches 5'1" Weight 137.00 lb Heart Rate 60 /min BP Systolic Sitting 147 mmHg BP Diastolic Sitting 72 mmHg Respiratory Rate 14 /min Body Temperature 99.0 F BMI (Body Mass Index) 25.9 kg/m2 11/18/2016 11:04am Height 61 inches 5'1" Weight 140.25 lb Heart Rate 60 /min BP Systolic Sitting 146 mmHg BP Diastolic Sitting 74 mmHg Respiratory Rate 14 /min Body Temperature 97.9 F BMI (Body Mass Index) 26.5 kg/m2 07/07/2016 3:39pm Height 61 inches 5'1" Respiratory Rate 16 /min Pain Level 5 02/17/2016 2:41pm Height 61 inches 5'1" Weight 157.00 lb Heart Rate 64 /min BP Systolic Sitting 146 mmHg LA reg cuff BP Diastolic Sitting 84 mmHg LA reg cuff BP Systolic Standing 154 mmHg LA reg cuff BP Diastolic Standing 88 mmHg LA reg cuff Respiratory Rate 16 /min BMI (Body Mass Index) 29.7 kg/m2 Ejection Fraction 55-60% 02/13/16 12/04/2015 1:12pm Height 61 inches 5'1" Weight 162.00 lb Heart Rate 59 /min BP Systolic 180 mmHg BP Diastolic 80 mmHg BMI (Body Mass Index) 30.6 kg/m2 07/31/2015 10:41am Height 61 inches 5'1" Weight 162.00 lb Heart Rate 80 /min BMI (Body Mass Index) 30.6 kg/m2 03/12/2015 10:36am Height 60.5 inches 5'0.50" Weight 162.00 lb w/o shoes Heart Rate 58 /min reg BP Systolic Sitting 130 mmHg Lue, reg cuff BP Diastolic Sitting 84 mmHg Lue, reg cuff BP Systolic Standing 136 mmHg Lue BP Diastolic Standing 90 mmHg Lue Respiratory Rate 18 /min BMI (Body Mass Index) 31.1 kg/m2 Ejection Fraction 60-65% as of 03/06/15 echo 06/11/2014 1:38pm Height 60.5 inches 5'0.50" Weight 165.00 lb with shoes Heart Rate 72 /min BP Systolic Sitting 148 mmHg LA, reg cuff BP Diastolic Sitting 94 mmHg LA, reg cuff BP Systolic Standing 132 mmHg LA BP Diastolic Standing 92 mmHg LA Respiratory Rate 16 /min BMI (Body Mass Index) 31.7 kg/m2 Results Test Date Facility Test Result H/L Range Note Xray 10/31/2017 [facility] Knee 3 Views <pending> [address] [place] [address] [phone] Laboratory test 09/26/2017 [facility] C Reactive 78.95 mg/L High < 5.00 [address] [place] [address] [phone] Erythrocyte Sed Rate 117 mm/Hr High 0-40 CBC Auto Diff 09/26/2017 [facility] White Blood 7.8 10^3/uL N 3.5-10.[address] [place] [address] [phone] Red Blood Count 3.17 10^6/uL Low 4.0-5.4 Hemoglobin 9.3 g/dL Low 12.0-16.0 Hematocrit 28 % Low 35-47 Mean Corpuscular Volume 89 fL N 80-97 Mean Corpuscular Hemoglobin 29 pg N 27-31 Mean Corpuscular HGB Conc 33 g/dL N 31-36 Red Cell Distribution Width 17 % High 10.5-15 Platelet Count 370 10^3/uL N 150-450 Mean Platelet Volume 8 um3 N 7.4-10.4 Abs Neutrophils 6.0 10^3/uL N 1.5-7.7 Abs Lymphocytes 1.0 10^3/uL N 1.0-4.8 Abs Monocytes 0.6 10^3/uL N 0-0.8 Abs Eosinophils 0.1 10^3/uL N 0-0.6 Abs Basophils 0.1 10^3/uL N 0-0.2 Abs Nucleated RBC 0 10^3/uL Granulocyte % 77.2 % N 38-83 Lymphocyte % 12.6 % Low 25-47 Monocyte % 7.9 % N 1-9 Eosinophil % 1.7 % N 0-6 Basophil % 0.6 % N 0-2 Nucleated Red Blood Cells % 0 Comp Metabolic Panel 09/26/2017 [facility] Sodium 138 mmol/L N 133-[address] [place] [address] [phone] Potassium 4.1 mmol/L N 3.5-5.0 Chloride 103 mmol/L N 101-111 Co2 Carbon Dioxide 23 mmol/L N 22-32 Anion Gap 12 mmol/L High 2-11 Glucose 101 mg/dL High 70-100 Blood Urea Nitrogen 36 mg/dL High 6-24 Creatinine 2.25 mg/dL High 0.51-0.95 BUN/Creatinine Ratio 16.0 N 8-20 Calcium 8.9 mg/dL N 8.6-10.3 Total Protein 6.7 g/dL N 6.4-8.9 Albumin 3.3 g/dL N 3.2-5.2 Globulin 3.4 g/dL N 2-4 Albumin/Globulin Ratio 1.0 N 1-3 Total Bilirubin 0.40 mg/dL N 0.2-1.0 Alkaline Phosphatase 80 U/L N 34-104 Alt 12 U/L N 7-52 Ast 20 U/L N 13-39 Egfr Non- 21.0 >60 Egfr 27.0 >60 2 Urine Culture And 08/12/2017 [facility] Urine Culture SEE RESULT [address] [place] [address] [phone] Laboratory test 08/12/2017 [facility] Activated 30.0 N 26.[address] Partial Thrombo seconds -36. [place] [address] Time 3 [phone] Inr/Protime 08/12/2017 [facility] Inr 1.13 High 0.[address] -1.0 [place] [address] 2 [phone] Laboratory test 08/12/2017 [facility] TSH (Thyroid 2.84 N 0.[address] Stimulating mcIU/mL -5.6 [place] [address] Horm) 0 [phone] Comp Metabolic 08/12/2017 [facility] Sodium 138 mmol/L N 133- Panel [address] [place] [address] [phone] Potassium 4.5 mmol/L N 3.5-5.0 Chloride 109 mmol/L N 101-111 Co2 Carbon Dioxide 16 mmol/L Low 22-32 Anion Gap 13 mmol/L High 2-11 Glucose 78 mg/dL N 70-100 Blood Urea Nitrogen 41 mg/dL High 6-24 Creatinine 2.28 mg/dL High 0.51-0.95 BUN/Creatinine Ratio 18.0 N 8-20 Calcium 8.6 mg/dL N 8.6-10.3 Total Protein 6.4 g/dL N 6.4-8.9 Albumin 3.0 g/dL Low 3.2-5.2 Globulin 3.4 g/dL N 2-4 Albumin/Globulin Ratio 0.9 Low 1-3 Total Bilirubin 0.30 mg/dL N 0.2-1.0 Alkaline Phosphatase 64 U/L N 34-104 Alt 12 U/L N 7-52 Ast 18 U/L N 13-39 Egfr Non- 20.7 >60 Egfr 26.6 >60 5 Quantiferon Gold 04/20/2017 [facility] M tuberculosis Negative N Negative [address] [place] [address] [phone] TB Ag minus Nil Result 0 IU/mL N TB Mitogen minus Nil Result > 10.00 IU/mL N TB Nil Result 0.02 IU/mL N 7 Body Fluid 04/06/2017 [facility] Body Fluid SEE RESULT BELOW 8, 9 C&S [address] [place] [address] Stain [phone] Body Fluid 04/06/2017 [facility] Body Fluid Synovial Fluid N Cell Count [address] [place] [address] [phone] Body Fluid Appearance Cloudy N Body Fluid Color Yellow N Body Fluid Volume 4 mL N Body Fluid WBC 55449 /mcL N 10 Body Fluid RBC 1099 /mcL N Body Fluid Comment (SEE NOTE) N 11 Body Fluid Neutrophils 97 % N Body Fluid Oliver 3 % N Body Fluid Total Cells Counted 100 N Fluid Reviewed By MD (SEE NOTE) N 12 Laboratory test 04/06/2017 [facility] Gram Stain SEE RESULT [address] [place] [address] [phone] MRSA/S. aureus Ssti PCR SEE RESULT BELOW 14 Body Fluid 02/02/2017 [facility] Body Fluid SEE RESULT 15, 16 C&S [address] [place] [place] [address] Stain [phone] Body Fluid 02/02/2017 [facility] Body Fluid Synovial Fluid N Cell Count [address] [place] [address] [phone] Body Fluid Appearance Cloudy N Body Fluid Color Yellow N Body Fluid Volume 15 mL N Body Fluid WBC 08459 /mcL N 17 Body Fluid RBC 8659 /mcL N Body Fluid Neutrophils 87 % N Body Fluid Band 3 % N Body Fluid Lymph 3 % N Body Fluid Oliver 7 % N Body Fluid Total Cells Counted 100 N Fluid Reviewed By MD (SEE NOTE) N 18 Laboratory test 02/02/2017 [facility] Body Fluid None Seen N [address] Crystals [place], [place] [address] [phone] CBC Auto Diff 01/24/2017 [facility] White Blood 6.9 N 3.5-[address] Count 10^3/uL .8 [place], [place] [address] [phone] Red Blood Count 3.34 10^6/uL Low 4.0-5.4 Hemoglobin 8.9 g/dL Low 12.0-16.0 Hematocrit 29 % Low 35-47 Mean Corpuscular Volume 85 fL N 80-97 Mean Corpuscular Hemoglobin 27 pg N 27-31 Mean Corpuscular HGB Conc 31 g/dL N 31-36 Red Cell Distribution Width 18 % High 10.5-15 Platelet Count 350 10^3/uL N 150-450 Mean Platelet Volume 8 um3 N 7.4-10.4 Abs Neutrophils 4.9 10^3/uL N 1.5-7.7 Abs Lymphocytes 1.2 10^3/uL N 1.0-4.8 Abs Monocytes 0.6 10^3/uL N 0-0.8 Abs Eosinophils 0.2 10^3/uL N 0-0.6 Abs Basophils 0 10^3/uL N 0-0.2 Abs Nucleated RBC 0.01 10^3/uL N Granulocyte % 70.5 % N 38-83 Lymphocyte % 17.6 % Low 25-47 Monocyte % 8.7 % N 1-9 Eosinophil % 2.6 % N 0-6 Basophil % 0.6 % N 0-2 Nucleated Red Blood Cells % 0.1 N Basic Metabolic Panel 01/24/2017 [facility] Sodium 138 mmol/L N 133-[address] [place] [address] [phone] Potassium 4.1 mmol/L N 3.5-5.0 Chloride 107 mmol/L N 101-111 Co2 Carbon Dioxide 22 mmol/L N 22-32 Anion Gap 9 mmol/L N 2-11 Glucose 83 mg/dL N 70-100 Blood Urea Nitrogen 37 mg/dL High 6-24 Creatinine 1.94 mg/dL 350 0.51-0.95 BUN/Creatinine Ratio 19.1 N 8-20 Calcium 9.1 mg/dL N 8.6-10.3 Egfr Non- 25.0 N >60 Egfr 32.1 N >60 20 Laboratory test 01/24/2017 [facility] Activated 32.9 seconds N 26.0-36.[address] [place] [address] Thrombo Time [phone] Inr/Protime 01/24/2017 [facility] Inr 1.00 N 0.89-1.[address] [place] [address] [phone] Cath Panel 01/19/2017 [facility] Activated 34.2 seconds N 26.0 -36.[address] [place] [address] Thrombo Time [phone] CBC Auto Diff 01/19/2017 [facility] White Blood 7.0 10^3/uL N 3.5-10.[address] [place] [address] [phone] Red Blood Count 3.30 10^6/uL Low 4.0-5.4 Hemoglobin 8.8 g/dL Low 12.0-16.0 Hematocrit 28 % Low 35-47 Mean Corpuscular Volume 84 fL N 80-97 Mean Corpuscular Hemoglobin 27 pg N 27-31 Mean Corpuscular HGB Conc 32 g/dL N 31-36 Red Cell Distribution Width 18 % High 10.5-15 Platelet Count 386 10^3/uL N 150-450 Mean Platelet Volume 7 um3 Low 7.4-10.4 Abs Neutrophils 5.2 10^3/uL N 1.5-7.7 Abs Lymphocytes 1.0 10^3/uL N 1.0-4.8 Abs Monocytes 0.5 10^3/uL N 0-0.8 Abs Eosinophils 0.2 10^3/uL N 0-0.6 Abs Basophils 0 10^3/uL N 0-0.2 Abs Nucleated RBC 0.01 10^3/uL N Granulocyte % 74.7 % N 38-83 Lymphocyte % 15.0 % Low 25-47 Monocyte % 7.0 % N 1-9 Eosinophil % 2.8 % N 0-6 Basophil % 0.5 % N 0-2 Nucleated Red Blood Cells % 0.1 N Inr/Protime 01/19/2017 [facility] Inr 1.02 N 0.89-1.[address] [place] [address] [phone] Basic Metabolic 01/19/2017 [facility] Sodium 137 mmol/L N 133- [address] [place] [address] [phone] Potassium 4.2 mmol/L N 3.5-5.0 Chloride 104 mmol/L N 101-111 Co2 Carbon Dioxide 25 mmol/L N 22-32 Anion Gap 8 mmol/L N 2-11 Glucose 94 mg/dL N 70-100 Blood Urea Nitrogen 31 mg/dL High 6-24 Creatinine 2.01 mg/dL High 0.51-0.95 BUN/Creatinine Ratio 15.4 N 8-20 Calcium 9.6 mg/dL N 8.6-10.3 Egfr Non- 24.0 N >60 Egfr 30.8 N >60 21 Laboratory test 01/18/2017 [facility] C Reactive 42.84 mg/L High < 5.00 [address] [place] [address] [phone] CBC Auto Diff 12/24/2016 [facility] White Blood 8.0 N 3.5- 10.[address] Count 10^3/[place] [address] [phone] Red Blood Count 3.45 10^6/uL Low 4.0-5.4 Hemoglobin 9.3 g/dL Low 12.0-16.0 Hematocrit 29 % Low 35-47 Mean Corpuscular Volume 85 fL N 80-97 Mean Corpuscular Hemoglobin 27 pg N 27-31 Mean Corpuscular HGB Conc 31 g/dL N 31-36 Red Cell Distribution Width 19 % High 10.5-15 Platelet Count 423 10^3/uL N 150-450 Mean Platelet Volume 8 um3 N 7.4-10.4 Abs Neutrophils 5.8 10^3/uL N 1.5-7.7 Abs Lymphocytes 1.1 10^3/uL N 1.0-4.8 Abs Monocytes 0.7 10^3/uL N 0-0.8 Abs Eosinophils 0.2 10^3/uL N 0-0.6 Abs Basophils 0.1 10^3/uL N 0-0.2 Abs Nucleated RBC 0 10^3/uL N Granulocyte % 73.2 % N 38-83 Lymphocyte % 14.3 % Low 25-47 Monocyte % 9.0 % N 1-9 Eosinophil % 2.8 % N 0-6 Basophil % 0.7 % N 0-2 Nucleated Red Blood Cells % 0 N Basic Metabolic Panel 12/24/2016 [facility] Sodium 138 mmol/L N 133-[address] [place] [address] [phone] Potassium 4.3 mmol/L N 3.5-5.0 Chloride 104 mmol/L N 101-111 Co2 Carbon Dioxide 23 mmol/L N 22-32 Anion Gap 11 mmol/L N 2-11 Glucose 93 mg/dL N 70-100 Blood Urea Nitrogen 40 mg/dL High 6-24 Creatinine 2.12 mg/dL High 0.51-0.95 BUN/Creatinine Ratio 18.9 N 8-20 Calcium 9.1 mg/dL N 8.6-10.3 Egfr Non- 22.5 N >60 Egfr 29.0 N >60 23 Laboratory test 11/29/2016 [facility] Uric Acid 6.7 mg/dL High 2.3-6.6 [address] [place] [address] [phone] C Reactive Protein 36.88 mg/L High < 5.00 25 Folic Acid (Folate) > 20.00 ng/mL N >3.99 26 Vitamin B12 916 pg/mL High 180-914 27 Vitamin D Total 25(Oh) 65.1 ng/mL High 30-50 28 Erythrocyte Sed Rate 111 mm/Hr High 0-40 29 Rheumatoid Factor 84 IU/mL Abnormal <15 30 Protein 11/29/2016 [facility] Total 7.0 g/dL N 6.3 - Electrophoresis [address] Protein(Pep) 7.9 [place] [address] [phone] Albumin 3.0 g/dL Abnormal 3.4-4.7 Alpha-1 Globulin 0.4 g/dL Abnormal 0.1-0.3 Alpha-2 Globulin 1.4 g/dL Abnormal 0.6-1.0 Beta Globulin 0.9 g/dL N 0.7-1.2 Gamma Globulin 1.3 g/dL N 0.6-1.6 Albumin/Globulin Ratio 0.76 N Impression See Comment N 31 Hla B27 11/29/2016 [facility] Hla B27 Positive N [address] [place] [address] [phone] Hla B27 Interp See Comment N 33 Connective Tissue 11/29/2016 [facility] Anti-Nuclear 1.6 U High [address] [place] [address] [phone] Cyclic Citrullinated Peptide <15.6 U N 35 Interpretation See Comment N 36 Laboratory test 11/29/2016 [facility] Vitamin D, 30 pg/mL N 18 -78 [address] 1,25 [place] [address] [phone] Laboratory test 11/18/2016 [facility] Body Fluid CPPD(Ca N 38, [address] [place] [address] <SEE NOTE> [phone] Body Fluid Cell 11/18/2016 [facility] Body Fluid Synovial N Count [address] [place] [address] [phone] Body Fluid Comment (SEE NOTE) N 40 Body Fluid Appearance Cloudy N Body Fluid Color Yellow N Body Fluid Volume 10 mL N Body Fluid WBC 85798 /mcL N 41 Body Fluid RBC 1247 /mcL N Body Fluid Neutrophils 93 % N Body Fluid Lymph 4 % N Body Fluid Oliver 3 % N Body Fluid Total Cells Counted 100 N Fluid Reviewed By MD (SEE NOTE) N 42 Body Fluid 11/18/2016 [facility] Body Fluid Cult SEE RESULT [address] [place] [address] [phone] FLP/Alt Panel 07/29/2015 [facility] Alt (SGPT) 10 U/L N 7-[address] [place] [address] [phone] Lipid Profile 07/29/2015 [facility] Triglycerides 95 mg/dL N 44 (Trig/Chol/HD [address] L) [place] [address] [phone] Cholesterol 172 mg/dL N 45 HDL Cholesterol 54.6 mg/dL N 46 LDL Cholesterol 98 mg/dL N 47 Basic Metabolic Panel 04/02/2014 Sodium 140 mmol/L N 133-145 48 Potassium 4.4 mmol/L N 3.7-5.6 Chloride 108 mmol/L N 101-111 Co2 Carbon Dioxide 26 mmol/L N 22-32 Anion Gap 6 mmol/L N 2-11 Glucose 85 mg/dL N 70-100 Blood Urea Nitrogen 30 mg/dL High 6-24 Creatinine 1.46 mg/dL High 0.51-0.95 BUN/Creatinine Ratio 20.5 High 8-20 Calcium 9.2 mg/dL N 8.6-10.3 Egfr Non- 34.9 N >60 Egfr 44.9 N >60 49 FLP/Alt Panel 04/02/2014 Alt 11 U/L N 7-52 50 Lipid Profile (Trig/Chol/HDL) 04/02/2014 Triglycerides 90 mg/dL N 51 Cholesterol 182 mg/dL N 52 HDL Cholesterol 57.3 mg/dL N 53 LDL Cholesterol 107 mg/dL N 54 1 Acute inflammation: >10.00 2 Because ethnic data is not always readily [...] 15-29 5 Kidney failure <15 (or dialysis) 3 SEE RESULT BELOW Name: MAUREEN ZUÑIGA : [address]: Bernie Smith MD Acct: [id number] Unit: [id number] AGE: 76 Location: [facility] Re08/12/17 SEX: F Status: REG REF SPEC: [id number] SUNITA: 08/12/17-1538 [facility] DR: Bernie Smith MD REQ: [id number] RECD: 08/12/17 STATUS: COLTON LEE DR: Merced Chicas MD _ SOURCE: URINE SPDESC: ORDERED: Urine Culture QUERIES: Urine Source: Clean Catch Procedure Result Reported Site Urine Culture Final 08/14/17- 822 ML No Growth (<1,000 CFU/mL) * ML - MAIN LAB (PSC1) . END OF REPORT * ML = Testing performed at Main Lab DEPARTMENT OF PATHOLOGY, [address] [place] [address] Miguel Ángel Myrick M.D. Director [facility] # [id number] 4 Please note the change in INR reference range effective 17. 5 Because ethnic data is not always readily [...] 15-29 5 Kidney failure <15 (or dialysis) 6 No interferon-gamma response to M. tuberculosis antigens was detected. Infection with M. tuberculosis is unlikely. A negative result alone does not exclude infection with M. tuberculosis. For detailed information regarding test interpretation see: [email or web address]/test-catalog/ Clinical+and+Interpretive/00341 7 Test Performed by: [address] [address] 8 [id number] 9 SEE RESULT BELOW Name: MAUREEN ZUÑIGA : [address]: Estevan Ng MD Acct: [id number] Unit: [id number] AGE: 76 Location: [facility] Re04/06/17 SEX: F Status: REG REF SPEC: [id number] SUNITA: 04/06/17-[address]: Estevan Ng MD REQ: [id number] RECD: 04/06/17 STATUS: COMP _ SOURCE: JOINT FLUI SPDESC: ORDERED: BF Cult/GS COMMENTS: Corrected result read back to Liz Carbajal at 1400 on 04/07/17 Zach LEYVA Results read back accurately. [id number] Procedure Result Reported Site Body Fluid Gram Stain Final 04/07/17- 0838 ML 4+ Neutrophils No Organisms Seen Preparation By Cytospin Smear Corrected result! Wrong result was 1+ GRAM POSITIVE COCCI Body Fluid Culture Final 04/10/17- 0831 ML No Growth Day 4 * ML - MAIN LAB ([facility]) . END OF REPORT * ML = Testing performed at Main Lab DEPARTMENT OF PATHOLOGY, [address] [place] [id number] Miguel Ángel Myrick M.D. Director [facility] # [id number] 10 -- REFERENCE VALUE -- Synovial: <150/mcL Peritoneal: <500/mcL Pleural: <500/mcL Pericardial: <500/mcL 11 Differential performed on concentrated smear. 12 Marked acute inflammation. Recommend correlation with microbiology culture studies. Reviewed by Jaylene Michaels MD 13 SEE RESULT BELOW Name: MAUREEN ZUÑIGA : [address]: Estevan Ng MD Acct: [id number] Unit: [id number] AGE: 76 Location: [facility] Re04/06/17 SEX: F Status: REG REF SPEC: [id number] SUNITA: 04/06/17-1499 [facility] DR: Estevan Ng MD REQ: [id number] RECD: 04/06/17182 STATUS: RES _ SOURCE: BODY FLUID SPDESC: ORDERED: Gram Stain COMMENTS: [id number] Procedure Result Reported Site Gram Stain Preliminary 04/06/17- 2137 ML 4+ Neutrophils 1+ Gram Positive Cocci * ML - MAIN LAB (PSYCHIATRIC1) . END OF REPORT * ML = Testing performed at Main Lab DEPARTMENT OF PATHOLOGY, [address] [place] [address] Miguel Ángel Myrick M.D. Director [facility] # [id number] 14 SEE RESULT BELOW Name: MAUREEN ZUÑIGA : [address]: Estevan Ng MD Acct: [id number] Unit: [id number] AGE: 76 Location: [facility] Re04/06/17 SEX: F Status: REG REF SPEC: [id number] SUNITA: 04/06/17-[address]: Estevan Ng MD REQ: [id number] RECD: 04/06/17 STATUS: COMP _ SOURCE: BODY FLUID [facility]: ORDERED: MRSA/SA SSTI COMMENTS: [id number] Procedure Result Reported Site MRSA/S. aureus SSTI PCR Final 04/06/17- 2253 ML Organism 1 MRSA NEGATIVE Organism 2 S.AUREUS NEGATIVE * ML - MAIN LAB (PSYCHIATRIC1) . END OF REPORT * ML = Testing performed at Main Lab DEPARTMENT OF PATHOLOGY, [address] [place] [address] Miguel Ángel Myrick M.D. Director [facility] # [id number] 15 [id number] 16 SEE RESULT BELOW Name: MAUREEN ZUÑIGA Stormy : [address]: Lucas Espino NP Acct: [id number] Unit: [id number] AGE: 76 Location: [facility] Re02/02/17 SEX: F Status: REG REF SPEC: [id number] SUNITA: 02/02/17-[address]: Lucas Espino NP REQ: [id number] RECD: 02/02/17 STATUS: COMP _ SOURCE: JOINT FLUI SPDESC: ORDERED: BF Cult/GS, MRSA/SA SSTI COMMENTS: [id number] Procedure Result Reported Site Body Fluid Gram Stain Final 02/03/17- 0850 ML 4+ Neutrophils 2+ Nucleated Cells No Organisms Seen Preparation By Cytospin Smear Body Fluid Culture Final 02/06/17- 0816 ML No Growth Day 4 MRSA/S. aureus SSTI PCR Final 02/03/17- 1012 ML Organism 1 MRSA NEGATIVE Organism 2 S.AUREUS NEGATIVE * ML - MAIN LAB ([facility]) . END OF REPORT * ML = Testing performed at Main Lab DEPARTMENT OF PATHOLOGY, [address] [place] [address] Miguel Ángel Myrick M.D. Director [facility] # [id number] 17 -- REFERENCE VALUE -- Synovial: <150/mcL Peritoneal: <500/mcL Pleural: <500/mcL Pericardial: <500/mcL 18 Acute inflammation present. Recommend correlation with microbiology culture studies. Reviewed by Dr. Myrick 19 [email or web address] What is the body fluid source?: Synovial (Joint) Fluid 20 Because ethnic data is not always readily [...] 15-29 5 Kidney failure <15 (or dialysis) 21 Because ethnic data is not always readily [...] 15-29 5 Kidney failure <15 (or dialysis) 22 Acute inflammation: >10.00 23 Because ethnic data is not always readily [...] 15-29 5 Kidney failure <15 (or dialysis) 24 Please check this week 25 Acute inflammation: >10.00 26 Please check this week 27 Normal Range 180 to 914 Indeterminate Range 145 to 180 Deficient Range <145 28 Please check this week 29 Please check this week 30 Test Performed by: [facility] [address] [place] [address] 31 RESULT: No apparent monoclonal protein on serum electrophoresis. Test Performed by: [facility] [address] [place] [address] 32 REFERENCE VALUE Not Applicable 33 HLA-B27 antigen was detected. Approximately 8% of [...] INFORMATION Method: Flow Cytometry Performing Laboratory CLIA# [id number] Test Performed by: [facility] - [address] [address] 34 Interpretation: Weak Positive (1.1-2.9) REFERENCE VALUE <=1.0 (Negative) 35 REFERENCE VALUE <20.0 (Negative) 36 Tests for antibodies to dsDNA and DENYS antigens are not performed automatically unless the SERA result is > or = 3.0 U. Studies performed at [facility] indicate that positive SERA results <3.0 U are rarely accompanied by positive second order tests. Test Performed by: [facility] - [address] [address] 37 ADDITIONAL INFORMATION This test was developed and its performance characteristics determined by [facility] in a manner consistent with CLIA requirements. This test has not been cleared or approved by the U.S. Food and Drug Administration. Test Performed by: [facility] - [address] [address] 38 [id number] CPPD(Ca Pyrophosate) Reviewed by Jaylene Michaels MD 40 Differential performed on concentrated smear. 41 -- REFERENCE VALUE -- Synovial: <150/mcL Peritoneal: <500/mcL Pleural: <500/mcL Pericardial: <500/mcL 42 Acute inflammation. Recommend correlation with microbiology culture studies. Reviewed by Jaylene Michaels MD 43 SEE RESULT BELOW Name: MAUREEN ZUÑIGA : [address]: Estevan Ng MD Acct: [id number] Unit: [id number] AGE: 76 Location: [facility] Re11/18/16 SEX: F Status: REG REF SPEC: [id number] SUNITA: 11/18/161222 [facility] DR: Estevan Ng MD REQ: [id number] RECD: 11/18/16 STATUS: COMP _ SOURCE: JOINT FLUI SPDESC: ORDERED: BF Cult/GS, MRSA/SA SSTI COMMENTS: [id number] Procedure Result Reported Site Body Fluid Gram Stain Final 11/19/16- 0744 ML 4+ Neutrophils No Organisms Seen Preparation By Cytospin Smear Body Fluid Culture Final 11/22/16- 1147 ML No Growth Day 4 MRSA/S. aureus SSTI PCR Final 11/18/16- 2213 ML Organism 1 MRSA NEGATIVE Organism 2 S.AUREUS NEGATIVE * ML - MAIN LAB (PSC1) . END OF REPORT * ML = Testing performed at Main Lab DEPARTMENT OF PATHOLOGY, [address] [place] [address] Miguel Ángel Myrick M.D. Director [facility] # [id number] 44 Desirable <150 Borderline high 150-199 High 200-499 Very High >500 45 Desirable <200 Borderline high 200-239 High >239 46 Low <40 Desirable: 40-60 High: >60 47 Desirable: <100 mg/dL Near Optimal: 100-129 mg/dL Borderline High: 130-159 mg/dL High: 160-189 mg/dL Very High: >189 mg/dL 48 FASTING 49 Because ethnic data is not always readily [...] 15-29 5 Kidney failure <15 (or dialysis) 50 FASTING 51 Desirable <150 Borderline high 150-199 High 200-499 Very High >500 52 Desirable <200 Borderline high 200-239 High >239 53 Low <40 Desirable: 40-60 High: >60 54 Desirable <100 Near Optimal 100-129 Borderline high 130-159 High 160-189 Very High >189 Procedures Date Code Description Status 08/23/2017 36063 TKR Total Knee Replacement Completed 08/23/2017 87364 TKR Total Knee Replacement Completed 08/12/2017 02839 EKG, Interpretation Only Completed 06/08/201787836 Inject/Drain Joint/Bursa Major W/O US Completed 04/06/201710330 Inject/Drain Joint/Bursa Major W/O US Completed 02/02/201799364 Inject/Drain Joint/Bursa Major W/O US Completed 01/20/2017 33154 Cath PLMT&NJX L Ventriculog Img S&I Completed 11/18/2016 Inject/Drain Joint/Bursa Major W/O US Completed 07/07/2016 Inject/Drain Joint/Bursa Major W/O US Completed 07/07/2016 Inject/Drain Joint/Bursa Major W/O US Completed 02/17/2016 96310 EKG Tracing & Interpretation Completed 02/13/2016 24800 ECHO Transthoracic, Real-Time 2D With Doppler And Color Completed Flow 12/04/201569560 Inject/Drain Joint/Bursa Major W/O US Completed 07/31/201562270 Inject/Drain Joint/Bursa Major W/O US Completed 03/06/2015 77275 ECHO Transthoracic, Real-Time 2D With Doppler And Color Completed Flow 03/04/2015 45925 Stress Test Completed 03/04/2015 08116 Myocardial Perfusion Imaging Tomographic (Spect) Multiple Completed Studies 06/11/2014 96124 EKG Tracing & Interpretation Completed 04/10/2014 32311 ECHO Transthoracic, Real-Time 2D With Doppler And Color Completed Flow 02/26/2013 47304 EKG Tracing & Interpretation Completed 02/16/2013 97406 ECHO Transthoracic, Real-Time 2D With Doppler And Color Completed Flow Encounters Type Date Location Provider Dx Diagnosis Office Visit 03/12/2019 Orthopedic Bernie Smith, [place]5.562 Pain in left knee 10:00a Services Of Carol Kimball Z96.652 Presence of left artificial knee joint S81.002A Unspecified open wound, left knee, initial encounter Office Visit 04/03/2018 1:30p Orthopedic Bernie Smith M25.511 Pain in right Services Of Carol Kimball shoulder M19.011 Primary osteoarthritis, right shoulder C44.601 Unsp malignant neoplasm skin/ unsp upper limb, inc shoulder 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 R60.0 Localized edema Office Visit 03/06/2018 Rheumatology Zsofia M06.4 Inflammatory 1:00p Services Of ORLIN CormierP polyarthropathy Ccmob Z79.899 Other prison (current) drug therapy S46.101A Unsp injury of musc/fasc/tend long hd bicep, right arm, init M79.9 Soft tissue disorder, unspecified Office Visit 01/02/2018 Santana Gibbs M19.011 Primary 1:15p Services Of Jigar Smith osteoarthritis, right C.M.AVega shoulder M25.511 Pain in right shoulder S29.001A Unsp injury of msl/tnd of front wall of thorax, init Office Visit 11/07/2017 Rheumatology Zsofia M06.4 Inflammatory 2:00p Services Of Saw Espino, PARTS FABRICATOR polyarthropathy Ccmob N18.9 Chronic kidney disease, unspecified Z79.899 Other prison (current) drug therapy N18.4 Chronic kidney disease, stage 4 (severe) Office Visit 09/26/2017 Rheumatology Zsofia M06.4 Inflammatory 1:30p Services Of Saw Espino, PARTS FABRICATOR polyarthropathy Ccmob Z96.652 Presence of left artificial knee joint M25.519 Pain in unspecified shoulder N18.9 Chronic kidney disease, unspecified Z79.899 Other termite treater helper (current) drug therapy Office Visit 08/24/2017 3:49p Intensivists Alex Oliver, R00.1 Bradycardia, MD unspecified D62 Acute posthemorrhagic anemia Z96.652 Presence of left artificial knee joint Office Visit 08/23/2017 3:48p Intensivists Alex Oliver, I95.81 Postprocedural MD hypotension Z96.652 Presence of left artificial knee joint Office Visit 07/25/2017 Rheumatology Zsofiveronica M06.4 Inflammatory 3:30p Services Of Saw Espino, PARTS FABRICATOR polyarthropathy Ccmob M17.12 Unilateral primary osteoarthritis, left knee Z79.899 Other prison (current) drug therapy Office Visit 07/15/2017 Orthopedic Bernie M17.12 Unilateral primary 2:30p Services Of Jigar Smith osteoarthritis, left C.M.A. 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 M17.12 Unilateral primary osteoarthritis, left knee M06.4 Inflammatory polyarthropathy Z79.899 Other prison (current) drug therapy Office Visit 03/10/2017 Rheumatology Estevan M06.4 Inflammatory 1:40p Services Of Saw Ng M.D. polyarthropathy M17.12 Unilateral primary osteoarthritis, left knee M25.462 Effusion, left knee R79.82 Elevated C-reactive protein (CRP) Z79.899 Other prison (current) drug therapy Office Visit 02/07/2017 9:30a Orthopedic Services Bernie Smith, M25.562 Pain in left Of [facility]. M.D. knee M25.462 Effusion, left knee M17.12 Unilateral primary osteoarthritis, left knee M21.062 Valgus deformity, not elsewhere classified, left knee Office Visit 02/02/2017 Rheumatology Estevan M17.9 Osteoarthritis of 4:00p Services Of Saw Ng M.D. 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 chondrocalcinosis, left knee M17.12 Unilateral primary osteoarthritis, left knee M06.4 Inflammatory polyarthropathy M85.89 Oth disrd of bone density and structure, multiple sites Z79.899 Other prison (current) drug therapy Office Visit 11/18/2016 Rheumatology Estevan M17.12 Unilateral primary 11:00a Services Of Saw Ng M.D. osteoarthritis, left knee M06.4 Inflammatory polyarthropathy R20.8 Other disturbances of skin sensation M85.89 Oth disrd of bone density and structure, multiple sites M54.6 Pain in thoracic spine M25.562 Pain in left knee Office Visit 07/07/2016 Orthopedic Tay M17.12 Unilateral primary 3:45p Services Of Jigar Menjivar osteoarthritis, left C.M.A. 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 left knee M70.52 Other bursitis of knee, left knee Office Visit 07/31/2015 Orthopedic Tay M17.12 Unilateral primary 10:30a Services Of Jigar Menjivar osteoarthritis, left C.M.A. knee Office Visit 03/12/2015 [place] Alonso Kulkarni 424.1 Aortic Valve 10:45a Cardiology Of Jigar Jacob, Disorder [facility] FAC, FASPR Office Visit 06/11/2014 [place] Alonso Kulkarni 424.1 Aortic Valve 1:30p Cardiology Mildred Jacob M.D., Disorder [facility] SANDY, FASRONALD Office Visit 02/26/2013 [place] Alonso Kulkarni 424.1 Aortic Valve 11:45a Cardiology Mildred Jacob M.D., Disorder [facility] FACC, FASNC Plan of Treatment Future Appointment(s):04/20/2019 1:15 pm - Bernie Smith M.D. at [facility]03/12/2019 - Bernie Smith M.D.M25.562 Pain in left kneeNew Xrays:Knee 3 Views LT, Ordered: 03/12/19Z96.652 Presence of left artificial knee teashB61.002A Unspecified open wound, left knee, initial encounterReferral: No Doctor SelectedFollow up:Follow up: 4 weeks
[2019-03-30 15:43] LABS: INR 4.27 (0.82-1.09)
[2019-03-30 15:49] LABS: Albumin 3.6 g/dL (3.2-5.2); Albumin/Globulin Ratio 1.3 (1-3); BUN/Creatinine Ratio 7.7 (8-20); C Reactive Protein 13.31 mg/L (<8.01); Calcium 9.5 mg/dL (8.6-10.3); EGFR African American 19.4 (>60); Globulin 2.8 g/dL (2-4); Potassium 3.5 mmol/L (3.5-5.0); Total Bilirubin 0.7 mg/dL (0.2-1.0); Total Protein 6.4 g/dL (6.4-8.9)
[2019-03-30 15:50] LABS: Troponin I 0.01 ng/mL (<0.04)
[2019-03-30 15:52] LABS: Hematocrit 34 % (35-47); Mean Corpuscular HGB Conc 33 g/dL (31-36); Mean Corpuscular Hemoglobin 35 pg (27-31); Mean Platelet Volume 8.3 fL (7.4-10.4); Platelet Count 174 10^3/uL (150-450); Red Blood Count 3.18 10^6 /uL (3.70-4.87); Red Cell Distribution Width 16 % (10-15); White Blood Count 6.2 10^3/uL (3.5-10.8)
[2019-03-30 16:23] LABS: Mean Corpuscular Volume 106 fL (80-97)
[2019-03-30 16:46] LABS: ABS Lymphocytes 0.6 10^3/ul (1.0-4.8); ABS Monocytes 0.6 10^3/ul (0-0.8); Eosinophil % 0.6 %; Lymphocyte % 9.6 %
[2019-03-30 16:52] LABS: Polychromasia 1+
[2019-03-30 17:43] VITALS: BP 96/65
== END 2019-03-30 17:36 | disposition home or self-care (01) ==
LOC: ED 13:54
DX: J90 Pleural effusion, not elsewhere classified (principal); K80.20 Calculus of gallbladder without cholecystitis without obstruction; I70.0 Atherosclerosis of aorta; K57.90 Diverticulosis of intestine, part unspecified, without perforation or abscess without bleeding; E07.9 Disorder of thyroid, unspecified; D64.9 Anemia, unspecified; I50.9 Heart failure, unspecified; Z11.0 Encounter for screening for intestinal infectious diseases; Z95.2 Presence of prosthetic heart valve; Z88.1 Allergy status to other antibiotic agents; Z88.0 Allergy status to penicillin; Z88.2 Allergy status to sulfonamides; Z79.899 Other long term (current) drug therapy; Z79.01 Long term (current) use of anticoagulants
CPT/HCPCS: 36415; 71046; 74176; 80053; 83605; 83690; 83880; 84484; 85025; 85610; 86140; 93005; 99283

== ENCOUNTER 2019-04-01 10:19 | Emergency (ER) | payer MEDICARE ==
--- NOTE | 2019-04-01 11:18 | ED ---
Complex/Multi-Sys Presentation - HPI Summary HPI Summary: Pt is a 78 Y\\0 Female seen in the ED at 1056 with information provided via pt as well as granddaughter Meg because pt is hard of hearing. Pt presents with a CC of N/V, abd pain noted to be around waistline w/ radiation to back and shoulders, SOB, chills, dizziness. Pt denies having a fever, cough and HEATON. N /V reported to be onset at 2230 last night 03/31/19. Meg states that pt was last seen in the ER 03/30/19 for for abdominal pain. During visit to ED pt was seen by Dr. Mendenhall. Pt received chest xray and was noted to have "fluid on her lungs" per granddaughter. CT abd/pel showed gallstones. Meg reports that pt has stage four renal disease and pt reports she received dialysis 03/29/19 and this week she will be on the MWF schedule. Meg repots that it is believed pt's renal disease is a result of excessive ibupropen use. FMHX of kidney disease reported. Pt BP was 100/78, HR 100, and O2sat 95. Pt's granddaughter reported vomiting four times this AM for which she administered zofran as well as tramadol for pain. Pt has emesis bag in room which vomit is noted to be yellow. Pt stated that she has been constipated and last nml BM was 03/30/19. Pt also states that she no longer has any urine output. No PMHX of DM. PMHX of HTN is endorsed. Pt has taken three tramadol since 03/30/19 with last dose reportedly taken at 1800 on 03/31/19. - History Of Current Complaint Chief Complaint: EDShortnessOfBreath Time Seen by Provider: 04/01/19 10:35 Hx Obtained From: Patient, Family/Technical Account Manager - Meg Granddaughter, Medical Records - Information provided from medical records 03/30/19 Hx From Patient Unobtainable Due To: Other - pt hard of hearing Onset/Duration: Lasting Hours - N/V 2230 03/31/19, Still Present Timing: Intermittent, Lasting:, Hours Severity Currently: Moderate - on triage pain reported 4/10 Severity Initially: Moderate Location: Pain At: - abd around waitline radiating to back and shoulders Character: Dull Aggravating Factor(s): On RN assesment it is noted that PO intake aggravates vomiting Alleviating Factor(s): nothing Associated Signs And Symptoms: Positive: Dizziness, SOB, Nausea, Vomiting, Abdominal Pain, Back Pain. Negative: Headache, Cough, Diarrhea, Fever Related History: Other - ED visit 03/30/19 dx'd with pleural effusions - Allergies/Home Medications Allergies/Adverse Reactions: Allergies Allergy/AdvReac Type Severity Reaction Status Date / Time amoxicillin Allergy Rash Verified 04/01/19 10:26 Penicillins Allergy Rash Verified 04/01/19 10:26 Sulfa (Sulfonamide Allergy Rash Verified 04/01/19 10:26 Antibiotics) PMH/Surg Hx/FS Hx/Imm Hx Previously Healthy: No Endocrine/Hematology History: Reports: Hx Blood Transfusions, Hx Thyroid Disease , Hx Anemia Denies: Hx Anticoagulant Therapy, Hx Diabetes Cardiovascular History: Reports: Hx Congestive Heart Failure, Hx Coronary Artery Disease, Hx Hypotension, Hx Hypertension, Hx Valvular Heart Disease - Aortic valve replacement 2016, Other Cardiovascular Problems/Disorders - L diastolic failure, TAVR Denies: Hx Pacemaker/ICD Respiratory History: Denies: Hx Asthma, Other Respiratory Problems/Disorders GI History: Reports: Hx Hiatal Hernia Denies: Other GI Disorders History: Reports: Other Problems/Disorders - UTI 08/05/17 Musculoskeletal History: Reports: Hx Arthritis, Hx Rheumatoid Arthritis Denies: Hx Tendonitis Sensory History: Reports: Hx Cataracts - Bilateral cataract extractions, Hx Contacts or Glasses, Hx Hearing Aid - hearing aide not available here in hosp, Hx Hearing Problem Denies: Hx Glaucoma Opthamlomology History: Reports: Hx Cataracts - Bilateral cataract extractions, Hx Contacts or Glasses Denies: Hx Glaucoma Neurological History: Denies: Other Neuro Impairments/Disorders Psychiatric History: Denies: Hx Panic Disorder, Other Psychiatric Issues/Disorders - Cancer History Cancer Type, Location and Year: BREAST CA Hx Chemotherapy: No - Right Mastectomy - Surgical History Surgical History: Yes Surgery Procedure, Year, and Place: Partial thyroidectomy. Aortic Valve Replacement. Double Mastectomy, Right 23 y/o. Oophorectomy-. Bilateral Cataracts with lens implants. LEFT KNEE REPLACEMENT Hx Anesthesia Reactions: No Infectious Disease History: Yes Infectious Disease History: Reports: Hx Shingles - 2002 Denies: Hx Hepatitis, History Other Infectious Disease, Traveled Outside the [place] in Last 30 Days - Family History Known Family History: Negative: Respiratory Disease - Social History Alcohol Use: None Hx Substance Use: No Substance Use Type: Reports: None Hx Tobacco Use: No Smoking Status (MU): Never Smoked Tobacco Review of Systems Negative: Fever Cardiovascular: Negative Positive: Shortness Of Breath. Negative: Cough Positive: Abdominal Pain, Vomiting, Nausea. Negative: Diarrhea Genitourinary: Negative Musculoskeletal: Other - Positive back pain and shoulder pain Skin: Negative Neurological: Other - positive dizziness Negative: Headache Psychological: Normal All Other Systems Reviewed And Are Negative: Yes Physical Exam - Summary Physical Exam Summary: Appearance: Ill-appearing, moderate pain distress, sallow color Skin: RUQ Ecchymosis of 10 cm. Warm, color reflects adequate perfusion, dry Head: Normal Head/Face inspection, atraumatic Eyes: Conjunctiva clear ENT: Normal inspection Neck: Supple, no nodes, no JVD Respiratory: Lungs clear, normal breath sounds, no respiratory distress Cardio: RRR, No murmur, pulses normal, brisk capillary refill Chest: bilateral mastectomy, Pt has a dialysis catheter at left upper chest. Abdomen: Soft, tenderness at epigastrium and RUQ, nondistended, no masses, no bruits Bowel sounds: Present Musculoskeletal: Strength Intact/ROM intact, no calf tenderness, lymphedema right arm, muscle wasting Psychological: Normal Neuro: Alert, muscle tone normal, no focal deficit Triage Information Reviewed: Yes Vital Signs On Initial Exam: Initial Vitals Temp Pulse Resp BP Pulse Ox 97.6 F 115 20 88/67 94 04/01/19 10:22 04/01/19 10:22 04/01/19 10:22 04/01/19 10:22 04/01/19 10:22 Vital Signs Reviewed: Yes Diagnostics - Vital Signs Vital Signs Temp Pulse Resp BP Pulse Ox 04/01/19 10:22 97.6 F 115 20 88/67 94 - Laboratory Result Diagrams: 04/01/19 11:35 04/01/19 11:35 Lab Statement: Any lab studies that have been ordered have been reviewed, and results considered in the medical decision making process. - Radiology Chest Xray Radiology Interpretation Completed By: Radiologist Summary of Radiographic Findings: IMPRESSION: CARDIOMEGALY. This report has been reviewed by Dr. Herzog - Ultrasound Gallbladder US Ultrasound Interpretation Completed By: Radiologist Summary of Ultrasound Findings: IMPRESSION: TRACE PERIHEPATIC ASCITES. ATROPHIC RIGHT KIDNEY. This report was reviewed by Dr. Herzog - EKG 1243 Cardiac Rate: Other Rate - Afib with 96 bpm EKG Rhythm: Atrial Fibrillation ST Segment: Non-Specific Ectopy: None EKG Comparison: No Significant Change - Done with EKG done on 03/30/19 Summary of EKG Findings: EKG showed Afib with rate 96 bpm prolonged IVCT of 118 , QTc 511, no acute changes. Complex Multi-Symp Course/Dx Course Of Treatment: Pt is a 78 Y\\0 Female seen with a CC of N/V, abd pain noted to be around waistline w/ radiation to back and shoulders, SOB, chills, dizziness. Pt denies having a fever, cough and HEATON. N/V reported to be onset at 2230 last night 03/31/19. Pt was last seen in the ER 03/30/19 for for abdominal pain. Pt received chest xray and was noted to have "fluid on her lungs", ( pleural effusion), per granddaughter. CT abd/pel showed gallstones. Pt has stage four renal disease and pt reports she received dialysis 03/29/19. Pt's granddaughter reported vomiting four times this AM for which she administered zofran as well as tramadol for pain. Pt has taken three tramadol since 03/30/19 with last dose reportedly taken at 1800 on 03/31/19. Appereance is reported as ill-appearing, moderate pain distress, sallow, with muscle wasting. Bilateral mastectomy. Pt has a dialysis catheter at left upper chest. Pt also has RUQ ecchymosis of 10 cm. Pt's abdomen has tenderness at epigastrium and RUQ. Pt also with lymphedema in right arm. Blood work shows Hgb is 11.2, Hct is 34, MCV is 105, Sodium 128, Chloride 90, BUN 25, Creatinine 2.89, Glucose 146, Alk Phos 113, CRP 28.76, BNP >1300, Lipase <10. Chest Xray Impression: Cardiomegaly. Gallbladder Ultrasound Impression: Trace Perihepatic Ascites. Atrophic Right Kidney. Pt received the following medication: Ondansetron Hcl 4 mg PO, Ondansetron Hcl 8 mg PO, and Tramadol Hcl 50 mg. Pt case was discussed with Dr. Shankar,computer scientist, at 1449 states that pt BP is low at base line which is typical. He recommends treatment with midodrine. Pt is able to be discharged to home. Dr. Shankar will f/u w/ pt w/ dialysis in AM. Pt was administered 5 mg midodrine. Discussed labs and results with pt. Pt will be discharged pt is in agreement with this. - Diagnoses Provider Diagnoses: Biliary colic, Nausea & vomiting, Hypotension - Physician Notifications Discussed Care Of Patient With: Estevan Shankar Time Discussed With Above Provider: 14:49 Instructed by Provider To: Other - Pt case was discussed with Dr. Shankar at 1449 states that pt BP is low at base line which is typical. He recommends treatment with midodrine. Pt is able to be discharged to home. Discharge ED - Sign-Out/Discharge Documenting (check all that apply): Patient Departure - Discharge Patient Received Moderate/Deep Sedation with Procedure: No - Discharge Plan Condition: Stable Disposition: HOME Prescriptions: Docusate CAP* [Colace Cap*] 100 mg PO TID #30 cap Ondansetron ODT TAB* [Zofran 4 MG Odt TAB*] 4 mg PO Q8H PRN #12 tab.odt PRN Reason: Nausea Patient Education Materials: Biliary Colic (ED), Acute Nausea and Vomiting (ED) Referrals: Merced Chicas MD [Primary Care Provider] - Estevan Shankar MD [Medical Doctor] - 1 Day (in AM for dialysis. ) Additional Instructions: We gave you tramadol 50mg orally, zofran 4mg as the oral disintegrating tablet with relief of your symptoms. We gave you your afternoon dose of midodrine 10mg orally. We spoke with Dr. Shankar. He felt you were safe for discharge, and they will follow up on your condition tomorrow at dialysis. You may have dialysis as usual tomorrow. Your chest xray was improved since 03/30/19 and did not show the fluid in your lungs. We gave you a copy of your CT abdomen and pelvis from 03/30/19, and your ultrasound from today. Those tests do not show that you need gallbladder surgery at this time, and Dr. Shankar will continue to follow this. You may take your tramadol and zofran and colace (stool softener) as prescribed. Please return to the ER if you have new or worsening symptoms. - Billing Disposition and Condition Condition: STABLE Disposition: Home - Attestation Statements Document Initiated by Scribe: Yes Documenting Scribe: Chrissy Delacruz Provider For Whom Scribe is Documenting (Include Credential): Gabbi Herzog MD Scribe Attestation: Chrissy Robertson, scribed for Gabbi Herzog MD on at 1813. Scribe Documentation Reviewed: Yes Provider Attestation: The documentation as recorded by the scribe, Chrissy Delacruz accurately reflects the service I personally performed and the decisions made by me, Gabbi Herzog MD Status of Scribe Document: Viewed
[2019-04-01] MEDS ORDERED: Ondansetron ODT TAB* 4 MG PO ONE ×2 (11:41→15:38)
[2019-04-01] MEDS ORDERED: traMADol TAB* 50 MG PO ONE (11:42)
[2019-04-01 11:50] LABS: ABS Lymphocytes 0.6 10^3/ul (1.0-4.8); ABS Monocytes 0.5 10^3/ul (0-0.8); ABS Neutrophils 4.9 10^3/ul (1.5-7.7); Eosinophil % 0.3 %; Hematocrit 34 % (35-47); Hemoglobin 11.2 g/dL (12.0-16.0); Lymphocyte % 10.2 %; Mean Corpuscular HGB Conc 33 g/dL (31-36); Mean Corpuscular Hemoglobin 35 pg (27-31); Mean Corpuscular Volume 105 fL (80-97); Mean Platelet Volume 8.8 fL (7.4-10.4); Nucleated Red Blood Cells % 0.1; Platelet Count 185 10^3/uL (150-450); Red Blood Count 3.22 10^6 /uL (3.70-4.87); Red Cell Distribution Width 17 % (10-15); White Blood Count 6.1 10^3/uL (3.5-10.8)
[2019-04-01 12:00] LABS: ALT 18 U/L (7-52); AST 23 U/L (13-39); Albumin 3.7 g/dL (3.2-5.2); Albumin/Globulin Ratio 1.3 (1-3); Alkaline Phosphatase 113 U/L (34-104); Amylase 29 U/L (29-103); Anion Gap 11 mmol/L (2-11); BUN/Creatinine Ratio 8.7 (8-20); Blood Urea Nitrogen 25 mg/dL (6-24); C Reactive Protein 28.76 mg/L (<8.01); CO2 Carbon Dioxide 27 mmol/L (22-32); Chloride 90 mmol/L (101-111); Creatine Kinase 19 U/L (10-223); EGFR Non-African American 15.7 (>60); Globulin 2.9 g/dL (2-4); Glucose 146 mg/dL (70-100); Sodium 128 mmol/L (135-145); Total Protein 6.6 g/dL (6.4-8.9)
[2019-04-01 15:35] VITALS: BP 95/63
== END 2019-04-01 15:35 | disposition home or self-care (01) ==
LOC: ED 10:19
DX: K80.50 Calculus of bile duct without cholangitis or cholecystitis without obstruction (principal); R11.2 Nausea with vomiting, unspecified; I95.9 Hypotension, unspecified; I12.9 Hypertensive chronic kidney disease with stage 1 through stage 4 chronic kidney disease, or unspecified chronic kidney disease; N18.4 Chronic kidney disease, stage 4 (severe); Z99.2 Dependence on renal dialysis; I48.91 Unspecified atrial fibrillation; R42 Dizziness and giddiness; R06.02 Shortness of breath; R10.816 Epigastric abdominal tenderness; R10.811 Right upper quadrant abdominal tenderness; Z79.01 Long term (current) use of anticoagulants; Z95.2 Presence of prosthetic heart valve; Z88.0 Allergy status to penicillin; Z88.2 Allergy status to sulfonamides; Z96.652 Presence of left artificial knee joint; R18.8 Other ascites
CPT/HCPCS: 36415; 71045; 76705; 80053; 82140; 82150; 82550; 83605; 83690; 83880; 85025; 85730; 86140; 93005; 99283; A9270-GY

== ENCOUNTER 2019-05-07 10:39 | Inpatient (IN) | payer MEDICARE ==
--- NOTE | 2019-05-07 11:02 | ED ---
Adult Trauma - HPI Summary HPI Summary: Pt is an 78 y/o F presenting to the ED brought in by EMS for a fall. She was on her way to dialysis this morning when she fell getting onto the bus and hit her head. She also hit her head this morning in the bathroom. She states her legs have been weak over the last two days. She is on Coumadin. She reports a small cough, inability to urinate, and an episode of emesis last week. She denies syncope, dizziness, lightheadedness, fever, chills, neck pain, back pain, erythema of eyes, sore throat, CP, SOB, abdominal pain, nausea, dysuria, hematuria, edema, rash, or headache. - History of Current Complaint Chief Complaint: EDFall Stated Complaint: FALL PER EMS Time Seen by Provider: 05/07/19 10:41 Hx Obtained From: Patient Mechanism of Injury: Fall Ambulatory at the Scene: Yes Loss of Consciousness: no loss of consciousness Onset/Duration: Started Hours Ago Onset Severity: Moderate Current Severity: Moderate Aggravating Factor(s): Nothing Alleviating Factor(s): Nothing Associated Signs & Symptoms: Positive: Cough, Numbness/Weakness. Negative: SOB , Chest Pain, Hematuria, Abdominal Pain, Fever, Nausea/Vomiting, Loss of Consciousness - Additional Pertinent History Primary Care Physician: [id number] - Allergy/Home Medications Allergies/Adverse Reactions: Allergies Allergy/AdvReac Type Severity Reaction Status Date / Time amoxicillin Allergy Rash Verified 04/01/19 10:26 Penicillins Allergy Rash Verified 04/01/19 10:26 Sulfa (Sulfonamide Allergy Rash Verified 04/01/19 10:26 Antibiotics) Home Medications: Home Medications Acetaminophen [Qc Acetaminophen 8 Hours] 650 mg PO Q4HR PRN 05/07/19 [History Confirmed 05/07/19] Docusate CAP* [Colace Cap*] 200 mg PO DAILY 05/07/19 [History Confirmed 05/07/19 ] Isosorbide Mononitrate (NF) 30 mg PO DAILY 05/07/19 [History Confirmed 05/07/19] Ondansetron ODT TAB* [Zofran 4 MG Odt TAB*] 4 mg PO DAILY PRN 05/07/19 [History Confirmed 05/07/19] Warfarin TAB(*) [Coumadin TAB(*)] 2 mg PO BEDTIME 05/07/19 [History Confirmed ] PMH/Surg Hx/FS Hx/Imm Hx Previously Healthy: Yes Endocrine/Hematology History: Reports: Hx Blood Transfusions, Hx Thyroid Disease , Hx Anemia Denies: Hx Anticoagulant Therapy, Hx Diabetes Cardiovascular History: Reports: Hx Congestive Heart Failure, Hx Coronary Artery Disease - per H&P, Hx Hypotension, Hx Hypertension - MEDICATED, Hx Valvular Heart Disease - Aortic valve replacement 2016, Other Cardiovascular Problems/Disorders - L diastolic failure, TAVR Denies: Hx Pacemaker/ICD Respiratory History: Denies: Hx Asthma, Other Respiratory Problems/Disorders GI History: Reports: Hx Hiatal Hernia Denies: Other GI Disorders History: Reports: Other Problems/Disorders - UTI 08/05/17 Musculoskeletal History: Reports: Hx Arthritis, Hx Rheumatoid Arthritis, Other Musculoskeletal History - Rheumatoid Arthritis Denies: Hx Tendonitis Sensory History: Reports: Hx Cataracts - Bilateral cataract extractions, Hx Contacts or Glasses, Hx Hearing Aid - hearing aide not available here in hosp, Hx Hearing Problem Denies: Hx Glaucoma Opthamlomology History: Reports: Hx Cataracts - Bilateral cataract extractions, Hx Contacts or Glasses Denies: Hx Glaucoma Neurological History: Denies: Other Neuro Impairments/Disorders Psychiatric History: Denies: Hx Panic Disorder, Other Psychiatric Issues/Disorders - PATIENT DENIES - Cancer History Cancer Type, 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 Aortic Valve Replacement. Double Mastectomy, Right 23 y/o. Oopherectomy-. Bilateral Cataracts with lens implants. LEFT KNEE REPLACEMENT Hx Anesthesia Reactions: No Infectious Disease History: No Infectious Disease History: Reports: Hx Shingles - 2002 Denies: Hx Hepatitis, History Other Infectious Disease, Traveled Outside the [place] in Last 30 Days - Family History Known Family History: Negative: Respiratory Disease - Social History Alcohol Use: None Hx Substance Use: No Substance Use Type: Reports: None Hx Tobacco Use: No Smoking Status (MU): Never Smoked Tobacco Review of Systems Negative: Fever, Chills Negative: Erythema Negative: Sore Throat Negative: Chest Pain Positive: Cough. Negative: Shortness Of Breath Positive: Vomiting. Negative: Abdominal Pain, Nausea Genitourinary: Other - inability to urinate - on dialysis Negative: dysuria, hematuria Negative: Myalgia - neck pain, back pain, Edema Negative: Rash Neurological: Negative - dizziness, lightheadedness Positive: Weakness. Negative: Headache, Syncope All Other Systems Reviewed And Are Negative: Yes Physical Exam - Summary Physical Exam Summary: Constitutional: Well-developed, Well-nourished, Alert. (-) Distressed Skin: Warm, Dry HENT: Normocephalic; Atraumatic Eyes: Conjunctiva normal Neck: Musculoskeletal ROM normal neck. (-) JVD, (-) Stridor, (-) Tracheal deviation Cardio: Rhythm regular, rate normal, Heart sounds normal; Intact distal pulses; The pedal pulses are 2+ and symmetric. Radial pulses are 2+ and symmetric. (-) Murmur Pulmonary/Chest wall: Effort normal. (-) Respiratory distress, (-) Wheezes, (-) Rales Abd: Soft, (-) tenderness, (-) Distension, (-) Guarding, (-) Rebound Musculoskeletal: (-) Edema Lymph: (-) Cervical adenopathy Neuro: Alert, Oriented x3 Psych: Mood and affect Normal Triage Information Reviewed: Yes Vital Signs On Initial Exam: Initial Vitals Temp Pulse Resp BP Pulse Ox 98.1 F 115 16 88/59 95 05/07/19 10:42 05/07/19 10:42 05/07/19 10:42 05/07/19 10:42 05/07/19 10:42 Vital Signs Reviewed: Yes - Alexandru Coma Scale Best Eye Response: 4 - Spontaneous Best Motor Response: 6 - Obeys Commands Best Verbal Response: 5 - Oriented Coma Scale Total: 15 Diagnostics - Vital Signs Vital Signs Temp Pulse Resp BP Pulse Ox 05/07/19 10:50 112 96 05/07/19 10:42 98.1 F 115 16 88/59 95 - Laboratory Result Diagrams: 05/07/19 11:56 05/07/19 11:56 Lab Statement: Any lab studies that have been ordered have been reviewed, and results considered in the medical decision making process. - Radiology CXR Radiology Interpretation Completed By: Radiologist Summary of Radiographic Findings: CARDIOMEGALY WITH MILD PULMONARY INTERSTITIAL EDEMA. ED physician has reviewed this report. - CT Brain CT CT Interpretation Completed By: Radiologist Summary of CT Findings: NO ACUTE INTRACRANIAL PATHOLOGY. CHRONIC SMALL VESSEL ISCHEMIC CHANGE. ED physician has reviewed this report. CT C-spine CT Interpretation Completed By: Radiologist Summary of CT Findings: 1. Generalized osteopenia with no C-spine fracture. 2. Grade 1 anterolisthesis of C3 on C4 and C4 on C5 is likely degenerative. 3. Varying degrees of multilevel spondylosis results in at least mild spinal canal stenosis from C2-C3 through C4-C5. There is moderate left facet arthropathy at C3-C4 and C4-C5. 4. The hyperdense material seen posteriorly and to the left in the oral cavity is incompletely imaged. Although this is likely reflective of a dental prosthesis, correlate with direct inspection is recommended. ED physician has reviewed this report. - EKG 1109 Cardiac Rate: Other Rate - atrial fibrillation 116bpm EKG Rhythm: Atrial Fibrillation ST Segment: Normal Ectopy: None Summary of EKG Findings: EKG at 1109 shows atrial fibrillation at 116bpm with no STEMI. Re-Evaluation - Re-Evaluation 1st re-eval Re-Evaluation Time: 11:25 Comment: I spoke with Meg, her granddaughter, who states that the pt has recently been very sick. She has been dx'ed with gallstones as well as gallbladder sludge, and has been experiencing intermittent abd pain, nausea, and vomiting, with associated weakness. She is concerned that there is something more serious going on, as the pt is not normally like this, her INR has been high, and her pain is not alleviating. 2nd re-eval Re-Evaluation Time: 13:10 Change: Unchanged Comment: The pt is now nauseous. She has a wound on her L knee that is well- healing, without erythema or fluctuance. Adult Trauma Course/Dx - Course Course Of Treatment: Pt is an 78 y/o F presenting to the ED brought in by EMS for a fall. She was on her way to dialysis this morning when she fell getting onto the bus and hit her head. She is on Coumadin. She reports a small cough, inability to urinate, and an episode of emesis last week. She denies syncope, dizziness, lightheadedness, fever, chills, neck pain, back pain, erythema of eyes, sore throat, CP, SOB, abdominal pain, nausea, dysuria, hematuria, edema, rash, or headache. Pt's physical exam is nml. I spoke with Meg, her granddaughter, at 1125, who states that the pt has recently been very sick. She has been dx'ed with gallstones as well as gallbladder sludge, and has been experiencing intermittent abd pain, nausea, and vomiting, with associated weakness. She is concerned that there is something more serious going on, as the pt is not normally like this, her INR has been high, and her pain is not alleviating. EKG at 1109 shows atrial fibrillation at 116bpm with no STEMI. CXR shows: CARDIOMEGALY WITH MILD PULMONARY INTERSTITIAL EDEMA. CT C-spine shows: 1. Generalized osteopenia with no C-spine fracture. 2. Grade 1 anterolisthesis of C3 on C4 and C4 on C5 is likely degenerative. 3. Varying degrees of multilevel spondylosis results in at least mild spinal canal stenosis from C2-C3 through C4-C5. There is moderate left facet arthropathy at C3-C4 and C4-C5. 4. The hyperdense material seen posteriorly and to the left in the oral cavity is incompletely imaged. Although this is likely reflective of a dental prosthesis, correlate with direct inspection is recommended. Brain CT shows: NO ACUTE INTRACRANIAL PATHOLOGY. CHRONIC SMALL VESSEL ISCHEMIC CHANGE. Pts hematology shows RBC of 3.39, Hgb of 11.7, MCV of 104, MCH of 35, and RDW of 18. Her coagulation shows INR of 2.88 and APTT of 41.6. Her chemistry shows Sodium of 134, Chloride of 97, Anion Gap of 13, BUN of 38, Creatinine of 4.21, Alkaline Phosphate of 136, and total protein of 6.1. Her lactic acid is 2.1, and troponin I is 0.04. As of 1310, the pt is now nauseous. She has a wound on her L knee that is well-healing, without erythema or fluctuance. I spoke with Dr. Barboza at 1314 about the pt, who accepts the pt for admission. Her dx include persistent vomiting, tachycardia, and pulmonary edema. At this time, there is no indication for emergent dialysis. I attempted to facilitate her receiving dialysis today, however the hours did not match up with her needs. - Diagnoses Provider Diagnoses: Tachycardia, Persistent vomiting, Pulmonary edema - Physician Notifications Discussed Care Of Patient With: Chioma Barboza Time Discussed With Above Provider: 13:14 Instructed by Provider To: Admit As Inpatient Discharge ED - Sign-Out/Discharge Documenting (check all that apply): Patient Departure - Discharge Plan Condition: Stable Disposition: ADMITTED TO [facility] Referrals: Merced Chicas MD [Primary Care Provider] - - Attestation Statements Document Initiated by Scribe: Yes Documenting Scribe: Yolande Virgen Provider For Whom Scribe is Documenting (Include Credential): Gurpreet Devries MD. Scribe Attestation: Yolande Robertson, scribed for Gurpreet Devries MD. on 05/07/19 at 1327. Status of Scribe Document: Ready
[2019-05-07 12:07] LABS: ABS Lymphocytes 0.7 10^3/ul (1.0-4.8); ABS Monocytes 0.5 10^3/ul (0-0.8); ABS Neutrophils 7.6 10^3/ul (1.5-7.7); Eosinophil % 0.2 %; Hematocrit 35 % (35-47); Hemoglobin 11.7 g/dL (12.0-16.0); Lymphocyte % 8.1 %; Mean Corpuscular HGB Conc 33 g/dL (31-36); Mean Corpuscular Hemoglobin 35 pg (27-31); Mean Corpuscular Volume 104 fL (80-97); Mean Platelet Volume 8.7 fL (7.4-10.4); Nucleated Red Blood Cells % 0.1; Platelet Count 202 10^3/uL (150-450); Red Blood Count 3.39 10^6 /uL (3.70-4.87); Red Cell Distribution Width 18 % (10-15); White Blood Count 8.9 10^3/uL (3.5-10.8)
[2019-05-07 12:19] LABS: Activated Partial Thrombo Time 41.6 seconds (26.0-38.0); INR 2.88 (0.82-1.09)
[2019-05-07 12:19] LABS: Albumin 3.4 g/dL (3.2-5.2); Albumin/Globulin Ratio 1.3 (1-3); EGFR African American 12.3 (>60); EGFR Non-African American 10.2 (>60); Globulin 2.7 g/dL (2-4); Magnesium 2.3 mg/dL (1.9-2.7); Potassium 4.5 mmol/L (3.5-5.0); Total Bilirubin 0.7 mg/dL (0.2-1.0); Total Protein 6.1 g/dL (6.4-8.9)
[2019-05-07 12:24] LABS: Troponin I 0.04 ng/mL (<0.04)
[2019-05-07] MEDS ORDERED: NS 0.9% 250 ML* 250 ML IV ONE (13:03)
[2019-05-07] MEDS ORDERED: Ondansetron INJ* 2 MG/ML VIAL IV ONE (13:09)
[2019-05-07 13:13] LABS: TSH (Thyroid Stimulating Horm) 4.37 mcIU/mL (0.34-5.60)
[2019-05-07] MEDS ORDERED: Ondansetron INJ* 2 MG/ML VIAL IV PRN (14:24)
[2019-05-07 15:16] LABS: Troponin I 0.05 ng/mL (<0.04)
[2019-05-07] MEDS ORDERED: Torsemide TAB* 20 MG PO SCH (16:00)
--- NOTE | 2019-05-07 16:44 | HP ---
CC: Dr. Merced Chicas; Dr. Salmeron; Dr. Shankar * HISTORY AND PHYSICAL: DATE OF ADMISSION: 05/07/19 PRIMARY CARE PROVIDER: Dr. Merced Chicas. FOOD COUNSELOR: Dr. Shankar. CHIEF COMPLAINT: "My legs gave away again." HISTORY OF PRESENT ILLNESS: Maureen Zuñiga is an 78-year-old female with history of end-stage renal disease, requiring dialysis for the past several months. The patient started dialysis at the beginning of 2018. From then on intermittently she would have nausea and vomiting. The patient also stated she lost a lot of weight, but she is not very sure how much. She had been having problems with generalized weakness and legs feeling "heavy" for quite some time. The legs felt heavy today in the morning when she was about to go to dialysis when she was in the bathroom and stated that she fell, but she did not lose consciousness or hit anything. Today, when she was getting on [employer] to go to dialysis, she was trying to get up on the bus, but her legs felt heavy again and she fell. She stated that she hit her head, but gently so, did not sustain any bruises. Subsequently, she was brought to the ED for evaluation. Here, her systolic pressures have been in the low 90s. Her heart rate is little bit above 100 and she is in atrial fibrillation. She is going to be placed on overnight observation with a diagnosis of falls and generalized weakness. PAST MEDICAL HISTORY: 1. History of rheumatoid arthritis. 2. History of atrial fibrillation, chronic, on Coumadin. 3. History of end-stage renal disease, on dialysis Mondays, Wednesdays, Fridays. 4. Status post aortic valve replacement and TAVR. 5. History of diastolic CHF. 6. Status post left total knee replacement. 7. Hypothyroidism, postsurgical, status post partial thyroidectomy. 8. History of coronary artery disease with cardiac catheterization in 2017 showing RCA of 40% and mid LAD of 75% stenosis. 9. History of mastectomy. 10. History of oophorectomy. MEDICATIONS AT HOME: 1. Zofran ODT 4 mg daily p.r.n. 2. Gabapentin 300 mg at bedtime. 3. Coumadin 2 mg at bedtime. 4. Midodrine 10 mg 3 times a day. 5. Torsemide 40 mg Sundays, Mondays, Wednesdays, and Fridays. 6. Vitamin B12 1000 mcg daily. 7. Multivitamin 1 tablet daily. 8. Atorvastatin 20 mg at bedtime. 9. Acetaminophen on a p.r.n. basis. 10. Colace 200 mg daily. 11. Amiodarone 200 mg daily. 12. Protonix 40 mg daily. 13. Levothyroxine 75 mcg daily. 14. Ferrous sulfate 325 mg daily. 15. Imdur 30 mg daily. 16. Florinef 0.1 mg daily. ALLERGIES: AMOXICILLIN, PENICILLIN, and SULFA. FAMILY HISTORY: Positive for rheumatoid arthritis. SOCIAL HISTORY: The patient denies any tobacco, alcohol, or drug use. She lives with her 2 sons. She ambulates with a rolling walker. As her healthcare proxy, she named her daughter, who lives in [facility]. REVIEW OF SYSTEMS: Please see history of present illness. In addition to above mentioned, the patient stated that her appetite has been rather poor since she had been on dialysis and she usually would "gather up with nausea" until the day of dialysis and then when she gets dialyzed she gets better. She also complains of early satiety and further unspecified weight loss. She has had paroxysmal nocturnal dyspnea and she had used oxygen that was originally prescribed to her son at night. She denies any chest pain. All the remaining 12 systems were reviewed with the patient who is a rather poor historian, but were otherwise negative. PHYSICAL EXAMINATION GENERAL: The patient is a very pleasant 78-year-old female, who is in no acute distress. The patient is alert and oriented x3, rather hard of hearing. VITAL SIGNS: Blood pressure of 94/71, heart rate of 113 and irregular, respiratory rate 16, oxygen saturation 95% on room air, temperature of 98.1. HEENT: Head: Atraumatic, normocephalic. Eyes: Extraocular movements are intact. Pupils are equal, reactive to light and accommodation. Oropharynx is clear. Mucosa moist. NECK: Supple. No JVD. No bruits bilaterally. RESPIRATORY: Clear to auscultation bilaterally. CARDIOVASCULAR: Irregularly irregular rhythm. No murmur. ABDOMEN: Soft, nontender. Bowel sounds are present in all 4 quadrants. EXTREMITIES: There is no edema. Pulses are +2 bilaterally. No clubbing or cyanosis. NEUROLOGIC: Speech is clear. Cranial nerves II through XII are grossly intact. Motor strength is 5/5 bilaterally. SKIN: On evaluation of the skin, no ecchymotic areas or rashes noted. DIAGNOSTIC STUDIES/LAB DATA: Laboratory data showed sodium of 134, potassium 4.5, chloride 97, carbon dioxide 24, BUN 38, creatinine 4.2. Liver function tests showed alkaline phosphatase of 136 and otherwise unremarkable. The patient's lactic acid was slightly elevated at 2.1, back to 1.6 after rechecking. CBC: White blood cell count 8.9, hemoglobin 11.7, hematocrit 35, MCV 104, and platelets 202. Troponin 0.04. The patient's EKG showed atrial fibrillation with a heart rate at 116 with nonspecific intraventricular conduction delay. Comparing with prior EKG from March of this year, the changes are similar. CT of the brain, impression: "No acute intracranial pathology. Chronic small vessel ischemic changes." Portable chest x-ray, impression: "Cardiomegaly with mild pulmonary interstitial edema." C-spine CT, impression: "Generalized osteopenia with no C-spine fracture. There was grade 1 anterolisthesis of C3, C4 and C5, likely degenerative. Varying degrees of multilevel spondylosis resulting in at least mild spinal canal stenosis from C2 all the way to C5. There was moderate left facet arthropathy at C3 through C5. The hyperdense material seen posteriorly to the left oral cavity is incompletely imaged. Although this is likely reflective of a dental prosthesis, correlate with direct inspection." ASSESSMENT AND PLAN: 1. In regards to generalized weakness, the patient seems to have rather unrealistic expectations of being on dialysis. She was started on dialysis at the age of 78. She has had intermittent nausea, which is an expected side effect of dialysis. She also lost some weight and has poor appetite. I suspect her generalized weakness is due to her age and being on dialysis. She is going to be placed for physical therapy and occupational therapy evaluation. Although her falls are likely related to generalized weakness and muscular deconditioning, I will also place the patient on telemetry monitored bed and look for arrhythmias. 2. In regards to the patient's elevated troponin, this is likely due to mild congestive heart failure. At this point, the patient received 250 mL of intravenous fluids and those will not be repeated in the ED. The patient is going to be continued on her midodrine and Florinef for her history of hypotension as an outpatient and likely orthostatic hypotension. I will recheck her troponin, but I suspect that mild increase is related to her end- stage renal disease. 3. In regards to the patient's end-stage renal disease, I spoke with Dr. Salmeron. The patient likely will be dialyzed tomorrow. I will place the patient on daily weights to evaluate her fluid status. Today, she stated that she has mild dyspnea when lying flat, but otherwise there are no acute changes to indicate that the patient needs to have dialysis today. 4. The patient complains of paroxysmal nocturnal dyspnea. I suspect she would benefit from oxygen. We will check the patient's overnight pulse oximetry. She may require oxygen for night at home. 5. The patient's atrial fibrillation is in mildly increased rate. I will continue her amiodarone. I suspect her increased rate is due to the patient needing dialysis, but I do not believe that it is uncontrolled to the point that the patient will need the dialysis emergently. 6. For her hypothyroidism, the patient's TSH is above 4 and her Synthroid is going to be continued at the current rate. 7. In regards to the patient's DVT prophylaxis, the patient is on Coumadin. Her INR is 2.8 today. Her Coumadin is going to be continued and INRs will be checked daily. 8. In regards to the patient's code status, the patient requested to be a full code and her healthcare proxy is her daughter, who lives in [facility]. 9. The patient has macrocytic anemia and I will check the patient's vitamin B12 level. Although she is on p.o. vitamin B12, it is possible that may need it IM. TIME SPENT: Approximately 65 minutes was spent on admission of this patient, more than half that time was spent [id number] with the patient during the interview and physical exam. [id number]/[facility] #: [id number] AGGIE
[2019-05-07] MEDS ORDERED: Warfarin TAB(*) 2 MG PO SCH (17:00)
[2019-05-07] MEDS: Atorvastatin* 20 MG TAB PO SCH (20:19)
[2019-05-07] MEDS: Gabapentin CAP(*) 300 MG PO SCH (20:19)
[2019-05-07] MEDS: CMCS: Midodrine 5 MG TAB PO SCH (20:43)
[2019-05-08] MEDS: Levothyroxine TAB* 75 MCG TAB PO SCH (05:13)
[2019-05-08 06:55] LABS: ABS Eosinophils 0.1 10^3/ul (0-0.6); ABS Lymphocytes 1.1 10^3/ul (1.0-4.8); ABS Monocytes 0.5 10^3/ul (0-0.8); ABS Neutrophils 4.8 10^3/ul (1.5-7.7); Eosinophil % 1.3 %; Hematocrit 35 % (35-47); Hemoglobin 11.4 g/dL (12.0-16.0); Lymphocyte % 16.9 %; Mean Corpuscular HGB Conc 33 g/dL (31-36); Mean Corpuscular Hemoglobin 34 pg (27-31); Mean Corpuscular Volume 104 fL (80-97); Mean Platelet Volume 8.8 fL (7.4-10.4); Nucleated Red Blood Cells % 0.1; Platelet Count 185 10^3/uL (150-450); Red Blood Count 3.34 10^6 /uL (3.70-4.87); Red Cell Distribution Width 18 % (10-15); White Blood Count 6.4 10^3/uL (3.5-10.8)
[2019-05-08 07:01] LABS: INR 3.25 (0.82-1.09)
[2019-05-08 07:16] LABS: BUN/Creatinine Ratio 9.5 (8-20); Calcium 8.9 mg/dL (8.6-10.3); EGFR African American 11.3 (>60); EGFR Non-African American 9.4 (>60); Potassium 4.3 mmol/L (3.5-5.0)
[2019-05-08] MEDS: Fludrocortisone Acetate TAB* 0.1 MG PO SCH (08:29)
[2019-05-08] MEDS: Docusate CAP* 100 MG PO SCH (08:29)
[2019-05-08] MEDS: CMCS: Midodrine 5 MG TAB PO SCH ×3 (08:29→21:59)
[2019-05-08] MEDS: Cyanocobalamin TAB* 500 MCG PO SCH (08:29)
[2019-05-08] MEDS: Multivitamins/Minerals TAB PO SCH (08:30)
[2019-05-08] MEDS: Pantoprazole TAB * 40 MG TAB PO SCH (08:30)
[2019-05-08] MEDS: Amiodarone TAB* 200 MG PO SCH (08:30)
[2019-05-08] MEDS: Ferrous Sulfate TAB* 325 MG PO SCH (08:30)
--- NOTE | 2019-05-08 08:31 | PN ---
Subjective Date of Service: 05/08/19 Interval History: HOSPITALIST PROGRESS NOTE Patient seen and examined at Hemodyalisis unit. Care reviewed and d/w Chaparrita Garcias RN. She feels better today. States her knees "give out" and her legs feel like "jello". Denies other focal weakness, N/V/D, sensory deficits. Family History: Unchanged from Admission Social History: Unchanged from Admission Past Medical History: Unchanged from Admission Objective Active Medications: Acetaminophen (Tylenol Tab*) 650 mg PO Q4H PRN PRN Reason: PAIN-MILD/TEMP >/= 100.4 Amiodarone HCl (Cordarone Tab*) 200 mg PO DAILY [facility] Atorvastatin Calcium (Lipitor*) 20 mg PO BEDTIME [facility] Last Admin: 05/07/19 20:19 Dose: 20 mg Cyanocobalamin (Vitamin B12 Tab*) 1,000 mcg PO DAILY [facility] Docusate Sodium (Colace Cap*) 200 mg PO DAILY [facility] Ferrous Sulfate (Ferrous Sulfate Tab*) 325 mg PO DAILY [facility] Fludrocortisone Acetate (Florinef Tab*) 0.1 mg PO DAILY [facility] Gabapentin (Neurontin Cap(*)) 300 mg PO BEDTIME [facility] Last Admin: 05/07/19 20:19 Dose: 300 mg Levothyroxine Sodium (Synthroid Tab*) 75 mcg PO 0600 [facility] Last Admin: 05/08/19 05:13 Dose: 75 mcg Midodrine (Midodrine) 10 mg PO TID [facility] Last Admin: 05/07/19 20:43 Dose: 10 mg Multivitamins/Minerals (Theragran/Minerals Tab*) 1 tab PO DAILY [facility] Ondansetron HCl (Zofran Inj*) 4 mg IV Q8H PRN PRN Reason: NAUSEA/VOMITING Pantoprazole Sodium (Protonix Tab*) 40 mg PO DAILY [facility] Torsemide (Demadex*) 40 mg PO SuMoWeFr@0900 [facility] Last Admin: 05/07/19 16:04 Dose: 40 mg Warfarin Sodium (Coumadin Tab(*)) 2 mg PO 1700 [facility]; Protocol Last Admin: 05/07/19 16:04 Dose: 2 mg Vital Signs - 8 hr 05/08/19 05/08/19 02:55 06:21 Temperature 98.2 F Pulse Rate 105 Respiratory 16 Rate Blood Pressure 96/76 (mmHg) O2 Sat by Pulse 97 99 Oximetry Oxygen Devices in Use Now: None Appearance: Pleasant elderly lady sitting up in a recliner in NAD, receiving dyalisis Eyes: No Scleral Icterus Ears/Nose/Mouth/Throat: Mucous Membranes Moist Neck: Trachea Midline Respiratory: Symmetrical Chest Expansion and Respiratory Effort, Clear to Auscultation Cardiovascular: - - Normal S1 and S2, irregularly irregular Abdominal: NL Sounds; No Tenderness; No Distention Extremities: - - No edema Neurological: Alert and Oriented x 3, NL Muscle Strength and Tone Result Diagrams: 05/08/19 05:53 05/08/19 05:53 Assess/Plan/Problems-Billing Assessment: Mrs Zuñiga is an 78yo F with PMH of ESRD on HD, RA, Afib, aortic stenosis s/p TAVR, diastolic CHF, hypothyroidism, CAD; who presented to ED with c/o generalized weakness, thought to be secondary to HD and deconditioning. - Patient Problems (1) Weakness Comment: - This appears to be secondary to deconditioning. - No significant arrhythmias on Telemetry so far. - Awaiting UA. - Awaiting PT consult. (2) Elevated troponin level Comment: - Minimal elevation, likely secondary to ESRD/CHF. No signs of acute ischemia. - Check echocardiogram. (3) PND (paroxysmal nocturnal dyspnea) Comment: - May be secondary to CHF - follow echo. - SO2 was <= 88% for less than minute. (4) ESRD on hemodialysis Comment: - Continue HD as tolerated. (5) Atrial fibrillation Comment: - Rate is controlled - continue Amiodarone and Warfarin. (6) Hypothyroidism Comment: - TSH 4.37. - Continue Levothyroxine. (7) DVT prophylaxis Comment: - Warfarin. (8) Full code status Status and Disposition: OBV.
[2019-05-08] MEDS ORDERED: Heparin DIALYSIS ONLY(*) 1,000 UNITS/ML VIAL DIALYSIS ONE (11:00)
[2019-05-08 12:02] LABS: Troponin I 0.04 ng/mL (<0.04)
--- NOTE | 2019-05-08 16:30 | ECHO ---
*[facility]* [place] [address] Fax #: [phone] Transthoracic Echocardiogram Patient: Maureen Zuñiga : 1940 Study Date: 05/08/2019 Age: 78 Gender: F HR: 79 bpm Height: 60 in /152.4 cm BSA: 1.49 m^2 Weight: 116.8 lb /53.1 kg BMI: 22.9 kg/m^2 *Silverware Supervisor: Lucille Gutiérrez [facility] *Referring Physician: * Nova NoyolaReading Physician: * Alonso Maher MD Indications: Congestive Heart Failure. History: TAVR. ESRD. Atrial fibrillation. Coronary artery disease. Congestive heart failure. Conclusions Summary: - Left ventricle: Systolic function is severely reduced. The estimated ejection fraction is 20-25%. Severe diffuse hypokinesis with multiple regional wall motion abnormalities. - Right ventricle: Systolic function is moderately to severely reduced. - Left atrium: The atrium is severely dilated. - Mitral valve: The Mitral valve annulus appears calcified. The leaflets are mildly thickened. The findings are consistent with moderate stenosis. There is mild to moderate regurgitation. - Aortic valve: Prior repair procedures include transcatheter aortic valve replacement. There is no significant regurgitation. The mean systolic gradient is 6.0 mm Hg. The valve area by the velocity-time integral method is 0.80 cm^2. The valve area by the peak velocity method is 0.80 cm^2. - Tricuspid valve: There is mild-moderate regurgitation. - Pericardium, extracardiac: A trace pericardial effusion is identified. - Pulmonary arteries: Systolic pressure is mildly increased. The peak pressure during systole by Doppler is 38.0 mm Hg. - Study data: No prior study is available for comparison. Study data: Transthoracic echocardiogram. Procedure: Transthoracic echocardiography was performed. Image quality was fair. Complete 2D, spectral Doppler, and color flow Doppler. Location: Bedside. Patient status: Inpatient. Patient room number: 450. No prior study is available for comparison. Rhythm: Atrial fibrillation. Findings Left ventricle: The cavity size is mildly dilated. Wall thickness is mildly increased. Systolic function is severely reduced. The estimated ejection fraction is 20-25%. Severe diffuse hypokinesis with multiple regional wall motion abnormalities. Left ventricular diastolic function parameters are indeterminate. Right ventricle: The cavity size is normal. Systolic function is moderately to severely reduced. Left atrium: The atrium is severely dilated. Right atrium: The atrium is severely dilated. Mitral valve: The Mitral valve annulus appears calcified. The leaflets are mildly thickened. The findings are consistent with moderate stenosis. There is mild to moderate regurgitation. Aortic valve: Prior repair procedures include transcatheter aortic valve replacement. The leaflets are normal thickness. Cusp separation is normal. There is no significant regurgitation. Tricuspid valve: The leaflets are normal thickness. There is no evidence of stenosis. There is mild-moderate regurgitation. Pulmonic valve: The leaflets are normal thickness. There is no evidence of stenosis. There is mild to moderate regurgitation. Aorta: Aortic root: The aortic root is poorly visualized. Aortic arch: The aortic arch is appears normal. Pericardium: A trace pericardial effusion is identified. Pulmonary arteries: The main pulmonary artery is normal-sized. Systolic pressure is mildly increased. Systemic veins: Inferior vena cava: The vessel is dilated. There is (< 50%) respiratory change in the IVC dimension. Measurements Left ventricle Value Ref Aortic valve continued Value Ref MARIA ISABEL, LAX (H) 5.5 cm 3.8 - 5.2 VTI, S 23.0 cm ----- ESD, LAX (H) 5.4 cm 2.2 - 3.5 Mean grad, S 6.0 mm Hg ----- FS, LAX (L) 1 % 27 - 45 Peak grad, S 13.0 mm Hg ----- PW, ED, LAX (H) 1.2 cm 0.6 - 0.9 LVOT/AV, VTI ratio 0.3 ----- E', lat jethro, TDI (L) 4.8 cm/sec >=10.0 MICHAEL, VTI 0.80 cm^2 - ---- E/e', lat jethro, 20 MICHAEL, Vmax 0.80 cm^2 ---- - TDI Mitral valve Value Ref LVOT Value Ref Peak E 0.97 m/sec ----- Diam, S 2.00 cm Peak A 0.01 m/sec ----- Area 3.1 cm^2 Decel time 107 ms ----- Peak rosio, S 0.43 m/sec PHT 100 ms ----- VTI, S 6.0 cm Mean grad, D 1.0 mm Hg ----- Peak grad, S 1 mm Hg Peak grad, D 4.0 mm Hg ----- Peak E/A ratio 107.9 ----- Ventricular septum Value Ref MVA, PHT 2.1 cm^2 ----- IVS, ED (H) 1.3 cm 0.6 - 0.9 Pulmonic valve Value Ref Right ventricle Value Ref Peak v, S 0.55 m/sec ----- MARIA ISABEL, LAX 2.8 cm Peak grad, S 1.0 mm Hg ----- MARIA ISABEL minor ax, A4C (H) 3.6 cm 1.9 - 3.5 mid Tricuspid valve Value Ref Pressure, S 39 mm Hg TR peak v 2.8 m/sec <=2.8 Peak RV-RA grad, S 31 mm Hg ----- Left atrium Value Ref AP dim, ES (H) 5.50 cm 2.70 - Aortic arch Value Ref 3.80 Arch diam 2.7 cm ----- ML dim, A4C 4.8 cm SI dim, A4C 6.6 cm Decending aorta Value Ref Vol/bsa, ES, A/L (H) 82 ml/m^2 16 - 34 Justin peak rosio 0.28 m/sec ----- Right atrium Value Ref Pulmonary artery Value Ref SI dim, ES (H) 6.6 cm 3.4 - 5.3 Pressure, S 38.0 mm Hg ----- ML dim, ES, A4C (H) 4.8 cm 2.6 - 4.4 Estimated RAP 8 mm Hg Inferior vena cava Value Ref Diam 2.7 cm ----- Aortic valve Value Ref Jethro diam, ED 1.6 cm Peak v, S 1.8 m/sec Legend: (L) and (H) everton values outside specified reference range. Prepared and electronically signed by Alonso Maher MD 05/08/2019 16:30
[2019-05-08] MEDS: Gabapentin CAP(*) 300 MG PO SCH (21:59)
[2019-05-08] MEDS: Atorvastatin* 20 MG TAB PO SCH (22:02)
--- NOTE | 2019-05-08 22:52 | PN ---
DIALYSIS NOTE: DATE OF DIALYSIS: 05/08/19 SUBJECTIVE: The patient seen and examined during dialysis, tolerating the procedure well. Vitals and labs have been reviewed. PHYSICAL EXAMINATION: HEENT: NC/AT. Heart: S1, S2 present. Irregularly irregular at the time of exam. Lungs: Clear to auscultation. Abdomen: Soft. Extremities: Noted to have edema. Neuro: Alert, oriented. ASSESSMENT AND PLAN: 1. End-stage renal disease, on hemodialysis Tuesday, Tuesday, Tuesday. The patient fell prior to coming to dialysis yesterday and is in the hospital for further evaluation. 2. Discussed HD orders with the patient. 3. Hypotension. The patient continues to run low blood pressures in the past as well and is on midodrine and Florinef as an outpatient. Recommend stopping the torsemide that she is taking as an outpatient that would dry her out further. 4. Ultrafiltration to dry weight and as blood pressure tolerates today. As the patient has been short of breath, we will try to plan for ultrafiltration of 1 L if she tolerates it well. 5. Please note the patient is usually on a Tuesday, Tuesday, Tuesday schedule as an outpatient around 10:30 a.m. start. 6. We will follow with the medical team. [id number]/[facility] #: [id number] AGGIE
[2019-05-09] MEDS: Ondansetron INJ* 2 MG/ML VIAL IV PRN (05:17)
[2019-05-09] MEDS: Levothyroxine TAB* 75 MCG TAB PO SCH (05:17)
[2019-05-09 06:59] LABS: ABS Eosinophils 0.1 10^3/ul (0-0.6); ABS Lymphocytes 0.9 10^3/ul (1.0-4.8); ABS Monocytes 0.5 10^3/ul (0-0.8); ABS Neutrophils 5.7 10^3/ul (1.5-7.7); Eosinophil % 0.9 %; Hematocrit 34 % (35-47); Hemoglobin 11.3 g/dL (12.0-16.0); Lymphocyte % 12.1 %; Mean Corpuscular HGB Conc 33 g/dL (31-36); Mean Corpuscular Hemoglobin 35 pg (27-31); Mean Corpuscular Volume 104 fL (80-97); Mean Platelet Volume 8.9 fL (7.4-10.4); Platelet Count 190 10^3/uL (150-450); Red Blood Count 3.26 10^6 /uL (3.70-4.87); Red Cell Distribution Width 18 % (10-15); White Blood Count 7.3 10^3/uL (3.5-10.8)
[2019-05-09 07:01] LABS: INR 3.53 (0.82-1.09)
[2019-05-09 07:15] LABS: BUN/Creatinine Ratio 7.8 (8-20); Calcium 8.5 mg/dL (8.6-10.3); EGFR African American 17.8 (>60); EGFR Non-African American 14.7 (>60); Potassium 4.4 mmol/L (3.5-5.0)
--- NOTE | 2019-05-09 08:09 | PN ---
Subjective Date of Service: 05/09/19 Interval History: HOSPITALIST PROGRESS NOTE Patient seen and examined at bedside. Care reviewed and d/w Chaparrita Garcias RN. She still feels weak today. Denies CP, palpitations, or dyspnea. Family History: Unchanged from Admission Social History: Unchanged from Admission Past Medical History: Unchanged from Admission Objective Active Medications: Acetaminophen (Tylenol Tab*) 650 mg PO Q4H PRN PRN Reason: PAIN-MILD/TEMP >/= 100.4 Amiodarone HCl (Cordarone Tab*) 200 mg PO DAILY [facility] Last Admin: 05/08/19 08:30 Dose: 200 mg Atorvastatin Calcium (Lipitor*) 20 mg PO BEDTIME [facility] Last Admin: 05/08/19 22:02 Dose: 20 mg Cyanocobalamin (Vitamin B12 Tab*) 1,000 mcg PO DAILY [facility] Last Admin: 05/08/19 08:29 Dose: 1,000 mcg Docusate Sodium (Colace Cap*) 200 mg PO DAILY [facility] Last Admin: 05/08/19 08:29 Dose: 200 mg Ferrous Sulfate (Ferrous Sulfate Tab*) 325 mg PO DAILY [facility] Last Admin: 05/08/19 08:30 Dose: 325 mg Fludrocortisone Acetate (Florinef Tab*) 0.1 mg PO DAILY [facility] Last Admin: 05/08/19 08:29 Dose: 0.1 mg Gabapentin (Neurontin Cap(*)) 300 mg PO BEDTIME [facility] Last Admin: 05/08/19 21:59 Dose: 300 mg Levothyroxine Sodium (Synthroid Tab*) 75 mcg PO 0600 [facility] Last Admin: 05/09/19 05:17 Dose: 75 mcg Midodrine (Midodrine) 10 mg PO TID [facility] Last Admin: 05/08/19 21:59 Dose: 10 mg Multivitamins/Minerals (Theragran/Minerals Tab*) 1 tab PO DAILY [facility] Last Admin: 05/08/19 08:30 Dose: 1 tab Ondansetron HCl (Zofran Inj*) 4 mg IV Q8H PRN PRN Reason: NAUSEA/VOMITING Last Admin: 05/09/19 05:17 Dose: 4 mg Pantoprazole Sodium (Protonix Tab*) 40 mg PO DAILY [facility] Last Admin: 05/08/19 08:30 Dose: 40 mg Vital Signs - 8 hr 05/09/19 05/09/1905/09/19 01:40 03:15 07:59 Temperature 98.4 F 98.7 F Pulse Rate 109 84 Respiratory 18 18 16 Rate Blood Pressure 80/64 92/71 (mmHg) O2 Sat by Pulse 98 100 Oximetry Oxygen Devices in Use Now: None Appearance: Pleasant elderly lady lying in bed in NAD Eyes: No Scleral Icterus Ears/Nose/Mouth/Throat: Mucous Membranes Moist Neck: Trachea Midline Respiratory: Symmetrical Chest Expansion and Respiratory Effort, Clear to Auscultation Cardiovascular: - - Normal S1 and S2, irregularly irregular Abdominal: NL Sounds; No Tenderness; No Distention Extremities: No Edema Neurological: Alert and Oriented x 3, NL Muscle Strength and Tone Result Diagrams: 05/09/19 06:17 05/09/19 06:17 Assess/Plan/Problems-Billing Assessment: Mrs Zuñiga is an 78yo F with PMH of ESRD on HD, RA, Afib, aortic stenosis s/p TAVR, diastolic CHF, hypothyroidism, CAD; who presented to ED with c/o generalized weakness, thought to be secondary to HD and deconditioning. - Patient Problems (1) Systolic CHF Comment: - Awaiting records from Dr Anderson's office, but depressed EF seems to be worse than prior. - Cardiology consult requested. (2) Weakness Comment: - This appears to be secondary to deconditioning, but CHF may be playing a role too. - No significant arrhythmias on Telemetry so far. - Awaiting UA and PT consult. (3) Elevated troponin level Comment: - Minimal elevation, likely secondary to ESRD/CHF. No signs of acute ischemia. - Echocardiogram shows depressed EF in patient with known CAD - Cardiology consult requested. (4) PND (paroxysmal nocturnal dyspnea) Comment: - May be secondary to CHF - improved today. - SO2 was <= 88% for less than minute on overnight oximetry. (5) ESRD on hemodialysis Comment: - Continue HD as tolerated. (6) Atrial fibrillation Comment: - Rate is controlled - continue Amiodarone. - Warfarin held due to supratherapeutic INR. (7) Hypothyroidism Comment: - TSH 4.37. - Continue Levothyroxine. (8) Hypotension Comment: - On Midodrine and Florinef for hypotension during HD. (9) DVT prophylaxis Comment: - Warfarin on hold for now, but INR is supratherapeutic. (10) Full code status Status and Disposition: Change to inpatient to continue cardiac w/u. Will need NICK on discharge. I called son (Valente Zuñiga) called at [phone] and was unable to leave a message as his voice mail box is full.
[2019-05-09] MEDS: CMCS: Midodrine 5 MG TAB PO SCH ×3 (09:56→20:06)
[2019-05-09] MEDS: Pantoprazole TAB * 40 MG TAB PO SCH (09:56)
[2019-05-09] MEDS: Cyanocobalamin TAB* 500 MCG PO SCH (09:56)
[2019-05-09] MEDS: Docusate CAP* 100 MG PO SCH (09:57)
[2019-05-09] MEDS: Fludrocortisone Acetate TAB* 0.1 MG PO SCH (09:57)
[2019-05-09] MEDS: Multivitamins/Minerals TAB PO SCH (09:57)
[2019-05-09] MEDS: Amiodarone TAB* 200 MG PO SCH (09:57)
[2019-05-09] MEDS: Ferrous Sulfate TAB* 325 MG PO SCH (09:57)
[2019-05-09] MEDS ORDERED: Heparin DIALYSIS ONLY(*) 1,000 UNITS/ML VIAL DIALYSIS ONE (16:30)
[2019-05-09] MEDS ORDERED: Docusate CAP* 100 MG PO PRN (19:38)
[2019-05-09] MEDS: Gabapentin CAP(*) 300 MG PO SCH (20:07)
[2019-05-09] MEDS: Atorvastatin* 20 MG TAB PO SCH (20:07)
--- NOTE | 2019-05-09 21:13 | PN ---
DIALYSIS NOTE: DATE OF DIALYSIS: 05/09/19 SUBJECTIVE: The patient seen and examined during dialysis. Vitals and labs have been reviewed. PHYSICAL EXAMINATION: HEENT: NC/AT. Heart: S1, S2 present. Regular at the time of exam. Lungs: Clear to auscultation. Abdomen: Soft. Extremities: No edema. Neuro: Alert, oriented. ASSESSMENT AND PLAN: 1. End-stage renal disease, on hemodialysis Tuesday, Tuesday, Tuesday. The patient was dialyzed yesterday. We will dialyze again today for a shorter duration 2 hours to get her back on her usual Tuesday, Tuesday, Tuesday schedule and we will target for a UF of 0.5 L as tolerated. 2. Hypotension. Her torsemide was stopped. The patient is on midodrine and Florinef. 3. We will follow with the medical team and be available for any questions. [id number]/[facility] #: [id number] MTDD
[2019-05-09] MEDS: Acetaminophen TAB* 325 MG PO PRN (22:46)
--- NOTE | 2019-05-10 00:44 | CONS ---
CC: Dr. Esteban Anderson; Dr. Merced Chicas; Dr. Shankar * CONSULTATION REPORT: DATE OF CONSULT: 05/09/19 PRIMARY CARE PHYSICIAN: Dr. Merced Chicas. REASON FOR CONSULTATION: Cardiomyopathy and elevated troponin. CHIEF COMPLAINT: Weakness and falls. HISTORY OF PRESENT ILLNESS: Ms. Zuñiga is an 78-year-old woman who has known coronary artery disease and is followed by Dr. Anderson in [place]. I do not have all old records at this time. The patient's past cardiac history includes a TAVR (Dr. Patton) 2016 and catheterization at that time showed [id number] disease in the right coronary artery and the mid to distal LAD. The patient has been on hemodialysis for several months and her dialysis has been complicated by hypotension, for which she has been supported with midodrine and Florinef. She has chronic AFib. Recently for several days according to the patient and her granddaughter, she has been having nausea and vomiting and upper abdominal discomfort. At dialysis on the , her legs were weak, she fell and then getting on to get about fell again and was brought to the emergency department, she was found to be hypotensive. Cardiac workup here revealed her ejection fraction had dropped to 20% to 25% down from 40% on a most recent echo done in [place]. At the time I saw, the patient was lying in bed talking to her granddaughter, her primary caregiver. She said her breathing was fine. She was not having any pain. She was not currently nauseated. She had chronic constipation. PAST MEDICAL HISTORY: 1. End-stage renal disease, on hemodialysis in [place] (Tuesday, Tuesday, Tuesday). 2. Chronic AFib, on Coumadin. 3. Rheumatoid arthritis. 4. TAVR (Dr. Patton) 2016. 5. Heart failure, preserved ejection fraction in the past. 6. Hypothyroid disease, status post partial thyroidectomy. 7. Long-standing hypotension and falls and syncope. 8. Breast cancer, status post mastectomy. 9. Lung cancer documented on [place] records. 10. Cervical spondylolisthesis. 11. COPD based on chest x-ray findings. PAST SURGICAL HISTORY: Includes: 1. Mastectomy. 2. Oophorectomy. 3. Left total knee replacement. 4. Thyroidectomy. 5. TAVR MEDICATIONS: Outpatient medications included: 1. Midodrine 10 mg t.i.d. 2. Florinef 0.1 mg a day. 3. Amiodarone 200 mg a day. 4. Imdur 30 mg a day. 5. Torsemide 40 mg 4 days a week. 6. Atorvastatin 20 mg a day. 7. Iron sulfate 325 mg a day. 8. Levothyroxine 75 mcg a day. 9. Protonix 40 mg a day. 10. Colace. 11. Tylenol. 12. MultiVites. 13. B12 1000 mcg a day. 14. Coumadin. 15. Neurontin 300 mg q.h.s. 16. Zofran p.r.n. ALLERGIES: Include AMOXICILLIN, PENICILLIN, and SULFA. FAMILY HISTORY: Positive for rheumatoid arthritis. SOCIAL HISTORY: She is currently living with her granddaughter according to her granddaughter, although the note states she lives with her sons. No current tobacco or drug use. REVIEW OF SYSTEMS: Negative for chest, neck, or jaw pain that she is anorexic, upper abdominal pain, vomiting, weakness, falling, possible loss of consciousness. She denies recent fevers. She denies diarrhea, states she has chronic constipation. History of PND, using oxygen. All other review of systems was negative. PHYSICAL EXAM: Vitals: Blood pressure is 80/64, pulse is 84 to 117, respiratory rate 20, oxygen saturation 96%. The patient is 5 feet, 115 pounds with a BMI of 23. General Appearance: An elderly woman in bed talking with her grand-daughter, appears chronically ill. Psychologically, pleasant and cooperative. Neurologically, a bit hard of hearing but awake, alert, oriented x3 , follows commands, moves all extremities. HEENT: Mucous membranes are moist. Pupils are equal and round. Neck: External jugular veins distended. No appreciable increase in internal jugulars. Palpable carotid pulse, free of bruits. Respirations: There is some scoliosis but lungs were a little diminished in the bases, otherwise clear. Coronary: S1, S2. Irregularly irregular without murmurs. Abdomen: Flat, nondistended, active bowel sounds. No hepatomegaly appreciated. Lower extremities are free of edema and warm. DIAGNOSTIC STUDIES/LAB DATA: A 12-lead ECG done today shows atrial fibrillation with interventricular conduction delay, left axis deviation, ventricular rate 116 beats per minute. Echocardiogram done today shows an ejection fraction of 20% to 25% with global hypokinesis. The right ventricle showed [id number] hypokinesis, mild-to - moderate mitral insufficiency, moderate mitral stenosis, mild aortic insufficiency. Aortic valve is status post TAVR with a mean gradient of 6 mmHg, good function. Tricuspid valve [id number] regurgitation. Echocardiogram done at [place], 07/12/18, showed an ejection fraction of 40%, with PVCs and dyssynchrony, her ejection fraction dropped to 20%. There was moderate right ventricular dilatation, mitral annular calcification, bioprosthetic aortic valve (TAVR #26 CHOLO 3) with good function, mild tricuspid insufficiency, PA pressure 47 mmHg. Labs: White count 7.3, hematocrit 34, platelets 190. INR 3.53. Sodium 131, potassium 4.3, chloride 97, bicarb 25, BUN 24, creatinine 3.06, glucose 98. Troponin initially 0.03, #2 0.04, #3 0.05, #4 0.04. Chest x-ray from 05/07/19 showed cardiomegaly, mild interstitial edema. Most recent lipid panel available to us are from 2015, total cholesterol 172, LDL cholesterol 98, HDL cholesterol 54, and triglycerides 95. SUMMARY: Ms. Zuñiga is an 78-year-old woman with end-stage renal disease on hemodialysis approximately 6 months, history of chronic atrial fibrillation, transcatheter aortic valve replacement, mitral valve disease with mitral stenosis and mitral insufficiency, coronary artery disease I believe on medical management, and a long-standing history of low blood pressure and frequent falls. She has been admitted with for fallin, noted to be hypotensive and now with progression in her depressed ejection fraction. She had mild elevation in troponins. The patient's cardiomyopathy appears out of proportion to the coronary artery disease on cath and current troponin bump and this may be multifactorial, metabolic, shunt, poor perfusion of low blood pressure, ectopy (although not having PVC's here). I do not feel that Ms. Zuñiga is an interventional candidate at this point. Ideally medical management for her ejection fraction would include beta- blockers and SANDRA inhibitors, but her hypotension precludes this. I would recommend if able getting her off the Florinef and continuing midodrine if she is still able to go through dialysis and maintain her blood pressure. I would recommend stopping her Imdur as has been done to improve blood pressure and stopping her torsemide unless contraindicated by Nephrology. For the patient's atrial fibrillation, if this appears persistent or chronic, I would recommend stopping her amiodarone for now. For balance and frequent falls this could be multifactorial related to low blood pressure, but also balance effects from amiodarone and even effects from her Neurontin. I would consider minimizing her medications, getting rid of the Neurontin unless contraindication of this, as above stopping the amiodarone and the torsemide. It is possible that off the amiodarone she may tolerate low-dose pure beta- liane, which might help her cardiomyopathy. We should coordinate her cardiac care with her regular dock grader, Dr. Anderson as she is complex and we don't have her complete records. She was recently transferred from [facility] to [facility] relatively recently (January 2019) and we are trying to get copies of her workup and treatment at [place] as well. I do not have her TAVR report to see if she had any coronary artery intervention at that time either. Thank you for allowing us to assist in this nice but highly complex woman's care. [id number]/[facility] #: [id number] AGGIE
[2019-05-10] MEDS: Levothyroxine TAB* 75 MCG TAB PO SCH (05:13)
[2019-05-10 05:57] LABS: ABS Lymphocytes 0.9 10^3/ul (1.0-4.8); ABS Monocytes 0.7 10^3/ul (0-0.8); Eosinophil % 0.5 %; Hematocrit 33 % (35-47); Hemoglobin 10.8 g/dL (12.0-16.0); Lymphocyte % 13.6 %; Mean Corpuscular HGB Conc 33 g/dL (31-36); Mean Corpuscular Hemoglobin 34 pg (27-31); Mean Corpuscular Volume 103 fL (80-97); Mean Platelet Volume 8.7 fL (7.4-10.4); Nucleated Red Blood Cells % 0.1; Platelet Count 183 10^3/uL (150-450); Red Blood Count 3.22 10^6 /uL (3.70-4.87); Red Cell Distribution Width 19 % (10-15); White Blood Count 6.6 10^3/uL (3.5-10.8)
[2019-05-10 06:06] LABS: BUN/Creatinine Ratio 7.1 (8-20); Calcium 8.4 mg/dL (8.6-10.3); EGFR African American 20.7 (>60); EGFR Non-African American 17.1 (>60); INR 3.02 (0.82-1.09); Potassium 4.2 mmol/L (3.5-5.0)
--- NOTE | 2019-05-10 09:13 | PN ---
<AndiJaneen - Last Filed: 05/10/19 09:06> Subjective Date of Service: 05/10/19 - Newly found severe LV dysfunction, troponinemia, hypotension Interval History: Patient sitting in chair upon entering the room. She had dialysis yesterday. She offers no complaints at this time, denies shortness of breath, dizziness, palpitations, sensation of heart racing or chest pain. Medications Active Medications: Acetaminophen (Tylenol Tab*) 650 mg PO Q4H PRN PRN Reason: PAIN-MILD/TEMP >/= 100.4 Last Admin: 05/09/19 22:46 Dose: 650 mg Atorvastatin Calcium (Lipitor*) 20 mg PO BEDTIME [facility] Last Admin: 05/09/19 20:07 Dose: 20 mg Cyanocobalamin (Vitamin B12 Tab*) 1,000 mcg PO DAILY [facility] Last Admin: 05/09/19 09:56 Dose: 1,000 mcg Docusate Sodium (Colace Cap*) 200 mg PO DAILY [facility] Last Admin: 05/09/19 09:57 Dose: 200 mg Docusate Sodium (Colace Cap*) 100 mg PO BID PRN PRN Reason: CONSTIPATION Last Admin: 05/09/19 20:07 Dose: 100 mg Ferrous Sulfate (Ferrous Sulfate Tab*) 325 mg PO DAILY [facility] Last Admin: 05/09/19 09:57 Dose: 325 mg Fludrocortisone Acetate (Florinef Tab*) 0.1 mg PO DAILY [facility] Last Admin: 05/09/19 09:57 Dose: 0.1 mg Gabapentin (Neurontin Cap(*)) 300 mg PO BEDTIME [facility] Last Admin: 05/09/19 20:07 Dose: 300 mg Levothyroxine Sodium (Synthroid Tab*) 75 mcg PO 0600 [facility] Last Admin: 05/10/19 05:13 Dose: 75 mcg Midodrine (Midodrine) 10 mg PO TID [facility] Last Admin: 05/09/19 20:06 Dose: 10 mg Multivitamins/Minerals (Theragran/Minerals Tab*) 1 tab PO DAILY [facility] Last Admin: 05/09/19 09:57 Dose: 1 tab Ondansetron HCl (Zofran Inj*) 4 mg IV Q8H PRN PRN Reason: NAUSEA/VOMITING Last Admin: 05/09/19 05:17 Dose: 4 mg Pantoprazole Sodium (Protonix Tab*) 40 mg PO DAILY [facility] Last Admin: 05/09/19 09:56 Dose: 40 mg Objective Vital Signs: Temp Pulse Resp BP Pulse Ox 98.1 F 97 20 92/55 95 05/10/19 08:06 05/10/19 08:06 05/10/19 08:06 05/10/19 08:09 05/10/19 08:06 Oxygen Devices in Use Now: None Appearance: sitting in chair, A+O x3 cooperative with exam Eyes: No Scleral Icterus Ears/Nose/Mouth/Throat: NL Teeth, Lips, Gums, Clear Oropharnyx, Mucous Membranes Moist Neck: NL Appearance and Movements; NL JVP, Trachea Midline Respiratory: - - Slight inspiratory crackles noted in left base. Cardiovascular: - - Normal S1, S2 irregular rate and rhythm. no gallop or rub. Abdominal: NL Sounds; No Tenderness; No Distention Extremities: No Edema Skin: No Rash or Ulcers Neurological: Alert and Oriented x 3 Lines/Tubes/Other Access: Clean, Dry and Intact Peripheral IV Laboratory Results: 05/10/19 05:14 05/10/19 05:16 INR (Anticoag Therapy) 3.02 (0.82-1.09) H 05/10/19 05:16 APTT 41.6 seconds (26.0-38.0) H 05/07/19 11:55 Total Bilirubin 0.70 mg/dL (0.2-1.0) 05/07/19 11:56 AST 20 U/L (13-39) 05/07/19 11:56 ALT 16 U/L (7-52) 05/07/19 11:56 Alkaline Phosphatase 136 U/L (34-104) H 05/07/19 11:56 Total Protein 6.1 g/dL (6.4-8.9) L 05/07/19 11:56 Albumin 3.4 g/dL (3.2-5.2) 05/07/19 11:56 Globulin 2.7 g/dL (2-4) 05/07/19 11:56 Albumin/Globulin Ratio 1.3 (1-3) 05/07/19 11:56 TSH 4.37 mcIU/mL (0.34-5.60) 05/07/19 11:56 05/07/19 05/07/19 05/08/19 11:56 14:44 09:50 Troponin I 0.04 H* 0.05 H* 0.04 H* 05/08/19 11:45 Troponin I 0.03 Laboratory Results - last 24 hr 05/10/19 05/10/19 05/10/19 05:14 05:16 05:16 WBC 6.6 RBC 3.22 L Hgb 10.8 L Hct 33 L MCV 103 H MCH 34 H MCHC 33 RDW 19 H Plt Count 183 MPV 8.7 Neut % (Auto) 75.4 Lymph % (Auto) 13.6 [place] % (Auto) 10.0 Eos % (Auto) 0.5 Baso % (Auto) 0.5 Absolute Neuts (auto) 5.0 Absolute Lymphs (auto) 0.9 L Absolute Monos (auto) 0.7 Absolute Eos (auto) 0.0 Absolute Basos (auto) 0.0 Absolute Nucleated RBC 0.0 Nucleated RBC % 0.1 INR (Anticoag Therapy) 3.02 H Sodium 131 L Potassium 4.2 Chloride 97 L Carbon Dioxide 27 Anion Gap 7 BUN 19 Creatinine 2.68 H Est GFR ( Amer) 20.7 Est GFR (Non-Af Amer) 17.1 BUN/Creatinine Ratio 7.1 L Glucose 91 Calcium 8.4 L Diagnostic Imaging: *[facility]* [place] [address] Fax #: [phone] Transthoracic Echocardiogram Patient: Maureen Zuñiga : 1940 Study Date: 05/08/2019 Age: 78 Gender: F HR: 79 bpm Height: 60 in /152.4 cm BSA: 1.49 m^2 Weight: 116.8 lb /53.1 kg BMI: 22.9 kg/m^2 *Double End Tenoner Operator: * Lucille Stevenson RD RDMS *Referring Physician: * Nova NoyolaReading Physician: * Alonso Maher MD Indications: Congestive Heart Failure. History: TAVR. ESRD. Atrial fibrillation. Coronary artery disease. Congestive heart failure. Conclusions Summary: - Left ventricle: Systolic function is severely reduced. The estimated ejection fraction is 20-25%. Severe diffuse hypokinesis with multiple regional wall motion abnormalities. - Right ventricle: Systolic function is moderately to severely reduced. - Left atrium: The atrium is severely dilated. - Mitral valve: The Mitral valve annulus appears calcified. The leaflets are mildly thickened. The findings are consistent with moderate stenosis. There is mild to moderate regurgitation. - Aortic valve: Prior repair procedures include transcatheter aortic valve replacement. There is no significant regurgitation. The mean systolic gradient is 6.0 mm Hg. The valve area by the velocity-time integral method is 0.80 cm^2. The valve area by the peak velocity method is 0.80 cm^2. - Tricuspid valve: There is mild-moderate regurgitation. - Pericardium, extracardiac: A trace pericardial effusion is This report is only to be considered final once signed by the Provider(s) as displayed in the "<Electronically Signed by >" field (s). Absence of a signature indicates the report is in a draft status and still needs to be finalized. In the event this document was created by someone other than the signing Provider, the individual initiating the document will be listed in the "Entered by:" or "Dictated by:" grant. EKG Data: 05/08/2019; AF rate 118 telemetry reviewed; AF rate 100-130 ( periods of higher rates appear to occur with activity ( getting out of bed to chair)/ Assessment/Plan #1 Newly diagnosed severe LV dysfunction; LVEF 20-25% in the past it was 40% on 06/2018 echo from [place]. Etiology not clear given known moderate to severe mid LAD lesion on prior [facility] in 2017 (75% mid LAD). treated medically per primary filter tank tender Dr. Anderson who I personally spoke with. She also has a h /o long standing persistent AF with labile heart rate control. She is not on any guide line drive CHF medications due to symptomatic hypotension requiring Midodrine and Florinef therapy. Imdur, Torsemide and Amiodarone has been stopped. If BP allows would recommend Toprol 12.5mg/day. Troponin was minimally elevated and she denies chest pain. I reviewed with the patient the severity of CHF in addition to ESRD she is agreeable to palliative consult to address goals of care. She is still a full code. #2 Longstanding Persistent AF; Rates 100-130( increase with activity) this may become worse now off of Amio. Ideally if BP improves off of Imdur, Torsemide and Amio we would add Toprol 12.5mg/day.Continue Coumadin with goal INR 2-3. She is not symptomatic. She has severe LA dilatation. #3 ESRD on HD; differ to primary team #4 h/o with TAVR in 2017; gradients stable on yesterday's echo. #5 Disposition pending course. Will await Palliative care consultation. Will d/ w Dr. Carney. Attending: Matthew Carney <Matthew Carney - Last Filed: 05/10/19 16:40> Medications Active Medications: Acetaminophen (Tylenol Tab*) 650 mg PO Q4H PRN PRN Reason: PAIN-MILD/TEMP >/= 100.4 Last Admin: 05/09/19 22:46 Dose: 650 mg Atorvastatin Calcium (Lipitor*) 20 mg PO BEDTIME [facility] Last Admin: 05/09/19 20:07 Dose: 20 mg Cyanocobalamin (Vitamin B12 Tab*) 1,000 mcg PO DAILY [facility] Last Admin: 05/10/19 09:30 Dose: 1,000 mcg Docusate Sodium (Colace Cap*) 200 mg PO DAILY [facility] Last Admin: 05/10/19 09:30 Dose: 200 mg Docusate Sodium (Colace Cap*) 100 mg PO BID PRN PRN Reason: CONSTIPATION Last Admin: 05/09/19 20:07 Dose: 100 mg Ferrous Sulfate (Ferrous Sulfate Tab*) 325 mg PO DAILY [facility] Last Admin: 05/10/19 09:30 Dose: 325 mg Fludrocortisone Acetate (Florinef Tab*) 0.1 mg PO DAILY [facility] Last Admin: 05/10/19 09:29 Dose: 0.1 mg Gabapentin (Neurontin Cap(*)) 300 mg PO BEDTIME [facility] Last Admin: 05/09/19 20:07 Dose: 300 mg Levothyroxine Sodium (Synthroid Tab*) 75 mcg PO 0600 [facility] Last Admin: 05/10/19 05:13 Dose: 75 mcg Midodrine (Midodrine) 10 mg PO TID [facility] Last Admin: 05/10/19 15:16 Dose: 10 mg Multivitamins/Minerals (Theragran/Minerals Tab*) 1 tab PO DAILY [facility] Last Admin: 05/10/19 09:30 Dose: 1 tab Ondansetron HCl (Zofran Inj*) 4 mg IV Q8H PRN PRN Reason: NAUSEA/VOMITING Last Admin: 05/09/19 05:17 Dose: 4 mg Pantoprazole Sodium (Protonix Tab*) 40 mg PO DAILY [facility] Last Admin: 05/10/19 09:29 Dose: 40 mg Objective Vital Signs: Temp Pulse Resp BP Pulse Ox 97.8 F 116 20 78/52 93 05/10/19 15:15 05/10/19 15:15 05/10/19 15:15 05/10/19 15:15 05/10/19 15:15 Laboratory Results: 05/10/19 05:14 05/10/19 05:16 INR (Anticoag Therapy) 3.02 (0.82-1.09) H 05/10/19 05:16 APTT 41.6 seconds (26.0-38.0) H 05/07/19 11:55 Total Bilirubin 0.70 mg/dL (0.2-1.0) 05/07/19 11:56 AST 20 U/L (13-39) 05/07/19 11:56 ALT 16 U/L (7-52) 05/07/19 11:56 Alkaline Phosphatase 136 U/L (34-104) H 05/07/19 11:56 Total Protein 6.1 g/dL (6.4-8.9) L 05/07/19 11:56 Albumin 3.4 g/dL (3.2-5.2) 05/07/19 11:56 Globulin 2.7 g/dL (2-4) 05/07/19 11:56 Albumin/Globulin Ratio 1.3 (1-3) 05/07/19 11:56 TSH 4.37 mcIU/mL (0.34-5.60) 05/07/19 11:56 05/07/19 05/07/19 05/08/19 11:56 14:44 09:50 Troponin I 0.04 H* 0.05 H* 0.04 H* 05/08/19 11:45 Troponin I 0.03 Assessment/Plan 05.10.2019 4:38 PM: pt seen and exmained. Clinical condition d/w MACHINE VENEER REPAIRER Mansi Escamilla. ESRD, severe CMP, TAVR. Hypotension, CAD. a fib. further discussion for palliative care now .Continue above plan of care .
[2019-05-10] MEDS: Pantoprazole TAB * 40 MG TAB PO SCH (09:29)
[2019-05-10] MEDS: Fludrocortisone Acetate TAB* 0.1 MG PO SCH (09:29)
[2019-05-10] MEDS: Cyanocobalamin TAB* 500 MCG PO SCH (09:30)
[2019-05-10] MEDS: Multivitamins/Minerals TAB PO SCH (09:30)
[2019-05-10] MEDS: Ferrous Sulfate TAB* 325 MG PO SCH (09:30)
[2019-05-10] MEDS: CMCS: Midodrine 5 MG TAB PO SCH ×3 (09:30→21:12)
[2019-05-10] MEDS: Docusate CAP* 100 MG PO SCH (09:30)
--- NOTE | 2019-05-10 14:10 | PN ---
Subjective Date of Service: 05/10/19 Interval History: Patient complained of SOB earlier, was placed on O2. Now she denies SOB. Denies chest pain. She is scheduled for dialysis tomorrow. Seen by Janeen BURCH for cardiology today, her notes appreciated, discussed patient. Family History: Unchanged from Admission Social History: Unchanged from Admission Past Medical History: Unchanged from Admission Objective Active Medications: Acetaminophen (Tylenol Tab*) 650 mg PO Q4H PRN PRN Reason: PAIN-MILD/TEMP >/= 100.4 Last Admin: 05/09/19 22:46 Dose: 650 mg Atorvastatin Calcium (Lipitor*) 20 mg PO BEDTIME [facility] Last Admin: 05/09/19 20:07 Dose: 20 mg Cyanocobalamin (Vitamin B12 Tab*) 1,000 mcg PO DAILY [facility] Last Admin: 05/10/19 09:30 Dose: 1,000 mcg Docusate Sodium (Colace Cap*) 200 mg PO DAILY [facility] Last Admin: 05/10/19 09:30 Dose: 200 mg Docusate Sodium (Colace Cap*) 100 mg PO BID PRN PRN Reason: CONSTIPATION Last Admin: 05/09/19 20:07 Dose: 100 mg Ferrous Sulfate (Ferrous Sulfate Tab*) 325 mg PO DAILY [facility] Last Admin: 05/10/19 09:30 Dose: 325 mg Fludrocortisone Acetate (Florinef Tab*) 0.1 mg PO DAILY [facility] Last Admin: 05/10/19 09:29 Dose: 0.1 mg Gabapentin (Neurontin Cap(*)) 300 mg PO BEDTIME [facility] Last Admin: 05/09/19 20:07 Dose: 300 mg Levothyroxine Sodium (Synthroid Tab*) 75 mcg PO 0600 [facility] Last Admin: 05/10/19 05:13 Dose: 75 mcg Midodrine (Midodrine) 10 mg PO TID [facility] Last Admin: 05/10/19 09:30 Dose: 10 mg Multivitamins/Minerals (Theragran/Minerals Tab*) 1 tab PO DAILY [facility] Last Admin: 05/10/19 09:30 Dose: 1 tab Ondansetron HCl (Zofran Inj*) 4 mg IV Q8H PRN PRN Reason: NAUSEA/VOMITING Last Admin: 05/09/19 05:17 Dose: 4 mg Pantoprazole Sodium (Protonix Tab*) 40 mg PO DAILY [facility] Last Admin: 05/10/19 09:29 Dose: 40 mg Vital Signs - 8 hr 05/10/19 05/10/19 05/10/19 08:00 08:06 08:09 Temperature 36.7 C Pulse Rate 97 Respiratory 20 20 Rate Blood Pressure 77/59 92/55 (mmHg) O2 Sat by Pulse 95 Oximetry 05/10/19 11:33 Temperature 37.4 C Pulse Rate 79 Respiratory 20 Rate Blood Pressure 83/62 (mmHg) O2 Sat by Pulse 99 Oximetry Oxygen Devices in Use Now: Nasal Cannula Appearance: alert, awake Ears/Nose/Mouth/Throat: Clear Oropharnyx Neck: No Thyroid Enlargement, Masses Respiratory: Symmetrical Chest Expansion and Respiratory Effort, - - rales at bases bilat, RT>LT ; LT subclavian area; large catheter not sutured in Cardiovascular: NL Sounds; No Murmurs; No JVD, RRR Abdominal: NL Sounds; No Tenderness; No Distention Lymphatic: No Cervical Adenopathy Neurological: Alert and Oriented x 3 Lines/Tubes/Other Access: Clean, Dry and Intact Peripheral IV Nutrition: Taking PO's Result Diagrams: 05/10/19 05:14 05/10/19 05:16 Assess/Plan/Problems-Billing Assessment: Mrs Zuñiga is an 78yo F with PMH of ESRD on HD, RA, Afib, aortic stenosis s/p TAVR, diastolic CHF, hypothyroidism, CAD; who presented to ED with c/o generalized weakness, thought to be secondary to HD and deconditioning. - Patient Problems (1) Systolic CHF Current Visit: Yes Status: Acute Priority: High Code(s): I50.20 - UNSPECIFIED SYSTOLIC (CONGESTIVE) HEART FAILURE SNOMED Code(s): 06057027 Comment: - Patient has new systolic failure, EF 20%. Dr. Anderson was contacted by Janeen. Patient has end-stage heart failure, s/p TAVR, no further intervention is advised - Cardiology consult appreciated (2) Atrial fibrillation Current Visit: Yes Status: Acute Priority: Medium Code(s): I48.91 - UNSPECIFIED ATRIAL FIBRILLATION SNOMED Code(s): 23965698 Comment: - patient now in a-fib chronically. Amiodarone d/tegan. May start low -dose beta liane soon. - Warfarin held due to supratherapeutic INR. (3) ESRD on hemodialysis Current Visit: Yes Status: Acute Priority: Medium Code(s): N18.6 - END STAGE RENAL DISEASE; Z99.2 - DEPENDENCE ON RENAL DIALYSIS SNOMED Code(s): 934907408 Comment: - Continue HD as tolerated. - Asked Dr. Draper to look at catheter. (4) DVT prophylaxis Current Visit: Yes Status: Acute Priority: Low Code(s): Z29.9 - ENCOUNTER FOR PROPHYLACTIC MEASURES, UNSPECIFIED SNOMED Code(s): 845879968 Comment: - Warfarin on hold for now, but INR is supratherapeutic. (5) Full code status Current Visit: Yes Status: Acute Priority: Low Code(s): Z78.9 - OTHER SPECIFIED HEALTH STATUS SNOMED Code(s): 238032816 Comment: -Has palliative care consult pending Status and Disposition: Change to inpatient to continue cardiac w/u. Will need NICK on discharge.
[2019-05-10] MEDS: Atorvastatin* 20 MG TAB PO SCH (21:11)
[2019-05-10] MEDS: Gabapentin CAP(*) 300 MG PO SCH (21:11)
--- NOTE | 2019-05-10 21:37 | CONSULT ---
Palliative / Hospice Consult Ordering Provider: Janeen Escamilla - PCP-Aviva Referabebe Reason: Goals of care/colace/no narcotics - Subjective Code Status: Full Code Advance Directives Location: No Advance Directives - History or Present Illness History or Present Illness: 78yo female with ESRD c/o legs gave way and she fell. PMH is significant for rheumatoid arthritis, afib on coumadin, s/p valve replacement and TAVR, diastolic CHF, hypothyroidism s/p partial thyroidectomy, CAD s/p cath 2017 RCA 40% & LAD 75%, breast Ca and ?lung Ca. PSHx-non smoker but exposed to second hand smoke, no etoh, no drugs,uses a walker to get around, has 3 children and lives with son Valente currently. Studies-brain Ct-chronic small vessel ischemic changes, spine CT-osteopenia, spondylosis on multiple levels, CXR-cardiomegaly with mild pulmonary interstitial edema, ekg-LAD, Echo-20-25%, severe diffuse hypokinesis, H/H 10.8/33, BUN/Cr 19/2.68, egfr 17.1, Ca 8.4, troponin .04, alb 3.4 and INR 3.02. Pt admitted with mild CHF, deconditioning and afib. All history is from pt, family and medical record. Lab Values: Abnormal Lab Results 05/10/19 05/10/19 05/10/19 05:14 05:16 05:16 WBC 6.6 RBC 3.22 L Hgb 10.8 L Hct 33 L MCV 103 H MCH 34 H MCHC 33 RDW 19 H Plt Count 183 MPV 8.7 Neut % (Auto) 75.4 Lymph % (Auto) 13.6 Canyon % (Auto) 10.0 Eos % (Auto) 0.5 Baso % (Auto) 0.5 Absolute Neuts (auto) 5.0 Absolute Lymphs (auto) 0.9 L Absolute Monos (auto) 0.7 Absolute Eos (auto) 0.0 Absolute Basos (auto) 0.0 Absolute Nucleated RBC 0.0 Nucleated RBC % 0.1 INR (Anticoag Therapy) 3.02 H Sodium 131 L Potassium 4.2 Chloride 97 L Carbon Dioxide 27 Anion Gap 7 BUN 19 Creatinine 2.68 H Est GFR ( Amer) 20.7 Est GFR (Non-Af Amer) 17.1 BUN/Creatinine Ratio 7.1 L Glucose 91 Calcium 8.4 L Laboratory Last Values WBC 6.6 10^3/uL (3.5-10.8) 05/10/19 05:14 RBC 3.22 10^6 /uL (3.70-4.87) L 05/10/19 05:14 Hgb 10.8 g/dL (12.0-16.0) L 05/10/19 05:14 Hct 33 % (35-47) L 05/10/19 05:14 MCV 103 fL (80-97) H 05/10/19 05:14 MCH 34 pg (27-31) H 05/10/19 05:14 MCHC 33 g/dL (31-36) 05/10/19 05:14 RDW 19 % (10-15) H 05/10/19 05:14 Plt Count 183 10^3/uL (150-450) 05/10/19 05:14 MPV 8.7 fL (7.4-10.4) 05/10/19 05:14 Neut % (Auto) 75.4 % 05/10/19 05:14 Lymph % (Auto) 13.6 % 05/10/19 05:14 Canyon % (Auto) 10.0 % 05/10/19 05:14 Eos % (Auto) 0.5 % 05/10/19 05:14 Baso % (Auto) 0.5 % 05/10/19 05:14 Absolute Neuts (auto) 5.0 10^3/ul (1.5-7.7) 05/10/19 05:14 Absolute Lymphs (auto) 0.9 10^3/ul (1.0-4.8) L 05/10/19 05:14 Absolute Monos (auto) 0.7 10^3/ul (0-0.8) 05/10/19 05:14 Absolute Eos (auto) 0.0 10^3/ul (0-0.6) 05/10/19 05:14 Absolute Basos (auto) 0.0 10^3/ul (0-0.2) 05/10/19 05:14 Absolute Nucleated RBC 0.0 10^3/ul 05/10/19 05:14 Nucleated RBC % 0.1 05/10/19 05:14 INR (Anticoag Therapy) 3.02 (0.82-1.09) H 05/10/19 05:16 APTT 41.6 seconds (26.0-38.0) H 05/07/19 11:55 Sodium 131 mmol/L (135-145) L 05/10/19 05:16 Potassium 4.2 mmol/L (3.5-5.0) 05/10/19 05:16 Chloride 97 mmol/L (101-111) L 05/10/19 05:16 Carbon Dioxide 27 mmol/L (22-32) 05/10/19 05:16 Anion Gap 7 mmol/L (2-11) 05/10/19 05:16 BUN 19 mg/dL (6-24) 05/10/19 05:16 Creatinine 2.68 mg/dL (0.51-0.95) H 05/10/19 05:16 Est GFR ( Amer) 20.7 (>60) 05/10/19 05:16 Est GFR (Non-Af Amer) 17.1 (>60) 05/10/19 05:16 BUN/Creatinine Ratio 7.1 (8-20) L 05/10/19 05:16 Glucose 91 mg/dL (70-100) 05/10/19 05:16 POC Glucose (mg/dL) 158 mg/dL (70-100) H 05/08/19 09:16 Lactic Acid 1.6 mmol/L (0.5-2.0) 05/07/19 13:54 Calcium 8.4 mg/dL (8.6-10.3) L 05/10/19 05:16 Magnesium 2.3 mg/dL (1.9-2.7) 05/07/19 11:56 Total Bilirubin 0.70 mg/dL (0.2-1.0) 05/07/19 11:56 AST 20 U/L (13-39) 05/07/19 11:56 ALT 16 U/L (7-52) 05/07/19 11:56 Alkaline Phosphatase 136 U/L (34-104) H 05/07/19 11:56 Troponin I 0.03 ng/mL (<0.04) 05/08/19 11:45 Total Protein 6.1 g/dL (6.4-8.9) L 05/07/19 11:56 Albumin 3.4 g/dL (3.2-5.2) 05/07/19 11:56 Globulin 2.7 g/dL (2-4) 05/07/19 11:56 Albumin/Globulin Ratio 1.3 (1-3) 05/07/19 11:56 Vitamin B12 1394 pg/mL (180-914) H 05/07/19 11:56 TSH 4.37 mcIU/mL (0.34-5.60) 05/07/19 11:56 - Objective Active Medications: Acetaminophen (Tylenol Tab*) 650 mg PO Q4H PRN PRN Reason: PAIN-MILD/TEMP >/= 100.4 Last Admin: 05/09/19 22:46 Dose: 650 mg Atorvastatin Calcium (Lipitor*) 20 mg PO BEDTIME [facility] Last Admin: 05/10/19 21:11 Dose: 20 mg Cyanocobalamin (Vitamin B12 Tab*) 1,000 mcg PO DAILY [facility] Last Admin: 05/10/19 09:30 Dose: 1,000 mcg Docusate Sodium (Colace Cap*) 200 mg PO DAILY [facility] Last Admin: 05/10/19 09:30 Dose: 200 mg Docusate Sodium (Colace Cap*) 100 mg PO BID PRN PRN Reason: CONSTIPATION Last Admin: 05/09/19 20:07 Dose: 100 mg Ferrous Sulfate (Ferrous Sulfate Tab*) 325 mg PO DAILY [facility] Last Admin: 05/10/19 09:30 Dose: 325 mg Fludrocortisone Acetate (Florinef Tab*) 0.1 mg PO DAILY [facility] Last Admin: 05/10/19 09:29 Dose: 0.1 mg Gabapentin (Neurontin Cap(*)) 300 mg PO BEDTIME [facility] Last Admin: 05/10/19 21:11 Dose: 300 mg Levothyroxine Sodium (Synthroid Tab*) 75 mcg PO 0600 [facility] Last Admin: 05/10/19 05:13 Dose: 75 mcg Midodrine (Midodrine) 10 mg PO TID [facility] Last Admin: 05/10/19 21:12 Dose: 10 mg Multivitamins/Minerals (Theragran/Minerals Tab*) 1 tab PO DAILY [facility] Last Admin: 05/10/19 09:30 Dose: 1 tab Ondansetron HCl (Zofran Inj*) 4 mg IV Q8H PRN PRN Reason: NAUSEA/VOMITING Last Admin: 05/09/19 05:17 Dose: 4 mg Pantoprazole Sodium (Protonix Tab*) 40 mg PO DAILY [facility] Last Admin: 05/10/19 09:29 Dose: 40 mg Vital Signs: Vital Signs: Temp Pulse Resp BP Pulse Ox 97.8 F 121 20 91/59 94 05/10/19 15:15 05/10/19 19:15 05/10/19 21:11 05/10/19 19:15 05/10/19 19:15 Patient Weight: Weight 52.526 kg Intake and Output: Intake & Output 05/08/19 05/09/19 05/10/19 05/11/19 06:59 06:59 06:59 06:59 Intake Total 660 1060 962 Output Total 0 Balance 660 1060 962 Weight 53.252 kg 52.526 kg 52.526 kg Intake: IV Fluids 2 Oral 660 1060 960 Output: Urine 0 Other: Estimated Void Medium Medium # Voids 1 2 ADLs: Meal Record Start: 05/07/19 15: 38 Freq: DAILY@0900,1400,1800 Status: Active Protocol: Created 05/07/19 15:38 System (Rec: 05/07/19 15:38 System [id number]) Document 05/07/19 18:00 [id number] (Rec: 05/07/19 18:17 [id number] TELE-C01) Document 05/08/19 09:00 [id number] (Rec: 05/08/19 11:27 [id number] TELE-M13) Document 05/08/19 13:56 [id number] (Rec: 05/08/19 14:00 [id number] TELE-C07) Document 05/08/19 18:00 [id number] (Rec: 05/08/19 20:22 [id number] TELE-C07) Document 05/09/19 09:00 [id number] (Rec: 05/09/19 09:55 [id number] TELE-C13) Document 05/09/19 14:00 [id number] (Rec: 05/09/19 14:40 [id number] TELE-C13) Document 05/09/19 18:00 [id number] (Rec: 05/09/19 20:01 [id number] TELE-C09) Document 05/10/19 18:00 [id number] (Rec: 05/10/19 20:16 [id number] TELE-C08) Intake and Output Start: 05/07/19 10: 44 Freq: Status: Active Protocol: Created 05/07/19 10:44 System (Rec: 05/07/19 10:44 System [id number]) Intake and Output Start: 05/07/19 15: 38 Freq: DAILY@0600,1400,2200 Status: Active Protocol: Created 05/07/19 15:38 System (Rec: 05/07/19 15:38 System DIET-C05) Document 05/07/19 22:00 [id number] (Rec: 05/07/19 22:10 [id number] TELE-C09) Document 05/08/19 05:34 [id number] (Rec: 05/08/19 05:35 [id number] MED-M27) Document 05/08/19 06:40 [id number] (Rec: 05/08/19 06:41 [id number] TELE-C07) Document 05/08/19 13:56 [id number] (Rec: 05/08/19 14:00 [id number] TELE-C07) Document 05/08/19 22:00 [id number] (Rec: 05/08/19 22:51 [id number] TELE-C07) Document 05/09/19 06:00 [id number] (Rec: 05/09/19 06:13 [id number] TELE-M21) Document 05/09/19 14:00 [id number] (Rec: 05/09/19 14:41 [id number] TELE-C13) Document 05/09/19 22:00 [id number] (Rec: 05/09/19 22:16 [id number] TELE-C09) Document 05/10/19 06:00 [id number] (Rec: 05/10/19 06:36 [id number] TELE-C09) Eyes: No Scleral Icterus Ears/Nose/Mouth/Throat: Clear Oropharnyx Neck: No Thyroid Enlargement, Masses Cardiovascular: NL Sounds; No Murmurs; No JVD, RRR Abdominal: NL Sounds; No Tenderness; No Distention Extremities: No Edema Neurological: Alert and Oriented x 3 - Assessment Assessment: 78yo female with ESRD presents with mild CHF, afib and deconditioning - Plan Consult Plan (MU): Palliative Plan: Long discussion with pt and her granddaughter Meg. We changed HCP to Meg and her dad Valente as the alternate since the previous HCP lives in [facility]. Spoke with granddaughter alone at her request because pt gets depressed when she hears negative news. Family wants to care for pt at home. They are not interested in SNF unless it's for rehab. We discussed hospice, brochure was given but she says pt dislikes hospice and would not be interested. Also gave granddaughter information/brochure on outpatient palliative care.Granddaughter takes pt to all her appts and feels pt has a good quality of life. She also notes some family members are not willing to realize that pt's health is declining. I explained to granddaughter pt is eligible for hospice now and if she elected hospice most likely pt would have to stop dialysis. As of now family is interested in SNF for rehab, family caseworker has already given pt a list of places. Discussed [facility] with pt but she didn't want to sign anything without a family member present. Called daughter Miguelina and updated her about pt 's condition. Called son Valente, but no answer. Pt is eligible for hospice with diagnosis of ESRD and end stage heart disease but she is declining. KPS 60%, PPS 60% - Time On Unit Date of Evaluation: 05/10/19 Hospice Consult Time in: 15:00 Hospice Consult Time Out: 16:30 Hospice Consult Time Total: 90
[2019-05-11] MEDS: Levothyroxine TAB* 75 MCG TAB PO SCH (05:46)
--- NOTE | 2019-05-11 08:53 | PN ---
<VikyjuneJaneen - Last Filed: 05/11/19 08:35> Subjective Date of Service: 05/11/19 - SHF, Perm AF, ESRD on HD Interval History: Patient sitting up in bed in no apparent distress. She states she has been nauseous which is not abnormal for her on days that she does not get HD. She continues to deny chest pain. She does not report shortness of breath although she appears to be breathing at a increased rate. no c/o dizziness. She states she opted to not do hospice care and desires to be full code. Medications Active Medications: Acetaminophen (Tylenol Tab*) 650 mg PO Q4H PRN PRN Reason: PAIN-MILD/TEMP >/= 100.4 Last Admin: 05/09/19 22:46 Dose: 650 mg Atorvastatin Calcium (Lipitor*) 20 mg PO BEDTIME [facility] Last Admin: 05/10/19 21:11 Dose: 20 mg Cyanocobalamin (Vitamin B12 Tab*) 1,000 mcg PO DAILY [facility] Last Admin: 05/10/19 09:30 Dose: 1,000 mcg Docusate Sodium (Colace Cap*) 200 mg PO DAILY [facility] Last Admin: 05/10/19 09:30 Dose: 200 mg Docusate Sodium (Colace Cap*) 100 mg PO BID PRN PRN Reason: CONSTIPATION Last Admin: 05/09/19 20:07 Dose: 100 mg Ferrous Sulfate (Ferrous Sulfate Tab*) 325 mg PO DAILY [facility] Last Admin: 05/10/19 09:30 Dose: 325 mg Fludrocortisone Acetate (Florinef Tab*) 0.1 mg PO DAILY [facility] Last Admin: 05/10/19 09:29 Dose: 0.1 mg Gabapentin (Neurontin Cap(*)) 300 mg PO BEDTIME [facility] Last Admin: 05/10/19 21:11 Dose: 300 mg Levothyroxine Sodium (Synthroid Tab*) 75 mcg PO 0600 [facility] Last Admin: 05/11/19 05:46 Dose: 75 mcg Midodrine (Midodrine) 10 mg PO TID [facility] Last Admin: 05/10/19 21:12 Dose: 10 mg Multivitamins/Minerals (Theragran/Minerals Tab*) 1 tab PO DAILY [facility] Last Admin: 05/10/19 09:30 Dose: 1 tab Ondansetron HCl (Zofran Inj*) 4 mg IV Q8H PRN PRN Reason: NAUSEA/VOMITING Last Admin: 05/09/19 05:17 Dose: 4 mg Pantoprazole Sodium (Protonix Tab*) 40 mg PO DAILY [facility] Last Admin: 05/10/19 09:29 Dose: 40 mg Objective Vital Signs: Temp Pulse Resp BP Pulse Ox 97.7 F 107 16 80/58 95 05/11/19 04:30 05/11/19 04:30 05/11/19 04:30 05/11/19 04:30 05/11/19 04:30 Oxygen Devices in Use Now: Nasal Cannula Appearance: sitting up in bed, A+O x3 cooperative with exam Eyes: No Scleral Icterus Ears/Nose/Mouth/Throat: NL Teeth, Lips, Gums, Clear Oropharnyx, Mucous Membranes Moist Neck: NL Appearance and Movements; NL JVP, Trachea Midline Respiratory: - - Slight inspiratory crackles noted in left base. Cardiovascular: - - Normal S1, S2 irregular rate and rhythm. no gallop or rub. Abdominal: NL Sounds; No Tenderness; No Distention Extremities: No Edema Skin: No Rash or Ulcers Neurological: Alert and Oriented x 3 Lines/Tubes/Other Access: Clean, Dry and Intact Peripheral IV Laboratory Results: 05/10/19 05:14 05/10/19 05:16 INR (Anticoag Therapy) 3.02 (0.82-1.09) H 05/10/19 05:16 APTT 41.6 seconds (26.0-38.0) H 05/07/19 11:55 Total Bilirubin 0.70 mg/dL (0.2-1.0) 05/07/19 11:56 AST 20 U/L (13-39) 05/07/19 11:56 ALT 16 U/L (7-52) 05/07/19 11:56 Alkaline Phosphatase 136 U/L (34-104) H 05/07/19 11:56 Total Protein 6.1 g/dL (6.4-8.9) L 05/07/19 11:56 Albumin 3.4 g/dL (3.2-5.2) 05/07/19 11:56 Globulin 2.7 g/dL (2-4) 05/07/19 11:56 Albumin/Globulin Ratio 1.3 (1-3) 05/07/19 11:56 TSH 4.37 mcIU/mL (0.34-5.60) 05/07/19 11:56 05/07/19 05/07/19 05/08/19 11:56 14:44 09:50 Troponin I 0.04 H* 0.05 H* 0.04 H* 05/08/19 11:45 Troponin I 0.03 Diagnostic Imaging: [place] [address] Fax #: [phone] Transthoracic Echocardiogram Patient: Maureen Zuñiga : 1940 Study Date: 05/08/2019 Age: 78 Gender: F HR: 79 bpm Height: 60 in /152.4 cm BSA: 1.49 m^2 Weight: 116.8 lb /53.1 kg BMI: 22.9 kg/m^2 *Animal Caretaker Supervisor: Lucille Gutiérrez [facility] *Referring Physician: Nova DcReading Physician: * Alonso Maher MD Indications: Congestive Heart Failure. History: TAVR. ESRD. Atrial fibrillation. Coronary artery disease. Congestive heart failure. Conclusions Summary: - Left ventricle: Systolic function is severely reduced. The estimated ejection fraction is 20-25%. Severe diffuse hypokinesis with multiple regional wall motion abnormalities. - Right ventricle: Systolic function is moderately to severely reduced. - Left atrium: The atrium is severely dilated. - Mitral valve: The Mitral valve annulus appears calcified. The leaflets are mildly thickened. The findings are consistent with moderate stenosis. There is mild to moderate regurgitation. - Aortic valve: Prior repair procedures include transcatheter aortic valve replacement. There is no significant regurgitation. The mean systolic gradient is 6.0 mm Hg. The valve area by the velocity-time integral method is 0.80 cm^2. The valve area by the peak velocity method is 0.80 cm^2. - Tricuspid valve: There is mild-moderate regurgitation. - Pericardium, extracardiac: A trace pericardial effusion is This report is only to be considered final once signed by the Provider(s) as displayed in the "<Electronically Signed by >" field (s). Absence of a signature indicates the report is in a draft status and still needs to be finalized. In the event this document was created by someone other than the signing Provider, the individual initiating the document will be listed in the "Entered by:" or "Dictated by:" grant. EKG Data: 05/08/2019; AF rate 118 telemetry reviewed; AF rate 80-100 Assessment/Plan #1 Newly diagnosed SHF LVEF 20-25%; per echo report there were multiple regional wall motion abnormalities with diffuse hypokinesis. She is not on CHF guideline driven therapy due to symptomatic hypotension that requires Midodrine and Florinef therapy. She desires to be full code. appreciate Palliative care consult. Patient did meet criteria for hospice but declined. If BP improves off of Amiodarone, Imdur and Torsemide suggest trial of Toprol 12.5mg/day, however thus far BP has not improved. Diuresis to be achieved via HD. I suggest she has close follow up with primary subway repair supervisor Dr. Anderson. #2 ESRD on HD; differ to primary team #3 h/o CAD with known 75% LAD lesion; On statin therapy. will speak with Dr. Carney about adding ASA. No bblocker for now due to hypotension. #4 h/o TAVR in 2017; peak 13, mean 6. Stable. #5 Disposition pending course. Patient full code. Will review with Dr. Carney however, at this time we are limited in regards to treating above #1 due to blood pressure. Patient does not appear to be cath candidate however I' ll verify with attending subway repair supervisor. Attending: Matthew Carney <Matthew Carney - Last Filed: 05/11/19 11:55> Medications Active Medications: Acetaminophen (Tylenol Tab*) 650 mg PO Q4H PRN PRN Reason: PAIN-MILD/TEMP >/= 100.4 Last Admin: 05/09/19 22:46 Dose: 650 mg Atorvastatin Calcium (Lipitor*) 20 mg PO BEDTIME [facility] Last Admin: 05/10/19 21:11 Dose: 20 mg Cyanocobalamin (Vitamin B12 Tab*) 1,000 mcg PO DAILY [facility] Last Admin: 05/11/19 09:30 Dose: 1,000 mcg Docusate Sodium (Colace Cap*) 200 mg PO DAILY [facility] Last Admin: 05/11/19 09:30 Dose: 200 mg Docusate Sodium (Colace Cap*) 100 mg PO BID PRN PRN Reason: CONSTIPATION Last Admin: 05/09/19 20:07 Dose: 100 mg Ferrous Sulfate (Ferrous Sulfate Tab*) 325 mg PO DAILY [facility] Last Admin: 05/11/19 09:30 Dose: 325 mg Fludrocortisone Acetate (Florinef Tab*) 0.1 mg PO DAILY [facility] Last Admin: 05/11/19 09:31 Dose: 0.1 mg Gabapentin (Neurontin Cap(*)) 300 mg PO BEDTIME [facility] Last Admin: 05/10/19 21:11 Dose: 300 mg Levothyroxine Sodium (Synthroid Tab*) 75 mcg PO 0600 [facility] Last Admin: 05/11/19 05:46 Dose: 75 mcg Midodrine (Midodrine) 10 mg PO TID [facility] Last Admin: 05/11/19 09:30 Dose: 10 mg Multivitamins/Minerals (Theragran/Minerals Tab*) 1 tab PO DAILY [facility] Last Admin: 05/11/19 09:30 Dose: 1 tab Ondansetron HCl (Zofran Inj*) 4 mg IV Q8H PRN PRN Reason: NAUSEA/VOMITING Last Admin: 05/09/19 05:17 Dose: 4 mg Pantoprazole Sodium (Protonix Tab*) 40 mg PO DAILY [facility] Last Admin: 05/11/19 09:30 Dose: 40 mg Objective Vital Signs: Temp Pulse Resp BP Pulse Ox 98.5 F 104 20 103/65 100 05/11/19 07:15 05/11/19 07:15 05/11/19 08:00 05/11/19 07:15 05/11/19 07:15 Laboratory Results: 05/10/19 05:14 05/10/19 05:16 INR (Anticoag Therapy) 3.02 (0.82-1.09) H 05/10/19 05:16 APTT 41.6 seconds (26.0-38.0) H 05/07/19 11:55 Total Bilirubin 0.70 mg/dL (0.2-1.0) 05/07/19 11:56 AST 20 U/L (13-39) 05/07/19 11:56 ALT 16 U/L (7-52) 05/07/19 11:56 Alkaline Phosphatase 136 U/L (34-104) H 05/07/19 11:56 Total Protein 6.1 g/dL (6.4-8.9) L 05/07/19 11:56 Albumin 3.4 g/dL (3.2-5.2) 05/07/19 11:56 Globulin 2.7 g/dL (2-4) 05/07/19 11:56 Albumin/Globulin Ratio 1.3 (1-3) 05/07/19 11:56 TSH 4.37 mcIU/mL (0.34-5.60) 05/07/19 11:56 05/07/19 05/07/19 05/08/19 11:56 14:44 09:50 Troponin I 0.04 H* 0.05 H* 0.04 H* 05/08/19 11:45 Troponin I 0.03 Assessment/Plan 05.11.2019 11:52 reviewed with KIERSTEN Vernon. will discuss with pt and daughter again further management plan although expressed yesterday no invasive intervention.Agree with above plan of care for now.
[2019-05-11] MEDS: CMCS: Midodrine 5 MG TAB PO SCH ×3 (09:30→21:10)
[2019-05-11] MEDS: Pantoprazole TAB * 40 MG TAB PO SCH (09:30)
[2019-05-11] MEDS: Ferrous Sulfate TAB* 325 MG PO SCH (09:30)
[2019-05-11] MEDS: Multivitamins/Minerals TAB PO SCH (09:30)
[2019-05-11] MEDS: Docusate CAP* 100 MG PO SCH (09:30)
[2019-05-11] MEDS: Cyanocobalamin TAB* 500 MCG PO SCH (09:30)
[2019-05-11] MEDS: Fludrocortisone Acetate TAB* 0.1 MG PO SCH (09:31)
--- NOTE | 2019-05-11 10:39 | PN ---
Subjective Date of Service: 05/11/19 Interval History: Patient seen and examined at bedside Reports feeling tired and a little nauseous Denies CP, SOB, abd pain States "I decided not to have hospice." Worried about dialysis schedule Family History: Unchanged from Admission Social History: Unchanged from Admission Past Medical History: Unchanged from Admission Objective Active Medications: Acetaminophen (Tylenol Tab*) 650 mg PO Q4H PRN PRN Reason: PAIN-MILD/TEMP >/= 100.4 Last Admin: 05/09/19 22:46 Dose: 650 mg Atorvastatin Calcium (Lipitor*) 20 mg PO BEDTIME [facility] Last Admin: 05/10/19 21:11 Dose: 20 mg Cyanocobalamin (Vitamin B12 Tab*) 1,000 mcg PO DAILY [facility] Last Admin: 05/11/19 09:30 Dose: 1,000 mcg Docusate Sodium (Colace Cap*) 200 mg PO DAILY [facility] Last Admin: 05/11/19 09:30 Dose: 200 mg Docusate Sodium (Colace Cap*) 100 mg PO BID PRN PRN Reason: CONSTIPATION Last Admin: 05/09/19 20:07 Dose: 100 mg Ferrous Sulfate (Ferrous Sulfate Tab*) 325 mg PO DAILY [facility] Last Admin: 05/11/19 09:30 Dose: 325 mg Fludrocortisone Acetate (Florinef Tab*) 0.1 mg PO DAILY [facility] Last Admin: 05/11/19 09:31 Dose: 0.1 mg Gabapentin (Neurontin Cap(*)) 300 mg PO BEDTIME [facility] Last Admin: 05/10/19 21:11 Dose: 300 mg Levothyroxine Sodium (Synthroid Tab*) 75 mcg PO 0600 [facility] Last Admin: 05/11/19 05:46 Dose: 75 mcg Midodrine (Midodrine) 10 mg PO TID [facility] Last Admin: 05/11/19 09:30 Dose: 10 mg Multivitamins/Minerals (Theragran/Minerals Tab*) 1 tab PO DAILY [facility] Last Admin: 05/11/19 09:30 Dose: 1 tab Ondansetron HCl (Zofran Inj*) 4 mg IV Q8H PRN PRN Reason: NAUSEA/VOMITING Last Admin: 05/09/19 05:17 Dose: 4 mg Pantoprazole Sodium (Protonix Tab*) 40 mg PO DAILY [facility] Last Admin: 05/11/19 09:30 Dose: 40 mg Vital Signs - 8 hr 05/11/19 04:30 Temperature 97.7 F Pulse Rate 107 Respiratory 16 Rate Blood Pressure 80/58 (mmHg) O2 Sat by Pulse 95 Oximetry Oxygen Devices in Use Now: Nasal Cannula Appearance: Elderly female, chronically ill appearing, OOB to chair, NAD Eyes: PERRLA Ears/Nose/Mouth/Throat: Clear Oropharnyx, Mucous Membranes Moist Neck: NL Appearance and Movements; NL JVP, Trachea Midline Respiratory: Symmetrical Chest Expansion and Respiratory Effort, - - rales in the bases Cardiovascular: NL Sounds; No Murmurs; No JVD, RRR, - - left arm lymphedema Abdominal: NL Sounds; No Tenderness; No Distention Skin: No Rash or Ulcers Neurological: Alert and Oriented x 3 Lines/Tubes/Other Access: Clean, Dry and Intact Peripheral IV, Clean, Dry and Intact Other Access - left chest vascath Nutrition: Taking PO's Result Diagrams: 05/10/19 05:14 05/10/19 05:16 Assess/Plan/Problems-Billing Assessment: Mrs Zuñiga is an 78yo F with PMH of ESRD on HD, RA, Afib, aortic stenosis s/p TAVR, diastolic CHF, hypothyroidism, CAD; who presented to ED with c/o generalized weakness, thought to be secondary to HD and deconditioning. - Patient Problems (1) Systolic CHF Code(s): I50.20 - UNSPECIFIED SYSTOLIC (CONGESTIVE) HEART FAILURE Comment: - Patient has new systolic failure, EF 20%. Dr. Anderson was contacted by [facility]. Patient has end-stage heart failure, s/p TAVR, no further intervention is advised - Cardiology consult appreciated - Continue medical management and optimization (2) Atrial fibrillation Code(s): I48.91 - UNSPECIFIED ATRIAL FIBRILLATION Comment: - Patient now in a-fib chronically. Amiodarone d/tegan. May start low-dose beta liane soon. BP still running soft at this point. - Warfarin held due to supratherapeutic INR, recheck INR tomorrow. (3) ESRD on hemodialysis Code(s): N18.6 - END STAGE RENAL DISEASE; Z99.2 - DEPENDENCE ON RENAL DIALYSIS Comment: - Continue HD as tolerated. - Appreciate surgery addressing catheter today. Reports catheter is well established and sutures not necessary. - Nephrology to dialyze patient on Tuesday. Recommended checking renin, aldosterone, cortisol tomorrow. Would like to remove Florinef, but with low pressures this is inadvisable at this time. (4) Hypotension Comment: - On Midodrine and Florinef for hypotension during HD. (5) Hypothyroidism Code(s): E03.9 - HYPOTHYROIDISM, UNSPECIFIED Comment: - TSH 4.37. - Continue Levothyroxine. (6) Weakness Code(s): R53.1 - WEAKNESS Comment: - This appears to be secondary to deconditioning, but CHF may be playing a role too. - No significant arrhythmias on Telemetry so far. - Patient recommended for NICK, potential d/c to [facility] on Tuesday (7) DVT prophylaxis Code(s): Z29.9 - ENCOUNTER FOR PROPHYLACTIC MEASURES, UNSPECIFIED Comment: - Warfarin on hold for now, but INR is supratherapeutic. - Recheck INR (8) Full code status Code(s): Z78.9 - OTHER SPECIFIED HEALTH STATUS Comment: - Declined hospice, wishes to remain full code Status and Disposition: Change to inpatient to continue cardiac w/u. Will need NICK on discharge.
--- NOTE | 2019-05-11 12:59 | PN ---
Progress Note - Progress Note Date of Service: 05/11/19 Note: 05/11/19 5 Asked by to assess HD catheter because prolene suture was no longer intact;the patient states that the catheter was placed at another facility possibly in the Spring of this year.The catheter is tunneled and very well established and no longer requires sutures;the exit site is clean and dry without any signs of infection;I redressed with dry sterile 2x2 and Tegaderm.KIERSTEN Stahl
[2019-05-11] MEDS: Gabapentin CAP(*) 300 MG PO SCH (21:10)
[2019-05-11] MEDS: Atorvastatin* 20 MG TAB PO SCH (21:10)
--- NOTE | 2019-05-11 22:21 | PN ---
PROGRESS NOTE: DATE OF SERVICE: 05/11/19 SUBJECTIVE: The patient is seen and examined at bedside. Denies any com plaints. Vitals and labs have been reviewed. PHYSICAL EXAM: HEENT: NCAT. Heart: S1, S2 present, regular rate at time of exam. Lungs: Decreas ed breath sounds bilaterally. Abdomen: Soft. Extremities: Noted to have some edema. Neuro: Alert and oriented. ASSESSMENT AND PLAN: 1. End-stage renal disease, on hemodialysis, Tuesday, Tuesday, and Tuesday. The patient's labs have been reviewed and the patient not short of breath on exam and the patient's blood pressure also note d to be on the low side at 80/58 and the patient 100% on room air. In light of this, the patient's d ialysis was held today and we will plan dialysis on Tuesday if she continues to stay in the hospital. 2. Hypotension, chronic in nature, and the patient has been on midodrine and Florinef. I have stopp ed her torsemide and can address volume with her dialysis session. The patient is not on any other b lood pressure medications. Reviewed the cardiology note, can also stop fludrocortisone and recommend checking her blood pressures through the weekend. If the patient's blood pressure noted to be low a nd the patient symptomatic, can restart the fludrocortisone, can attempt and see if she is able to to lerate dialysis without the fludrocortisone, otherwise we will add it back. In the interim, also rec ommend checking aldosterone level, renin level, and a cortisol level on the patient to evaluate for t he etiology of her hypotension. Her hypotension could also be secondary to poor cardiac output in th e setting of the systolic heart failure and cardiomyopathy with ejection fraction of 20%. Cardiology is also following the case. [id number]/[facility] #: [id number]
[2019-05-11] MEDS: Acetaminophen TAB* 325 MG PO PRN (23:31)
[2019-05-12] MEDS: Levothyroxine TAB* 75 MCG TAB PO SCH (05:46)
[2019-05-12 07:08] LABS: ABS Basophils 0.1 10^3/ul (0-0.2); ABS Eosinophils 0.1 10^3/ul (0-0.6); ABS Lymphocytes 1.1 10^3/ul (1.0-4.8); ABS Monocytes 0.7 10^3/ul (0-0.8); ABS Neutrophils 4.4 10^3/ul (1.5-7.7); Eosinophil % 1.2 %; Hematocrit 34 % (35-47); Hemoglobin 11.3 g/dL (12.0-16.0); Lymphocyte % 17.2 %; Mean Corpuscular HGB Conc 33 g/dL (31-36); Mean Corpuscular Hemoglobin 34 pg (27-31); Mean Corpuscular Volume 103 fL (80-97); Mean Platelet Volume 8.8 fL (7.4-10.4); Nucleated Red Blood Cells % 0.2; Platelet Count 190 10^3/uL (150-450); Red Blood Count 3.29 10^6 /uL (3.70-4.87); Red Cell Distribution Width 19 % (10-15); White Blood Count 6.3 10^3/uL (3.5-10.8)
[2019-05-12 07:14] LABS: INR 1.77 (0.82-1.09)
[2019-05-12 07:27] LABS: BUN/Creatinine Ratio 8.6 (8-20); Calcium 8.6 mg/dL (8.6-10.3); EGFR African American 12.4 (>60); EGFR Non-African American 10.2 (>60); Potassium 4.7 mmol/L (3.5-5.0)
[2019-05-12] MEDS: CMCS: Midodrine 5 MG TAB PO SCH ×3 (10:18→21:49)
[2019-05-12] MEDS: Pantoprazole TAB * 40 MG TAB PO SCH (10:18)
[2019-05-12] MEDS: Docusate CAP* 100 MG PO SCH (10:19)
[2019-05-12] MEDS: Ferrous Sulfate TAB* 325 MG PO SCH (10:19)
[2019-05-12] MEDS: Fludrocortisone Acetate TAB* 0.1 MG PO SCH (10:19)
[2019-05-12] MEDS: Multivitamins/Minerals TAB PO SCH (10:19)
[2019-05-12] MEDS: Cyanocobalamin TAB* 500 MCG PO SCH (10:33)
--- NOTE | 2019-05-12 14:42 | PN ---
Subjective Date of Service: 05/12/19 Interval History: chronic hypotension persists. Afib with HR 110-120s this midmorning without complaint other than general weakness associated with low BPs. INR to 1.77 Family History: Unchanged from Admission Social History: Unchanged from Admission Past Medical History: Unchanged from Admission Objective Active Medications: Acetaminophen (Tylenol Tab*) 650 mg PO Q4H PRN PRN Reason: PAIN-MILD/TEMP >/= 100.4 Last Admin: 05/11/19 23:31 Dose: 650 mg Atorvastatin Calcium (Lipitor*) 20 mg PO BEDTIME [facility] Last Admin: 05/11/19 21:10 Dose: 20 mg Cyanocobalamin (Vitamin B12 Tab*) 1,000 mcg PO DAILY [facility] Last Admin: 05/12/19 10:33 Dose: Not Given Docusate Sodium (Colace Cap*) 200 mg PO DAILY [facility] Last Admin: 05/12/19 10:19 Dose: 200 mg Docusate Sodium (Colace Cap*) 100 mg PO BID PRN PRN Reason: CONSTIPATION Last Admin: 05/09/19 20:07 Dose: 100 mg Ferrous Sulfate (Ferrous Sulfate Tab*) 325 mg PO DAILY [facility] Last Admin: 05/12/19 10:19 Dose: 325 mg Fludrocortisone Acetate (Florinef Tab*) 0.1 mg PO DAILY [facility] Last Admin: 05/12/19 10:19 Dose: 0.1 mg Gabapentin (Neurontin Cap(*)) 300 mg PO BEDTIME [facility] Last Admin: 05/11/19 21:10 Dose: 300 mg Levothyroxine Sodium (Synthroid Tab*) 75 mcg PO 0600 [facility] Last Admin: 05/12/19 05:46 Dose: 75 mcg Midodrine (Midodrine) 10 mg PO TID [facility] Last Admin: 05/12/19 13:24 Dose: 10 mg Multivitamins/Minerals (Theragran/Minerals Tab*) 1 tab PO DAILY [facility] Last Admin: 05/12/19 10:19 Dose: 1 tab Ondansetron HCl (Zofran Inj*) 4 mg IV Q8H PRN PRN Reason: NAUSEA/VOMITING Last Admin: 05/09/19 05:17 Dose: 4 mg Pantoprazole Sodium (Protonix Tab*) 40 mg PO DAILY [facility] Last Admin: 05/12/19 10:18 Dose: 40 mg Vital Signs - 8 hr 05/12/19 05/12/19 05/12/19 07:15 07:57 11:15 Temperature 97.2 F 98.5 F Pulse Rate 92 123 Respiratory 20 20 20 Rate Blood Pressure 83/59 103/81 (mmHg) O2 Sat by Pulse 95 98 Oximetry Oxygen Devices in Use Now: None Appearance: chronically debilitated appearing. Eyes: No Scleral Icterus Ears/Nose/Mouth/Throat: NL Teeth, Lips, Gums Respiratory: - - coarse rales right base, fine rales left base . no wheezing or rhonchi. Cardiovascular: - - irregularly irregular tachycardid, no m/r/g Abdominal: NL Sounds; No Tenderness; No Distention Extremities: - - trace edema Skin: No Rash or Ulcers Neurological: Alert and Oriented x 3 Nutrition: Taking PO's Result Diagrams: 05/12/19 06:56 05/12/19 06:56 Additional Lab and Data: Laboratory Results - last 24 hr 05/12/19 05/12/19 05/12/19 06:56 06:56 06:56 WBC 6.3 RBC 3.29 L Hgb 11.3 L Hct 34 L MCV 103 H MCH 34 H MCHC 33 RDW 19 H Plt Count 190 MPV 8.8 Neut % (Auto) 69.2 Lymph % (Auto) 17.2 Stephens % (Auto) 11.5 Eos % (Auto) 1.2 Baso % (Auto) 0.9 Absolute Neuts (auto) 4.4 Absolute Lymphs (auto) 1.1 Absolute Monos (auto) 0.7 Absolute Eos (auto) 0.1 Absolute Basos (auto) 0.1 Absolute Nucleated RBC 0.0 Nucleated RBC % 0.2 INR (Anticoag Therapy) 1.77 H Sodium 129 L Potassium 4.7 Chloride 94 L Carbon Dioxide 22 Anion Gap 13 H BUN 36 H Creatinine 4.19 H Est GFR ( Amer) 12.4 Est GFR (Non-Af Amer) 10.2 BUN/Creatinine Ratio 8.6 Glucose 93 Calcium 8.6 Cortisol 20.31 Assess/Plan/Problems-Billing Assessment: Mrs Zuñiga is an 78yo F with PMH of ESRD on HD, RA, Afib (on coumadin), aortic stenosis s/p TAVR, diastolic CHF, hypothyroidism, CAD; subacute hypotension since HD started who presented to ED with c/o generalized weakness. EF worsened 20-25% from prior 40% with regional WMA but not cath candidated. Declined hospice referral. Awaiting [facility]ICK placement. - Patient Problems (1) Hypotension Current Visit: Yes Status: Acute Comment: - On Midodrine and Florinef for hypotension during HD. ruling out adrenal insufficiency. (2) Atrial fibrillation Current Visit: Yes Status: Chronic Priority: Medium Code(s): I48.91 - UNSPECIFIED ATRIAL FIBRILLATION SNOMED Code(s): 50795992 Comment: - Patient now in a-fib chronically. Amiodarone d/tegan per cardiology recs. BPs have not allowed started low-dose beta liane soon. BP still running soft at this point. - restart warfaring. INR goal 2-3 - consider digoxin? (3) ESRD on hemodialysis Current Visit: Yes Status: Acute Priority: Medium Code(s): N18.6 - END STAGE RENAL DISEASE; Z99.2 - DEPENDENCE ON RENAL DIALYSIS SNOMED Code(s): 227457098 Comment: - Continue HD as tolerated. - Appreciate surgery assement: Reports catheter is well established and sutures not necessary. - Nephrology to dialyze patient on Tuesday. f/u checking renin, aldosterone. AM cortisol 20.3 wnl. Cardiology would like to stop Florinef, but low pressures ( was not even able to get HD yesterday) has made this problematic. (4) Elevated troponin level Current Visit: Yes Status: Acute Code(s): R74.8 - ABNORMAL LEVELS OF OTHER SERUM ENZYMES SNOMED Code(s): 179498358 Comment: - Minimal elevation, likely secondary to ESRD/CHF. No signs of acute ischemia. - Echocardiogram shows worsenened EF in patient with known CAD. multiple regional wall motion abnormalities. - apprecaiate Cardiology consult - not a [facility] candidate at this time. (5) Full code status Current Visit: Yes Status: Acute Priority: Low Code(s): Z78.9 - OTHER SPECIFIED HEALTH STATUS SNOMED Code(s): 618774565 Comment: - Declined hospice, wishes to remain full code (6) Systolic CHF Current Visit: Yes Status: Acute Priority: High Code(s): I50.20 - UNSPECIFIED SYSTOLIC (CONGESTIVE) HEART FAILURE SNOMED Code(s): 31899772 Comment: - Patient has new systolic failure, EF 20%. Dr. Anderson was contacted by [facility]. Patient has end-stage heart failure, s/p TAVR, no further intervention is advised - Cardiology consult appreciated - Continue medical management and optimization (7) Weakness Current Visit: Yes Status: Acute Code(s): R53.1 - WEAKNESS SNOMED Code(s) : 34528137 Comment: - This appears to be secondary to deconditioning, but CHF may be playing a role too. - No significant arrhythmias on Telemetry so far. - Patient recommended for NICK, potential d/c to [facility] on Tuesday (8) DVT prophylaxis Current Visit: Yes Status: Acute Priority: Low Code(s): Z29.9 - ENCOUNTER FOR PROPHYLACTIC MEASURES, UNSPECIFIED SNOMED Code(s): 156803650 Comment: - restart warfrain as INR now subtherapeutic. - INR daily Status and Disposition: inpatient to continue cardiac w/u. Will need [facility] on discharge.
[2019-05-12] MEDS ORDERED: Warfarin TAB(*) 2 MG PO NR (17:00)
[2019-05-12] MEDS: Gabapentin CAP(*) 300 MG PO SCH (21:45)
[2019-05-12] MEDS: Atorvastatin* 20 MG TAB PO SCH (21:46)
[2019-05-12] MEDS: Ondansetron INJ* 2 MG/ML VIAL IV PRN (21:46)
[2019-05-13] MEDS: Ondansetron INJ* 2 MG/ML VIAL IV PRN ×3 (02:41→22:16)
[2019-05-13] MEDS: Levothyroxine TAB* 75 MCG TAB PO SCH (05:13)
[2019-05-13 08:32] LABS: BUN/Creatinine Ratio 8.7 (8-20); EGFR African American 10.2 (>60); EGFR Non-African American 8.5 (>60)
[2019-05-13 08:37] LABS: Potassium 5.5 mmol/L (3.5-5.0)
[2019-05-13 08:48] LABS: INR 2.08 (0.82-1.09)
[2019-05-13] MEDS ORDERED: Ondansetron INJ* 2 MG/ML VIAL IV ONE (08:54)
[2019-05-13] MEDS ORDERED: Patiromer POWDER* 8.4 GM PAK PO ONE (10:00)
[2019-05-13] MEDS: Docusate CAP* 100 MG PO SCH (10:47)
[2019-05-13] MEDS: CMCS: Midodrine 5 MG TAB PO SCH ×3 (10:47→22:16)
[2019-05-13] MEDS: Cyanocobalamin TAB* 500 MCG PO SCH (10:48)
[2019-05-13] MEDS: Multivitamins/Minerals TAB PO SCH (10:48)
[2019-05-13] MEDS: Pantoprazole TAB * 40 MG TAB PO SCH (10:48)
[2019-05-13] MEDS: Ferrous Sulfate TAB* 325 MG PO SCH (10:48)
[2019-05-13] MEDS: Fludrocortisone Acetate TAB* 0.1 MG PO SCH (10:48)
--- NOTE | 2019-05-13 11:47 | PN ---
Subjective Date of Service: 05/13/19 Interval History: intermittent nausea K to 5.5, patiromer ordrered and did have a BM later in day. hypotension continues some dizziness with ambulation last night. son at bedside, asking that there not be terrence discussions about the severity of her illness in front of her. "she asked me to take her bible away, she used to read that every day" Family History: Unchanged from Admission Social History: Unchanged from Admission Past Medical History: Unchanged from Admission Objective Active Medications: Acetaminophen (Tylenol Tab*) 650 mg PO Q4H PRN PRN Reason: PAIN-MILD/TEMP >/= 100.4 Last Admin: 05/11/19 23:31 Dose: 650 mg Atorvastatin Calcium (Lipitor*) 20 mg PO BEDTIME [facility] Last Admin: 05/12/19 21:46 Dose: 20 mg Cyanocobalamin (Vitamin B12 Tab*) 1,000 mcg PO DAILY [facility] Last Admin: 05/13/19 10:48 Dose: 1,000 mcg Docusate Sodium (Colace Cap*) 200 mg PO DAILY [facility] Last Admin: 05/13/19 10:47 Dose: 200 mg Docusate Sodium (Colace Cap*) 100 mg PO BID PRN PRN Reason: CONSTIPATION Last Admin: 05/09/19 20:07 Dose: 100 mg Ferrous Sulfate (Ferrous Sulfate Tab*) 325 mg PO DAILY [facility] Last Admin: 05/13/19 10:48 Dose: 325 mg Fludrocortisone Acetate (Florinef Tab*) 0.1 mg PO DAILY [facility] Last Admin: 05/13/19 10:48 Dose: 0.1 mg Gabapentin (Neurontin Cap(*)) 300 mg PO BEDTIME [facility] Last Admin: 05/12/19 21:45 Dose: 300 mg Levothyroxine Sodium (Synthroid Tab*) 75 mcg PO 0600 [facility] Last Admin: 05/13/19 05:13 Dose: 75 mcg Midodrine (Midodrine) 10 mg PO TID [facility] Last Admin: 05/13/19 10:47 Dose: 10 mg Multivitamins/Minerals (Theragran/Minerals Tab*) 1 tab PO DAILY [facility] Last Admin: 05/13/19 10:48 Dose: 1 tab Ondansetron HCl (Zofran Inj*) 4 mg IV Q8H PRN PRN Reason: NAUSEA/VOMITING Last Admin: 05/13/19 02:41 Dose: 4 mg Pantoprazole Sodium (Protonix Tab*) 40 mg PO DAILY [facility] Last Admin: 05/13/19 10:48 Dose: 40 mg Vital Signs - 8 hr 05/13/19 05/13/19 07:15 08:00 Temperature 98.9 F Pulse Rate 106 Respiratory 20 20 Rate Blood Pressure 85/63 (mmHg) O2 Sat by Pulse 97 Oximetry Oxygen Devices in Use Now: None Appearance: NAD, chronically ill appearing. Eyes: No Scleral Icterus Ears/Nose/Mouth/Throat: NL Teeth, Lips, Gums Respiratory: Symmetrical Chest Expansion and Respiratory Effort, - - b/l rales, no rhonchi or wheezing. Abdominal: NL Sounds; No Tenderness; No Distention, No Hepatosplenomegaly Extremities: No Edema Skin: No Rash or Ulcers Neurological: Alert and Oriented x 3 Lines/Tubes/Other Access: Clean, Dry and Intact Other Access - Left chest, tunnelled HD cath Result Diagrams: 05/12/19 06:56 05/13/19 08:01 Additional Lab and Data: Laboratory Results - last 24 hr 05/13/19 05/13/19 05/13/19 07:43 08:01 16:18 INR (Anticoag Therapy) 2.08 H Sodium 126 L Potassium 5.5 H Chloride 91 L Carbon Dioxide 19 L Anion Gap 16 H BUN 43 H Creatinine 4.93 H Est GFR ( Amer) 10.2 Est GFR (Non-Af Amer) 8.5 BUN/Creatinine Ratio 8.7 Glucose 114 H POC Glucose (mg/dL) 174 H Calcium 9.0 Assess/Plan/Problems-Billing Assessment: Mrs Zuñiga is an 78yo F with PMH of ESRD on HD, RA, Afib (on coumadin), aortic stenosis s/p TAVR, diastolic CHF, hypothyroidism, CAD; subacute hypotension since HD started who presented to ED with c/o generalized weakness. EF worsened 20-25% from prior 40% with regional WMA but not cath candidated. Declined hospice referral. Awaiting [facility] placement. - Patient Problems (1) Hypotension Current Visit: Yes Status: Acute Comment: - On Midodrine and Florinef for hypotension during HD. ruling out adrenal insufficiency. (2) Atrial fibrillation Current Visit: Yes Status: Chronic Priority: Medium Code(s): I48.91 - UNSPECIFIED ATRIAL FIBRILLATION SNOMED Code(s): 57277222 Comment: - Patient now in a-fib chronically. Amiodarone d/tegan per cardiology recs ( potential side effect of refractory hypotention). BPs have not allowed started low-dose beta liane soon. BP still running soft at this point. - continue warfarin. INR goal 2-3 - could consider digoxin if rates are out of control though would be renally dosed give CKD5 (3) ESRD on hemodialysis Current Visit: Yes Status: Acute Priority: Medium Code(s): N18.6 - END STAGE RENAL DISEASE; Z99.2 - DEPENDENCE ON RENAL DIALYSIS SNOMED Code(s): 444429727 Comment: - Continue HD as tolerated. - Appreciate surgery assement: Reports catheter is well established and sutures not necessary. - Nephrology to dialyze patient on Tuesday. f/u checking renin, aldosterone. AM cortisol 20.3 wnl. Cardiology would like to stop Florinef, but low pressures ( was not even able to get HD yesterday) has made this problematic. (4) Elevated troponin level Current Visit: Yes Status: Acute Code(s): R74.8 - ABNORMAL LEVELS OF OTHER SERUM ENZYMES SNOMED Code(s): 794077805 Comment: - Minimal elevation, likely secondary to ESRD/CHF. No signs of acute ischemia. - Echocardiogram shows worsenened EF in patient with known CAD. multiple regional wall motion abnormalities. - apprecaiate Cardiology consult - not a [facility] candidate at this time. (5) Full code status Current Visit: Yes Status: Acute Priority: Low Code(s): Z78.9 - OTHER SPECIFIED HEALTH STATUS SNOMED Code(s): 182659862 Comment: - Declined hospice, wishes to remain full code (6) Systolic CHF Current Visit: Yes Status: Acute Priority: High Code(s): I50.20 - UNSPECIFIED SYSTOLIC (CONGESTIVE) HEART FAILURE SNOMED Code(s): 95061837 Comment: - Patient has new systolic failure, EF 20%. Dr. Anderson was contacted by [facility]. Patient has end-stage heart failure, s/p TAVR, no further intervention is advised - Cardiology consult appreciated - Continue medical management and optimization (7) Weakness Current Visit: Yes Status: Acute Code(s): R53.1 - WEAKNESS SNOMED Code(s) : 33683127 Comment: - This appears to be secondary to deconditioning, but CHF may be playing a role too. - No significant arrhythmias on Telemetry so far. - Patient recommended for [facility], potential d/c to [facility] on Tuesday (8) DVT prophylaxis Current Visit: Yes Status: Acute Priority: Low Code(s): Z29.9 - ENCOUNTER FOR PROPHYLACTIC MEASURES, UNSPECIFIED SNOMED Code(s): 007171729 Comment: - continue warfrain as INR - INR daily Status and Disposition: inpatient to continue cardiac w/u. Will need [facility] on discharge.
[2019-05-13] MEDS: Atorvastatin* 20 MG TAB PO SCH (22:16)
[2019-05-13] MEDS: Gabapentin CAP(*) 300 MG PO SCH (22:16)
[2019-05-14] MEDS: Levothyroxine TAB* 75 MCG TAB PO SCH (06:01)
[2019-05-14] MEDS: Cyanocobalamin TAB* 500 MCG PO SCH (08:07)
[2019-05-14] MEDS: Docusate CAP* 100 MG PO SCH (08:07)
[2019-05-14] MEDS: Ondansetron INJ* 2 MG/ML VIAL IV PRN (08:07)
[2019-05-14] MEDS: Multivitamins/Minerals TAB PO SCH (08:07)
[2019-05-14] MEDS: Pantoprazole TAB * 40 MG TAB PO SCH (08:08)
[2019-05-14] MEDS: Fludrocortisone Acetate TAB* 0.1 MG PO SCH (08:09)
[2019-05-14] MEDS: Ferrous Sulfate TAB* 325 MG PO SCH (08:09)
[2019-05-14] MEDS: CMCS: Midodrine 5 MG TAB PO SCH ×2 (08:09→14:48)
--- NOTE | 2019-05-14 08:19 | PN ---
Progress Note - Progress Note Date of Service: 05/14/19 Note: Dialysis-Acute Note: Dr. Chelsea Whaley, [facility] nephrology Seen and examined on HD today 05/14 No c/c. Disoriented to time. Recurrent Hypotensin. HD Routine: MWF. Didn't get HD Saturday 09/16 staff shortage. Gained 3.5L since last HD session on Tuesday HD Duration: 3 Hr UF Goal: 2L/Rx Vitals: Temp Pulse Resp BP Pulse Ox 97.7 F 81 20 88/61 97 05/14/19 07:15 05/14/19 07:15 05/14/19 07:15 05/14/19 07:15 05/14/19 07:15 Blood Flow: 400 cc/min Dialysate Flow: 600 cc/min Bath: K: 2K Ca: 2.5Ca Na: 138 Hco3: 35 Dialyzer: Revaclear [id number] Access: Lt IJ TDC No Access Related Issues PMH: Hypothyroidism LVEF 20-25%, was 40% on 06/2018. s/p TAVR. AF off Amio & diuretics Acute on Chronic CHF on Midodrine and Florinef therapy. ESRD Meds: Acetaminophen Atorvastatin Cyanocobalamin Docusate Ferrous Fludrocortisone 0.1 qd Gabapentin 300 qd Levothyroxine Midodrine 10 TID Multivitamins/Minerals Ondansetron Pantoprazole Meds with HD: Heparin Loading 3,000 unit Labs: Laboratory Results - last 24 hr 05/13/19 05/13/19 05/13/19 07:43 08:01 16:18 INR (Anticoag Therapy) 2.08 H Sodium 126 L Potassium 5.5 H Chloride 91 L Carbon Dioxide 19 L Anion Gap 16 H BUN 43 H Creatinine 4.93 H Est GFR ( Amer) 10.2 Est GFR (Non-Af Amer) 8.5 BUN/Creatinine Ratio 8.7 Glucose 114 H POC Glucose (mg/dL) 174 H Calcium 9.0 A/P: *HD going well 1)Access: No Access Related Issues 2)BP dropping on Midodrine & Florinef. UF only 2L 3)Hb/Hct: Ok 4)Lytes: Na low: Likely Hypervolemic Hypo-Na: Advise water restriction K 5.5: HD with 2K Bath Co2: Ok. Co2 Bath 35 5) Intradialytic Hypotension, 2/2 to Low EF. as above
[2019-05-14] MEDS ORDERED: Heparin DIALYSIS ONLY(*) 1,000 UNITS/ML VIAL DIALYSIS ONE (11:00)
[2019-05-14 14:12] LABS: Hepatitis B Surface Antigen Nonreactive (Nonreactive)
[2019-05-14 14:29] LABS: Hepatitis B Surface Ab Not Immune (Immune)
[2019-05-14 17:03] VITALS: BP 62/35
--- NOTE | 2019-05-14 17:18 | DS ---
DISCHARGE SUMMARY: DATE OF ADMISSION: 05/07/19 DATE OF DISCHARGE: 05/14/19 PRIMARY DIAGNOSES: 1. Newly diagnosed systolic heart failure with ejection fraction of 20%. 2. End-stage renal disease, on hemodialysis. 3. Hypotension with symptoms. 4. Weakness. HOSPITAL COURSE: An 78-year-old female with history of ESRD, on hemodialysis over the last several months, rheumatoid arthritis, atrial fibrillation on Coumadin, aortic valve replacement and TAVR, left knee replacement, hypothyroidism, coronary artery disease with cardiac catheterization in 2017, came into the hospital after feeling very weak, reports that her legs were heavy prior to getting on the transport to go to dialysis and the patient fell and the patient was brought to the ER for evaluation. The patient was evaluated for weakness, but the patient's blood pressure was noted to be in the 70s to 80s through hospital course. The patient's initial lactic acid was somewhat elevated at 2.1, improved to 1.[address] of the brain had no intracranial pathology. Chest x-ray had cardiomegaly with pulmonary edema, mild in nature. The patient had a CT C-spine, which showed osteopenia with no C-spine fracture. The patient had other spondylosis and changes as described below. The patient was noted to be very deconditioned. The patient was initially given a 250 cc bolus. With respect to her ESRD, on hemodialysis, the patient was dialyzed through her hospital course. However, the patient's blood pressure has been between 60 and 80 in the hospital and the patient is chronically on midodrine 10 mg 3 times a day and Florinef 0.1 mg once a day. For evaluation of her hypotension and volume overload, the patient underwent an echocardiogram to evaluate her cardiac status on 05/08/19. The patient was noted to have systolic function that was severely reduced to 20% to 25%, severe diffuse hypokinesis with multiple regional wall motion abnormalities, right ventricle systolic function moderately to severely reduced, mild to moderate mitral regurge, TAVR was noted, valve area was noted to be 0.8. The patient was seen by Cardiology and Nephrology through hospital course. The patient was seen by Dr. Escobar, Cardiology on 05/09/19. Overall, her prognosis was noted to be poor. Ideally, treatment would have been beta-blockers and SANDRA inhibitors , but in light of her blood pressure being in the 70s and 80s, this cannot be instituted. The patient's isosorbide was held. They recommended stopping her amiodarone and torsemide, which have been done. The patient was attempted to come off the Florinef, which they recommended to be off as well; however, the patient's blood pressure dropped to the 70s and the patient has needed to be on the Florinef. For hypotension workup, cortisol level was checked which was within normal limits. Renin aldosterone level was checked, which is currently pending, the results of which to be followed up as an outpatient. The patient is currently on gabapentin 300 mg at bedtime. This has been continued and in the future, can consider slowly weaning this off, but the patient at this time is comfortable with this dose and has been on it for a while. The patient's prognosis overall was noted to be poor and hospice comfort care discussion was held with the patient and their family. Palliative care consult was obtained with Dr. Lozoya. Per family discussion, the patient and family do not want to consider comfort care or hospice at this time and are willing to go to rehab for her weakness, but want to continue medical management. In light of this, the patient has been optimized and the patient's medications have been minimized and as the patient cannot be off the fludrocortisone currently, the patient is being discharged on midodrine and fludrocortisone. With this and her ongoing dialysis to help with her volume, the patient has been able to maintain a blood pressure in the high 80s to 90s. Blood pressure after dialysis today noted to be 98/40, earlier noted to be 88/61. PHYSICAL EXAMINATION: Other vitals: Temperature 97.7, pulse 81, respiratory rate 20, oxygen saturation 97% on room air, blood pressure 88/61 to 98/40. HEENT: NCAT. Heart: S1, S2 present, irregularly irregular at time of exam. Lungs: Clear to auscultation. Abdomen: Soft. Extremities: Noted to have no edema. Neuro: Alert. MEDICATIONS: 1. Zofran as needed. 2. Gabapentin 300 mg at bedtime. 3. Coumadin 2 mg p.o. at bedtime. 4. Midodrine 10 mg p.o. t.i.d. 5. B12 1000 mcg p.o. daily. 6. Multivitamin 1 tab p.o. daily. 7. Atorvastatin 20 mg p.o. at bedtime. 8. Acetaminophen 650 mg p.o. q.4 hours p.r.n. for pain. 9. Colace 200 mg p.o. daily. 10. Pantoprazole 40 mg p.o. daily. 11. Levothyroxine 75 mcg p.o. daily. 12. Ferrous sulfate 325 mg p.o. daily. 13. Fludrocortisone 0.1 mg p.o. daily. DIAGNOSTIC STUDIES/LAB DATA: Labs: Sodium 126, potassium 5.5, chloride 91, CO2 of 19, BUN 43, creatinine 4.93, this was prior to dialysis and the patient was dialyzed today. INR today noted to be 2.08. The patient did not receive her 2 mg of Coumadin yesterday and her last dose of 2 mg was on the . Further adjustment and evaluation of her INR is needed to determine the appropriate Coumadin dose for her. Other imaging during hospital stay. X-ray on 05/07/19, cardiomegaly with mild pulmonary edema. Cervical spine CT on 05/07/19, generalized osteopenia with no C- spine fracture, grade 1 anterolisthesis of C3-C4 and C4-C5 likely degenerative, varying degrees of multilevel spondylosis, resultant at least mild spinal canal stenosis from C2-C3 through C4-C5, moderate left facet arthropathy at C3-C4 and C4- C5, hyperdense material posteriorly and to the left of the oral cavity incompletely imaged. Likely reflective of dental prosthesis, direct inspection was recommended. Brain CT on 05/07/19, no acute intracranial pathology, chronic small vessel ischemic change. INSTRUCTIONS: 1. The patient will be discharged to [facility] for rehab. 2. As discussed above, the patient's wants to continue medical care. A palliative consult was obtained through hospital stay. 3. The patient to continue dialysis Tuesday, Tuesday, Tuesday at the outpatient dialysis unit. 4. Dry weight and volume to be adjusted during dialysis. 5. Coumadin dose to be readjusted based on her PT/INR. INR today was 2, but the patient's last Coumadin dose was 2 mg on 05/12/19. 6. The patient to follow up with her PCP in a week. 7. The patient to follow up with Cardiology as an outpatient. 8. Can evaluate slowly weaning off gabapentin and fludrocortisone as an outpatient, but currently requires it. 9. The patient's torsemide has been held. TIME SPENT: Total time spent on discharge equals to 50 minutes. [id number]/[facility] #: [id number]
[2019-05-16 14:56] LABS: Renin 8.6 ng/mL/h
--- NOTE | 2019-05-24 21:38 | DS ---
DISCHARGE SUMMARY: ADDENDUM: DATE OF DISCHARGE: 05/14/19 CONDITION ON DISCHARGE: Improved. [id number]/[facility] #: [id number] MTDD
== END 2019-05-14 16:42 | DRG 291 ==
LOC: ED 10:39 → MEDTELE 15:09 → OBSVTOIN 05-08 10:00
PROVIDERS: ADMIT Internal Medicine; ATTEND Internal Medicine
PROC: 5A1D70Z Performance of Urinary Filtration, Intermittent, Less than 6 Hours Per Day (ICD-10-PCS; principal; 2019-05-08)
PROC: 5A1D70Z Performance of Urinary Filtration, Intermittent, Less than 6 Hours Per Day (ICD-10-PCS; 2019-05-09)
PROC: 5A1D70Z Performance of Urinary Filtration, Intermittent, Less than 6 Hours Per Day (ICD-10-PCS; 2019-05-14)
DX: I50.43 Acute on chronic combined systolic (congestive) and diastolic (congestive) heart failure (principal); N18.6 End stage renal disease; E87.1 Hypo-osmolality and hyponatremia; I42.9 Cardiomyopathy, unspecified; I48.1 Persistent atrial fibrillation; I95.9 Hypotension, unspecified; M06.9 Rheumatoid arthritis, unspecified; I05.0 Rheumatic mitral stenosis; D53.9 Nutritional anemia, unspecified; E89.0 Postprocedural hypothyroidism; I25.10 Atherosclerotic heart disease of native coronary artery without angina pectoris; I95.1 Orthostatic hypotension; I50.84 End stage heart failure; M85.88 Other specified disorders of bone density and structure, other site; M47.892 Other spondylosis, cervical region; R53.1 Weakness; H91.90 Unspecified hearing loss, unspecified ear; R06.00 Dyspnea, unspecified; Z96.652 Presence of left artificial knee joint; Z99.2 Dependence on renal dialysis; Z95.2 Presence of prosthetic heart valve; V68.4XXA Person boarding or alighting a heavy transport vehicle injured in noncollision transport accident, initial encounter; Y92.9 Unspecified place or not applicable; Z79.01 Long term (current) use of anticoagulants; Z79.1 Long term (current) use of non-steroidal anti-inflammatories (NSAID); Z79.899 Other long term (current) drug therapy; Z88.1 Allergy status to other antibiotic agents; Z88.0 Allergy status to penicillin; Z88.2 Allergy status to sulfonamides; Z82.61 Family history of arthritis; Z85.3 Personal history of malignant neoplasm of breast
CPT/HCPCS: 36415; 70450; 71045; 72125; 80048; 80053; 82088; 82533; 82607; 83605; 83735; 84244; 84443; 84484; 85025; 85610; 85730; 86706; 87340; 90935; 93005; 94762; 99284; A9270-GY; G0257; G0378; G8978-GP-CJ; G8979-GP-CI; J1644; J2405

== ENCOUNTER 2019-08-28 11:41 | Emergency (ER) | payer MEDICARE ==
--- NOTE | 2019-08-28 12:28 | ED ---
Altered Mental Status - HPI Summary HPI Summary: This pt is an 78 Y/O F presenting to [facility] from dialysis accompanied by her family with a CC of increased weakness that stated on Tuesday08/22/2019. She was admitted due to low sodium and chronically low blood pressure. She was unable to be properly on dialysis 2/2 hypotension but was filtered. She has been confused and has had an AMS since before her arrival back at her [facility]. She has been agitated and uncooperative stating that people are out to kill her. Her granddaughter states that the pt has become more altered over the past 3 weeks. Her daughter states that the pt is becoming worse without any alleviating symptoms. She has no aggravating factors. She has a PMHx of AFIB and Hypothyroidism. Her granddaughter also mentioned that the pt has not made her own urine since starting dialysis. This pt is a level 5 caveat due to her AMS. The pt's granddaughter is the health care proxy and expressed concern about the pt becoming a DNR. She stated that the pt would suffer from CPR. The granddaughter states that she is unsure of a DNI. - History Of Current Complaint Chief Complaint: EDAltMentalStatus Stated Complaint: AMS PER EMS Time Seen by Provider: 08/28/19 11:58 Hx Obtained From: Family/Early Childhood - grandaughter Hx From Patient Unobtainable Due To: Altered Mental Status Last Known Well Date: 08/21/2019 Onset/Duration: Unknown, Still Present Timing: Constant Character: Confusion - per grandaughter Aggravating Factor(s): Nothing Alleviating Factor(s): Nothing - Allergies/Home Medications Allergies/Adverse Reactions: Allergies Allergy/AdvReac Type Severity Reaction Status Date / Time amoxicillin Allergy Rash Verified 04/01/19 10:26 Penicillins Allergy Rash Verified 04/01/19 10:26 Sulfa (Sulfonamide Allergy Rash Verified 04/01/19 10:26 Antibiotics) Home Medications: Home Medications Docusate CAP* [Colace Cap*] 100 mg PO DAILY 08/28/19 [History Confirmed 08/28/19 ] Doxercalciferol Inj* [Hectorol INJ*] 0.5 mcg IV ONCE 08/28/19 [History Confirmed 08/28/19] Hepatitis B Virus Vaccine/Pf [Engerix-B 20 Mcg/ml Syrn] 40 mcg IM ONCE 08/28/19 [History Confirmed 08/28/19] Iron Sucrose* [Venofer*] 100 mg IV ONCE 08/28/19 [History Confirmed 08/28/19] Nitroglycerin TAB 0.4 MG* 0.4 mg SL Q5M PRN MDD 3 tabs 08/28/19 [History Confirmed 08/28/19] Nut.tx.impaired Renal Fxn,Soy [Novasource Renal] 1 liq PO .3X/WEEK 08/28/19 [ History Confirmed 08/28/19] Ondansetron ODT TAB* [Zofran 4 MG Odt TAB*] 4 mg PO Q8H PRN 08/28/19 [History Confirmed 08/28/19] Warfarin TAB(*) [Coumadin TAB(*)] 1 mg PO SUTUSA 08/28/19 [History Confirmed ] Warfarin TAB(*) [Coumadin TAB(*)] 4 mg PO QPM 08/28/19 [History Confirmed ] diPHENhydraMINE PO* [Benadryl PO 25 MG TAB*] 25 mg PO DAILY PRN 08/28/19 [ History Confirmed 08/28/19] diPHENhydraMINE PO* [Benadryl PO 50 MG CAP*] 50 mg PO DAILY PRN 08/28/19 [ History Confirmed 08/28/19] PMH/Surg Hx/FS Hx/Imm Hx Previously Healthy: Yes - A FULL PMHX IS UNOBTAINABLE DUE TO HER AMS Endocrine/Hematology History: Reports: Hx Blood Transfusions, Hx Thyroid Disease , Hx Anemia Denies: Hx Anticoagulant Therapy, Hx Diabetes Cardiovascular History: Reports: Hx Congestive Heart Failure, Hx Coronary Artery Disease - per H&P, Hx Hypotension, Hx Hypertension - MEDICATED, Hx Valvular Heart Disease - Aortic valve replacement 2016, Other Cardiovascular Problems/Disorders - L diastolic failure, TAVR Denies: Hx Pacemaker/ICD Respiratory History: Denies: Hx Asthma, Other Respiratory Problems/Disorders GI History: Reports: Hx Hiatal Hernia Denies: Other GI Disorders History: Reports: Other Problems/Disorders - UTI 08/05/17 Musculoskeletal History: Reports: Hx Arthritis, Hx Rheumatoid Arthritis, Other Musculoskeletal History - Rheumatoid Arthritis Denies: Hx Tendonitis Sensory History: Reports: Hx Cataracts - Bilateral cataract extractions, Hx Contacts or Glasses, Hx Hearing Problem Denies: Hx Glaucoma, Hx Hearing Aid Opthamlomology History: Reports: Hx Cataracts - Bilateral cataract extractions, Hx Contacts or Glasses Denies: Hx Glaucoma Neurological History: Denies: Other Neuro Impairments/Disorders Psychiatric History: Denies: Hx Panic Disorder, Other Psychiatric Issues/Disorders - PATIENT DENIES - Cancer History Cancer Type, Location and Year: BREAST CA Hx Chemotherapy: No - Right Mastectomy Hx Radiation Therapy: No - Surgical History Surgical History: Yes Surgery Procedure, Year, and Place: Partial thyroidectomy. Aortic Valve Replacement. Double Mastectomy, Right 23 y/o. Oopherectomy-. Bilateral Cataracts with lens implants. LEFT KNEE REPLACEMENT Hx Anesthesia Reactions: No - Immunization History Immunizations Up to Date: Yes Infectious Disease History: No Infectious Disease History: Reports: Hx Shingles - 2002 Denies: Hx Hepatitis, History Other Infectious Disease, Traveled Outside the [place] in Last 30 Days - Family History Known Family History: Negative: Respiratory Disease - Social History Occupation: Retired Lives: At [facility] Alcohol Use: pt confused, unable to assess Hx Substance Use: No Substance Use Type: Reports: None Hx Tobacco Use: No Smoking Status (MU): Never Smoked Tobacco Review of Systems - ROS Summary Review of Systems Summary: A FULL ROS IS UNOBTAINABLE DUE TO THE PT'S AMS. Neurological: Other - AMS Positive: Weakness - PER GRANDAUGHTER All Other Systems Reviewed And Are Negative: No Physical Exam - Summary Physical Exam Summary: Constitutional: Elderly female, ill appearing Skin: Warm, Dry HENT: Normocephalic; Atraumatic, dry MM Eyes: Conjunctiva normal Neck: Musculoskeletal ROM normal neck. (-) JVD, (-) Stridor, (-) Nuchal rigidity Cardio: irregularly irregular Heart sounds normal; Intact distal pulses; Radial pulses are 2+ and symmetric. (-) Murmur Pulmonary/Chest wall: Effort normal. Bibasilar crackles. (-) Respiratory distress, (-) Wheezes, (-) Rales. L permacath Abd: Soft, (-) tenderness, (-) Distension, (-) Guarding, (-) Rebound Musculoskeletal: Edema of the RUE Lymph: (-) Cervical adenopathy Neuro: somnolent, oriented to person not time Psych: deferred due to AMS Triage Information Reviewed: Yes Vital Signs On Initial Exam: Initial Vitals Temp Pulse Resp BP Pulse Ox 97.3 F 124 18 90/66 100 08/28/19 11:48 08/28/19 11:48 08/28/19 11:48 08/28/19 11:48 08/28/19 11:48 Vital Signs Reviewed: Yes Procedures - Sedation Patient Received Moderate/Deep Sedation with Procedure: No Diagnostics - Vital Signs Vital Signs Temp Pulse Resp BP Pulse Ox 08/28/19 11:48 97.3 F 124 18 90/66 100 - Laboratory Result Diagrams: 08/28/19 12:11 08/28/19 12:11 Lab Statement: Any lab studies that have been ordered have been reviewed, and results considered in the medical decision making process. - Radiology CXR Radiology Interpretation Completed By: Radiologist Summary of Radiographic Findings: CARDIOMEGALY WITH INTERSTITIAL EDEMA AND CHF. CENTRAL LINE IS IN PLACE. ED physician has reviewed this report. - CT Brain CT CT Interpretation Completed By: Radiologist Summary of CT Findings: NO ACUTE INTRACRANIAL PATHOLOGY. CHRONIC SMALL VESSEL ISCHEMIC CHANGE. ED physician has reviewed this report. - EKG 1203 Cardiac Rate: Tachycardia - 116 BPM EKG Rhythm: Atrial Fibrillation Summary of EKG Findings: An EKG at 1203 reveals AFIB at 116 BPM, nml axis, nml intervals. No STEMI. No acute changes. Dr. Graff interpreted this EKG at 1208 08/28/2019. Altered Mental Statu Course/Dx - Course Course Of Treatment: 78 y/o F w hx ESRD, hypothyroidism, recent admission for AMS, hyponatremia and hypertension presenting with persistent symptoms. - labs will for improved hyponatremia, trop 0.06. EKG w/o acute changes. - chest x- ray shows interstitial pulmonary edema consistent with volume overload. - Granddaughter is concerned that patient is worsening, would like to speak with health and social care teacher regarding making her comfort care at her fdc. Patient has been refusing dialysis and not wanting to eat much. - Brooklynn from health and social care teacher came down and filled out MOLST form to make patient a DNR with the help of her POA (her granddaughter). - Discussed with her granddaughter regarding further testing including repeat troponin given mild elevation. Granddaughter states that she does not want further interventions or invasive measures, therefore will not repeat troponin and further testing. - Patient placed on 2 L of nasal cannula intermittently for comfort. She can get this at her fdc PRN. Family is understanding that without dialysis patient will likely continue to decline. - family including daughter and granddaughter to discuss comfort measures and fill out the remaining sections of MOLST form at another time. - Diagnoses Provider Diagnoses: ESRD (end stage renal disease), Hyponatremia, Hypoglycemia, Altered mental status Discharge ED - Sign-Out/Discharge Documenting (check all that apply): Patient Departure - discharge - Discharge Plan Condition: Guarded Disposition: HOME Patient Education Materials: End Stage Kidney Disease (ED) Referrals: Deysi Mir DO [Primary Care Provider] - 2 Days Additional Instructions: Maureen was seen in the ER for worsening fatigue and altered mental status. Her labs are similar to prior. We discussed placing her on comfort measures, which includes no longer using invasive testing, or admitting her to the hospital. she can continue her home medications and dialysis if she wishes. We made her DNR. It was a pleasure taking care of her today. - Billing Disposition and Condition Condition: GUARDED Disposition: Home - Attestation Statements Document Initiated by Heberte: Yes Documenting Scribe: Patrick Hayes Provider For Whom Kyra is Documenting (Include Credential): Niki Graff MD Scribe Attestation: IPatrick, scribed for Niki Graff MD on 08/29/19 at 0742. Scribe Documentation Reviewed: Yes Provider Attestation: The documentation as recorded by the Patrick wagner accurately reflects the service I personally performed and the decisions made by me, Niki Graff MD Status of Scribe Document: Viewed
[2019-08-28 12:33] LABS: ABS Lymphocytes 0.5 10^3/ul (1.0-4.8); ABS Monocytes 0.5 10^3/ul (0-0.8); ABS Neutrophils 6.4 10^3/ul (1.5-7.7); Eosinophil % 0.3 %; Hematocrit 38 % (35-47); Hemoglobin 12.9 g/dL (12.0-16.0); Lymphocyte % 6.1 %; Mean Corpuscular HGB Conc 34 g/dL (31-36); Mean Corpuscular Hemoglobin 36 pg (27-31); Mean Corpuscular Volume 105 fL (80-97); Mean Platelet Volume 8.5 fL (7.4-10.4); Nucleated Red Blood Cells % 0.4; Platelet Count 164 10^3/uL (150-450); Red Blood Count 3.64 10^6 /uL (3.70-4.87); Red Cell Distribution Width 19 % (10-15); White Blood Count 7.4 10^3/uL (3.5-10.8)
[2019-08-28 12:43] LABS: Albumin 3.2 g/dL (3.2-5.2); Albumin/Globulin Ratio 1.2 (1-3); BUN/Creatinine Ratio 12.5 (8-20); Calcium 8.6 mg/dL (8.6-10.3); EGFR Non-African American 9.9 (>60); Globulin 2.6 g/dL (2-4); Potassium 3.9 mmol/L (3.5-5.0); Total Bilirubin 1.3 mg/dL (0.2-1.0); Total Protein 5.8 g/dL (6.4-8.9)
[2019-08-28 12:56] LABS: Troponin I 0.06 ng/mL (<0.03)
[2019-08-28] MEDS ORDERED: Dextrose 50% Syringe 50 ML* 25 GM/50 ML SYRINGE IV PUSH ONE (13:00)
[2019-08-28 13:01] LABS: TSH (Thyroid Stimulating Horm) 3.28 mcIU/mL (0.34-5.60)
[2019-08-28] MEDS ORDERED: Dextrose 50% VIAL 50 ml IV PUSH ONE (13:10)
[2019-08-28 13:19] LABS: INR 3.24 (0.82-1.09)
[2019-08-28] MEDS ORDERED: NS 0.9% 250 ML* 250 ML IV ONE (14:35)
[2019-08-28 15:28] VITALS: BP 93/62
== END 2019-08-28 15:26 | disposition home or self-care (01) ==
LOC: ED 11:41
DX: R41.82 Altered mental status, unspecified (principal); I13.2 Hypertensive heart and chronic kidney disease with heart failure and with stage 5 chronic kidney disease, or end stage renal disease; I50.9 Heart failure, unspecified; N18.6 End stage renal disease; E03.9 Hypothyroidism, unspecified; Z79.01 Long term (current) use of anticoagulants; Z99.2 Dependence on renal dialysis; Z88.0 Allergy status to penicillin; Z79.899 Other long term (current) drug therapy; Z85.3 Personal history of malignant neoplasm of breast
CPT/HCPCS: 36415; 70450; 71045; 80053; 84443; 84484; 85025; 85610; 93005; 96374; 99283